=== PATIENT | female | born 1945 | race Caucasian/White ===

== ENCOUNTER 2019-08-14 13:58 | Emergency (ER) | payer MEDICARE, BC, SELFPAY ==
[2019-08-14 14:05] VITALS: BP 120/71; PULSE 76; RESP 18; TEMP 36.6; O2SAT 95; BMI 25.4
== END 2019-08-14 16:33 | disposition left against medical advice (07) ==
LOC: ER 15:04
PROVIDERS: Emergency Provider Nurse Practitioner Family; PCP Family Medicine
DX: Z53.21 Procedure and treatment not carried out due to patient leaving prior to being seen by health care provider (principal)
CPT/HCPCS: 99281

== ENCOUNTER 2019-08-20 08:41 | Outpatient (CLI) | payer MEDICARE, BC, SELFPAY ==
--- NOTE | 2019-08-20 08:45 | CT_ITS ---
WS: [id number] CT THORACIC SPINE HISTORY: Thoracic pain, soft tissue mass. 3 palpable nodules upper mid back. TECHNIQUE: Contiguous 2.5 mm axial images are reviewed to thoracic spine. Images are reformatted in s agittal and coronal planes. All CT scans at [facility] use at least one of these dose opt imization techniques: automated exposure control; mA and/or kV adjustment per patient size (includes targeted exams where dose is matched to clinical indication); or iterative reconstruction. DLP: 1071.08 mGycm COMPARISON: 03/08/2018 Prior T11 compression fracture with stabilization hardware above and below the fracture. The entire l umbar vertebral hardware has not been included on this thoracic spine CT evaluation. Vertical rods an d pedicle screws at T9, T10, T12 and L1. No significant lucency around the hardware to suggest loosen ing. No hardware fracture. Severe degenerative disc space narrowing at T10-11 with stable healed T11 compression deformity. Laminectomy defect with bilateral at the T11 level. Severe RIGHT and moderate foraminal stenosis at T10-11. Similar to the prior evaluation from 03/08/2018. There is mild osteophyt e encroachment into the subarticular recesses and foramen. Markers are placed over the upper back in the area of the palpable nodules. There are no soft tissue masses identified on this limited evaluation of the thoracic spine. Paravertebral soft tissues and th e adjacent lungs are normal. Atherosclerosis of the thoracic aorta. Small hiatal hernia. Mild bilateral foraminal stenosis beginning at the T2-3 level through T9-10. CT/CT thoracic spin wo con* [id number] IMPRESSION: 1. No soft tissue masses along the upper paraspinal thoracic region. 2. Stable visualized fusion hardware in the thoracolumbar spine. 3. Healed T11 compression fracture with severe RIGHT and moderate LEFT foramin al stenosis at T10-11. 4. No progression of degenerative changes.
== END 2019-08-20 08:42 | disposition home or self-care (01) ==
LOC: RADWPI 08:45
PROVIDERS: Family Provider Family Medicine; PCP Family Medicine; Visit Provider Licensed Practical Nurse
DX: M54.6 Pain in thoracic spine (principal); M79.89 Other specified soft tissue disorders; M48.54XA Collapsed vertebra, not elsewhere classified, thoracic region, initial encounter for fracture; M48.04 Spinal stenosis, thoracic region
CPT/HCPCS: 72128

== ENCOUNTER 2019-09-18 10:57 | Outpatient (CLI) | payer MEDICARE, BC, SELFPAY ==
--- NOTE | 2019-09-18 11:07 | MR_ITS ---
WS: [id number] INDICATION: Proptosis trauma TECHNIQUE: MRI of the orbits and face without gadolinium enhancement. Sagittal T1, coronal T2, axial FLAIR, axial gradient, axial diffusion, coronal T2 and axial T1 thin imaging with attention to the or bits FINDINGS: No evidence of restricted diffusion to suggest acute ischemia. Ventricular system and basal cisterns are patent. Moderate small vessel changes. Moderate parenchymal volume loss. 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 Normal vascular flow voids at the skull base. No extra-axial fluid co llections. Paranasal sinuses and mastoid air cells are well aerated. Benign partially empty sella. Mild symmetr ic atrophy involving the temporal lobes and hippocampal formations. Normal optic chiasm and pituitary infundibulum. Optic nerves are normal in appearance. No evidence of optic nerve edema. Normal visual ized rectus muscles. Normal intraconal fat. Globes are normal in appearance. MR/[place] [id number] IMPRESSION: 1. Orbits are normal in appearance. No optic nerve edema. Normal rectus muscle s. 2. No evidence of intraorbital hematoma. Normal intraconal fat. 3. Mild small vessel changes with moderate parenchymal volume loss. 4. Mild symmetric atrophy involving the temporal lobes and hippocampal formati ons. 5. Normal optic chiasm.
[2019-09-18 12:00] LABS: Blood Urea Nitrogen 13 mg/dL (8-23)
== END 2019-09-18 10:58 | disposition home or self-care (01) ==
LOC: RADWPI 11:02
PROVIDERS: Family Provider Family Medicine; PCP Family Medicine; Visit Provider Ophthalmology
DX: H05.242 Constant exophthalmos, left eye (principal); G31.89 Other specified degenerative diseases of nervous system
CPT/HCPCS: 70336; 82565; 84520; A9579

== ENCOUNTER 2019-10-18 08:05 | Outpatient (CLI) | payer MEDICARE, BC, SELFPAY ==
--- NOTE | 2019-10-18 08:11 | MR_ITS ---
WS: [id number] MRI THORACIC SPINE WITH CONTRAST TECHNIQUE: Sagittal T1, T2 and STIR imaging. Axial T2 imaging. Post gadolinium imaging was obtained. CLINICAL INFORMATION: thoracic pain COMPARISON: CT 08/20/2019 and 03/08/2018. FINDINGS: Susceptibility artifact from hardware limits examination. Mild thoracic curve. Mild thoracic kyphosis. Postoperative changes prior pedicle screw fixation with posterior fixation rods. Fusion extends from T9 through S1. Chronic compression of the T11 vertebral body with anterior wedging is unchanged. Compression superior endplate. Loss of approximately 50% zee tebral body height. Interbody fusion at this level. Thoracic hardware appears stable. Partially visualized anterior fusion C6-7. No high-grade central ca nal stenosis. Cord signal appears normal where visualized. No abnormal gadolinium enhancement. No new compression fractures. No significant disc extrusions or protrusions. Mild bony foraminal narrowing T4-5, T7-T8, T8-9, and T12-L1. Normal visualized thoracic aorta. MR/MR thoracic spine wo/w [id number] IMPRESSION: 1. Limited examination due to extensive susceptibility artifact from hardware. 2. Prior postoperative changes pedicle screw fixation with interconnecting houston s T9-S1. 3. Stable appearing chronic compression at T11. No new compression fractures. 4. No high-grade central canal stenosis. Cord signal appears normal. 5. Partially visualized postoperative changes in the cervical spine at C6-7.
== END 2019-10-18 08:06 | disposition home or self-care (01) ==
LOC: RADWPI 08:09
PROVIDERS: Family Provider Family Medicine; PCP Family Medicine; Visit Provider Specialist
DX: S22.080A Wedge compression fracture of T11-T12 vertebra, initial encounter for closed fracture (principal); X58.XXXA Exposure to other specified factors, initial encounter
CPT/HCPCS: 72157; A9579

== ENCOUNTER 2019-11-04 11:56 | Outpatient (CLI) | payer MEDICARE, BC, SELFPAY ==
[2019-10-31 10:50] VITALS: BMI 24.6
[2019-11-04 12:29] VITALS: BP 155/66; PULSE 66; RESP 18; TEMP 37; O2SAT 95
--- NOTE | 2019-11-04 13:00 | US_ITS ---
WS: [id number] ULTRASOUND GUIDED BIOPSY SOFT TISSUE MASS OVER THE POSTERIOR MID THORACIC SPINE. HISTORY: soft tissue mass Procedure, risks, and complications are explained to the patient. Consent was obtained. Skin is clean sed with ChloraPrep and anesthetized with 1% buffered lidocaine. Soft tissue mass over the posterior thoracic spine is readily visible. This is at the superior most a spect of the patient's orthopedic hardware. Increased soft tissue mass surrounds the superior LEFT ve rtical houston. Upon ultrasound evaluation there is increased soft tissue surrounding the houston. Very littl e fluid. Small dermatome is made in the skin. Attempted aspiration with a 20-gauge spinal needle. Very little aspirate was obtained. This is predominantly a solid mass. 20-gauge core biopsies are performed with a Temno needle. 4-5 cores are obtained and placed in saline as requested by the pathology department. No complications are encountered. Sterile dressing was placed over the dermatome. US/ biopsy [id number] IMPRESSION: 1. Uncomplicated fine-needle aspiration and core biopsies are performed of the soft tissue palpable mass surrounds the distal vertical thoracic houston. 2. Specimen placed in saline as requested.
[2019-11-04 13:41] VITALS: BP 131/69; PULSE 58; RESP 18
== END 2019-11-04 11:57 | disposition home or self-care (01) ==
LOC: GILAB 12:00
PROVIDERS: PCP Family Medicine; Visit Provider Specialist
DX: M79.89 Other specified soft tissue disorders (principal)
CPT/HCPCS: 10005; 20206; 76942; 88112; 88173; 88305; 88309

== ENCOUNTER → 2019-12-05 10:21 | Outpatient (BNVA) | payer MEDICARE, BC, SELFPAY | PROVIDERS: PCP Family Medicine; Visit Provider Internal Medicine | DX: Z11.59 Encounter for screening for other viral diseases (principal) | CPT/HCPCS: 87635 ==

== ENCOUNTER 2020-01-07 14:48 | Outpatient (CLI) | payer MEDICARE, BC, SELFPAY ==
--- NOTE | 2020-01-07 14:55 | MM_ITS ---
WS: [id number] BILATERAL DIGITAL SCREENING MAMMOGRAPHY WITH CAD CLINICAL INFORMATION: SCREENING HISTORY: Screening mammogram. No current complaints. COMPARISON: January 01, 2019 TECHNIQUE: Bilateral CC and MLO views. FINDINGS: The breasts are composed of heterogeneous fibroglandular density tissue, which can limit the detectio n of small underlying mass lesions. No suspicious mass, asymmetry, calcifications, or architectural d istortion. No evidence of malignancy. Vascular calcification. Punctate and lucent centered calcificat ions. MM/[place] [id number] IMPRESSION: BI-RADS: 2-Benign FOLLOW UP: 1 Year Follow-up Recommend return to annual screening mammography.
== END 2020-01-07 14:49 | disposition home or self-care (01) ==
PROVIDERS: PCP Family Medicine; Visit Provider Family Medicine
DX: Z12.31 Encounter for screening mammogram for malignant neoplasm of breast (principal)
CPT/HCPCS: 77067

== ENCOUNTER 2020-04-06 13:52 | Outpatient (RCR) | payer MEDICARE, BC, SELFPAY | END 2020-05-03 23:59 | disposition home or self-care (01) | LOC: SPT 13:52 | PROVIDERS: PCP Family Medicine; Referring Provider Neurological Surgery; Visit Provider Neurological Surgery | DX: M54.9 Dorsalgia, unspecified (principal) | CPT/HCPCS: 97110; 97161 ==

== ENCOUNTER 2020-05-04 06:00 | Outpatient (RCR) | payer MEDICARE, BC, SELFPAY | END 2020-05-31 23:59 | disposition home or self-care (01) | LOC: SPT 06:00 | PROVIDERS: PCP Family Medicine; Referring Provider Neurological Surgery; Visit Provider Neurological Surgery | DX: M54.9 Dorsalgia, unspecified (principal) | CPT/HCPCS: 97110 ==

== ENCOUNTER 2020-06-01 06:00 | Outpatient (RCR) | payer MEDICARE, BC, SELFPAY | END 2020-07-01 23:59 | disposition home or self-care (01) | LOC: SPT 06:00 | PROVIDERS: PCP Family Medicine; Referring Provider Neurological Surgery; Visit Provider Neurological Surgery | DX: M54.9 Dorsalgia, unspecified (principal) | CPT/HCPCS: 97110; 97530 ==

== ENCOUNTER 2020-07-02 06:00 | Outpatient (RCR) | payer MEDICARE, BC, SELFPAY | END 2020-07-31 23:59 | disposition home or self-care (01) | LOC: SPT 06:00 | PROVIDERS: PCP Family Medicine; Referring Provider Neurological Surgery; Visit Provider Neurological Surgery | DX: M54.9 Dorsalgia, unspecified (principal) | CPT/HCPCS: 97110 ==

== ENCOUNTER 2020-08-05 13:00 | Outpatient (CLI) | payer MEDICARE, BC, SELFPAY ==
--- NOTE | 2020-08-05 13:06 | XR_ITS ---
WS: [id number] THORACIC SPINE TECHNIQUE: AP and lateral views are performed. HISTORY: DORSALGIA, PAIN IN THORACIC SPINE COMPARISON: 01/30/2018 Moderate increase in the thoracic kyphosis. Posterior alignment is normal. Disc space narrowing and d esiccation throughout the thoracic spine. Chronic T11 compression fracture. Fracture approximately 50 % without retropulsion. No additional fractures. Mild atherosclerosis aorta. XR/XR thoracic spine 2V [id number] IMPRESSION: 1. Stable chronic T11 compression fracture 50%. 2. Moderate increase in thoracic kyphosis.
--- NOTE | 2020-08-05 13:06 | XR_ITS ---
WS: [id number] LUMBAR SPINE: 3 VIEWS TECHNIQUE: AP, lateral and L5-S1 spot. HISTORY: BACK PAIN DORSALGIA, PAIN IN THORACIC SPINE COMPARISON: 11/16/2016 There is extensive fusion hardware in the lumbar spine extending from L1 through S1. There is a gap i n the fusion hardware between L4 and L5 which are probably separate fusion grafts. These are unchange d over multiple prior studies. No lucency surrounding the pedicle screws. Severe osteopenia. Extensive bone grafting is fused from L1 to L5. SI joints are symmetric bilaterally. No soft tissue abnormalities. XR/XR lumbar spine 2-3V* [id number] IMPRESSION: 1. Posterior lumbar fusion from L1 to S1 appears unchanged over multiple prior studies. 2. Extensive bilateral bone grafting throughout the lumbar spine.
== END 2020-08-05 13:01 | disposition home or self-care (01) ==
PROVIDERS: PCP Family Medicine; Visit Provider Neurological Surgery
DX: M54.5 Low back pain (principal); M54.6 Pain in thoracic spine; S22.080A Wedge compression fracture of T11-T12 vertebra, initial encounter for closed fracture; M40.204 Unspecified kyphosis, thoracic region; M43.27 Fusion of spine, lumbosacral region
CPT/HCPCS: 72070; 72100

== ENCOUNTER 2020-10-16 12:18 | Outpatient (CLI) | payer MEDICARE, BC, SELFPAY ==
--- NOTE | 2020-10-16 12:21 | US_ITS ---
WS: [id number] RENAL ULTRASOUND HISTORY: ABNORMAL FINDINGS ON CT SCAN COMPARISON: 03/28/2018 TECHNIQUE: 2-D and color Doppler imaging of the kidney submitted. Right kidney: 9.9 cm x 2.9 cm x 3.4 cm. Normal size kidney. No hydronephrosis. Cortical cyst in the superior pole maximum diameter of 9 mm. T here is an additional cortical cyst in the inferior pole with a maximum diameter of 9 mm. Left kidney: 9.1 cm x 3.2 cm x 4.3 cm. Normal size kidney. Cortical cyst inferior pole with a maximum diameter of 1.2 cm. Aorta: Normal. Urinary Bladder: Normal distention. US/US renal BI* [id number] IMPRESSION: 1. No renal obstruction or solid mass. 2. Bilateral cortical cysts.
== END 2020-10-16 12:19 | disposition home or self-care (01) ==
PROVIDERS: PCP Family Medicine; Visit Provider Family Medicine
DX: R93.429 Abnormal radiologic findings on diagnostic imaging of unspecified kidney (principal); N28.1 Cyst of kidney, acquired
CPT/HCPCS: 76770

== ENCOUNTER 2020-11-26 20:15 | Emergency (ER) | payer MEDICARE, BC, SELFPAY ==
--- NOTE | 2020-11-26 20:20 | XRR_ITS ---
PROCEDURE INFORMATION: Exam: XR Chest Exam date and time: 11/26/2020 8:20 PM Age: 75 years old Clinical indication: Fever and other: Weakness; Patient HX: Weakness, diarrhea, fever x3days TECHNIQUE: Imaging protocol: XR of the chest. Views: 1 view. COMPARISON: CR Chest 1 [place] [id number] 07/27/2017 11:24 AM FINDINGS: Lungs: Hyperinflated lungs. No consolidation. Pleural spaces: Unremarkable. No pleural effusion. No pneumothorax. Heart/Mediastinum: Unremarkable. No cardiomegaly. Bones/joints: Sequela of ACDF in the lower cervical spine as well as partially visualized posterior spinal fusion device in the lumbar spine. XR/XR chest 1V portable [id number] IMPRESSION: No consolidation.
--- NOTE | 2020-11-26 20:20 | ECG_ITS ---
[facility] Test Date: 2020-11-26 Pat Name: Michelle Bradford Department: Room: Gender: Female [employer] Lead: : 1945 Requested By: David Ramirez Order Number: [id number] Emely MD: Archana Fernández M.D. Measurements Intervals [place] Rate: 82 P: 47 WY: 162 QRS: -7 QRSD: 101 T: 17 QT: 393 QTc: 461 Interpretive Statements SINUS RHYTHM PROBABLE INFERIOR MYOCARDIAL INFARCTION , PROBABLY OLD [35 ms Q WAVE IN II/aVF] Compared to ECG 07/27/2017 11:40:25 No significant changes Electronically Signed On 11-27-2020 13:05:40 CDT by Archana Fernández M.D. [id number]
[2020-11-26 20:25] VITALS: BP 135/68; PULSE 89; RESP 16; TEMP 37.8; O2SAT 92; BMI 22.6
--- NOTE | 2020-11-26 20:55 | W.ED.WEAKNES ---
HPI - Weakness General: Chief complaint: Weakness Stated complaint: GENERALIZED WEAKNESS Time Seen by Provider: 11/26/20 20:17 Source: patient and EMS Mode of arrival: EMS Limitations: no limitations History of Present Illness: HPI Narrative: 75-year-old female who states that over the last 4 days she been having slight cough congestion body aches fever and weakness. States she had a fever up to 101. She denies any sick contacts. She had her meningitis vaccine. She denies any worsening improving factors. Per EMS her pulse ox was in the upper 80s on room air. She does have a history of COPD. Associated symptoms: Reports fever(s); Denies chest pain, chills, dysuria, easy bruising, headache(s), nausea or vomiting Review of Systems Const: Reports: fever(s) and body aches; Denies: chills or change in appetite Eyes: Denies: blurry vision or eye discomfort ENMT: Denies: throat pain or dental pain Card: Denies: chest pain Resp: Reports: non-productive cough; Denies: dyspnea GI: Denies: abdominal pain, nausea, vomiting or diarrhea : Denies: dysuria Musc: Denies: neck pain or back pain Skin/Breast: Denies: rash Neuro: Denies: headache(s) Psych: Denies: depression Caleb/Lymph: Denies: easy bruising All/Imm: Denies: urticaria PFSH ED PFSH: Medical History (Updated 11/26/20 @ 23:19 by David Ramirez MD) Lumbar post-laminectomy syndrome Soft tissue mass Thoracic postlaminectomy syndrome Surgical History History of cholecystectomy History of hysterectomy History of lumbar surgery (~2010) Dr. Kauffman L1-L5 laminectomy/fusion/fixation History of lumbar surgery (~2012) Dr. Kauffman L1-L5 laminectomy/fusion/fiaxation; exploration History of thoracic surgery (~04/2016) Dr. Kauffman T9-S1 fusion fixation History of thoracic surgery (~02/2017) Dr. Kauffman T10-T11 fixation/fusion. HX T11 fracture. 04/06/17 Dr Kauffman removal of posterior 5.5 mm diameter titanium houston. Exploration of rostal end of fusion adjacent to houston and screw;staph infection Status post cervical spinal fusion (~2007) Dr Leblanc C6-C7 ACDFF Family History Father Stroke Mother Cancer Family history of thyroid problem Sister Cancer Brother Diabetes Social History Smoking and tobacco status: former smoker (patient is in the process of quitting she states that she quit about 07/02/2020) Alcohol intake: never Household members: none Marital status: / Current occupational status: retired History of recent travel: No Physical Exam Const: COMMON NORMALS: no acute distress, patient oriented x3 and healthy appearing HENMT: COMMON NORMALS: normocephalic and atraumatic HEAD & SCALP: normocephalic and atraumatic Eye: COMMON NORMALS: Equal, round and reactive pupils present and EOMs intact bilaterally PUPIL: Yes Equal, round and reactive pupils present Neck/C-Spine: COMMON NORMALS: full ROM and supple Chest: COMMONS NORMALS: normal inspection of the chest and normal palpation of entire chest wall Resp: COMMON NORMALS: normal respiratory effort, No retractions, No use of accessory muscles and clear to auscultation bilaterally AUSCULTATION: clear to auscultation bilaterally Cardio: COMMON NORMALS: regular rate, regular rhythm and No murmurs present (Cardio) RATE: regular rate RHYTHM: regular rhythm GI: COMMON NORMALS: Normal to inspection, nondistended, normoactive bowel sounds present, Soft to palpation, non-tender and no masses PALPATION: Yes Soft to palpation Extremity: COMMON NORMALS: normal to inspection and full ROM Neuro: COMMON NORMALS: patient oriented x3, moves all extremities and no focal motor deficits Psych: COMMON NORMALS: mental status grossly normal, Normal thought process present and cooperative THOUGHT PROCESS: Normal thought process present Skin: COMMON NORMALS: no rashes or lesions noted and no wounds GENERAL SKIN EXAM: no rashes or lesions noted Course Vital Signs: Vital signs: Vital Signs Temperature 98.4 F 11/26/20 23:13 Pulse Rate 80 11/26/20 23:13 Respiratory Rate 16 11/26/20 23:13 Blood Pressure 130/71 11/26/20 23:13 Pulse Oximetry 95 11/26/20 23:13 MDM - Weakness MDM Narrative: Medical decision making narrative: 75-year-old female who presented here with fever along with generalized weakness. She is found to have urinary tract infection. CT here showed no signs of pneumonia or pulmonary embolism. Did offer patient admission she states she felt much improved would like to go home. Will place on Keflex she is to follow-up with PCP and return if worsening. She understands and agrees to plan. Lab Data: Labs: Lab Results 11/26/20 11/26/20 11/26/20 Range/Units 20:55 20:55 20:55 WBC 11.6 H (4.0-10.0) 10^3/ uL RBC 4.11 (4.1-5.3) 10^6/u L Hgb 11.3 L (11.5-15.3) g/dL Hct 36.5 L (37.0-47.0) % MCV 88.8 (81-99) fl MCH 27.5 L (28.0-34.0) pg MCHC 31.0 (30.0-36.0) g/dL RDW 16.1 H (12.1-15.1) % Plt Count 153 (130-400) 10^3/c mm MPV 10.8 H (7.4-10.4) fL Neut % (Auto) 89.5 % Lymph % (Auto) 5.6 % Ballard % (Auto) 3.7 % Eos % (Auto) 0.3 % Baso % (Auto) 0.4 % Neut # (Auto) 10.36 H (1.8-7.7) 10^3/u L Lymph # (Auto) 0.7 L (0.8-4.8) 10^3/u L Ballard # (Auto) 0.4 (0.2-0.9) 10^3/u L Eos # (Auto) 0.0 (0.0-0.8) 10^3/u L Baso # (Auto) 0.1 (0.0-0.1) 10^3/u L Nucleated RBC % (a uto) 0 % Nucleated RBCs # 0.0 /100WBC D-Dimer (0-0.59) ug/mIFE U Sodium 134 L (136-145) mmol/L Potassium 4.2 (3.5-5.1) mmol/L Chloride 99 (98-107) mmol/L Carbon Dioxide 23 (22-29) mmol/L Anion Gap 16.2 (5-19) BUN 31 H (8-23) mg/dL Creatinine 1.5 H (0.5-0.9) mg/dL GFR Calculation Not Reportable Glucose 136 H (65-115) mg/dL Calculated Osmolal ity 287 (285-295) mOsm/k g Lactic Acid 1.8 (0.5-2.2) mmol/L Calcium 9.2 (8.5-10.5) mg/dL Total Bilirubin 0.6 (0.15-1.2) mg/dL AST 23 (0-32) U/L ALT 16 (0-33) U/L Alkaline Phosphata se 85 (35-105) IU/L C-Reactive Protein 143.9 H (0.0-4.9) mg/L NT-Pro-B Natriuret Pep 652 H (0-125) pg/mL Total Protein 7.4 (6.6-8.7) g/dL Albumin 3.5 (3.5-5.2) g/dL Globulin 3.9 (1.3-4.6) g/dL Urine Color (Yellow) Urine Appearance (CLEAR) Urine pH (5-7) Ur Specific Gravit y (1.005-1.030) Urine Protein (Negative) Urine Glucose (UA) (Normal) Urine Ketones (Negative) Urine Blood (Negative) Urine Nitrate (Negative) Urine Bilirubin (Negative) Urine Urobilinogen (Negative) mg/dL Ur Leukocyte Charissa ase (Negative) Urine RBC (0-2) /hpf Urine WBC (0-5) /hpf Ur Squamous Epith Cells (0-5) /hpf Ur Transition Epit h Cell /hpf Amorphous Sediment Urine Bacteria (NONE) /hpf 11/26/20 11/26/20 Range/Units 20:55 21:40 WBC (4.0-10.0) 10^3/ uL RBC (4.1-5.3) 10^6/u L Hgb (11.5-15.3) g/dL Hct (37.0-47.0) % MCV (81-99) fl MCH (28.0-34.0) pg MCHC (30.0-36.0) g/dL RDW (12.1-15.1) % Plt Count (130-400) 10^3/c mm MPV (7.4-10.4) fL Neut % (Auto) % Lymph % (Auto) % Ballard % (Auto) % Eos % (Auto) % Baso % (Auto) % Neut # (Auto) (1.8-7.7) 10^3/u L Lymph # (Auto) (0.8-4.8) 10^3/u L Ballard # (Auto) (0.2-0.9) 10^3/u L Eos # (Auto) (0.0-0.8) 10^3/u L Baso # (Auto) (0.0-0.1) 10^3/u L Nucleated RBC % (a uto) % Nucleated RBCs # /100WBC D-Dimer 4.36 H (0-0.59) ug/mIFE U Sodium (136-145) mmol/L Potassium (3.5-5.1) mmol/L Chloride (98-107) mmol/L Carbon Dioxide (22-29) mmol/L Anion Gap (5-19) BUN (8-23) mg/dL Creatinine (0.5-0.9) mg/dL GFR Calculation Glucose (65-115) mg/dL Calculated Osmolal ity (285-295) mOsm/k g Lactic Acid (0.5-2.2) mmol/L Calcium (8.5-10.5) mg/dL Total Bilirubin (0.15-1.2) mg/dL AST (0-32) U/L ALT (0-33) U/L Alkaline Phosphata se (35-105) IU/L C-Reactive Protein (0.0-4.9) mg/L NT-Pro-B Natriuret Pep (0-125) pg/mL Total Protein (6.6-8.7) g/dL Albumin (3.5-5.2) g/dL Globulin (1.3-4.6) g/dL Urine Color Yellow (Yellow) Urine Appearance Hazy A (CLEAR) Urine pH 5 (5-7) Ur Specific Gravit y 1.005 (1.005-1.030) Urine Protein 2+ H (Negative) Urine Glucose (UA) Norm (Normal) Urine Ketones Negative (Negative) Urine Blood 3+ H (Negative) Urine Nitrate Positive H (Negative) Urine Bilirubin Neg (Negative) Urine Urobilinogen Norm (Negative) mg/dL Ur Leukocyte Charissa ase 2+ H (Negative) Urine RBC 0-4 H (0-2) /hpf Urine WBC 15-25 H (0-5) /hpf Ur Squamous Epith Cells 0-4 H (0-5) /hpf Ur Transition Epit h Cell 0-4 /hpf Amorphous Sediment Not Reportable Urine Bacteria 2+ H (NONE) /hpf Imaging Data^: CXR: Attestation: I personally reviewed and interpreted this imaging study as follows: Radiologist's impression: Reason: fever Impression: No consolidation. Dictated By: Angus Bernard DO Signed By: Angus Bernard DO Signed Date/Time: 11/26/202055 DD/ [address] [address] XRay Report Signed Patient: Michelle Bradfrod Unit #: [id number] : 1945 Age/Sex: 75 / F ADM Date: 11/26/20 Loc: ER Room/Bed: Attending Dr: Ordering Provider/Ordering MD: David Ramirez MD Date of Service: 11/26/20 Procedure(s): XR chest 1V portable [id number] Accession Number(s): [id number] Report Number: [id number] PROCEDURE INFORMATION: Exam: XR Chest Exam date and time: 11/26/2020 8:20 PM Age: 75 years old Clinical indication: Fever and other: Weakness; Patient HX: Weakness, diarrhea, fever x3days TECHNIQUE: Imaging protocol: XR of the chest. Views: 1 view. COMPARISON: CR Chest 1 [place] [id number] 07/27/2017 11:24 AM FINDINGS: Lungs: Hyperinflated lungs. No consolidation. Pleural spaces: Unremarkable. No pleural effusion. No pneumothorax. Heart/Mediastinum: Unremarkable. No cardiomegaly. Bones/joints: Sequela of ACDF in the lower cervical spine as well as partially visualized posterior spinal fusion device in the lumbar spine. XR/XR chest 1V portable [id number] IMPRESSION: No consolidation. CT Chest: Attestation: I personally reviewed and interpreted this imaging study as follows: Radiologist's impression: for pulmonary embolism. Radiation Dose CTDIVOL = (mGy): DLP = 547.35 (mGy-cm) Dictated By: Jose Yun Signed By: Jose Yun Signed Date/Time: 11/26/202314 DD/ [address] [address] [address] Scan Report Signed Patient: Michelle Bradford Unit #: [id number] : 1945 Age/Sex: 75 / F ADM Date: 11/26/20 Loc: ER Room/Bed: Attending Dr: Ordering Provider/Ordering MD: David Ramirez MD Date of Service: 11/26/20 Procedure(s): CT angio chest PE protcl [id number] Accession Number(s): [id number] Report Number: [id number] PROCEDURE INFORMATION: Exam: CTA Chest With Contrast Exam date and time: 11/26/2020 9:59 PM Age: 75 years old Clinical indication: Shortness of breath; Prior surgery; Surgery type: Lower back; Additional info: SOB TECHNIQUE: Imaging protocol: Computed tomographic angiography of the chest with contrast. 3D rendering (Not supervised by radiologist): MIP and/or 3D reconstructed images were created by the technologist. Radiation optimization: All CT scans at this facility use at least one of these dose optimization techniques: automated exposure control; mA and/or kV adjustment per patient size (includes targeted exams where dose is matched to clinical indication); or iterative reconstruction. Contrast material: VISI 320; Contrast volume: 55 ml; Contrast route: INTRAVENOUS (IV); COMPARISON: CTA Chest-Pulmonary Emb [id number] 07/27/2017 1:15 PM RADIATION DOSE METRICS: Total DLP (mGy-cm): 547.35 FINDINGS: Pulmonary arteries: Normal. No pulmonary emboli. Aorta: Scattered atherosclerosis of the thoracic aorta. Negative for aneurysm. No dissection. Lungs: Unremarkable. No consolidation. No masses. Pleural spaces: Unremarkable. No pneumothorax. No pleural effusion. Heart: Unremarkable. No cardiomegaly. No pericardial effusion. Lymph nodes: Unremarkable. No enlarged lymph nodes. Gallbladder and bile ducts: Cholecystectomy. Bones/joints: Thoracic spinal alignment is unremarkable. No acute fractures. There is a previous compression fracture at T11. Removal of surgical hardware from the posterior lower thoracic spine noted. Soft tissues: Unremarkable. CT/CT angio chest PE protcl [id number] IMPRESSION: Negative for pulmonary embolism. Radiation Dose CTDIVOL = (mGy): DLP = 547.35 (mGy-cm) EKG Data^: EKG 1: Attestation: I personally reviewed and interpreted this EKG as follows: EKG interpretation date: 11/26/20 EKG interpretation time: 22:51 Interpretation: nsr hr [address] or t wave abnormalities qrs 101 qtc 432 Discharge Plan Discharge Patient Disposition: Home Clinical Impression: Acute cystitis Qualifiers: Hematuria presence: without hematuria Qualified Code(s): N30.00 - Acute cystitis without hematuria Condition: Stable Prescriptions: New cephalexin 500 mg capsule 500 mg PO TID 7 Days Qty: 21 RF: 0 No Action diclofenac sodium 1 % kit 2 gm TOPICAL QID PRN (Reason: Itching) RF: 0 hydrocodone-acetaminophen 10-325 mg tablet 1 tab PO Q6H PRN (Reason: Pain) RF: 0 albuterol sulfate 90 mcg/actuation HFA aerosol inhaler 2 puff INHALATION 6XD PRN (Reason: Shortness Of Breath Or Wheezing) RF: 0 alprazolam 0.5 mg tablet 0.5 mg PO QID PRN (Reason: Anxiety) RF: 0 amlodipine 5 mg tablet 5 mg PO DAILY RF: 0 aspirin [Adult Low Dose Aspirin] 81 mg tablet,delayed release (DR/EC) 81 mg PO DAILY RF: 0 atorvastatin 40 mg tablet 40 mg PO DAILY RF: 0 calcitriol 0.25 mcg capsule 0.25 mcg PO DAILY RF: 0 citalopram 20 mg tablet 20 mg PO DAILY RF: 0 doxycycline hyclate 100 mg tablet 100 mg PO DAILY RF: 0 pantoprazole [Protonix] 40 mg tablet,delayed release (DR/EC) 40 mg PO DAILY RF: 0 cyanocobalamin (vitamin B-12) 1,000 mcg Tablet 1,000 mcg PO DAILY PRN (Reason: Fatigue) RF: 0 Discharge Orders: Discharge ED (Routine); Ordered 11/26/20 Ordered By: David Ramirez Referrals: Elysia Sousa MD [Primary Care Provider] - 1-3 days Discharge Diet: Advance as tolerated Discharge Activity: Resume usual activity Patient Instructions: Urinary Tract Infection in Women (ED) Coding Level of Care Code ED Supervisor Paint Department for Chg Fwd Exam Comprehensive
[2020-11-26 21:11] LABS: Basophils # 0.1 10^3/uL (0.0-0.1); Basophils % 0.4 %; Eosinophils % 0.3 %; Hematocrit 36.5 % (37.0-47.0); Hemoglobin 11.3 g/dL (11.5-15.3); Lymphocytes # 0.7 10^3/uL (0.8-4.8); Lymphocytes % 5.6 %; Mean Corpuscular Hemoglobin 27.5 pg (28.0-34.0); Mean Corpuscular Volume 88.8 fl (81-99); Mean Platelet Volume 10.8 fL (7.4-10.4); Monocytes # 0.4 10^3/uL (0.2-0.9); Monocytes % 3.7 %; Neutrophils # 10.36 10^3/uL (1.8-7.7); Neutrophils % 89.5 %; Nucleated Red Blood Cells % 0 %; Platelet Count 153 10^3/cmm (130-400); Red Blood Count 4.11 10^6/uL (4.1-5.3); Red Cell Distribution Width 16.1 % (12.1-15.1); White Blood Count 11.6 10^3/uL (4.0-10.0)
[2020-11-26] MEDS: dexamethasone 10 mg/mL INJ IVP (21:11)
[2020-11-26] MEDS: acetaminophen 325 mg Tablet 650 MG PO (21:11)
[2020-11-26] MEDS: sodium chloride 0.9% 1,000 ML 999 ML IV (21:12)
[2020-11-26 21:38] LABS: Lactic Sepsis W/Reflex 1.8 mmol/L (0.5-2.2)
[2020-11-26 21:48] LABS: Alanine Aminotransferase 16 U/L (0-33); Albumin Level 3.5 g/dL (3.5-5.2); Alkaline Phosphatase 85 IU/L (35-105); Anion Gap 16.2 (5-19); Aspartate Amino Transferase 23 U/L (0-32); Blood Urea Nitrogen 31 mg/dL (8-23); C Reactive Protein 143.9 mg/L (0.0-4.9); Calcium 9.2 mg/dL (8.5-10.5); Carbon Dioxide 23 mmol/L (22-29); Chloride 99 mmol/L (98-107); Globulin 3.9 g/dL (1.3-4.6); Glucose 136 mg/dL (65-115); NT Pro B Type Natriuretic Pept 652 pg/mL (0-125); Osmolality Calculated 287 mOsm/kg (285-295); Potassium 4.2 mmol/L (3.5-5.1); Sodium 134 mmol/L (136-145); Total Bilirubin 0.6 mg/dL (0.15-1.2); Total Protein 7.4 g/dL (6.6-8.7)
[2020-11-26 21:53] VITALS: PULSE 115; RESP 19; O2SAT 90
[2020-11-26] MEDS: albuterol 8 gm MDI 2 PUFF INHALATION (21:53)
[2020-11-26 21:56] LABS: D Dimer 4.36 ug/mIFEU (0-0.59)
--- NOTE | 2020-11-26 21:59 | CTR_ITS ---
PROCEDURE INFORMATION: Exam: CTA Chest With Contrast Exam date and time: 11/26/2020 9:59 PM Age: 75 years old Clinical indication: Shortness of breath; Prior surgery; Surgery type: Lower back; Additional info: SOB TECHNIQUE: Imaging protocol: Computed tomographic angiography of the chest with contrast. 3D rendering (Not supervised by radiologist): MIP and/or 3D reconstructed images were created by the technologist. Radiation optimization: All CT scans at this facility use at least one of these dose optimization techniques: automated exposure control; mA and/or kV adjustment per patient size (includes targeted exams where dose is matched to clinical indication); or iterative reconstruction. Contrast material: VISI 320; Contrast volume: 55 ml; Contrast route: INTRAVENOUS (IV); COMPARISON: CTA Chest-Pulmonary Emb [id number] 07/27/2017 1:15 PM RADIATION DOSE METRICS: Total DLP (mGy-cm): 547.35 FINDINGS: Pulmonary arteries: Normal. No pulmonary emboli. Aorta: Scattered atherosclerosis of the thoracic aorta. Negative for aneurysm. No dissection. Lungs: Unremarkable. No consolidation. No masses. Pleural spaces: Unremarkable. No pneumothorax. No pleural effusion. Heart: Unremarkable. No cardiomegaly. No pericardial effusion. Lymph nodes: Unremarkable. No enlarged lymph nodes. Gallbladder and bile ducts: Cholecystectomy. Bones/joints: Thoracic spinal alignment is unremarkable. No acute fractures. There is a previous compression fracture at T11. Removal of surgical hardware from the posterior lower thoracic spine noted. Soft tissues: Unremarkable. CT/CT angio chest PE protcl [id number] IMPRESSION: Negative for pulmonary embolism. Radiation Dose CTDIVOL = (mGy): DLP = 547.35 (mGy-cm)
[2020-11-26 22:00] VITALS: O2SAT 88; O2SAT 89; O2SAT 94
[2020-11-26 22:16] LABS: Glucose Urine UA Norm (Normal); Specific Gravity, Urine 1.005 (1.005-1.030); Urine Appearance Hazy (CLEAR); Urine Color Yellow (Yellow); pH Urine 5 (5-7)
[2020-11-26 22:17] LABS: Add Urine Microscopic? YES; Bilirubin Urine Neg (Negative); Blood Urine 3+ (Negative); Ketones Urine Negative (Negative); Leukocyte Esterase Urine 2+ (Negative); Nitrate Urine Positive (Negative); Protein Urine 2+ (Negative); Urobilinogen Urine Norm (Negative)
[2020-11-26 22:18] LABS: Add Urine Culture? Yes; Bacteria Urine 2+ /hpf; RBC Urine 0-4 /hpf (0-2); Squamous Epithelial Cell Urine 0-4 /hpf (0-5); Transitional Epi Cells Urine 0-4 /hpf; WBC Urine 15-25 /hpf (0-5)
[2020-11-26] MEDS: iodixanol 320 mg/mL 100mL Btl IV (22:27)
[2020-11-26 23:13] VITALS: BP 130/71; PULSE 80; RESP 16; TEMP 36.9; O2SAT 95
[2020-11-27 01:10] VITALS: BP 132/84; PULSE 81; RESP 16; O2SAT 91
[2020-11-27 14:56] LABS: Coronavirus Test Green County Not Detected
--- NOTE | 2020-11-27 17:59 | PC.NURSE ---
notified pt of negative covid results
== END 2020-11-27 01:12 | disposition home or self-care (01) ==
PROVIDERS: Emergency Provider Emergency Medicine; PCP Family Medicine
DX: N30.00 Acute cystitis without hematuria (principal); J44.9 Chronic obstructive pulmonary disease, unspecified; Z87.891 Personal history of nicotine dependence
CPT/HCPCS: 71045; 71275; 80053; 81001; 83605; 83880; 85025; 85378; 86140; 87040; 87077; 87086; 87186; 87205; 87635; 93005; 94640; 96361; 96374; 99284; J1100; J3535; J7030; Q9967

== ENCOUNTER 2021-01-08 14:34 | Outpatient (CLI) | payer MEDICARE, BC, SELFPAY ==
--- NOTE | 2021-01-08 14:38 | MM_ITS ---
WS: [id number] BILATERAL DIGITAL SCREENING MAMMOGRAPHY WITH CAD CLINICAL INFORMATION: SCREENING HISTORY: Screening mammogram. No current complaints. COMPARISON: January 07, 2020 TECHNIQUE: Bilateral CC and MLO views. FINDINGS: The breasts are composed of heterogeneous fibroglandular density tissue, which can limit the detectio n of small underlying mass lesions. Vascular calcifications. Benign punctate calcifications are stabl e. A few secretory calcifications. No suspicious mass, asymmetry, calcifications, or architectural di stortion. No evidence of malignancy. MM/[place] [id number] IMPRESSION: BI-RADS: 2-Benign FOLLOW UP: 1 Year Follow-up Recommend return to annual screening mammography.
== END 2021-01-08 14:35 | disposition home or self-care (01) ==
LOC: RADSHAW 14:37
PROVIDERS: PCP Family Medicine; Visit Provider Family Medicine
DX: Z12.31 Encounter for screening mammogram for malignant neoplasm of breast (principal)
CPT/HCPCS: 77067

== ENCOUNTER 2021-02-10 09:06 | Outpatient (CLI) | payer MEDICARE, BC, SELFPAY | END 2021-02-10 09:07 | disposition home or self-care (01) | PROVIDERS: PCP Family Medicine; Visit Provider Nurse Practitioner | DX: Z13.89 Encounter for screening for other disorder (principal); F17.210 Nicotine dependence, cigarettes, uncomplicated | CPT/HCPCS: 80323 ==

== ENCOUNTER 2021-03-27 22:38 | Emergency (ER) | payer MEDICARE, BC, SELFPAY ==
[2021-03-27 22:48] VITALS: BP 99/65; PULSE 78; RESP 16; TEMP 36.7; O2SAT 93
--- NOTE | 2021-03-27 22:57 | W.ED.FALL ---
Documented by User: OMAR Espino 03/28/21 01:31 HPI - Fall General: Chief Complaint: Fall Stated Complaint: fell 2days ago, back surgery 03/10 Time Seen by Provider: 03/27/21 22:56 History of Present Illness: HPI Narrative: 76-year-old female comes in today with complaints of posterior left back pain. Patient states that 2 days ago she had fallen backwards and landed on her back. Since then she has had increasing pain to the back and was concerned about her rods that she had placed in her back about 3 to 4 weeks ago. Patient had taken a hydrocodone and oxycodone at 8:00 this evening for her pain with minimal relief. Patient has scheduled oxycodone and was then prescribed some hydrocodone for breakthrough pain. Patient is alert and oriented. Patient denies any head pain or injury. Review of Systems General: Reports: 10 or more systems reviewed and unremarkable except in HPI and below Musc: Reports: other (Left posterior rib pain) [facility] ED PFSH: Medical History (Updated 03/28/21 @ 01:27 by OMAR Espino) Lumbar post-laminectomy syndrome Soft tissue mass Thoracic postlaminectomy syndrome Surgical History (Updated 01/27/21 @ 14:18 by Pratik Arroyo LPN) History of cholecystectomy History of hysterectomy History of lumbar surgery (~2010) Dr. Kauffman L1-L5 laminectomy/fusion/fixation History of lumbar surgery (~2012) Dr. Kauffman L1-L5 laminectomy/fusion/fiaxation; exploration History of thoracic surgery (~04/2016) Dr. Kauffman T9-S1 fusion fixation History of thoracic surgery (~02/2017) Dr. Kauffman T10-T11 fixation/fusion. HX T11 fracture. 04/06/17 Dr Kauffman removal of posterior 5.5 mm diameter titanium [place]. Exploration of rostal end of fusion adjacent to [place] and screw;staph infection Status post cervical spinal fusion (~2007) Dr Leblanc C6-C7 ACDFF Family History Father Stroke Mother Cancer Family history of thyroid problem Sister Cancer Brother Diabetes Social History Alcohol intake: never Household members: none Marital status: / Current occupational status: retired History of recent travel: No Physical Exam Const: COMMON NORMALS: no acute distress and patient oriented x3 GENERAL APPEARANCE: cooperative HENMT: COMMON NORMALS: normocephalic and Normal external nose present HEAD & SCALP: normal to inspection and normocephalic NOSE: Normal external nose present Eye: GENERAL EYE: appearance normal, both eyes and all related structures Neck/C-Spine: COMMON NORMALS: full ROM Chest: COMMONS NORMALS: normal inspection of the chest Resp: COMMON NORMALS: normal respiratory effort and clear to auscultation bilaterally EFFORT & INSPECTION: Yes able to speak in complete sentences AUSCULTATION: clear to auscultation bilaterally Cardio: COMMON NORMALS: regular rate and regular rhythm RATE: regular rate RHYTHM: regular rhythm GI: COMMON NORMALS: non-tender Back/Pelvis: OTHER: Healing surgical wound extending along the thoracic and lumbar spine. Patient has tenderness to the left scapular region on palpation. Extremity: COMMON NORMALS: normal to inspection Neuro: COMMON NORMALS: patient oriented x3 and moves all extremities Psych: COMMON NORMALS: mental status grossly normal and cooperative Skin: COMMON NORMALS: no rashes or lesions noted GENERAL SKIN EXAM: no rashes or lesions noted Course Vital Signs: Vital signs: Vital Signs Temperature 98.1 F 03/27/21 22:48 Pulse Rate 77 03/28/21 00:39 Respiratory Rate 17 03/28/21 00:39 Blood Pressure 128/69 03/28/21 00:39 Pulse Oximetry 91 03/28/21 00:39 MDM - Fall MDM Narrative: Medical decision making narrative: Patient presents tonight with complaints of left posterior back pain. Patient is tender to palpation. Patient reports fall from 2 days ago with worsening discomfort over the last 2 to 3 days to the point that she was unable to tolerate it tonight. On exam patient had tenderness in the left posterior rib/thoracic area. No deformity was noted. Evaluation of the incision line for the surgery presents well intact without any signs of significant redness or induration. Vital signs were normal without any fever. Lungs were decreased in the bases. Differential diagnosis includes rib fracture, contusion, pneumothorax. Chest x-ray and rib films indicated no fractures or acute abnormality. X-rays of the thoracic and lumbar spine indicated intact hardware. Reviewed exam with patient and family with recommendations for treatment and follow-up will return to the ER for worsening symptoms. Patient was given 1 mg of hydromorphone with good results for pain control. Lab Data: Labs: Lab Results 03/28/21 03/28/21 03/28/21 00:20 00:20 00:57 WBC 7.3 10^3/uL 10^3/ uL (4.0-10.0) RBC 3.75 10^6/uL L 10 ^6/uL (4.1-5.3) Hgb 10.9 g/dL L g/dL (11.5-15.3) Hct 35.0 % L % (37.0-47.0) MCV 93.3 fl fl (81-99) MCH 29.1 pg pg (28.0-34.0) MCHC 31.1 g/dL g/dL (30.0-36.0) RDW 16.0 % H % (12.1-15.1) Plt Count 187 10^3/cmm 10^3 /cmm (130-400) MPV 10.9 fL H fL (7.4-10.4) Neut % (Auto) 53.1 % % Lymph % (Auto) 31.6 % % Foard % (Auto) 6.9 % % Eos % (Auto) 6.9 % % Baso % (Auto) 0.8 % % Neut # (Auto) 3.87 10^3/uL 10^3 /uL (1.8-7.7) Lymph # (Auto) 2.3 10^3/uL 10^3/ uL (0.8-4.8) Foard # (Auto) 0.5 10^3/uL 10^3/ uL (0.2-0.9) Eos # (Auto) 0.5 10^3/uL 10^3/ uL (0.0-0.8) Baso # (Auto) 0.1 10^3/uL 10^3/ uL (0.0-0.1) Nucleated RBC % (a uto) 0 % % Nucleated RBCs # 0.0 /100WBC /100W BC Sodium 141 mmol/L mmol/L (136-145) Potassium 4.2 mmol/L mmol/L (3.5-5.1) Chloride 105 mmol/L mmol/L (98-107) Carbon Dioxide 24 mmol/L mmol/L (22-29) Anion Gap 16.2 (5-19) BUN 18 mg/dL mg/dL (8-23) Creatinine 1.0 mg/dL H mg/dL (0.5-0.9) GFR Calculation Not Reportable Glucose 100 mg/dL mg/dL (65-115) Calculated Osmolal ity 294 mOsm/kg mOsm/ kg (285-295) Lactic Acid 1.1 mmol/L mmol/L (0.5-2.2) Calcium 9.0 mg/dL mg/dL (8.5-10.5) Total Bilirubin 0.3 mg/dL mg/dL (0.15-1.2) AST 35 U/L H U/L (0-32) ALT 27 U/L U/L (0-33) Alkaline Phosphata se 97 IU/L IU/L (35-105) Total Protein 6.7 g/dL g/dL (6.6-8.7) Albumin 2.9 g/dL L g/dL (3.5-5.2) Globulin 3.8 g/dL g/dL (1.3-4.6) Discharge Plan Discharge Patient Disposition: Home Clinical Impression: Thoracic back pain Qualifiers: Chronicity: acute Back pain laterality: left Qualified Code(s): M54.6 - Pain in thoracic spine Condition: Stable Prescriptions: No Action teriparatide [Forteo] 20 mcg/dose (620mcg/2.48mL) pen injector 20 mcg SUBCUT DAILY RF: 0 diclofenac sodium 1 % kit 2 gm TOPICAL QID PRN (Reason: Itching) RF: 0 hydrocodone-acetaminophen 10-325 mg tablet 1 tab PO Q6H PRN (Reason: Pain) RF: 0 albuterol sulfate 90 mcg/actuation HFA aerosol inhaler 2 puff INHALATION 6XD PRN (Reason: Shortness Of Breath Or Wheezing) RF: 0 alprazolam 0.5 mg tablet 0.5 mg PO QID PRN (Reason: Anxiety) RF: 0 amlodipine 5 mg tablet 5 mg PO DAILY RF: 0 aspirin [Adult Low Dose Aspirin] 81 mg tablet,delayed release (DR/EC) 81 mg PO DAILY RF: 0 atorvastatin 40 mg tablet 40 mg PO DAILY RF: 0 calcitriol 0.25 mcg capsule 0.25 mcg PO DAILY RF: 0 citalopram 20 mg tablet 20 mg PO DAILY RF: 0 doxycycline hyclate 100 mg tablet 100 mg PO DAILY RF: 0 pantoprazole [Protonix] 40 mg tablet,delayed release (DR/EC) 40 mg PO DAILY RF: 0 cyanocobalamin (vitamin B-12) 1,000 mcg Tablet 1,000 mcg PO DAILY PRN (Reason: Fatigue) RF: 0 Discharge Orders: Discharge ED (Routine); Ordered 03/28/21 Ordered By: Julian Feliciano Referrals: Elysia Sousa MD [Primary Care Provider] - Discharge Diet: Usual diet Discharge Activity: Increase activity as tolerated Patient Instructions: Opioid Safety Activity Restrictions/Additional Instructions: Continue with routine care. Follow-up with primary care for further instruction or surgeon. Return to the ER for worsening symptoms or new concerns. Coding Level of Care Code ED Epoxy Coatings Installer for Chg Fwd Exam Comprehensive Documented by User: Eric Slaughter DO 03/28/21 03:17 HPI - Fall General: Chief Complaint: Fall Stated Complaint: fell 2days ago, back surgery 03/10 Time Seen by Provider: 03/27/21 22:56 PFS ED PFSH: Medical History (Updated 03/28/21 @ 01:27 by OMAR Espino) Lumbar post-laminectomy syndrome Soft tissue mass Thoracic postlaminectomy syndrome Surgical History (Updated 01/27/21 @ 14:18 by Pratik Arroyo LPN) History of cholecystectomy History of hysterectomy History of lumbar surgery (~2010) Dr. Kauffman L1-L5 laminectomy/fusion/fixation History of lumbar surgery (~2012) Dr. Kauffman L1-L5 laminectomy/fusion/fiaxation; exploration History of thoracic surgery (~04/2016) Dr. Kauffman T9-S1 fusion fixation History of thoracic surgery (~02/2017) Dr. Kauffman T10-T11 fixation/fusion. HX T11 fracture. 04/06/17 Dr Kauffman removal of posterior 5.5 mm diameter titanium [place]. Exploration of rostal end of fusion adjacent to [place] and screw;staph infection Status post cervical spinal fusion (~2007) Dr Leblanc C6-C7 ACDFF Family History Father Stroke Mother Cancer Family history of thyroid problem Sister Cancer Brother Diabetes Social History Alcohol intake: never Household members: none Marital status: / Current occupational status: retired History of recent travel: No Course Vital Signs: Vital signs: Vital Signs Temperature 98.1 F 03/27/21 22:48 Pulse Rate 77 03/28/21 00:39 Respiratory Rate 17 03/28/21 00:39 Blood Pressure 128/69 03/28/21 00:39 Pulse Oximetry 91 03/28/21 00:39 MDM - Fall MDM Narrative: Medical decision making narrative: This patient was originally seen by OMAR Robb. I agree with his history, evaluation, and treatment. Lab Data: Labs: Lab Results 03/28/21 03/28/21 03/28/21 00:20 00:20 00:57 WBC 7.3 10^3/uL 10^3/ uL (4.0-10.0) RBC 3.75 10^6/uL L 10 ^6/uL (4.1-5.3) Hgb 10.9 g/dL L g/dL (11.5-15.3) Hct 35.0 % L % (37.0-47.0) MCV 93.3 fl fl (81-99) MCH 29.1 pg pg (28.0-34.0) MCHC 31.1 g/dL g/dL (30.0-36.0) RDW 16.0 % H % (12.1-15.1) Plt Count 187 10^3/cmm 10^3 /cmm (130-400) MPV 10.9 fL H fL (7.4-10.4) Neut % (Auto) 53.1 % % Lymph % (Auto) 31.6 % % Foard % (Auto) 6.9 % % Eos % (Auto) 6.9 % % Baso % (Auto) 0.8 % % Neut # (Auto) 3.87 10^3/uL 10^3 /uL (1.8-7.7) Lymph # (Auto) 2.3 10^3/uL 10^3/ uL (0.8-4.8) Foard # (Auto) 0.5 10^3/uL 10^3/ uL (0.2-0.9) Eos # (Auto) 0.5 10^3/uL 10^3/ uL (0.0-0.8) Baso # (Auto) 0.1 10^3/uL 10^3/ uL (0.0-0.1) Nucleated RBC % (a uto) 0 % % Nucleated RBCs # 0.0 /100WBC /100W BC Sodium 141 mmol/L mmol/L (136-145) Potassium 4.2 mmol/L mmol/L (3.5-5.1) Chloride 105 mmol/L mmol/L (98-107) Carbon Dioxide 24 mmol/L mmol/L (22-29) Anion Gap 16.2 (5-19) BUN 18 mg/dL mg/dL (8-23) Creatinine 1.0 mg/dL H mg/dL (0.5-0.9) GFR Calculation Not Reportable Glucose 100 mg/dL mg/dL (65-115) Calculated Osmolal ity 294 mOsm/kg mOsm/ kg (285-295) Lactic Acid 1.1 mmol/L mmol/L (0.5-2.2) Calcium 9.0 mg/dL mg/dL (8.5-10.5) Total Bilirubin 0.3 mg/dL mg/dL (0.15-1.2) AST 35 U/L H U/L (0-32) ALT 27 U/L U/L (0-33) Alkaline Phosphata se 97 IU/L IU/L (35-105) Total Protein 6.7 g/dL g/dL (6.6-8.7) Albumin 2.9 g/dL L g/dL (3.5-5.2) Globulin 3.8 g/dL g/dL (1.3-4.6) Discharge Plan Discharge Patient Disposition: Home Clinical Impression: Thoracic back pain Qualifiers: Chronicity: acute Back pain laterality: left Qualified Code(s): M54.6 - Pain in thoracic spine Condition: Stable Prescriptions: No Action teriparatide [Forteo] 20 mcg/dose (620mcg/2.48mL) pen injector 20 mcg SUBCUT DAILY RF: 0 diclofenac sodium 1 % kit 2 gm TOPICAL QID PRN (Reason: Itching) RF: 0 hydrocodone-acetaminophen 10-325 mg tablet 1 tab PO Q6H PRN (Reason: Pain) RF: 0 albuterol sulfate 90 mcg/actuation HFA aerosol inhaler 2 puff INHALATION 6XD PRN (Reason: Shortness Of Breath Or Wheezing) RF: 0 alprazolam 0.5 mg tablet 0.5 mg PO QID PRN (Reason: Anxiety) RF: 0 amlodipine 5 mg tablet 5 mg PO DAILY RF: 0 aspirin [Adult Low Dose Aspirin] 81 mg tablet,delayed release (DR/EC) 81 mg PO DAILY RF: 0 atorvastatin 40 mg tablet 40 mg PO DAILY RF: 0 calcitriol 0.25 mcg capsule 0.25 mcg PO DAILY RF: 0 citalopram 20 mg tablet 20 mg PO DAILY RF: 0 doxycycline hyclate 100 mg tablet 100 mg PO DAILY RF: 0 pantoprazole [Protonix] 40 mg tablet,delayed release (DR/EC) 40 mg PO DAILY RF: 0 cyanocobalamin (vitamin B-12) 1,000 mcg Tablet 1,000 mcg PO DAILY PRN (Reason: Fatigue) RF: 0 Discharge Orders: Discharge ED (Routine); Ordered 03/28/21 Ordered By: Julian Feliciano Referrals: Elysia Sousa MD [Primary Care Provider] - Discharge Diet: Usual diet Discharge Activity: Increase activity as tolerated Patient Instructions: Opioid Safety Activity Restrictions/Additional Instructions: Continue with routine care. Follow-up with primary care for further instruction or surgeon. Return to the ER for worsening symptoms or new concerns. Coding Level of Care Code ED Epoxy Coatings Installer for Trangg Fwd Exam Comprehensive
--- NOTE | 2021-03-27 23:05 | XRR_ITS ---
PROCEDURE INFORMATION: Exam: XR Lumbosacral Spine Exam date and time: 03/27/2021 11:05 PM Age: 76 years old Clinical indication: Injury or trauma; Fall; Blunt trauma (contusions or hematomas); Prior surgery; Surgery date: <1 month; Surgery type: Back TECHNIQUE: Imaging protocol: XR of the lumbosacral spine. Views: 2 or 3 views. COMPARISON: CT abdomen pelvis con [id number] 03/11/2017 4:54 PM FINDINGS: Bones/joints: Pedicle screws and posterior rods extend from the lower thoracic spine through the sacroiliac joints bilaterally. Soft tissues: Unremarkable. XR/XR lumbar spine 2-3V* [id number] IMPRESSION: There are no acute osseous findings.
--- NOTE | 2021-03-27 23:05 | XRR_ITS ---
PROCEDURE INFORMATION: Exam: XR Thoracic Spine Exam date and time: 03/27/2021 11:05 PM Age: 76 years old Clinical indication: Injury or trauma; Fall; Blunt trauma (contusions or hematomas); Injury details: Left chest pain; Prior surgery; Surgery date: <1 month; Surgery type: Back TECHNIQUE: Imaging protocol: XR of the thoracic spine. Views: 3 views. COMPARISON: CR XR chest 1V portable [id number] 11/26/2020 8:32 PM FINDINGS: Bones/joints: Pedicle screws and posterior rods now extend through the mid lower thoracic spine T4 caudally. Soft tissues: Unremarkable. XR/XR thoracic spine 3V* [id number] IMPRESSION: There are no acute osseous findings.
--- NOTE | 2021-03-27 23:05 | XRR_ITS ---
PROCEDURE INFORMATION: Exam: XR Left Ribs with PA Chest Exam date and time: 03/27/2021 11:05 PM Age: 76 years old Clinical indication: Injury or trauma; Fall; Rib area, left side; Blunt trauma; Painful respiration; Prior surgery; Surgery date: <1 month; Surgery type: Back TECHNIQUE: Imaging protocol: XR Left ribs with PA chest. Views: 3 views COMPARISON: CR XR chest 1V portable [id number] 11/26/2020 8:32 PM FINDINGS: Lungs: Unremarkable. No consolidation. Pleural spaces: Unremarkable. No pleural effusion. No pneumothorax. Heart/Mediastinum: Unremarkable. No cardiomegaly. Bones/joints: Unremarkable. XR/XR ribs LT mn 3V w CXR1V [id number] IMPRESSION: No acute osseous findings.
[2021-03-27 23:51] VITALS: BP 126/82; PULSE 75; RESP 16; O2SAT 90
[2021-03-28 00:35] VITALS: RESP 17
[2021-03-28] MEDS: HYDROmorphone 1 mg/mL INJ 1 mL IM (00:35)
[2021-03-28 00:39] VITALS: BP 128/69; PULSE 77; RESP 17; O2SAT 91
[2021-03-28 01:31] LABS: Basophils # 0.1 10^3/uL (0.0-0.1); Basophils % 0.8 %; Eosinophils # 0.5 10^3/uL (0.0-0.8); Eosinophils % 6.9 %; Hemoglobin 10.9 g/dL (11.5-15.3); Lymphocytes # 2.3 10^3/uL (0.8-4.8); Lymphocytes % 31.6 %; Mean Corpuscular HGB Conc 31.1 g/dL (30.0-36.0); Mean Corpuscular Hemoglobin 29.1 pg (28.0-34.0); Mean Corpuscular Volume 93.3 fl (81-99); Mean Platelet Volume 10.9 fL (7.4-10.4); Monocytes # 0.5 10^3/uL (0.2-0.9); Monocytes % 6.9 %; Neutrophils # 3.87 10^3/uL (1.8-7.7); Neutrophils % 53.1 %; Nucleated Red Blood Cells % 0 %; Platelet Count 187 10^3/cmm (130-400); Red Blood Count 3.75 10^6/uL (4.1-5.3); White Blood Count 7.3 10^3/uL (4.0-10.0)
[2021-03-28 01:37] LABS: Alanine Aminotransferase 27 U/L (0-33); Albumin Level 2.9 g/dL (3.5-5.2); Alkaline Phosphatase 97 IU/L (35-105); Anion Gap 16.2 (5-19); Aspartate Amino Transferase 35 U/L (0-32); Blood Urea Nitrogen 18 mg/dL (8-23); Carbon Dioxide 24 mmol/L (22-29); Chloride 105 mmol/L (98-107); Globulin 3.8 g/dL (1.3-4.6); Glucose 100 mg/dL (65-115); Osmolality Calculated 294 mOsm/kg (285-295); Potassium 4.2 mmol/L (3.5-5.1); Sodium 141 mmol/L (136-145); Total Bilirubin 0.3 mg/dL (0.15-1.2); Total Protein 6.7 g/dL (6.6-8.7)
[2021-03-28 01:38] LABS: Lactic Sepsis W/Reflex 1.1 mmol/L (0.5-2.2)
[2021-03-28 02:09] LABS: Slide Review Slide Review Perform
== END 2021-03-28 01:59 | disposition home or self-care (01) ==
PROVIDERS: Emergency Provider Nurse Practitioner Family; PCP Family Medicine
DX: M54.6 Pain in thoracic spine (principal); Z79.82 Long term (current) use of aspirin
CPT/HCPCS: 36415; 71101; 72072; 72100; 80053; 83605; 85025; 87040; 96372; 99284; J1170

== ENCOUNTER → 2021-05-03 10:07 | Outpatient (BNVA) | payer MEDICARE, BC, SELFPAY | PROVIDERS: PCP Family Medicine; Referring Provider Neurological Surgery; Visit Provider Anesthesiology Pain Medicine | DX: M70.61 Trochanteric bursitis, right hip (principal); M54.6 Pain in thoracic spine; M96.1 Postlaminectomy syndrome, not elsewhere classified; Z98.890 Other specified postprocedural states; Y93.9 Activity, unspecified; Z87.891 Personal history of nicotine dependence | CPT/HCPCS: 20610; 99204 ==

== ENCOUNTER → 2021-05-17 12:39 | Outpatient (BNVA) | payer MEDICARE, BC, SELFPAY | PROVIDERS: PCP Family Medicine; Visit Provider Anesthesiology Pain Medicine | DX: M70.61 Trochanteric bursitis, right hip (principal); M79.601 Pain in right arm; M54.50 Low back pain, unspecified; M54.6 Pain in thoracic spine; M96.1 Postlaminectomy syndrome, not elsewhere classified; Y93.9 Activity, unspecified; Z98.890 Other specified postprocedural states; Z79.891 Long term (current) use of opiate analgesic; Z87.891 Personal history of nicotine dependence | CPT/HCPCS: 99214; J1030; J3490 ==

== ENCOUNTER 2021-05-18 | Outpatient (CLI) | payer MEDICARE, BC, SELFPAY | END 2021-05-18 00:01 | disposition home or self-care (01) | LOC: SPT 11-01 10:52 | PROVIDERS: PCP Family Medicine; Referring Provider Neurological Surgery; Visit Provider Neurological Surgery | DX: Z46.89 Encounter for fitting and adjustment of other specified devices (principal); Z98.1 Arthrodesis status | CPT/HCPCS: L0174 ==

== ENCOUNTER 2021-05-18 10:21 | Outpatient (CLI) | payer MEDICARE, BC, SELFPAY ==
--- NOTE | 2021-05-18 10:15 | XRR_ITS ---
PROCEDURE INFORMATION: Exam: XR Bilateral Hips Exam date and time: 05/18/2021 10:15 AM Age: 76 years old Clinical indication: Condition or disease; Patient HX: Pain management x 2 wks. RT hip pain that radiates down RT leg. Bilateral primary osteoarthritis of hip; Additional info: M16.0 - bilateral primary osteoarthritis of hip TECHNIQUE: Imaging protocol: XR bilateral hips. Views: 2 views of hips with pelvis when performed. COMPARISON: CT abdomen pelvis wo con [id number] 03/11/2017 4:54 PM FINDINGS: Bones/joints: Metallic orthopedic hardware extending to the bilateral iliac bones. No acute fracture. Bilateral hips do not show acute bone abnormality. Soft tissues: Nonspecific soft tissue density near the proximal shaft of the left femur measuring 26 mm x 15 mm. XR/XR hip BI 3-4V wo/w pel [id number] IMPRESSION: 1. No acute bone abnormality bilateral hips 2. Post surgical hardware in the iliac bones 3. Soft tissue density near the proximal the left femur.
== END 2021-05-18 10:22 | disposition home or self-care (01) ==
PROVIDERS: PCP Family Medicine; Visit Provider Anesthesiology Pain Medicine
DX: M16.0 Bilateral primary osteoarthritis of hip (principal)
CPT/HCPCS: 73522

== ENCOUNTER → 2021-05-25 14:18 | Outpatient (BNVA) | payer MEDICARE, BC, SELFPAY | PROVIDERS: PCP Family Medicine; Visit Provider Anesthesiology Pain Medicine | DX: M54.16 Radiculopathy, lumbar region (principal); Z79.891 Long term (current) use of opiate analgesic; Z87.891 Personal history of nicotine dependence | CPT/HCPCS: 64483; 64484 ==

== ENCOUNTER → 2021-06-03 14:29 | Outpatient (BNVA) | payer MEDICARE, BC, SELFPAY | PROVIDERS: PCP Family Medicine; Visit Provider Anesthesiology Pain Medicine | DX: M51.17 Intervertebral disc disorders with radiculopathy, lumbosacral region (principal); M70.61 Trochanteric bursitis, right hip; M96.1 Postlaminectomy syndrome, not elsewhere classified; M79.604 Pain in right leg; M79.605 Pain in left leg; Y93.9 Activity, unspecified; Z98.890 Other specified postprocedural states; Z79.891 Long term (current) use of opiate analgesic; Z87.891 Personal history of nicotine dependence | CPT/HCPCS: 99214 ==

== ENCOUNTER 2021-07-23 13:54 | Outpatient (CLI) | payer MEDICARE, BC, SELFPAY ==
[2021-07-23 14:29] LABS: Basophils % 0.3 %; Hematocrit 36.2 % (37.0-47.0); Hemoglobin 11.4 g/dL (11.5-15.3); Lymphocytes # 1.1 10^3/uL (0.8-4.8); Mean Corpuscular HGB Conc 31.5 g/dL (30.0-36.0); Mean Corpuscular Hemoglobin 28.6 pg (28.0-34.0); Mean Corpuscular Volume 90.7 fl (81-99); Mean Platelet Volume 9.8 fL (7.4-10.4); Monocytes # 0.1 10^3/uL (0.2-0.9); Monocytes % 1.3 %; Neutrophils # 4.84 10^3/uL (1.8-7.7); Neutrophils % 80.2 %; Nucleated Red Blood Cells % 0 %; Platelet Count 301 10^3/cmm (130-400); Red Blood Count 3.99 10^6/uL (4.1-5.3); Red Cell Distribution Width 15.6 % (12.1-15.1)
[2021-07-23 15:00] LABS: Alanine Aminotransferase 12 U/L (0-33); Albumin Level 3.9 g/dL (3.5-5.2); Alkaline Phosphatase 96 IU/L (35-105); Anion Gap 18.2 (5-19); Aspartate Amino Transferase 18 U/L (0-32); Blood Urea Nitrogen 27 mg/dL (8-23); Carbon Dioxide 22 mmol/L (22-29); Chloride 100 mmol/L (98-107); Chol HDL Ratio 2.52 mg/dL (0.0-4.40); Cholesterol 121 mg/dL (0-200); Globulin 4.5 g/dL (1.3-4.6); Glucose 139 mg/dL (65-115); HDL Cholesterol 48 mg/dL (60-100); LDL Cholesterol Calculated 60 mg/dL (50-129); Osmolality Calculated 289 mOsm/kg (285-295); Potassium 4.2 mmol/L (3.5-5.1); Sodium 136 mmol/L (136-145); Thyroid Stimulating Hormone 0.44 uIU/mL (0.27-4.20); Total Bilirubin 0.4 mg/dL (0.15-1.2); Total Protein 8.4 g/dL (6.6-8.7); Triglycerides 65 mg/dL (0-150); VLDL Cholestrol Calculation 13 mg/dL (0-30)
== END 2021-07-23 13:55 | disposition home or self-care (01) ==
LOC: LAB 13:58
PROVIDERS: PCP Family Medicine; Visit Provider Family Medicine
DX: M06.9 Rheumatoid arthritis, unspecified (principal); N18.30 Chronic kidney disease, stage 3 unspecified; I10 Essential (primary) hypertension
CPT/HCPCS: 80053; 80061; 84443; 85025

== ENCOUNTER → 2021-10-18 15:11 | Outpatient (BNVA) | payer MEDICARE, BC, SELFPAY | PROVIDERS: PCP Family Medicine; Visit Provider Podiatrist Foot & Ankle Surgery | DX: Q82.8 Other specified congenital malformations of skin (principal); M79.671 Pain in right foot; M21.621 Bunionette of right foot; M21.622 Bunionette of left foot; M79.672 Pain in left foot | CPT/HCPCS: 17110 ==

== ENCOUNTER 2021-10-19 13:57 | Outpatient (RCR) | payer MEDICARE, BC, SELFPAY | END 2021-10-31 23:59 | disposition home or self-care (01) | LOC: SPT 13:57 | PROVIDERS: PCP Family Medicine; Referring Provider Nurse Practitioner; Visit Provider Nurse Practitioner | DX: M54.9 Dorsalgia, unspecified (principal) | CPT/HCPCS: 97113; 97162 ==

== ENCOUNTER → 2021-11-16 15:29 | Outpatient (BNVA) | payer MEDICARE, BC, SELFPAY | PROVIDERS: PCP Family Medicine; Visit Provider Podiatrist Foot & Ankle Surgery | DX: L84 Corns and callosities (principal); M21.621 Bunionette of right foot; M21.622 Bunionette of left foot; Q82.8 Other specified congenital malformations of skin; M79.672 Pain in left foot | CPT/HCPCS: 17110 ==

== ENCOUNTER → 2021-12-01 09:20 | Outpatient (BNVA) | payer MEDICARE, BC, SELFPAY | PROVIDERS: PCP Family Medicine; Visit Provider Internal Medicine Rheumatology | DX: M05.79 Rheumatoid arthritis with rheumatoid factor of multiple sites without organ or systems involvement (principal); Z79.899 Other long term (current) drug therapy; Z11.59 Encounter for screening for other viral diseases; Z98.890 Other specified postprocedural states; M81.0 Age-related osteoporosis without current pathological fracture; Z71.85 Encounter for immunization safety counseling; Z11.1 Encounter for screening for respiratory tuberculosis; N18.9 Chronic kidney disease, unspecified | CPT/HCPCS: 36415; 71046; 73130; 73630; 80076; 82306; 82565; 85025; 85651; 86140; 86480; 86704; 86803; 87340; 99214 ==

== ENCOUNTER 2021-12-09 15:06 | Outpatient (CLI) | payer MEDICARE, BC, SELFPAY ==
--- NOTE | 2021-12-09 15:14 | XR_ITS ---
WS: [id number] Scoliosis survey AP and lateral views of the thoracic and lumbar spines, 12/09/2021 Clinical Data: S/P SPINAL SURGERY Comparison: Thoracic spine and lumbar spine, 03/27/2021. Findings: There is an extensive posterior fusion from T3 to S1. There are oblique screws fusing the SI joints. There is a bony fusion of the L1-L5 vertebra. Multilevel laminectomies of the lumbar spine are seen. There are artificial disks from L2-L3 through L5-S1. There is an anterior cervical disc fusion. The b ilateral pedicle screws and connecting rods are intact. There is no significant scoliosis of the thor acic spine. There is an 11 degree dextroscoliosis of the lumbar spine measured from the superior aspe ct of L1 to the superior aspect of L5. XR/XR scoliosis survey 4-5V [id number] Impression: 1. Stable posterior fusion from T3 through L1. 2. Dextroscoliosis of lumbar spine from L1 to L5 of 11 degrees.
== END 2021-12-09 15:07 | disposition home or self-care (01) ==
LOC: RAD 15:08
PROVIDERS: PCP Family Medicine; Visit Provider Neurological Surgery
DX: Z98.890 Other specified postprocedural states (principal); M41.86 Other forms of scoliosis, lumbar region
CPT/HCPCS: 72083

== ENCOUNTER 2021-12-30 14:19 | Outpatient (CLI) | payer MEDICARE, BC, SELFPAY ==
[2021-12-30 14:57] LABS: Basophils # 0.1 10^3/uL (0.0-0.1); Basophils % 0.9 %; Eosinophils # 0.3 10^3/uL (0.0-0.8); Eosinophils % 5.6 %; Hematocrit 34.8 % (37.0-47.0); Hemoglobin 10.9 g/dL (11.5-15.3); Lymphocytes # 2.4 10^3/uL (0.8-4.8); Lymphocytes % 41.4 %; Mean Corpuscular HGB Conc 31.3 g/dL (30.0-36.0); Mean Corpuscular Hemoglobin 29.9 pg (28.0-34.0); Mean Corpuscular Volume 95.6 fl (81-99); Mean Platelet Volume 10.2 fL (7.4-10.4); Monocytes # 0.4 10^3/uL (0.2-0.9); Monocytes % 6.8 %; Neutrophils # 2.61 10^3/uL (1.8-7.7); Neutrophils % 45.3 %; Nucleated Red Blood Cells % 0 %; Platelet Count 255 10^3/cmm (130-400); Red Blood Count 3.64 10^6/uL (4.1-5.3); Red Cell Distribution Width 13.9 % (12.1-15.1); White Blood Count 5.8 10^3/uL (4.0-10.0)
[2021-12-30 15:20] LABS: Alanine Aminotransferase 11 U/L (0-33); Albumin Level 3.6 g/dL (3.5-5.2); Alkaline Phosphatase 128 U/L (35-105); C Reactive Protein 3.9 mg/L (0.0-4.9); Globulin 4.3 g/dL (1.3-4.6); Total Bilirubin 0.4 mg/dL (0.15-1.2); Total Protein 7.9 g/dL (6.6-8.7)
[2021-12-30 15:21] LABS: Aspartate Amino Transferase 20 U/L (0-32)
[2021-12-30 15:40] LABS: Slide Review Slide Review Perform
== END 2021-12-30 14:20 | disposition home or self-care (01) ==
PROVIDERS: PCP Family Medicine; Visit Provider Internal Medicine Rheumatology
DX: M06.9 Rheumatoid arthritis, unspecified (principal); Z79.899 Other long term (current) drug therapy
CPT/HCPCS: 36415; 80076; 82565; 85025; 86140

== ENCOUNTER 2022-01-24 15:12 | Outpatient (CLI) | payer MEDICARE, BC, SELFPAY ==
--- NOTE | 2022-01-24 15:25 | MM_ITS ---
WS: [id number] VIEWS: MLO and CC views both breasts. 3D digital tomosynthesis is also included in this exam. Comparison made with prior exam of 12/15/2015, 12/27/2016, 12/29/2017, 01/01/2019, 01/07/2020, 01/08/2021. Findings: There was no sign of mass, architectural distortion or suspicious calcification in either breast. He terogeneously dense MM/[place] [id number] Impression: BI-RADS: 2-Benign FOLLOW-UP: 1 Year Follow-up This mammogram was also analyzed by the Computer Aided Detection System R2 Imag e Quill Skinner.
== END 2022-01-24 15:13 | disposition home or self-care (01) ==
LOC: RAD 15:13
PROVIDERS: PCP Family Medicine; Visit Provider Family Medicine
DX: Z12.31 Encounter for screening mammogram for malignant neoplasm of breast (principal)
CPT/HCPCS: 77063; 77067

== ENCOUNTER 2022-02-03 16:25 | Outpatient (CLI) | payer MEDICARE, BC, SELFPAY ==
[2022-02-03 17:22] LABS: Basophils # 0.1 10^3/uL (0.0-0.1); Basophils % 1.2 %; Eosinophils # 0.4 10^3/uL (0.0-0.8); Eosinophils % 7.4 %; Hematocrit 33.2 % (37.0-47.0); Hemoglobin 10.3 g/dL (11.5-15.3); Lymphocytes # 2.7 10^3/uL (0.8-4.8); Lymphocytes % 45.7 %; Mean Corpuscular Hemoglobin 29.6 pg (28.0-34.0); Mean Corpuscular Volume 95.4 fl (81-99); Monocytes # 0.5 10^3/uL (0.2-0.9); Monocytes % 7.6 %; Neutrophils # 2.23 10^3/uL (1.8-7.7); Neutrophils % 37.8 %; Nucleated Red Blood Cells % 0 %; Platelet Count 279 10^3/cmm (130-400); Red Blood Count 3.48 10^6/uL (4.1-5.3); Red Cell Distribution Width 14.2 % (12.1-15.1); White Blood Count 5.9 10^3/uL (4.0-10.0)
[2022-02-03 18:24] LABS: Alanine Aminotransferase 8 U/L (0-33); Albumin Level 3.7 g/dL (3.5-5.2); Alkaline Phosphatase 110 U/L (35-105); Aspartate Amino Transferase 16 U/L (0-32); C Reactive Protein 4.7 mg/L (0.0-4.9); Total Bilirubin 0.3 mg/dL (0.15-1.2); Total Protein 7.7 g/dL (6.6-8.7)
== END 2022-02-03 16:26 | disposition home or self-care (01) ==
PROVIDERS: PCP Family Medicine; Visit Provider Internal Medicine Rheumatology
DX: M05.79 Rheumatoid arthritis with rheumatoid factor of multiple sites without organ or systems involvement (principal); Z79.899 Other long term (current) drug therapy; M19.90 Unspecified osteoarthritis, unspecified site
CPT/HCPCS: 80076; 82565; 85025; 86140

== ENCOUNTER → 2022-02-08 15:14 | Outpatient (BNVA) | payer MEDICARE, BC, SELFPAY | PROVIDERS: PCP Family Medicine; Visit Provider Podiatrist Foot & Ankle Surgery | DX: L84 Corns and callosities (principal); M21.621 Bunionette of right foot; M21.622 Bunionette of left foot; Q82.8 Other specified congenital malformations of skin | CPT/HCPCS: 17110 ==

== ENCOUNTER → 2022-03-21 11:31 | Outpatient (BNVA) | payer MEDICARE, BC, SELFPAY | PROVIDERS: PCP Family Medicine; Visit Provider Podiatrist Foot & Ankle Surgery | DX: L84 Corns and callosities (principal); M21.621 Bunionette of right foot; M21.622 Bunionette of left foot; Q82.8 Other specified congenital malformations of skin; M20.12 Hallux valgus (acquired), left foot | CPT/HCPCS: 17110 ==

== ENCOUNTER → 2022-04-26 14:55 | Outpatient (BNVA) | payer MEDICARE, SELFPAY | PROVIDERS: PCP Family Medicine; Visit Provider Podiatrist Foot & Ankle Surgery | DX: Q82.8 Other specified congenital malformations of skin (principal); L84 Corns and callosities; M21.621 Bunionette of right foot; M21.622 Bunionette of left foot; M20.12 Hallux valgus (acquired), left foot | CPT/HCPCS: 17110 ==

== ENCOUNTER → 2022-04-28 09:45 | Outpatient (BNVA) | payer MEDICARE, SELFPAY | PROVIDERS: PCP Family Medicine; Visit Provider Family Medicine Adult Medicine | DX: R05.9 Cough, unspecified (principal); R91.8 Other nonspecific abnormal finding of lung field | CPT/HCPCS: 71046 ==

== ENCOUNTER 2022-05-17 10:51 | Inpatient (IN) | payer MEDICARE, SELFPAY ==
[2022-05-17] VITALS (23 sets, daily range): BP systolic 98–124; BP diastolic 58–90; PULSE 73–92; RESP 15–27; TEMP 36.6–36.9; O2SAT 9–97; BMI 21.9; BMI 22.0
--- NOTE | 2022-05-17 11:13 | XRR_ITS ---
PROCEDURE INFORMATION: Exam: XR Chest Exam date and time: 05/17/2022 12:03 PM Age: 77 years old Clinical indication: Condition or disease; Lung condition and disease; Pneumonia; Dyspnea; Additional info: Dyspnea/recent pneumonia TECHNIQUE: Imaging protocol: Radiologic exam of the chest. Views: 1 view. COMPARISON: CR XR chest 2V* [id number] 04/28/2022 9:59 AM FINDINGS: Lungs: Unremarkable. No consolidation. Low lung volumes seen Pleural spaces: Unremarkable. No pleural effusion. No pneumothorax. Heart/Mediastinum: Unremarkable. No cardiomegaly. Bones/joints: Extensive orthopedic hardware is seen in the dorsal spine and cervical spine. The hardware does not show deformity displacement or fracture. Comparison to prior examination no interval changes are seen. XR/XR chest 1V portable [id number] IMPRESSION: 1. No acute findings. 2. Extensive orthopedic hardware in the cervical and thoracic spine
--- NOTE | 2022-05-17 11:18 | ED_ITS ---
HPI - SOB/Dyspnea General: Chief Complaint: Shortness of Breath/Dyspnea Stated Complaint: Sent from , Low O2 Time Seen by Provider: 05/17/22 11:02 Source: patient and family Mode of arrival: ambulatory Limitations: no limitations History of Present Illness: HPI Narrative: See nursing assessment. Patient states she was diagnosed with pneumonia 2 weeks ago. She is taking Zithromax presently from a [facility] starting last week. She states she has 2 days left of the medication. She was sent to the ER due to oxygen saturations in the upper 80s. She was started on Zofran yesterday after patient started having nausea vomiting diarrhea yesterday. According to the daughter, patient has had large amount of diarrhea in the last 24 hours. Patient is occasionally incontinent of diarrhea. Diarrhea is yellow in color. No fever. Patient denies any previous lung or heart problems. She denies diabetes. Associated symptoms: Reports abdominal pain (Mild generalized), nausea and vomiting; Deny chest pain, fever(s) or palpitations Review of Systems Const: Denies: fever(s) or chills Eyes: Denies: change in vision ENMT: Denies: throat pain Card: Denies: chest pain or palpitations Resp: Reports: dyspnea and productive cough; Denies: wheezing GI: Reports: abdominal pain (Mild generalized), nausea, vomiting and diarrhea; Denies: hematemesis, constipation or hematochezia : Denies: flank pain Musc: Denies: neck pain or back pain Skin/Breast: Denies: rash or pruritus Neuro: Denies: headache(s) or numbness in extremities Psych: Denies: anxiety Caleb/Lymph: Denies: enlarged lymph nodes PFSH ED PFSH: Medical History Anxiety and depression Community acquired pneumonia COPD (chronic obstructive pulmonary disease) with acute bronchitis COPD (chronic obstructive pulmonary disease) with chronic bronchitis Fibromyalgia GERD (gastroesophageal reflux disease) High risk medication use Hyperlipidemia Immunization counseling Lumbar post-laminectomy syndrome Osteoarthritis Osteoporosis Rheumatoid arthritis Seropositive rheumatoid arthritis of multiple sites Soft tissue mass Thoracic postlaminectomy syndrome Weight loss, non-intentional Surgical History H/O foot surgery bilaterally History of appendectomy History of cholecystectomy History of colon surgery 14 inches removed History of hysterectomy History of lumbar surgery (~2010) Dr. Kauffman L1-L5 laminectomy/fusion/fixation History of lumbar surgery (~2012) Dr. Kauffman L1-L5 laminectomy/fusion/fiaxation; exploration History of thoracic surgery (~04/2016) Dr. Kauffman T9-S1 fusion fixation History of thoracic surgery (~02/2017) Dr. Kauffman T10-T11 fixation/fusion. HX T11 fracture. 04/06/17 Dr Kauffman removal of posterior 5.5 mm diameter titanium [place]. Exploration of rostal end of fusion adjacent to [place] and screw;staph infection Status post cervical spinal fusion (~2007) Dr Leblanc C6-C7 ACDFF Family History Father Stroke Mother Cancer Family history of thyroid problem Sister Cancer Brother Diabetes Social History Smoking and tobacco status: never smoked Alcohol intake: never Household members: none Marital status: / Current occupational status: retired History of recent travel: No Physical Exam Const: COMMON NORMALS: no acute distress, patient oriented x3, no limitations and well nourished GENERAL APPEARANCE: cooperative HENMT: COMMON NORMALS: normocephalic and atraumatic HEAD & SCALP: normocephalic and atraumatic FACE & SINUS: normal facial exam Eye: COMMON NORMALS: EOMs intact bilaterally Neck/C-Spine: COMMON NORMALS: full ROM, no lymphadenopathy, supple and no meningeal signs GENERAL: Yes normal visual inspection Lymph: LYMPHATIC: no lymphadenopathy noted Chest: COMMONS NORMALS: normal inspection of the chest and normal palpation of entire chest wall CHEST: No Ecchymosis present and No rash Resp: COMMON NORMALS: normal respiratory effort and No retractions EFFORT & INSPECTION: No respiratory distress OTHER: Mild rhonchi bilaterally. No tachypnea. Oxygen saturation 86 to 89% on room air. Cardio: COMMON NORMALS: regular rate, regular rhythm and Peripheral pulses 2+ throughout JUGULAR VENOUS DISTENTION: no JVD RATE: regular rate RHYTHM: regular rhythm PERIPHERAL PULSES: Peripheral pulses 2+ throughout GI: COMMON NORMALS: Normal to inspection, nondistended, normoactive bowel sounds present OTHER: Mild generalized abdominal pain. No splenomegaly. No guarding or rebound. Normoactive bowel sounds throughout : COMMON NORMALS: Yes no CVA tenderness BLADDER/KIDNEY EXAM: Yes no CVA tenderness Back/Pelvis: COMMON NORMALS: no CVA tenderness Extremity: COMMON NORMALS: normal to inspection, full ROM and capillary refill normal Neuro: COMMON NORMALS: patient oriented x3, CN's II-XII intact bilaterally, no focal motor deficits and no sensory deficits noted MENINGEAL SIGNS: Yes no meningeal signs Psych: COMMON NORMALS: mental status grossly normal and Normal thought process present THOUGHT PROCESS: Normal thought process present Skin: COMMON NORMALS: no rashes or lesions noted and no wounds GENERAL SKIN EXAM: no rashes or lesions noted Course Vital Signs: Vital signs: Vital Signs Temperature 98.5 F 05/17/22 10:58 Pulse Rate 85 05/17/22 16:30 Respiratory Rate 18 05/17/22 16:30 Blood Pressure 124/66 05/17/22 16:30 Pulse Oximetry 91 05/17/22 16:30 Oxygen Delivery Me thod 05/17/22 15:44 Oxygen Flow Rate 2 05/17/22 15:44 MDM - SOB/Dyspnea Medical Decision Making Possible pneumonia. Patient possibly has C. difficile from antibiotic use. Patient with pulmonary embolus to right lower lobe moderate severity. No saddle embolus per radiologist. Will discuss with hospitalist concerning heparin use. 1655: Discussed with hospitalist Dr. Vela. Will admit as inpatient to cardiac stepdown unit. She asked that patient be started on cardiac based heparin protocol instead of weight-based protocol. C. difficile toxin assay is still pending. Lab Data Hemoccult of stool in the lab was positive for blood. 05/17/22 11:53 05/17/22 11:53 Labs/Radiology: Radiology Impressions Chest X-Ray 05/17/22 11:13 IMPRESSION: 1. No acute findings. 2. Extensive orthopedic hardware in the cervical and thoracic spine Chest CTA 05/17/22 13:56 IMPRESSION: 1. Positive diagnosis for pulmonary embolism right medial lower lobe pulmonary artery 2. Extensive orthopedic hardware is seen in the dorsal spine. 3. Negative for right heart strain. 4. Negative for aortic aneurysm or dissection ADDENDUM: 05/17/22 1546 Findings were discussed with Hi Mccullough at 05/17/2022 3:44 PM LIGHT RAIL SIGNAL TECHNICIAN. Laboratory Results WBC 6.1 10^3/uL (4.0-10.0) 05/17/22 11:53 RBC 3.87 10^6/uL (4.1-5.3) L 05/17/22 11:53 Hgb 11.5 g/dL (11.5-15.3) 05/17/22 11:53 Hct 36.9 % (37.0-47.0) L 05/17/22 11:53 MCV 95.3 fl (81-99) 05/17/22 11:53 MCH 29.7 pg (28.0-34.0) 05/17/22 11:53 MCHC 31.2 g/dL (30.0-36.0) 05/17/22 11:53 RDW 14.7 % (12.1-15.1) 05/17/22 11:53 Plt Count 247 10^3/cmm (130-400) 05/17/22 11:53 MPV 9.8 fL (7.4-10.4) 05/17/22 11:53 Neut % (Auto) 80.5 % 05/17/22 11:53 Lymph % (Auto) 12.8 % 05/17/22 11:53 [place] % (Auto) 5.2 % 05/17/22 11:53 Eos % (Auto) 0.3 % 05/17/22 11:53 Baso % (Auto) 0.5 % 05/17/22 11:53 Neut # (Auto) 4.91 10^3/uL (1.8-7.7) 05/17/22 11:53 Lymph # (Auto) 0.8 10^3/uL (0.8-4.8) 05/17/22 11:53 [place] # (Auto) 0.3 10^3/uL (0.2-0.9) 05/17/22 11:53 Eos # (Auto) 0.0 10^3/uL (0.0-0.8) 05/17/22 11:53 Baso # (Auto) 0.0 10^3/uL (0.0-0.1) 05/17/22 11:53 Nucleated RBC % (auto) 0 % 05/17/22 11:53 Nucleated RBCs # 0.0 /100WBC 05/17/22 11:53 D-Dimer 3.87 ug/mIFEU (0-0.59) H 05/17/22 11:53 Sodium 136 mmol/L (136-145) 05/17/22 11:53 Potassium 3.5 mmol/L (3.5-5.1) 05/17/22 11:53 Chloride 103 mmol/L (98-107) 05/17/22 11:53 Carbon Dioxide 16 mmol/L (22-29) L 05/17/22 11:53 Anion Gap 20.5 (5-19) H 05/17/22 11:53 BUN 30 mg/dL (8-23) H 05/17/22 11:53 Creatinine 1.1 mg/dL (0.5-0.9) H 05/17/22 11:53 GFR Calculation Not Reportable 05/17/22 11:53 Glucose 93 mg/dL (65-115) 05/17/22 11:53 Calculated Osmolality 288 mOsm/kg (285-295) 05/17/22 11:53 Lactic Acid 0.5 mmol/L (0.5-2.2) 05/17/22 11:53 Calcium 8.9 mg/dL (8.5-10.5) 05/17/22 11:53 Total Bilirubin 0.4 mg/dL (0.15-1.2) 05/17/22 11:53 AST 29 U/L (0-32) 05/17/22 11:53 ALT 15 U/L (0-33) 05/17/22 11:53 Alkaline Phosphatase 87 U/L (35-105) 05/17/22 11:53 Troponin T Gen 5 ng/L 12 ng/L (0-10) H 05/17/22 13:40 NT-Pro-B Natriuret Pep 744 pg/mL (0-450) H 05/17/22 11:53 Total Protein 6.8 g/dL (6.6-8.7) 05/17/22 11:53 Albumin 3.3 g/dL (3.5-5.2) L 05/17/22 11:53 Globulin 3.5 g/dL (1.3-4.6) 05/17/22 11:53 Influenza Type A Ag negative (Negative) 05/17/22 11:40 Influenza Type B Ag negative (Negative) 05/17/22 11:40 SARS-CoV-2 Ag (Rapid) negative (Negative) 05/17/22 11:40 Imaging Data CTA Chest: Radiologist's impression: ADDENDUM CT/CT angio chest PE protcl [id number] Findings were discussed with Hi Mccullough at 05/17/2022 3:44 PM LIGHT RAIL SIGNAL TECHNICIAN.? ? Addendum Dictated By: ?Spencer Vasquez Addendum Signed By: ?Spencer Vasquez Signed Date/Time: 05/17/22 1546 Addendum Cosigned By: ? PROCEDURE INFORMATION: Exam: CTA Chest With Contrast Exam date and time: 05/17/2022 2:48 PM Age: 77 years old Clinical indication: Cough and shortness of breath; Prior surgery; Additional info: Shortness of breath; Hypoxia; Ddimer 3.8, R/O pe TECHNIQUE: Imaging protocol: Computed tomographic angiography of the chest with contrast. 3D rendering (Not supervised by radiologist): MIP and/or 3D reconstructed images were created by the technologist. Radiation optimization: All CT scans at this facility use at least one of these dose optimization techniques: automated exposure control; mA and/or kV adjustment per patient size (includes targeted exams where dose is matched to clinical indication); or iterative reconstruction. Contrast material: OMNI 350; Contrast volume: 100 ml; Contrast route: INTRAVENOUS (IV);? Other protocol: This patient has received 0 known CTs and 0 known cardiac nuclear medicine studies in the 12 months prior to the current study. COMPARISON: CT angio chest PE protcl [id number] 11/26/2020 10:16 PM RADIATION DOSE METRICS: Total DLP (mGy-cm): 185.22 FINDINGS: Pulmonary arteries:? There is extensive pulmonary artery filling defects present involving the posteromedial aspect of the right lower lobe pulmonary artery.? These findings correspond to a positive diagnosis of pulmonary embolism.? The remainder of the pulmonary arterial system is negative for additional findings. Aorta: Unremarkable. No aortic aneurysm. No aortic dissection. Lungs: Unremarkable. No consolidation. No masses. Pleural spaces: Unremarkable. No pneumothorax. No pleural effusion. Heart:? Negative for right heart strain.? A. No cardiomegaly. No pericardial effusion. Lymph nodes: Unremarkable. No enlarged lymph nodes. Bones/joints:? There is extensive orthopedic hardware in the dorsal spine.? There is extensive metallic artifact present in the spine decreasing the sensitivity of this portion of the examination. ? Soft tissues: Unremarkable. CT/CT angio chest PE protcl [id number] IMPRESSION: 1.? Positive diagnosis for pulmonary embolism right medial lower lobe pulmonary artery 2. Extensive orthopedic hardware is seen in the dorsal spine. 3. Negative for right heart strain. 4. Negative for aortic aneurysm or dissection ? Dictated By: Spencer Vasquez Signed By: Spencer Vasquez Signed Date/Time: 05/17/22 1539 CXR: My impression: Nothing acute. no infiltrates effusions or pneumothorax Radiologist's impression: PROCEDURE INFORMATION: Exam: XR Chest Exam date and time: 05/17/2022 12:03 PM Age: 77 years old Clinical indication: Condition or disease; Lung condition and disease; Pneumonia; Dyspnea; Additional info: Dyspnea/recent pneumonia TECHNIQUE: Imaging protocol: Radiologic exam of the chest. Views: 1 view. COMPARISON: CR XR chest 2V* [id number] 04/28/2022 9:59 AM FINDINGS: Lungs: Unremarkable. No consolidation. Low lung volumes seen Pleural spaces: Unremarkable. No pleural effusion. No pneumothorax. Heart/Mediastinum: Unremarkable. No cardiomegaly. Bones/joints: Extensive orthopedic hardware is seen in the dorsal spine and cervical spine. The hardware does not show deformity displacement or fracture. Comparison to prior examination no interval changes are seen. XR/XR chest 1V portable [id number] IMPRESSION: 1. No acute findings. 2. Extensive orthopedic hardware in the cervical and thoracic spine ? Dictated By: Spencer Vasquez Signed By: Spencer Vasquez Signed Date/Time: 05/17/22 1235 EKG Data EKG 1: I personally reviewed and interpreted this EKG as follows: EKG Interpretation Date: 05/17/22 EKG interpretation time: 11:24 Interpretation: Impression normal sinus rhythm heart rate 81. Mild left axis. Normal [place] interval, normal QT interval, normal P waves, normal T waves. Normal QRS. Normal ST segment. Normal EKG. Discharge Plan Discharge Patient Disposition: Admitted As Inpatient Clinical Impression: Mild shortness of breath, Nausea vomiting and diarrhea Pulmonary embolism Qualifiers: Pulmonary embolism type: single subsegmental (without acute cor pulmonale) Qualified Code(s): I26.93 - Single subsegmental pulmonary embolism without acute cor pulmonale Condition: Stable Coding Level of Care Code ED Drying Machine Receiver for Caitlyn Duckworth
--- NOTE | 2022-05-17 11:22 | ECG_ITS ---
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 Measurements Intervals [place] Rate: 81 P: 66 UT: 154 QRS: -37 QRSD: 91 T: 66 QT: 375 QTc: 436 Interpretive Statements SINUS RHYTHM LEFT AXIS DEVIATION [QRS AXIS < -30] Compared to ECG 11/26/2020 22:51:21 Left-axis deviation now present Myocardial infarct finding no longer present Electronically Signed On 05-17-2022 11:42:33 [employer]STER [employer]CH[employer] by Ethan Mcdonnell M.D. [email or web address]
[2022-05-17] MEDS: sodium chloride 0.9% 500 ML IV (11:35)
[2022-05-17] MEDS: ondansetron 2 mg/ML SDV 2 mL 4 MG IVP (11:36)
[2022-05-17 12:02] LABS: Influenza A by IFA negative (Negative); Influenza B by IFA negative (Negative)
[2022-05-17 12:03] LABS: SARS Covid-2 Antigen negative (Negative)
[2022-05-17 12:15] LABS: Basophils % 0.5 %; Eosinophils % 0.3 %; Hematocrit 36.9 % (37.0-47.0); Hemoglobin 11.5 g/dL (11.5-15.3); Lymphocytes # 0.8 10^3/uL (0.8-4.8); Lymphocytes % 12.8 %; Mean Corpuscular HGB Conc 31.2 g/dL (30.0-36.0); Mean Corpuscular Hemoglobin 29.7 pg (28.0-34.0); Mean Corpuscular Volume 95.3 fl (81-99); Mean Platelet Volume 9.8 fL (7.4-10.4); Monocytes # 0.3 10^3/uL (0.2-0.9); Monocytes % 5.2 %; Neutrophils # 4.91 10^3/uL (1.8-7.7); Neutrophils % 80.5 %; Nucleated Red Blood Cells % 0 %; Platelet Count 247 10^3/cmm (130-400); Red Blood Count 3.87 10^6/uL (4.1-5.3); Red Cell Distribution Width 14.7 % (12.1-15.1); White Blood Count 6.1 10^3/uL (4.0-10.0)
[2022-05-17 12:36] LABS: Lactic Sepsis W/Reflex 0.5 mmol/L (0.5-2.2)
[2022-05-17 12:40] LABS: Troponin T (5th) Once 12 ng/L (0-10)
[2022-05-17 12:47] LABS: Alanine Aminotransferase 15 U/L (0-33); Albumin Level 3.3 g/dL (3.5-5.2); Alkaline Phosphatase 87 U/L (35-105); Anion Gap 20.5 (5-19); Aspartate Amino Transferase 29 U/L (0-32); Blood Urea Nitrogen 30 mg/dL (8-23); Calcium 8.9 mg/dL (8.5-10.5); Carbon Dioxide 16 mmol/L (22-29); Chloride 103 mmol/L (98-107); Globulin 3.5 g/dL (1.3-4.6); Glucose 93 mg/dL (65-115); NT Pro B Type Natriuretic Pept 744 pg/mL (0-450); Osmolality Calculated 288 mOsm/kg (285-295); Potassium 3.5 mmol/L (3.5-5.1); Sodium 136 mmol/L (136-145); Total Bilirubin 0.4 mg/dL (0.15-1.2); Total Protein 6.8 g/dL (6.6-8.7)
[2022-05-17 13:33] LABS: D Dimer 3.87 ug/mIFEU (0-0.59)
--- NOTE | 2022-05-17 13:56 | CTR_ITS ---
PROCEDURE INFORMATION: Exam: CTA Chest With Contrast Exam date and time: 05/17/2022 2:48 PM Age: 77 years old Clinical indication: Cough and shortness of breath; Prior surgery; Additional info: Shortness of breath; Hypoxia; Ddimer 3.8, R/O pe TECHNIQUE: Imaging protocol: Computed tomographic angiography of the chest with contrast. 3D rendering (Not supervised by radiologist): MIP and/or 3D reconstructed images were created by the technologist. Radiation optimization: All CT scans at this facility use at least one of these dose optimization techniques: automated exposure control; mA and/or kV adjustment per patient size (includes targeted exams where dose is matched to clinical indication); or iterative reconstruction. Contrast material: OMNI 350; Contrast volume: 100 ml; Contrast route: INTRAVENOUS (IV); Other protocol: This patient has received 0 known CTs and 0 known cardiac nuclear medicine studies in the 12 months prior to the current study. COMPARISON: CT angio chest PE protcl [id number] 11/26/2020 10:16 PM RADIATION DOSE METRICS: Total DLP (mGy-cm): 185.22 FINDINGS: Pulmonary arteries: There is extensive pulmonary artery filling defects present involving the posteromedial aspect of the right lower lobe pulmonary artery. These findings correspond to a positive diagnosis of pulmonary embolism. The remainder of the pulmonary arterial system is negative for additional findings. Aorta: Unremarkable. No aortic aneurysm. No aortic dissection. Lungs: Unremarkable. No consolidation. No masses. Pleural spaces: Unremarkable. No pneumothorax. No pleural effusion. Heart: Negative for right heart strain. A. No cardiomegaly. No pericardial effusion. Lymph nodes: Unremarkable. No enlarged lymph nodes. Bones/joints: There is extensive orthopedic hardware in the dorsal spine. There is extensive metallic artifact present in the spine decreasing the sensitivity of this portion of the examination. Soft tissues: Unremarkable. CT/CT angio chest PE protcl [id number] IMPRESSION: 1. Positive diagnosis for pulmonary embolism right medial lower lobe pulmonary artery 2. Extensive orthopedic hardware is seen in the dorsal spine. 3. Negative for right heart strain. 4. Negative for aortic aneurysm or dissection
[2022-05-17 14:09] LABS: Troponin T (5th) Once 12 ng/L (0-10)
--- NOTE | 2022-05-17 17:33 | PC.NURSE ---
REPORT CALLED TO KELVIN, FLOOR NURSE. FLOOR RN STATED SHE WOULD CLARIFY HEPARIN DRIP AND ORDERS WITH ADMITTING PHYSICIAN.
[2022-05-17] MEDS: heparin drip 25,000 UNIT/500 ML PREMIX 16 UNIT IV (18:17)
[2022-05-17] MEDS: heparin 5,000 unit/mL INJ 1 mL 2800 UNIT IVP (18:18)
--- NOTE | 2022-05-17 18:31 | P.HP_ITS ---
Providers/Chief Complaint Admitting Physician: Yeimy Vela MD Primary Care Provider: Elysia Sousa MD Chief Complaint: Sent from UC, Low O2 History of Present Illness Michelle Bradford is a 77 year old female with past medical history of hypertension, depression, back pain, COPD secondary to previous spinal surgeries including C1- C2 stabilization, status post hemicolectomy secondary to ongoing colitis which did not respond to antibiotics and steroids in 2016 presenting to the hospital today for complaint of watery diarrhea that has been going on since the last day. Patient is going to the bathroom every 15 minutes and is incontinent of stool at this point. She is also been having vomiting and dry heaving including nausea. 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 She says she was recently treated for pneumonia by her outpatient doctor and given an antibiotic for 10 days including Z-Lasha for 5 days. She says she has 2 tablets left. The diarrhea suddenly started yesterday morning. Since it has worsened she has presented to the hospital. She denies any abdominal pain or cramping at this time. The diarrhea is completely watery to yellowish in color. Denies any mucus in it. Denies blood in stool. Denies blood in vomitus. Denies chest pain, shortness of breath or any other complaints at this time. Says the cough is better and respiratory olson she has no symptoms at this time. Denies a fever at home. Patient denies recent travel, prolonged sedentary lifestyle. There is no apparent provoking factor for PE today. Denies a family history of it and denies a past medical history of it as well. She has had 4 COVID vaccines including the latest one biValent vaccine. She has never been diagnosed with COVID before. Denies being a smoker. Chart review shows that in 2016 patient was admitted and closely monitored and treated for colitis which was suspected to be ischemic in origin. She was discharged on antibiotics and steroids and reported that it made no difference. She will unable to see a GI specialist and her appointment was quite later and she does not want to wait longer and was in severe pain and having up to 20 episodes of hemorrhagic diarrhea daily. She was admitted for hemicolectomy due to ongoing colitis which did not respond to antibiotics and steroids. Patient states that since her surgery she has been fine and never had diarrhea after that. ED course: On arrival blood pressure 124 over 60s, respirate 18, pulse 85, temperature 98.5. In the ER possible pneumonia was suspected and diarrhea possibly due to C. difficile from antibiotic use. CTA chest was done which showed pulmonary embolism to right lower lobe moderate severity. No saddle embolus per radiologist. FOBT was checked which was positive. Lactoferrin was also positive. Hemoglobin 11.1. Heparin drip was started in the ER. Medications/Allergies Home Medications Medication Instructions Recorded Confirmed Last Taken Type albuterol sulfate 90 mcg/actuation 2 puff inhalation 6XD PRN 08/09/19 05/17/22 2 Days Ago History aerosol inhaler Shortness Of Breath Or Wheezing ~11/02/19 alprazolam 0.5 mg tablet 0.5 mg PO QID PRN Anxiety 08/09/19 05/17/22 1 Day Ago History ~11/03/19 amlodipine 5 mg tablet 5 mg PO DAILY 08/09/19 05/17/22 11/04/19 08:10 History aspirin 81 mg tablet,delayed 81 mg PO DAILY 08/09/19 05/17/22 1 Week Ago History release (Adult Low Dose Aspirin) ~10/28/19 atorvastatin 40 mg tablet 40 mg PO DAILY 08/09/19 05/17/22 1 Day Ago History ~11/03/19 calcitriol 0.25 mcg capsule 0.25 mcg PO DAILY 08/09/19 05/17/22 1 Day Ago History ~11/03/19 citalopram 20 mg tablet 20 mg PO DAILY 08/09/19 05/17/22 1 Day Ago History ~11/03/19 diclofenac sodium 1 % gel topical 2 gm topical QID PRN Itching 08/09/19 05/17/22 1 Day Ago History kit ~11/03/19 hydrocodone 10 mg-acetaminophen 1 tab PO Q6H PRN Pain 08/09/19 05/17/22 11/04/19 08:10 History 325 mg tablet pantoprazole 40 mg tablet,delayed 40 mg PO DAILY 08/09/19 05/17/22 1 Day Ago History release (Protonix) ~11/03/19 cyanocobalamin (vitamin B-12) 1,000 mcg PO DAILY PRN Fatigue 10/31/19 05/17/22 Unknown History 1,000 mcg tablet methocarbamol 500 mg tablet 500 mg PO QID 05/03/21 05/17/22 Unknown History gabapentin 300 mg capsule 300 mg PO TID pain #90 caps 05/17/21 05/17/22 Unknown Rx docusate sodium 100 mg capsule 100 mg PO DAILY 12/01/21 05/17/22 Unknown History (Colace) prednisone 10 mg tablet See Rx Instructions PO .COMPLEX 12/01/21 05/17/22 Unknown Rx PRN joint pain #60 tabs chlorphen 2 mg-PE 5 mg-DM 10 1 ea PO Q4-5H PRN cough/drainage 04/28/22 05/17/22 Unknown Rx mg-acetaminophn 325mg(nt)-guaifen #20 ea tablets hydrochlorothiazide 12.5 mg tablet 12.5 mg PO DAILY 05/17/22 05/17/22 Unknown History Allergies Allergy/AdvReac Type Severity Reaction Status Date / Time infliximab [From Remicade] Allergy Unknown Verified 05/17/22 11:52 meropenem Allergy ALGY-Hives Verified 05/17/22 11:52 nafcillin Allergy ALGY-Hives Verified 05/17/22 11:52 PFSH Acute PFSH: Medical History (Updated 05/17/22 @ 19:26 by Yeimy Vela MD) Anxiety and depression Community acquired pneumonia COPD (chronic obstructive pulmonary disease) with acute bronchitis COPD (chronic obstructive pulmonary disease) with chronic bronchitis Fibromyalgia GERD (gastroesophageal reflux disease) High risk medication use Hyperlipidemia Immunization counseling Lumbar post-laminectomy syndrome Osteoarthritis Osteoporosis Rheumatoid arthritis Seropositive rheumatoid arthritis of multiple sites Soft tissue mass Thoracic postlaminectomy syndrome Weight loss, non-intentional Surgical History H/O foot surgery bilaterally History of appendectomy History of cholecystectomy History of colon surgery 14 inches removed History of hysterectomy History of lumbar surgery (~2010) Dr. Kauffman L1-L5 laminectomy/fusion/fixation History of lumbar surgery (~2012) Dr. Kauffman L1-L5 laminectomy/fusion/fiaxation; exploration History of thoracic surgery (~04/2016) Dr. Kauffman T9-S1 fusion fixation History of thoracic surgery (~02/2017) Dr. Kauffman T10-T11 fixation/fusion. HX T11 fracture. 04/06/17 Dr Kauffman removal of posterior 5.5 mm diameter titanium [place]. Exploration of rostal end of fusion adjacent to [place] and screw;staph infection Status post cervical spinal fusion (~2007) Dr Leblanc C6-C7 ACDFF Family History Father Stroke Mother Cancer Family history of thyroid problem Sister Cancer Brother Diabetes Social History Smoking and tobacco status: never smoked Alcohol intake: never Household members: none Marital status: / Current occupational status: retired History of recent travel: No Vitals/I&O/Wt Last Vital Signs Temp 98.5 F 05/17/22 10:58 Pulse 87 05/17/22 17:30 Resp 15 05/17/22 17:30 BP 124/66 05/17/22 18:00 Pulse Ox 90 05/17/22 17:30 O2 Del Method 05/17/22 15:44 O2 Flow Rate 2 05/17/22 15:44 05/17/22 05/17/22 05/17/22 06:59 14:59 22:59 Intake Total 500 / 500 Balance 500 / 500 Weight last 48 hrs Weight 56.245 kg Physical Exam Narrative: General: Alert oriented x3, patient seen laying in bed appearing comfortable at this time. Awake alert. Family present at bedside. Denies any abdominal pain at this time. HEENT: Normocephalic, atraumatic, EOMI, breathing comfortably on room air. No acute distress. Cardio: Regular rate rhythm, normal S1-S2, Respiratory: Good bilateral air entry, no wheezes no rhonchi appreciated GI: Abdomen soft, slightly hyperactive bowel sounds, no guarding no rigidity, no signs of acute abdomen. Behavior: Appropriate and cooperative Extremities: No bilateral lower extremity edema noted. Data 05/17/22 11:53 05/17/22 11:53 Micro: Microbiology 05/17/22 12:44 Stool Lactoferrin - Final Stool Occult Blood (FIT) - Final 05/17/22 11:57 Blood Culture - Preliminary Blood SPECIMEN COLLECTED 05/17/22 11:53 Blood Culture - Preliminary Blood SPECIMEN COLLECTED A&P Assessment and plan (1) Nausea vomiting and diarrhea: (2) Pulmonary embolism: Qualifiers: Pulmonary embolism type: single subsegmental (without acute cor pul monale) Qualified Code(s): I26.93 - Single subsegmental pulmonary embolism without acute cor pulmonale (3) COPD (chronic obstructive pulmonary disease) with chronic bronchitis: (4) Hypertension: (5) Occult blood in stools: (6) GERD (gastroesophageal reflux disease): (7) Anxiety and depression: Plan #Diarrhea with stool incontinence #History of left hemicolectomy secondary to ongoing colitis which does not respond to antibiotics and steroids in 2016 #Recent antibiotic use #Acute pulmonary embolism right lower lobe, no right heart strain noted on CT #Positive FOBT #Hypertension #Depression #Chronic back pain #History of 4 back surgeries ? Check stool culture, stool for C. difficile ? Check CT abdomen pelvis without contrast ? Hemoglobin is 11. Continue to monitor every 8 hours. Continue heparin drip at this time. ? Check lactoferrin ? Hold off on any antibiotics at this time. ? Hold off on Imodium at this time until C. difficile rule out. ? Possible differentials include small intestinal bacterial overgrowth, short bowel syndrome, C. difficile colitis including but not limited to inflammatory diarrea? ? Check stool for ova parasite ? Check lactic acid ? Check echo ? Hold aspirin for now. Continue atorvastatin, continue citalopram ? Continue gabapentin ? DuoNeb every 4 hours as needed ? Protonix 40 IV twice daily -We will consider general surgery consult after CT abdomen -May consider IV steroids after C. difficile and CT abdomen results are reviewed Full code DVT prophylaxis: On heparin drip at this time Attestations Medical Necessity Statement*: Will cross greater than 2 midnight stay for management of diarrhea and acute pulmonary embolism. Diagnoses Nausea vomiting and diarrhea R11.2; R19.7 Pulmonary embolism I26.93 Pulmonary embolism type: single subsegmental (without acute cor pulmonale) COPD (chronic obstructive pulmonary disease) with chronic bronchitis J44.9 Hypertension I10 Occult blood in stools R19.5 GERD (gastroesophageal reflux disease) K21.9 Anxiety and depression F41.9; F32.A
--- NOTE | 2022-05-17 19:23 | USCV_ITS ---
Michelle Bradford Age: 77 Gender: F : 1945 Exam Date: 05/17/2022 19:48 Ordering Phys: Yeimy Vela MD Technologist: CHRISTY Exam Location: [facility] [place] Indication: Pulmonary embolus while recovering from pneumonia. No history of cardiac intervention per patient. BP: 110 / 70 HR: 70 Rhythm: Sinus Technical Quality: Adequate MEASUREMENTS (Male / Female) Normal Values 2D ECHO LV Diastolic Diameter PLAX 2.2 cm 4.2 - 5.9 / 3.9 - 5.3 cm LV Systolic Diameter PLAX 1.5 cm IVS Diastolic Thickness 1.9 cm 0.6 - 1.0 / 0.6 - 0.9 cm IVS Systolic Thickness 2.2 cm LVPW Diastolic Thickness 1.2 cm 0.6 - 1.0 / 0.6 - 0.9 cm LVPW Systolic Thickness 1.6 cm LVOT Diameter 1.8 cm LV Ejection Fraction 2D Teich 59.5 % LV Ejection Fraction MOD 2C 62.9 % LV Ejection Fraction 2C AL 65.4 % LA Diameter 2.0 cm LA Width 2.7 cm LA Height 4.7 cm RA Width 2.8 cm RA Height 3.8 cm Aorta at Sinotubular Diameter 2.8 cm IVC Diameter 0.9 cm M-MODE Aortic Annulus Diameter 3.2 cm LA Ao Ratio MM 0.7 MV E Point Septal Separation 0.1 cm DOPPLER AV Peak Velocity 111.0 cm/s LVOT Peak Velocity 125.0 cm/s AV Area Cont Eq vti 2.4 cm squared AV Area Cont Eq pk 2.9 cm squared MV Area PHT 1.9 cm squared Mitral E to A Ratio 0.5 MV E' Velocity 63.0 cm/s TR Peak Velocity 201.0 cm/s TR Peak Gradient 16.2 mmHg TV Peak E Velocity 34.0 cm/s Right Atrial Pressure 5.0 mmHg Pulmonary Artery Systolic Pressu 21.2 mmHg PV Peak Velocity 114.0 cm/s RV Acceleration Time 0.1 s RV Ejection Time 0.4 s RV AcT/ET 0.3 FINDINGS Left Ventricle Normal left ventricular size, systolic function and moderately increased wall thickness, with no regional wall motion abnormalities. Left ventricular ejection fraction is estimated at 70 %. Moderate concentric left ventricular hypertrophy. Grade I diastolic dysfunction (abnormal relaxation filling pattern), normal to mildly elevated filling pressures. Right Ventricle Normal right ventricular size and systolic function. Right ventricular systolic pressure 21.2 mmHg. Right Atrium Normal right atrial size. Left Atrium Normal left atrial size. Mitral Valve Structurally normal mitral valve. No mitral valve stenosis. No significant mitral valve regurgitation. Aortic Valve Mildly thickened trileaflet aortic valve. No aortic valve stenosis. No aortic valve regurgitation. Tricuspid Valve Structurally normal tricuspid valve. No tricuspid valve stenosis. Trace tricuspid valve regurgitation. Pulmonic Valve Pulmonic valve not well visualized. Pericardium No pericardial effusion. Aorta Normal size aortic root and proximal ascending aorta. IVC Normal IVC dimension with >50% respiratory change of the inferior vena cava. CONCLUSIONS 1. Normal left ventricular size, systolic function and moderately increased wall thickness, with no regional wall motion abnormalities. Left ventricular ejection fraction is estimated at 70 %. Moderate concentric left ventricular hypertrophy. Grade I diastolic dysfunction (abnormal relaxation filling pattern), normal to mildly elevated filling pressures. 2. Normal right ventricular size and systolic function. 3. No prior similar studies to compare. Vernell Chan MD (Electronically Signed) Final Date: 17 May 2022 22:55 S
[2022-05-17 20:00] LABS: Basophils % 0.8 %; Eosinophils # 0.1 10^3/uL (0.0-0.8); Hematocrit 36.3 % (37.0-47.0); Hemoglobin 11.1 g/dL (11.5-15.3); Lymphocytes # 1.1 10^3/uL (0.8-4.8); Lymphocytes % 20.8 %; Mean Corpuscular HGB Conc 30.6 g/dL (30.0-36.0); Mean Corpuscular Hemoglobin 29.3 pg (28.0-34.0); Mean Corpuscular Volume 95.8 fl (81-99); Mean Platelet Volume 10.1 fL (7.4-10.4); Monocytes # 0.4 10^3/uL (0.2-0.9); Monocytes % 8.3 %; Neutrophils # 3.56 10^3/uL (1.8-7.7); Neutrophils % 68.7 %; Nucleated Red Blood Cells % 0 %; Platelet Count 229 10^3/cmm (130-400); Red Blood Count 3.79 10^6/uL (4.1-5.3); Red Cell Distribution Width 14.6 % (12.1-15.1); White Blood Count 5.2 10^3/uL (4.0-10.0)
[2022-05-17] MEDS: pantoprazole 40 mg SDV IVP (20:39)
[2022-05-17] MEDS: sodium chloride 0.9% 1,000 ML 75 ML IV (20:40)
[2022-05-17] MEDS: gabapentin 300 mg Capsule PO (20:47)
[2022-05-18] VITALS (14 sets, daily range): BP systolic 113–133; BP diastolic 62–73; PULSE 72–86; RESP 15–24; TEMP 36.6–37; O2SAT 90–95
[2022-05-18 01:40] LABS: Basophils # 0.1 10^3/uL (0.0-0.1); Basophils % 1.1 %; Eosinophils # 0.1 10^3/uL (0.0-0.8); Eosinophils % 1.1 %; Hematocrit 34.1 % (37.0-47.0); Hemoglobin 10.3 g/dL (11.5-15.3); Lymphocytes # 1.2 10^3/uL (0.8-4.8); Lymphocytes % 27.5 %; Mean Corpuscular HGB Conc 30.2 g/dL (30.0-36.0); Mean Corpuscular Hemoglobin 29.2 pg (28.0-34.0); Mean Corpuscular Volume 96.6 fl (81-99); Mean Platelet Volume 10.3 fL (7.4-10.4); Monocytes # 0.4 10^3/uL (0.2-0.9); Neutrophils # 2.64 10^3/uL (1.8-7.7); Neutrophils % 60.1 %; Nucleated Red Blood Cells % 0 %; Platelet Count 219 10^3/cmm (130-400); Red Blood Count 3.53 10^6/uL (4.1-5.3); Red Cell Distribution Width 14.7 % (12.1-15.1); White Blood Count 4.4 10^3/uL (4.0-10.0)
[2022-05-18] MEDS: ipratropium-albuterol 3 mL Neb INHALATION ×4 (01:45→21:43)
[2022-05-18 01:59] LABS: Alanine Aminotransferase 15 U/L (0-33); Albumin Level 2.6 g/dL (3.5-5.2); Alkaline Phosphatase 79 U/L (35-105); Anion Gap 18.5 (5-19); Aspartate Amino Transferase 30 U/L (0-32); Blood Urea Nitrogen 26 mg/dL (8-23); Calcium 8.7 mg/dL (8.5-10.5); Carbon Dioxide 15 mmol/L (22-29); Chloride 107 mmol/L (98-107); Globulin 3.4 g/dL (1.3-4.6); Glucose 65 mg/dL (65-115); Magnesium 1.7 mg/dL (1.7-2.3); Osmolality Calculated 287 mOsm/kg (285-295); Potassium 3.5 mmol/L (3.5-5.1); Sodium 137 mmol/L (136-145); Total Bilirubin 0.3 mg/dL (0.15-1.2)
[2022-05-18] MEDS: sodium chloride 0.9% 1,000 ML 75 ML IV (05:11)
[2022-05-18] MEDS: pantoprazole 40 mg SDV IVP (05:11)
[2022-05-18 08:14] LABS: Partial Thromboplastin Time 74.5 SECONDS (23.9-36.7)
--- NOTE | 2022-05-18 08:45 | PC.CHAP ---
Pastoral Care Encounter/Spiritual Assessment Type of Contact [] Declined vocational evaluator visit [] Patient/Family/Request visit [] Outpatient visit [] Follow-up visit [] Physician referral [] Code/Alert [x] Routine visit [] Staff referral [] Actively dying [] Patient sleeping [] Family support [] [] Out of room [] Palliative care [] [] Receiving care in room [] Pre-surgical visit [] Trauma [] Long length of stay [] ICU visit [] Other: Relational/Emotional Strength [x] Patient feels connected with others/family/visitors/staff [] Distress [] Loneliness/isolation [] Abandonment Spirituality of Patient [x] Person of Miranda [] Attends Yazidism of their Miranda [x] Believes in Prayer [] Reads Bible or Sabianism materials [] There are Spiritual issues to be addressed Element Winding Machine Tender Interventions [x] Prayer [x] Active listening [x] Non-anxious presence [x] Spiritual/emotional support [] Crisis/trauma care [] Spiritual counseling [] Bereavement support [] Provided bereavement packet [] Provided Bible/devotional materials [] Provided toy/stuffed animal, coloring book to patient or family member [] Provided Communion [] Anointing/Coleman [] Salvation [x] Completed spiritual assessment [] Other: Impact on Illness or Injury [] Angry [] Fearful [] Anxious [] Often cries [] Exhaustion [] Unable to work [] Unable to attend sikhism [] Unable to walk/stand [] Unable to read [] Unable to drive [] Unable to eat/drink [] Unable to sleep [] Unable to be with family [] Patient intubated [] Other: Summary 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 Has had several weeks of health issues and has resulted in her being in the hospital. Underwent tests yesterday and is waiting for results today. Time spent with patient 10m
[2022-05-18] MEDS: gabapentin 300 mg Capsule PO ×3 (09:08→20:07)
[2022-05-18] MEDS: atorvastatin 40 mg Tablet PO (09:08)
[2022-05-18] MEDS: citalopram 20 mg Tablet PO (09:08)
[2022-05-18] MEDS: hydroCHLOROthiazide 25 mg Tablet 12.5 MG PO (09:08)
[2022-05-18] MEDS: aspirin 81 mg EC Tablet PO (09:09)
[2022-05-18] MEDS: calcitriol 0.25 mcg Capsule PO (09:09)
[2022-05-18] MEDS: pantoprazole DR 40 mg Tablet PO ×2 (09:09→17:21)
[2022-05-18 10:14] LABS: Basophils # 0.1 10^3/uL (0.0-0.1); Basophils % 1.2 %; Eosinophils # 0.1 10^3/uL (0.0-0.8); Eosinophils % 1.7 %; Hematocrit 34.8 % (37.0-47.0); Hemoglobin 10.8 g/dL (11.5-15.3); Lymphocytes % 23.7 %; Mean Corpuscular Hemoglobin 29.7 pg (28.0-34.0); Mean Corpuscular Volume 95.6 fl (81-99); Mean Platelet Volume 9.9 fL (7.4-10.4); Monocytes # 0.5 10^3/uL (0.2-0.9); Neutrophils # 2.58 10^3/uL (1.8-7.7); Neutrophils % 61.9 %; Nucleated Red Blood Cells % 0 %; Platelet Count 206 10^3/cmm (130-400); Red Blood Count 3.64 10^6/uL (4.1-5.3); Red Cell Distribution Width 14.6 % (12.1-15.1); White Blood Count 4.2 10^3/uL (4.0-10.0)
--- NOTE | 2022-05-18 14:13 | P.PN_ITS ---
Subjective Subjective: seen this am patient refused to have CT done last night as she said she was resting at the time had 2 BM overnight BM have slowed down today she revealed she takes daily stool softeners and may have accidentally taken double dose? Vitals/I&O/Wt Last Vital Signs Temp 98.6 F 05/18/22 12:00 Pulse 80 05/18/22 13:34 Resp 18 05/18/22 13:27 BP 131/68 05/18/22 12:00 Pulse Ox 93 05/18/22 13:27 O2 Del Method 05/18/22 13:27 O2 Flow Rate 2.5 05/18/22 01:46 05/17/22 05/18/22 05/18/22 22:59 06:59 14:59 Intake Total 620 / 620 882.75 / 1502.75 480 / 480 Balance 620 / 620 882.75 / 1502.75 480 / 480 Weight last 48 hrs Weight 56.501 kg Weight 56.245 kg Physical Exam Narrative: General: Alert oriented x3, patient seen laying in bed appearing comfortable at this time. Awake alert. HEENT: Normocephalic, atraumatic, EOMI, breathing comfortably on room air. No acute distress. Cardio: Regular rate rhythm, normal S1-S2, Respiratory: Good bilateral air entry, no wheezes no rhonchi appreciated GI: Abdomen soft, normoactive Bowel sounds, no guarding no rigidity, no signs of acute abdomen. Behavior: Appropriate and cooperative Extremities: No bilateral lower extremity edema noted. Data 05/18/22 10:07 05/18/22 00:59 Micro: Microbiology 05/18/22 07:20 Enteric Pathogens (PCR) - Final Stool Routine Collection Parasite Antigen Panel - Final 05/17/22 12:44 Stool Lactoferrin - Final Stool Enteric Pathogens (PCR) - Final C.difficile Toxin B Gene (PCR) - Final Occult Blood (FIT) - Final 05/17/22 11:57 Blood Culture - Preliminary Blood NEGATIVE TO DATE 05/17/22 11:53 Blood Culture - Preliminary Blood NEGATIVE TO DATE A&P Assessment and plan (1) Nausea vomiting and diarrhea: (2) Pulmonary embolism: Qualifiers: Pulmonary embolism type: single subsegmental (without acute cor pulmonale) Qualified Code(s): I26.93 - Single subsegmental pulmonary embolism without acute cor pulmonale (3) COPD (chronic obstructive pulmonary disease) with chronic bronchitis: (4) Hypertension: (5) Occult blood in stools: (6) GERD (gastroesophageal reflux disease): (7) Anxiety and depression: Plan #Diarrhea with stool incontinence #History of left hemicolectomy secondary to ongoing colitis which does not respond to antibiotics and steroids in 2016 #Recent antibiotic use #Acute pulmonary embolism right lower lobe, no right heart strain noted on CT #Positive FOBT #Hypertension #Depression #Chronic back pain #History of 4 back surgeries ? stool culture , ova parasite screen are all negative, stool for C. difficile is also negative ? CT abdomen pelvis without contrast did not show acute pathology or inflammation. ? Hemoglobin is 11. Continue to monitor every 8 hours. Continue heparin drip at this time. ? Lactoferrin elevated ? Hold off on any antibiotics at this time. ? Hold off on Imodium at this time - Hold stool softeners ? Lactic acid negative ? Echo complete. LVEF 70%. Grade 1 diastolic dysfunction ? Hold aspirin for now. Continue atorvastatin, continue citalopram ? Continue gabapentin ? DuoNeb every 4 hours as needed ? Protonix 40 IV twice daily - Mild diffuse constipation - Discussed possibility of EGD colonoscopy with the patient. She says she is not very interested at this time - Continue on protonix 40 BID - FOBT was positive in ER - CT abd does show very minimal right basilar endobronchial pneumonia. Most likely residual finding from recent illness. She has completed antibitoics already - Will recheck BMP and ph today. HCO3 15 probably due to recent diarrhea. - If hemoglobin remains stable, will plan to dc on eliquis in AM with close follow up with Dr. Holder (her doctor) and PCP. - I would recommend she also follow with a slurry plant operator. Full code DVT prophylaxis: On heparin drip at this time Attestations Medical Necessity Statement*: Possible dc in AM. She is getting better Other Coding Information Focused coding review requested Diagnoses Nausea vomiting and diarrhea R11.2; R19.7 Pulmonary embolism I26.93 Pulmonary embolism type: single subsegmental (without acute cor pulmonale) COPD (chronic obstructive pulmonary disease) with chronic bronchitis J44.9 Hypertension I10 Occult blood in stools R19.5 GERD (gastroesophageal reflux disease) K21.9 Anxiety and depression F41.9; F32.A
[2022-05-18 15:34] LABS: ABG PCO2 21.9 mmHg (35-45); ABG PH Result 7.47 (7.35-7.45); Arterial Blood Gas Hematocrit 32.7 % (37-47); Blood Gas Allen Test Pos; Blood Gas Sample Site Radial, right; Blood Gas Sample Type Arterial; Carboxyhemoglobin 0.3 %THgb (0.4-20.1); HCO3 ABG 16.1 mmol/L (22-26); HGB O2 Sat 97.4 % (95-100); Ionized Calcium Level - ABG 1.2 mmol/L (1.1-1.4); Methemoglobin 1.1 % (0.4-1.5); Oxygen Device ROOM AIR; Oxygen Saturation ABG 98.8; Potassium Level - ABG 3.1 mmol/L (3.5-5.0); Total Hemoglobin 10.7 g/dL (12-16)
[2022-05-18 16:20] LABS: Anion Gap 19.3 (5-19); Blood Urea Nitrogen 18 mg/dL (8-23); Calcium 8.4 mg/dL (8.5-10.5); Carbon Dioxide 14 mmol/L (22-29); Chloride 107 mmol/L (98-107); Glucose 82 mg/dL (65-115); Osmolality Calculated 285 mOsm/kg (285-295); Potassium 3.3 mmol/L (3.5-5.1); Sodium 137 mmol/L (136-145)
[2022-05-18] MEDS: sodium bicarbonate 8.4% 1 mEq/mL 50mL Syr 25 MEQ IVP (17:20)
[2022-05-18] MEDS: folic acid 1 mg Tablet PO (17:21)
[2022-05-18] MEDS: potassium chloride ER 20 mEq Tablet 40 MEQ PO (17:21)
[2022-05-18] MEDS: sodium chloride 0.9% 1,000 ML 100 ML IV (18:29)
--- NOTE | 2022-05-18 19:09 | CT_ITS ---
WS: [id number] CT ABDOMEN AND PELVIS NONCONTRAST HISTORY: diarrhea TECHNIQUE: Imaging performed through the abdomen and pelvis. Coronal and sagittal reformats are submi tted. All CT scans at [facility] use at least one of these dose optimization techniques: auto mated exposure control; mA and/or kV adjustment per patient size (includes targeted exams where dose is matched to clinical indication); or iterative reconstruction. DLP: 369.32 mGy.cm COMPARISON: 03/11/2017 Lower thorax: Very minimal tree-in-bud airspace disease at the RIGHT lung base. Lung bases are hyperi nflated. Visualized heart is normal. Liver: Normal size liver. No mass or bile duct dilatation. Gallbladder: Prior cholecystectomy. Pancreas: Atrophied pancreas. No adjacent inflammation. Spleen: Normal. Adrenal glands: Normal. No mass. Right kidney: Partially obscured kidney by spine hardware artifact. Increased density in the renal pe lvis is related to contrast excretion from a prior CT angiogram. Small exophytic cyst from the mid ki dney. Left kidney: Normal size kidney. Exophytic cortical cyst mid kidney measures 12 mm. High density cont rast in the proximal LEFT ureter. Aorta: Moderate to severe atherosclerosis abdominal aorta. No aneurysm. Atherosclerosis continues int o the common iliac arteries. No free fluid, intraperitoneal air or significant lymphadenopathy. GI tract: Nondistended stomach. There is mild wall thickening of the stomach which may be due to unde rdistention. No small bowel obstruction. Moderate diffuse fecal retention and constipation. No obstru ctive pattern. No significant diverticular disease identified. The appendix is not identified. Abdominal wall: Negative. No hernia. Pelvis: Urinary bladder is filled with high density contrast from recent IV contrast injection. No free fluid or adenopathy. Osseous structures: Extensive posterior lumbar fusion hardware. Hardware extends into the thoracic and pelvis. Extensive laminectomy defects in the lumbar region. Th ere is lucency around the hardware, in particular the sacral screws. CT/CT abdomen pelvis wo con [id number] IMPRESSION: 1. No acute abdominal or pelvic abnormalities are identified on this unenhance d exam. 2. Mild diffuse constipation. No wall thickening or ascites. 3. Prior cholecystectomy. 4. Very minimal RIGHT basilar endobronchial pneumonia.
--- NOTE | 2022-05-18 19:44 | PC.NURSE ---
Patient requesting something for sleep. Spoke with Dr Jarrell and received telphone order for Restoril 15mg PO PRN at bedtime.
--- NOTE | 2022-05-18 19:49 | PC.NURSE ---
ptt and other labs not drawn as ordered this afternoon..due to pt is very difficult stick..stuck 5 times by lab and nursing staff..and refused further venapuncture.dr crews is aware
[2022-05-18 19:56] LABS: Basophils # 0.1 10^3/uL (0.0-0.1); Basophils % 1.5 %; Eosinophils # 0.1 10^3/uL (0.0-0.8); Eosinophils % 3.2 %; Hematocrit 34.5 % (37.0-47.0); Hemoglobin 10.2 g/dL (11.5-15.3); Lymphocytes # 1.3 10^3/uL (0.8-4.8); Lymphocytes % 30.4 %; Mean Corpuscular HGB Conc 29.6 g/dL (30.0-36.0); Mean Corpuscular Hemoglobin 29.2 pg (28.0-34.0); Mean Corpuscular Volume 98.9 fl (81-99); Mean Platelet Volume 9.9 fL (7.4-10.4); Monocytes # 0.5 10^3/uL (0.2-0.9); Monocytes % 11.7 %; Neutrophils # 2.17 10^3/uL (1.8-7.7); Neutrophils % 52.7 %; Nucleated Red Blood Cells % 0 %; Platelet Count 206 10^3/cmm (130-400); Red Blood Count 3.49 10^6/uL (4.1-5.3); Red Cell Distribution Width 14.7 % (12.1-15.1); White Blood Count 4.1 10^3/uL (4.0-10.0)
[2022-05-18] MEDS: temazepam 15 mg Capsule PO (20:07)
[2022-05-18] MEDS: heparin drip 25,000 UNIT/500 ML PREMIX 15 UNIT IV (20:13)
[2022-05-18 20:17] LABS: Blood Urea Nitrogen 17 mg/dL (8-23)
[2022-05-18 20:40] LABS: Partial Thromboplastin Time 67.7 SECONDS (23.9-36.7)
[2022-05-18 20:54] LABS: Calcium 8.5 mg/dL (8.5-10.5); Carbon Dioxide 14 mmol/L (22-29); Chloride 108 mmol/L (98-107); Glucose 92 mg/dL (65-115); Osmolality Calculated 285 mOsm/kg (285-295); Sodium 137 mmol/L (136-145)
[2022-05-18 20:55] LABS: Anion Gap 18.5 (5-19); Potassium 3.5 mmol/L (3.5-5.1)
[2022-05-18 21:11] LABS: Ketone (Acetest) Serum Negative (Negative)
[2022-05-18 21:42] LABS: Lactate (Lactic Acid level) 0.9 mmol/L (0.5-2.2)
[2022-05-19] VITALS (59 sets, daily range): BP systolic 123–146; BP diastolic 64–80; PULSE 66–84; RESP 15–24; TEMP 36.6–37.3; O2SAT 88–98
[2022-05-19 03:34] LABS: Basophils % 0.8 %; Eosinophils # 0.2 10^3/uL (0.0-0.8); Eosinophils % 4.7 %; Hematocrit 30.7 % (37.0-47.0); Hemoglobin 9.4 g/dL (11.5-15.3); Lymphocytes # 1.4 10^3/uL (0.8-4.8); Lymphocytes % 39.3 %; Mean Corpuscular HGB Conc 30.6 g/dL (30.0-36.0); Mean Corpuscular Hemoglobin 29.4 pg (28.0-34.0); Mean Corpuscular Volume 95.9 fl (81-99); Mean Platelet Volume 9.9 fL (7.4-10.4); Monocytes # 0.5 10^3/uL (0.2-0.9); Monocytes % 13.5 %; Neutrophils % 41.2 %; Nucleated Red Blood Cells % 0 %; Platelet Count 191 10^3/cmm (130-400); Red Cell Distribution Width 14.8 % (12.1-15.1); White Blood Count 3.6 10^3/uL (4.0-10.0)
[2022-05-19] MEDS: sodium chloride 0.9% 1,000 ML 100 ML IV (03:36)
[2022-05-19 03:39] LABS: Partial Thromboplastin Time 50.6 SECONDS (23.9-36.7)
[2022-05-19 03:56] LABS: Anion Gap 12.7 (5-19); Blood Urea Nitrogen 14 mg/dL (8-23); Calcium 8.5 mg/dL (8.5-10.5); Carbon Dioxide 21 mmol/L (22-29); Chloride 113 mmol/L (98-107); Glucose 90 mg/dL (65-115); Osmolality Calculated 296 mOsm/kg (285-295); Potassium 3.7 mmol/L (3.5-5.1); Sodium 143 mmol/L (136-145)
[2022-05-19] MEDS: heparin 5,000 unit/mL INJ 1 mL IV ×2 (03:56→18:15)
[2022-05-19] MEDS: heparin drip 25,000 UNIT/500 ML PREMIX 16 UNIT IV (03:56)
[2022-05-19] MEDS: HYDROcodone-acetaminophen 10-325 mg Tablet 1 TAB PO ×3 (06:28→20:17)
[2022-05-19] MEDS: folic acid 1 mg Tablet PO (08:15)
[2022-05-19] MEDS: gabapentin 300 mg Capsule PO ×3 (08:16→20:17)
[2022-05-19] MEDS: atorvastatin 40 mg Tablet PO (08:16)
[2022-05-19] MEDS: hydroCHLOROthiazide 25 mg Tablet 12.5 MG PO (08:17)
[2022-05-19] MEDS: pantoprazole DR 40 mg Tablet PO ×2 (08:17→17:18)
[2022-05-19] MEDS: citalopram 20 mg Tablet PO (08:17)
[2022-05-19] MEDS: calcitriol 0.25 mcg Capsule PO (08:17)
[2022-05-19] MEDS: aspirin 81 mg EC Tablet PO (08:17)
--- NOTE | 2022-05-19 08:24 | USCV_ITS ---
LobitoSindy duggana Age: 77 Gender: F : 1945 Exam Date: 05/19/2022 08:42 Ordering Phys: Yeimy Vela MD Technologist: Exam Location: [facility] [place], [place]_ Indication: pulminary embo HISTORY: Pulmonary embolism. PROCEDURES: Venous duplex imaging was performed in bilateral lower extremities. The venous duplex Doppler examination of both lower extremities was performed in the standard fashion. The following venous structures were evaluated: common femoral vein, profunda vein, proximal portion of the greater saphenous vein, superficial femoral vein, and the popliteal vein. FINDINGS: Normal 2-D Doppler and augmentation and compressibility throughout the lower extremity venous structures. Additional imaging through the proximal calf veins also reveals no thrombus. Limited evaluation of the greater saphenous vein is patent with no thrombus. CONCLUSIONS No DVT bilateral lower extremities. Dr. Aiyana Rivera DO (Electronically Signed) Final Date: 19 May 2022 09:28 S
--- NOTE | 2022-05-19 08:36 | P.CONIM_ITS ---
Providers/Reason For Consult Consulting Physician/Specialty*: Dr. Alfonso Durbin, DO/General surgery Reason for Consult*: Fecal occult blood positive Attending Physician: Yeimy Vela MD Primary Care Provider: Elysia Sousa MD History of Present Illness History of Present Illness Michelle Bradford is a 77 year old female who presented to the ER with nausea or vomiting and watery diarrhea. She has a history of hemicolectomy. In the ER she was found to have a pulmonary embolism and is now on a heparin drip. She denies any abdominal pain. She is found to have fecal occult blood positivity. Hospitalist consulted me for possible endoscopy. Her hemoglobin was 11.1 on admission and is 9.3 now. This seems to be her typical range from previous hemoglobins. Review of Systems General: Reports: 10 or more systems reviewed and unremarkable except in HPI and below Medications/Allergies Home Medications Medication Instructions Recorded Confirmed Last Taken Type albuterol sulfate 90 mcg/actuation 2 puff inhalation 6XD PRN 08/09/19 05/17/22 2 Days Ago History aerosol inhaler Shortness Of Breath Or Wheezing ~11/02/19 alprazolam 0.5 mg tablet 0.5 mg PO QID PRN Anxiety 08/09/19 05/17/22 1 Day Ago History ~11/03/19 amlodipine 5 mg tablet 5 mg PO DAILY 08/09/19 05/17/22 11/04/19 08:10 History aspirin 81 mg tablet,delayed 81 mg PO DAILY 08/09/19 05/17/22 1 Week Ago History release (Adult Low Dose Aspirin) ~10/28/19 atorvastatin 40 mg tablet 40 mg PO DAILY 08/09/19 05/17/22 1 Day Ago History ~11/03/19 calcitriol 0.25 mcg capsule 0.25 mcg PO DAILY 08/09/19 05/17/22 1 Day Ago History ~11/03/19 citalopram 20 mg tablet 20 mg PO DAILY 08/09/19 05/17/22 1 Day Ago History ~11/03/19 diclofenac sodium 1 % gel topical 2 gm topical QID PRN Itching 08/09/19 05/17/22 1 Day Ago History kit ~11/03/19 hydrocodone 10 mg-acetaminophen 1 tab PO Q6H PRN Pain 08/09/19 05/17/22 11/04/19 08:10 History 325 mg tablet pantoprazole 40 mg tablet,delayed 40 mg PO DAILY 08/09/19 05/17/22 1 Day Ago History release (Protonix) ~11/03/19 cyanocobalamin (vitamin B-12) 1,000 mcg PO DAILY PRN Fatigue 10/31/19 05/17/22 Unknown History 1,000 mcg tablet methocarbamol 500 mg tablet 500 mg PO QID 05/03/21 05/17/22 Unknown History gabapentin 300 mg capsule 300 mg PO TID pain #90 caps 05/17/21 05/17/22 Unknown Rx docusate sodium 100 mg capsule 100 mg PO DAILY 12/01/21 05/17/22 Unknown History (Colace) prednisone 10 mg tablet See Rx Instructions PO .COMPLEX 12/01/21 05/17/22 Unknown Rx PRN joint pain #60 tabs chlorphen 2 mg-PE 5 mg-DM 10 1 ea PO Q4-5H PRN cough/drainage 04/28/22 05/17/22 Unknown Rx mg-acetaminophn 325mg(nt)-guaifen #20 ea tablets hydrochlorothiazide 12.5 mg tablet 12.5 mg PO DAILY 05/17/22 05/17/22 Unknown History Allergies Allergy/AdvReac Type Severity Reaction Status Date / Time infliximab [From Remicade] Allergy Unknown Verified 05/17/22 11:52 meropenem Allergy ALGY-Hives Verified 05/17/22 11:52 nafcillin Allergy ALGY-Hives Verified 05/17/22 11:52 Current Medications Generic Name Dose Route Start Last Admin Trade Name Jerrellq PRN Reason Stop Dose Admin Hydrocodone Bitart/Acetaminophen 1 tab 05/17/22 18:27 05/20/22 03:18 Hydrocodone-Acetaminophen 10-325 Mg Tablet PO 1 tab Q6H PRN Administration Pain Albuterol/Ipratropium 3 ml 05/17/22 20:00 05/20/22 01:11 Ipratropium-Albuterol 3 Ml Neb INHALATION Not Given Q6H.RESP JAYDEN Aspirin 81 mg 05/18/22 09:00 05/19/22 08:17 Aspirin 81 Mg Ec Tablet PO 81 mg DAILY JAYDEN Administration Atorvastatin Calcium 40 mg 05/18/22 09:00 05/19/22 08:16 Atorvastatin 40 Mg Tablet PO 40 mg DAILY JAYDEN Administration Calcitriol 0.25 mcg 05/18/22 09:00 05/19/22 08:17 Calcitriol 0.25 Mcg Capsule PO 0.25 mcg DAILY JAYDEN Administration Citalopram Hydrobromide 20 mg 05/18/22 09:00 05/19/22 08:17 Citalopram 20 Mg Tablet PO 20 mg DAILY JAYDEN Administration Folic Acid 1 mg 05/18/22 16:40 05/19/22 08:15 Folic Acid 1 Mg Tablet PO 1 mg DAILY JAYDEN Administration Gabapentin 300 mg 05/17/22 21:00 05/19/22 20:17 Gabapentin 300 Mg Capsule PO 300 mg TID JAYDEN Administration Heparin Sodium (Porcine) 0 unit 05/19/22 03:49 05/19/22 18:15 Heparin 5,000 Unit/Ml Inj 1 Ml IV 2,200 unit PRN PRN Administration Heparin weight-base protocol Protocol Hydrochlorothiazide 12.5 mg 05/18/22 09:00 05/19/22 08:17 Hydrochlorothiazide 25 Mg Tablet PO 12.5 mg DAILY JAYDEN Administration Heparin Sodium/Sodium Chloride 25,000 unit in 500 mls @ 0 mls/hr 05/19/22 04:00 05/19/22 03:56 Heparin Drip IV 14.16 unit/kg/hr .Q0M JAYDEN 16 mls/hr Administration Protocol Per Protocol Morphine Sulfate 2 mg 05/20/22 00:16 05/20/22 00:29 Morphine 4 Mg/Ml Sdv 1 Ml IVP 2 mg ONCE PRN Administration severe pain Pantoprazole Sodium 40 mg 05/18/22 18:00 05/19/22 17:[address] 40 Mg Tablet PO 40 mg BID JAYDEN Administration Temazepam 15 mg 05/18/22 19:44 05/19/22 20:17 Temazepam 15 Mg Capsule PO 15 mg BEDTIME PRN Administration INSOMNIA Thiamine HCl 100 mg 05/18/22 16:40 05/19/22 08:18 Thiamine 100 Mg/Ml Sdv IVP 100 mg DAILY JAYDEN Administration PFSH Acute PFSH: Medical History Anxiety and depression Community acquired pneumonia COPD (chronic obstructive pulmonary disease) with acute bronchitis COPD (chronic obstructive pulmonary disease) with chronic bronchitis Fibromyalgia GERD (gastroesophageal reflux disease) High risk medication use Hyperlipidemia Immunization counseling Lumbar post-laminectomy syndrome Osteoarthritis Osteoporosis Rheumatoid arthritis Seropositive rheumatoid arthritis of multiple sites Soft tissue mass Thoracic postlaminectomy syndrome Weight loss, non-intentional Surgical History H/O foot surgery bilaterally History of appendectomy History of cholecystectomy History of colon surgery 14 inches removed History of hysterectomy History of lumbar surgery (~2010) Dr. Kauffman L1-L5 laminectomy/fusion/fixation History of lumbar surgery (~2012) Dr. Kauffman L1-L5 laminectomy/fusion/fiaxation; exploration History of thoracic surgery (~04/2016) Dr. Kauffman T9-S1 fusion fixation History of thoracic surgery (~02/2017) Dr. Kauffman T10-T11 fixation/fusion. HX T11 fracture. 04/06/17 Dr Kauffman removal of posterior 5.5 mm diameter titanium [place]. Exploration of rostal end of fusion adjacent to [place] and screw;staph infection Status post cervical spinal fusion (~2007) Dr Leblanc C6-C7 ACDFF Family History Father Stroke Mother Cancer Family history of thyroid problem Sister Cancer Brother Diabetes Social History Smoking and tobacco status: never smoked Alcohol intake: never Household members: none Marital status: / Current occupational status: retired History of recent travel: No Vitals/I&O/Wt Last Vital Signs Temp 98.6 F 05/20/22 00:00 Pulse 66 05/20/22 05:04 Resp 18 05/20/22 00:29 BP 116/71 05/20/22 00:00 Pulse Ox 93 05/20/22 00:00 O2 Del Method 05/19/22 20:22 O2 Flow Rate 1 05/19/22 20:22 05/19/22 05/19/22 05/20/22 14:59 22:59 06:59 Intake Total 600 / 600 1280 / 1880 120 / 2000 Balance 600 / 600 1280 / 1880 120 / 2000 Weight last 48 hrs Weight 129 lb Physical Exam Narrative: General : Patient is well developed , no acute distress, oriented x3 Head : Normal cephalic, a-traumatic. Ears : Pinnae and external canal are normal. Hearing is normal. Eyes : PERRLA, Sclera and injection are normal. No conjunctival discharge. Nose : Mucous membranes are without erythema. Throat : buccal mucosa is normal, gums are without significant recession or hypertrophy. Lungs : Equal chest rise bilaterally, no use of accessory muscles, trachea is midline. Cor : Rate and rhythm are normal. Abdomen : Soft, ND, NT, no g/r/m Extremities : No edema, no cyanosis or clubbing, dorsalis pedis pulses are present bilaterally, non-tender to palpation of calves. Upper extremities are normal bilaterally. Back : non-tender to palpation, no CVA tenderness. Neuro : CN II - XII intact, Upper and lower extremities have equal and full strength Data 05/19/22 09:37 05/19/22 03:22 A&P Assessment and plan (1) Occult blood in stools: (2) Nausea vomiting and diarrhea: (3) Pulmonary embolism: Qualifiers: Pulmonary embolism type: single subsegmental (without acute cor pulmonale) Qualified Code(s): I26.93 - Single subsegmental pulmonary embolism without acute cor pulmonale (4) Anemia: Plan I suspect her drop from 11.1-9.3 is likely delusional, as this is her typical range. I am unable to perform colonoscopy due to her requiring anticoagulation, but I will move forward with EGD The risks and benefits of the procedure, including bleeding, infection, intestinal perforation requiring surgery, missed lesion were explained to the patient. The patient is understanding of the risks and wishes to proceed. Coding Level of Care Code Acute Code for [facility] Fwd Diagnoses Occult blood in stools R19.5 Nausea vomiting and diarrhea R11.2; R19.7 Pulmonary embolism I26.93 Pulmonary embolism type: single subsegmental (without acute cor pulmonale) Anemia D64.9
[2022-05-19] MEDS: ipratropium-albuterol 3 mL Neb INHALATION ×3 (08:50→20:18)
[2022-05-19] MEDS: potassium chloride ER 20 mEq Tablet 40 MEQ PO (09:07)
[2022-05-19 09:50] LABS: Basophils # 0.1 10^3/uL (0.0-0.1); Basophils % 1.3 %; Eosinophils # 0.2 10^3/uL (0.0-0.8); Eosinophils % 4.5 %; Hematocrit 30.8 % (37.0-47.0); Hemoglobin 9.3 g/dL (11.5-15.3); Lymphocytes # 1.5 10^3/uL (0.8-4.8); Lymphocytes % 37.9 %; Mean Corpuscular HGB Conc 30.2 g/dL (30.0-36.0); Mean Corpuscular Hemoglobin 28.8 pg (28.0-34.0); Mean Corpuscular Volume 95.4 fl (81-99); Mean Platelet Volume 9.9 fL (7.4-10.4); Monocytes # 0.5 10^3/uL (0.2-0.9); Monocytes % 12.6 %; Neutrophils # 1.72 10^3/uL (1.8-7.7); Neutrophils % 43.4 %; Nucleated Red Blood Cells % 0 %; Platelet Count 196 10^3/cmm (130-400); Red Blood Count 3.23 10^6/uL (4.1-5.3); Red Cell Distribution Width 14.7 % (12.1-15.1)
[2022-05-19 10:08] LABS: Partial Thromboplastin Time 80.2 SECONDS (23.9-36.7)
--- NOTE | 2022-05-19 11:22 | PM.PN ---
Subjective Subjective: Seen this morning. No acute events overnight. Patient is having loose stool but only had 1 overnight. PTT in range. She still on the heparin drip. Hemoglobin dropped to 9.3.. We will continue on heparin drip for now. Patient is asking when to transition to Eliquis. Talk with her primary care doctor over the phone. Patient's FOBT was positive. She will be seen by Dr. Durbin today. Tentative plan for EGD tomorrow morning. We will not do colonoscopy since patient is on heparin and cannot be off of it for more than 9 hours. Her PCP agreed to follow her CBC as an outpatient to ensure her hemoglobin stays stable on the Eliquis. We will be most likely sending her home after EGD tomorrow. Labs are reviewed. Acidosis has corrected. She says she feels better. Still on 2 L nasal cannula. Vitals/I&O/Wt Last Vital Signs Temp 98.3 F 05/19/22 03:09 Pulse 79 05/19/22 08:00 Resp 24 H 05/19/22 08:00 BP 123/72 05/19/22 08:00 Pulse Ox 96 05/19/22 08:00 O2 Del Method 05/19/22 08:00 O2 Flow Rate 2 05/19/22 08:00 05/18/22 05/19/22 05/19/22 22:59 06:59 14:59 Intake Total 1632.75 / 2112.75 1145.917 / 3258.667 360 / 360 Balance 1632.75 / 2112.75 1145.917 / 3258.667 360 / 360 Weight last 48 hrs Weight 56.501 kg Physical Exam Narrative: General: Alert oriented x3, patient seen laying in bed appearing comfortable at this time HEENT: Normocephalic, atraumatic, EOMI, breathing comfortably on room air. No acute distress. Cardio: Regular rate rhythm, normal S1-S2, Respiratory: Good bilateral air entry, no wheezes no rhonchi appreciated GI: Abdomen soft, normoactive Bowel sounds, no guarding no rigidity, no signs of acute abdomen. Behavior: Appropriate and cooperative Extremities: No bilateral lower extremity edema noted. Data 05/19/22 09:37 05/19/22 03:22 Micro: Microbiology 05/18/22 07:20 Enteric Pathogens (PCR) - Final Stool Routine Collection Parasite Antigen Panel - Final 05/17/22 12:44 Stool Lactoferrin - Final Stool Enteric Pathogens (PCR) - Final C.difficile Toxin B Gene (PCR) - Final Occult Blood (FIT) - Final 05/17/22 11:57 Blood Culture - Preliminary Blood NEGATIVE TO DATE 05/17/22 11:53 Blood Culture - Preliminary Blood NEGATIVE TO DATE A&P Assessment and plan (1) Nausea vomiting and diarrhea: (2) Pulmonary embolism: Qualifiers: Pulmonary embolism type: single subsegmental (without acute cor pulmonale) Qualified Code(s): I26.93 - Single subsegmental pulmonary embolism without acute cor pulmonale (3) COPD (chronic obstructive pulmonary disease) with chronic bronchitis: (4) Hypertension: (5) Occult blood in stools: (6) GERD (gastroesophageal reflux disease): (7) Anxiety and depression: Plan #Diarrhea with stool incontinence?improved #History of left hemicolectomy secondary to ongoing colitis which does not respond to antibiotics and steroids in 2016 #Recent antibiotic use #Acute pulmonary embolism right lower lobe, no right heart strain noted on CT #Positive FOBT #Hypertension #Depression #Chronic back pain #History of 4 back surgeries ? stool culture , ova parasite screen are all negative, stool for C. difficile is also negative ? CT abdomen pelvis without contrast did not show acute pathology or inflammation. ? Hemoglobin is 9.3 today. We will check q12h of hours. Continue heparin drip at this time. ? Lactoferrin elevated ? Hold off on any antibiotics at this time. ? Hold off on Imodium at this time ? Lactic acid negative ? Echo complete. LVEF 70%. Grade 1 diastolic dysfunction ? Hold aspirin for now. Continue atorvastatin, continue citalopram ? Continue gabapentin ? DuoNeb every 4 hours as needed ? Protonix 40 IV twice daily - Mild diffuse constipation -Plan for EGD in a.m. She will be seen by Dr. Durbin today. - Continue on protonix 40 BID - FOBT was positive in ER - CT abd does show very minimal right basilar endobronchial pneumonia. Most likely residual finding from recent illness. She has completed antibitoics already -Labs have corrected. Acidosis is better. - I would recommend she also follow with a case finishing machine adjuster. -Talked with PCP. She will monitor CBC an outpatient. I will not load her with 10 twice daily of Eliquis as she has been on heparin. Due to her anemia I will place her on Eliquis 5 twice daily at discharge. She will need close monitoring of her hemoglobin. I will stop the aspirin for now. Discussed all of the above with her PCP who agreed with the plan. -Plan for EGD in a.m. and then discharged home with Eliquis 5 twice daily to follow-up with PCP as an outpatient. -I will place her on docusate and senna due to diffuse constipation seen. Full code DVT prophylaxis: On heparin drip at this time -N.p.o. at midnight. Attestations Medical Necessity Statement*: EGD in a.m. Most likely discharge tomorrow after that. Diagnoses Nausea vomiting and diarrhea R11.2; R19.7 Pulmonary embolism I26.93 Pulmonary embolism type: single subsegmental (without acute cor pulmonale) COPD (chronic obstructive pulmonary disease) with chronic bronchitis J44.9 Hypertension I10 Occult blood in stools R19.5 GERD (gastroesophageal reflux disease) K21.9 Anxiety and depression F41.9; F32.A Time Spent (min) 35
[2022-05-19 17:36] LABS: Partial Thromboplastin Time 43.2 SECONDS (23.9-36.7)
[2022-05-19] MEDS: temazepam 15 mg Capsule PO (20:17)
[2022-05-19 23:52] LABS: Basophils % 0.9 %; Eosinophils # 0.2 10^3/uL (0.0-0.8); Eosinophils % 5.2 %; Hematocrit 33.5 % (37.0-47.0); Hemoglobin 9.8 g/dL (11.5-15.3); Lymphocytes # 1.9 10^3/uL (0.8-4.8); Lymphocytes % 41.1 %; Mean Corpuscular HGB Conc 29.3 g/dL (30.0-36.0); Mean Corpuscular Hemoglobin 28.4 pg (28.0-34.0); Mean Corpuscular Volume 97.1 fl (81-99); Monocytes # 0.6 10^3/uL (0.2-0.9); Monocytes % 12.4 %; Neutrophils # 1.84 10^3/uL (1.8-7.7); Nucleated Red Blood Cells % 0 %; Platelet Count 195 10^3/cmm (130-400); Red Blood Count 3.45 10^6/uL (4.1-5.3); Red Cell Distribution Width 14.7 % (12.1-15.1); White Blood Count 4.6 10^3/uL (4.0-10.0)
[2022-05-20] VITALS (10 sets, daily range): BP systolic 116–163; BP diastolic 71–100; PULSE 65–78; RESP 16–21; TEMP 36.1–37; O2SAT 90–96
--- NOTE | 2022-05-20 00:15 | PC.NURSE ---
Patient has received Restoril and hydrocodone 10/325 around 2029 this evening. Patient is still c/o pain 10/10 to left hip and is unable to sleep. Informed Dr Jarrell and received telephone order for Morphine 2mg IVP x1 dose.
[2022-05-20] MEDS: morphine 4 mg/mL SDV 1 mL 2 MG IVP (00:29)
--- NOTE | 2022-05-20 02:17 | PC.NURSE ---
Received report from lab regarding PTT of 59.3 at this time for midnight labs. Patient is therapeutic at this time. No changes made to drip administration..
[2022-05-20 02:28] LABS: Partial Thromboplastin Time 59.3 SECONDS (23.9-36.7)
[2022-05-20] MEDS: HYDROcodone-acetaminophen 10-325 mg Tablet 1 TAB PO ×2 (03:18→09:05)
[2022-05-20 08:51] LABS: Partial Thromboplastin Time 61.4 SECONDS (23.9-36.7)
--- NOTE | 2022-05-20 09:10 | XR_ITS ---
WS: [id number] Portable AP upright chest, 05/20/2022 Clinical Data: pulmonary embolism Comparison: Portable chest, 05/17/2022 Findings: No nodules, masses or effusions are seen. The heart is normal. The pulmonary vascularity is not increased. No pneumonia or pneumothorax is seen. The aortic arch shows mild calcification. The d iaphragms are flattened. There is an anterior cervical disc fusion. There is an extensive posterior t horacolumbar fusion with bilateral pedicle screws and connecting rods from T3 to the lumbar level. Mo nitor leads are on the chest wall. XR/XR chest 1V portable [id number] Impression: Atherosclerosis and hyperinflation.
[2022-05-20] MEDS: heparin drip 25,000 UNIT/500 ML PREMIX 17 UNIT IV (10:30)
--- NOTE | 2022-05-20 10:39 | P.ANESASSM_ITS ---
Pre-Anesthetic Assessment Height/Weight: Height 1.6 m Weight 58.513 kg Temp Pulse Resp BP Pulse Ox O2 Del Method O2 Flow Rate 98.0 F 71 17 128/77 90 1 05/20/22 10:25 05/20/22 10:25 05/20/22 10:25 05/20/22 10:25 05/20/22 10:25 05/20/22 10:05/20/22 08:00 Operation Date: 05/20/22 11:30 Proposed Procedures p EGD(Not Applicable) - Alfonso Durbin DO Familial anesthetic complications: None Was Beta Manjula taken within 24 hours: N/A Was Clonidine taken within 24 hours: N/A Last Intake: 22:30 Social No alcohol and No tobacco (Quit smoking 6 weeks ago, smoked .25 ppd off and on for 50 years) Exam alert, oriented x 3 and regular rate & rhythm Expiratory crackles Airway Submandibular: within normal limits Cervical ROM: within normal limits Mallampati: Class II Comments: Comments: No teeth History/ROS No significant history except as noted and No significant complaints Pulmonary Chronic Obstructive Pulmonary Disease PE present on heparin drip CV/HEM Anemia, Coronary Artery Disease and Deep Vein Thrombosis (PE) CONCLUSIONS ?1. Normal left ventricular size, systolic function and ?moderately increased wall thickness, with no regional wall ?motion abnormalities. Left ventricular ejection fraction is ?estimated at 70 %. Moderate concentric left ventricular ?hypertrophy. Grade I diastolic dysfunction (abnormal relaxation ?filling pattern), normal to mildly elevated filling pressures. ?2. Normal right ventricular size and systolic function. ?3. No prior similar studies to compare. ?Vernell Chan MD ?(Electronically Signed) ?Final Date:? ? ? 17 May 2022 None reported Hepatic None reported GI Gastroesophageal Reflux Disease (None this AM) Metabolic Hyperlipidemia [facility] [place] Lower Back Pain, Osteoarthritis/DJD, Rheumatoid Arthritis and Scoliosis Back surgery 1 year ago Neuropsych Anxiety, Deficit (Right sided weakness), Depression and Neuropathy Anesthetic Plan ASA status: 4 Anesthesia: Anesthesia Evaluation, General and MAC Risk of > 500 ml blood loss (7ml/kg in children): No Medications/Allergies Home Medications Medication Instructions Recorded Confirmed Last Taken Type albuterol sulfate 90 mcg/actuation 2 puff inhalation 6XD PRN 08/09/19 05/17/22 2 Days Ago History aerosol inhaler Shortness Of Breath Or Wheezing ~11/02/19 alprazolam 0.5 mg tablet 0.5 mg PO QID PRN Anxiety 08/09/19 05/17/22 1 Day Ago History ~11/03/19 amlodipine 5 mg tablet 5 mg PO DAILY 08/09/19 05/17/22 11/04/19 08:10 History aspirin 81 mg tablet,delayed 81 mg PO DAILY 08/09/19 05/17/22 1 Week Ago History release (Adult Low Dose Aspirin) ~10/28/19 atorvastatin 40 mg tablet 40 mg PO DAILY 08/09/19 05/17/22 1 Day Ago History ~11/03/19 calcitriol 0.25 mcg capsule 0.25 mcg PO DAILY 08/09/19 05/17/22 1 Day Ago History ~11/03/19 citalopram 20 mg tablet 20 mg PO DAILY 08/09/19 05/17/22 1 Day Ago History ~11/03/19 diclofenac sodium 1 % gel topical 2 gm topical QID PRN Itching 08/09/19 05/17/22 1 Day Ago History kit ~11/03/19 hydrocodone 10 mg-acetaminophen 1 tab PO Q6H PRN Pain 08/09/19 05/17/22 11/04/19 08:10 History 325 mg tablet pantoprazole 40 mg tablet,delayed 40 mg PO DAILY 08/09/19 05/17/22 1 Day Ago History release (Protonix) ~11/03/19 cyanocobalamin (vitamin B-12) 1,000 mcg PO DAILY PRN Fatigue 10/31/19 05/17/22 Unknown History 1,000 mcg tablet methocarbamol 500 mg tablet 500 mg PO QID 05/03/21 05/17/22 Unknown History gabapentin 300 mg capsule 300 mg PO TID pain #90 caps 05/17/21 05/17/22 Unknown Rx docusate sodium 100 mg capsule 100 mg PO DAILY 12/01/21 05/17/22 Unknown History (Colace) prednisone 10 mg tablet See Rx Instructions PO .COMPLEX 12/01/21 05/17/22 Unknown Rx PRN joint pain #60 tabs chlorphen 2 mg-PE 5 mg-DM 10 1 ea PO Q4-5H PRN cough/drainage 04/28/22 05/17/22 Unknown Rx mg-acetaminophn 325mg(nt)-guaifen #20 ea tablets hydrochlorothiazide 12.5 mg tablet 12.5 mg PO DAILY 05/17/22 05/17/22 Unknown History Allergies Allergy/AdvReac Type Severity Reaction Status Date / Time infliximab [From Remicade] Allergy Unknown Verified 05/17/22 11:52 meropenem Allergy ALGY-Hives Verified 05/17/22 11:52 nafcillin Allergy ALGY-Hives Verified 05/17/22 11:52 Current Medications Generic Name Dose Route Start Last Admin Trade Name Freq PRN Reason Stop Dose Admin Hydrocodone Bitart/Acetaminophen 1 tab 05/17/22 18:27 05/20/22 09:05 Hydrocodone-Acetaminophen 10-325 Mg Tablet PO 1 tab Q6H PRN Administration Pain Albuterol/Ipratropium 3 ml 05/17/22 20:00 05/20/22 08:41 Ipratropium-Albuterol 3 Ml Neb INHALATION Not Given Q6H.RESP JAYDEN Aspirin 81 mg 05/18/22 09:00 05/19/22 08:17 Aspirin 81 Mg Ec Tablet PO 81 mg DAILY JAYDEN Administration Atorvastatin Calcium 40 mg 05/18/22 09:00 05/19/22 08:16 Atorvastatin 40 Mg Tablet PO 40 mg DAILY JAYDEN Administration Calcitriol 0.25 mcg 05/18/22 09:00 05/19/22 08:17 Calcitriol 0.25 Mcg Capsule PO 0.25 mcg DAILY JAYDEN Administration Citalopram Hydrobromide 20 mg 05/18/22 09:00 05/19/22 08:17 Citalopram 20 Mg Tablet PO 20 mg DAILY JAYDEN Administration Folic Acid 1 mg 05/18/22 16:40 05/19/22 08:15 Folic Acid 1 Mg Tablet PO 1 mg DAILY JAYDEN Administration Gabapentin 300 mg 05/17/22 21:00 05/19/22 20:17 Gabapentin 300 Mg Capsule PO 300 mg TID JAYDEN Administration Heparin Sodium (Porcine) 0 unit 05/19/22 03:49 05/19/22 18:15 Heparin 5,000 Unit/Ml Inj 1 Ml IV 2,200 unit PRN PRN Administration Heparin weight-base protocol Protocol Hydrochlorothiazide 12.5 mg 05/18/22 09:00 05/19/22 08:17 Hydrochlorothiazide 25 Mg Tablet PO 12.5 mg DAILY JAYDEN Administration Heparin Sodium/Sodium Chloride 25,000 unit in 500 mls @ 0 mls/hr 05/19/22 04:00 05/19/22 03:56 Heparin Drip IV 14.16 unit/kg/hr .Q0M JAYDEN 16 mls/hr Administration Protocol Per Protocol Morphine Sulfate 2 mg 05/20/22 00:16 05/20/22 00:29 Morphine 4 Mg/Ml Sdv 1 Ml IVP 2 mg ONCE PRN Administration severe pain Pantoprazole Sodium 40 mg 05/18/22 18:00 05/19/22 17:[address] 40 Mg Tablet PO 40 mg BID JAYDEN Administration Temazepam 15 mg 05/18/22 19:44 05/19/22 20:17 Temazepam 15 Mg Capsule PO 15 mg BEDTIME PRN Administration INSOMNIA Thiamine HCl 100 mg 05/18/22 16:40 05/20/22 09:08 Thiamine 100 Mg/Ml Sdv IVP 100 mg DAILY JAYDEN Administration PFSH Anesthesia Medical History Anxiety and depression Community acquired pneumonia COPD (chronic obstructive pulmonary disease) with acute bronchitis COPD (chronic obstructive pulmonary disease) with chronic bronchitis Fibromyalgia GERD (gastroesophageal reflux disease) High risk medication use Hyperlipidemia Immunization counseling Lumbar post-laminectomy syndrome Osteoarthritis Osteoporosis Rheumatoid arthritis Seropositive rheumatoid arthritis of multiple sites Soft tissue mass Thoracic postlaminectomy syndrome Weight loss, non-intentional Surgical History H/O foot surgery bilaterally History of appendectomy History of cholecystectomy History of colon surgery 14 inches removed History of hysterectomy History of lumbar surgery (~2010) Dr. Kauffman L1-L5 laminectomy/fusion/fixation History of lumbar surgery (~2012) Dr. Kauffman L1-L5 laminectomy/fusion/fiaxation; exploration History of thoracic surgery (~04/2016) Dr. Kauffman T9-S1 fusion fixation History of thoracic surgery (~02/2017) Dr. Kauffman T10-T11 fixation/fusion. HX T11 fracture. 04/06/17 Dr Kauffman removal of posterior 5.5 mm diameter titanium [place]. Expl oration of rostal end of fusion adjacent to [place] and screw;staph infection Status post cervical spinal fusion (~2007) Dr Leblanc C6-C7 ACDFF Family History Father Stroke Mother Cancer Family history of thyroid problem Sister Cancer Brother Diabetes Social History Smoking and tobacco status: never smoked Alcohol intake: never Household members: none Marital status: / Current occupational status: retired History of recent travel: No Data Anesthesia 05/19/22 09:37 05/19/22 03:22 Short CBC 05/18/22 05/18/22 05/19/22 Range/Units 19:45 23:46 03:22 WBC 4.1 4.6 3.6 L (4.0-10.0) 10^3/uL Hgb 10.2 L 9.8 L 9.4 L (11.5-15.3) g/dL Hct 34.5 L 33.5 L 30.7 L (37.0-47.0) % MCV 98.9 97.1 95.9 (81-99) fl Plt Count 206 195 191 (130-400) 10^3/cmm Neut % (Auto) 52.7 40.0 41.2 % Neut # (Auto) 2.17 1.84 1.50 L (1.8-7.7) 10^3/uL 05/19/22 Range/Units 09:37 WBC 4.0 (4.0-10.0) 10^3/uL Hgb 9.3 L (11.5-15.3) g/dL Hct 30.8 L (37.0-47.0) % MCV 95.4 (81-99) fl Plt Count 196 (130-400) 10^3/cmm Neut % (Auto) 43.4 % Neut # (Auto) 1.72 L (1.8-7.7) 10^3/uL BMP 05/18/22 05/18/22 05/19/22 15:50 19:45 03:22 Sodium 137 137 143 Potassium 3.3 L 3.5 3.7 Chloride 107 108 H 113 H Carbon Dioxide 14 L 14 L 21 L BUN 18 17 14 Creatinine 1.0 H 1.0 H 0.9 Glucose 82 92 90 Calcium 8.4 L 8.5 8.5 Coags 05/18/22 05/18/22 05/19/22 19:45 23:46 00:01 APTT 67.7 H Cancelled 59.3 H 05/19/22 05/19/22 05/19/22 03:22 09:37 17:17 APTT 50.6 H 80.2 H D 43.2 H 05/20/22 08:25 APTT 61.4 H ABG 05/18/22 15:21 Specimen Type Arterial Sample Site Radial, right ABG pH 7.47 H ABG pCO2 21.9 L ABG pO2 141.0 H ABG HCO3 16.1 L ABG O2 Saturation 98.8 ABG Base Excess -6.0 L O2 Delivery Device Room air Cardiac Studies: Echocardiogram 05/17/22
[2022-05-20] MEDS: sodium chloride 0.9% 1,000 ML 30 ML IV (10:43)
--- NOTE | 2022-05-20 11:57 | W.PM.OPSUD ---
Surgery/Procedure H&P Update DATE OF PROCEDURE: May 20, 2022 DATE H&P PERFORMED: 05/19/22 H&P UPDATE INFORMATION: I have reviewed H&P completed within last 30 days, I have examined patient prior to procedure and No changes to prior documentation PLANNED PROCEDURE: Operation Date: 05/20/22 11:30 Proposed Procedures p EGD(Not Applicable) - Alfonso Durbin DO
--- NOTE | 2022-05-20 13:32 | ANE.PACU2 ---
Inpatient post-anesthesia follow up: Airway intact: Yes Vital signs: Temperature 97 F Pulse Rate 75 Respiratory Rate 18 Blood Pressure 155/82 Pulse Oximetry 96 Oxygen Delivery Me thod Nasal Cannula Oxygen Flow Rate 2 Fraction of Inspir ed Oxygen Hydration adequate: Yes Nausea and vomiting: No Pain level: 2 Mental status: Baseline
--- NOTE | 2022-05-20 13:53 | PC.NURSE ---
late entry 05/20/22 @1300: pt back from GI lab. Alert and oriented. Able to ambulate to bathroom. Voices no c/o pain or discomfort. VSS. Will cont to monitor.
--- NOTE | 2022-05-20 13:56 | PM.DCS ---
Discharge Providers Date of Admission: 05/17/22 17:03 Date of Discharge: May 20, 2022 Attending Provider at Admission: Yeimy Vela MD Attending Provider at Discharge: Yeimy Vela MD Primary Care Provider: Elysia Sousa MD Diagnoses at Discharge Discharge Diagnosis (1) Occult blood in stools: Status: Acute (2) Nausea vomiting and diarrhea: Status: Resolved (3) Pulmonary embolism: Status: Acute Qualifiers: Pulmonary embolism type: single subsegmental (without acute cor pulmonale) Qualified Code(s): I26.93 - Single subsegmental pulmonary embolism without acute cor pulmonale (4) Anemia: Status: Acute Reason for Visit Reason for Visit: Sent from , Low O2 Brief History: Michelle Bradford is a 77 year old female with past medical history of hypertension, depression, back pain, COPD secondary to previous spinal surgeries including C1-C2 stabilization, status post hemicolectomy secondary to ongoing colitis which did not respond to antibiotics and steroids in 2016 presenting to the hospital today for complaint of watery diarrhea that has been going on since the last day.? Patient is going to the bathroom every 15 minutes and is incontinent of stool at this point.? She is also been having vomiting and dry heaving including nausea.? 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 She says she was recently treated for pneumonia by her outpatient doctor and given an antibiotic for 10 days including Z-Lasha for 5 days.? She says she has 2 tablets left.? The diarrhea suddenly started yesterday morning.? Since it has worsened she has presented to the hospital.? She denies any abdominal pain or cramping at this time.? The diarrhea is completely watery to yellowish in color.? Denies any mucus in it.? Denies blood in stool.? Denies blood in vomitus.? Denies chest pain, shortness of breath or any other complaints at this time.? Says the cough is better and respiratory olson she has no symptoms at this time.? Denies a fever at home.? Patient denies recent travel, prolonged sedentary lifestyle.? There is no apparent provoking factor for PE today.? Denies a family history of it and denies a past medical history of it as well.? She has had 4 COVID vaccines including the latest one biValent vaccine.? She has never been diagnosed with COVID before.? Denies being a smoker. Chart review shows that in 2016 patient was admitted and closely monitored and treated for colitis which was suspected to be ischemic in origin.? She was discharged on antibiotics and steroids and reported that it made no difference.? She will unable to see a GI specialist and her appointment was quite later and she does not want to wait longer and was in severe pain and having up to 20 episodes of hemorrhagic diarrhea daily.? She was admitted for hemicolectomy due to ongoing colitis which did not respond to antibiotics and steroids.? Patient states that since her surgery she has been fine and never had diarrhea after that. ED course: On arrival blood pressure 124 over 60s, respirate 18, pulse 85, temperature 98.5.? In the ER possible pneumonia was suspected and diarrhea possibly due to C. difficile from antibiotic use.? CTA chest was done which showed pulmonary embolism to right lower lobe moderate severity.? No saddle embolus per radiologist.? FOBT was checked which was positive.? Lactoferrin was also positive.? Hemoglobin 11.1.? Heparin drip was started in the ER. Hospital Course Hospital Course Patient was admitted for diarrhea which resolved on its own without any kind of therapy. Imodium was not given during hospital stay. C. difficile was negative. Stool culture ova parasite screen were all negative. It may have been that she took extra stool softener at home but unsure. For acute pulmonary embolism right lower lobe she was placed on heparin drip. Hemoglobin was monitored. It did tend to drop and FOBT was positive therefore general surgery was consulted for possible EGD and colonoscopy. Colonoscopy was deferred since patient was on heparin drip but EGD was performed. 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 Patient was recommended to have an H. pylori stool antigen test. Biopsy was not obtained due to patient being on a heparin drip. She was recommended to be on Protonix 40 twice daily for at least 30 days and there after Protonix 40 daily. Patient was placed on Eliquis 5 mg twice a day at discharge and was not loaded for 7 days with 10 twice daily due to anemia. I discussed her case with her primary care doctor who agreed to follow-up with CBC as an outpatient and to monitor Eliquis response. Patient will be discharged home in stable condition at this point. She will follow-up with her primary care doctor as an outpatient. Physical Exam Narrative: General: Alert oriented x3, patient seen laying in bed appearing comfortable at this time HEENT: Normocephalic, atraumatic, EOMI, breathing comfortably on room air. No acute distress. Cardio: Regular rate rhythm, normal S1-S2, Respiratory: Good bilateral air entry, no wheezes no rhonchi appreciated GI: Abdomen soft, normoactive Bowel sounds, no guarding no rigidity, no signs of acute abdomen. Behavior: Appropriate and cooperative Extremities: No bilateral lower extremity edema noted. Discharge Data Studies Completed and Pending Completed Studies During Hospitalization Category Date Time Status CT abdomen pelvis wo con [id number] Stat Cat Scan 05/18/22 19:[address] angio chest PE protcl [id number] Urgent Cat Scan 05/17/22 13:56 Completed XR chest 1V portable [id number] Routine Exams 05/20/22 09:10 Completed XR chest 1V portable [id number] Urgent Exams 05/17/22 11:13 Completed CV. echo complete* [id number] Routine Ultrasound 05/17/22 19:23 Completed US venous duplex lower extremity bilat [CV venous Ultrasound 05/19/22 08:24 [place] [id number]] Urgent Pending at discharge Category Date Time Status Blood Culture Stat Lab 05/17/22 11:57 Results Helicobacter Pylori AG Stool Routine Lab 05/20/22 13:49 Uncollected PTT [Partial Thromboplastin Time] Timed Lab 05/20/22 15:00 Ordered Radiology Impressions Chest CTA 05/17/22 13:56 IMPRESSION: 1. Positive diagnosis for pulmonary embolism right medial lower lobe pulmonary artery 2. Extensive orthopedic hardware is seen in the dorsal spine. 3. Negative for right heart strain. 4. Negative for aortic aneurysm or dissection ADDENDUM: 05/17/22 [id number] Findings were discussed with Hi Mccullough at 05/17/2022 3:44 PM [employer]. Abdomen/Pelvis CT 05/18/22 19:09 IMPRESSION: 1. No acute abdominal or pelvic abnormalities are identified on this unenhanced exam. 2. Mild diffuse constipation. No wall thickening or ascites. 3. Prior cholecystectomy. 4. Very minimal RIGHT basilar endobronchial pneumonia. Chest X-Ray 05/20/22 09:10 Impression: Atherosclerosis and hyperinflation. Laboratory Results WBC 4.0 10^3/uL (4.0-10.0) 05/19/22 09:37 RBC 3.23 10^6/uL (4.1-5.3) L 05/19/22 09:37 Hgb 9.3 g/dL (11.5-15.3) L 05/19/22 09:37 Hct 30.8 % (37.0-47.0) L 05/19/22 09:37 MCV 95.4 fl (81-99) 05/19/22 09:37 MCH 28.8 pg (28.0-34.0) 05/19/22 09:37 MCHC 30.2 g/dL (30.0-36.0) 05/19/22 09:37 RDW 14.7 % (12.1-15.1) 05/19/22 09:37 Plt Count 196 10^3/cmm (130-400) 05/19/22 09:37 MPV 9.9 fL (7.4-10.4) 05/19/22 09:37 Neut % (Auto) 43.4 % 05/19/22 09:37 Lymph % (Auto) 37.9 % 05/19/22 09:37 [place] % (Auto) 12.6 % 05/19/22 09:37 Eos % (Auto) 4.5 % 05/19/22 09:37 Baso % (Auto) 1.3 % 05/19/22 09:37 Neut # (Auto) 1.72 10^3/uL (1.8-7.7) L 05/19/22 09:37 Lymph # (Auto) 1.5 10^3/uL (0.8-4.8) 05/19/22 09:37 [place] # (Auto) 0.5 10^3/uL (0.2-0.9) 05/19/22 09:37 Eos # (Auto) 0.2 10^3/uL (0.0-0.8) 05/19/22 09:37 Baso # (Auto) 0.1 10^3/uL (0.0-0.1) 05/19/22 09:37 Nucleated RBC % (auto) 0 % 05/19/22 09:37 Nucleated RBCs # 0.0 /100WBC 05/19/22 09:37 APTT 61.4 SECONDS (23.9-36.7) H 05/20/22 08:25 D-Dimer 3.87 ug/mIFEU (0-0.59) H 05/17/22 11:53 Specimen Type Arterial 05/18/22 15: Sample Site Radial, right 05/18/22 15:21 ABG pH 7.47 (7.35-7.45) H 05/18/22 15:21 ABG pCO2 21.9 mmHg (35-45) L 05/18/22 15: ABG pO2 141.0 mmHg (80.0-100.0) H 05/18/22 15:21 ABG HCO3 16.1 mmol/L (22-26) L 05/18/22 15: ABG O2 Saturation 98.8 05/18/22 15: ABG Base Excess -6.0 mmol/L (-2.0-2.0) L 05/18/22 15:21 Kota Test Pos 05/18/22 15:21 A-a O2 Gradient Not Reportable 05/18/22 15: Hematocrit 32.7 % (37-47) L 05/18/22 15:21 Hgb O2 Saturation 97.4 % (95-100) 05/18/22 15:21 Carboxyhemoglobin 0.3 %THgb (0.4-20.1) L 05/18/22 15:21 Methemoglobin 1.1 % (0.4-1.5) 05/18/22 15:21 Total Hemoglobin 10.7 g/dL (12-16) L 05/18/22 15:21 Sodium 138.0 mmol/L (131-143) 05/18/22 15:21 Potassium 3.1 mmol/L (3.5-5.0) L 05/18/22 15:21 Glucose 91.0 mg/dL (70-115) 05/18/22 15:21 Ionized Calcium 1.2 mmol/L (1.1-1.4) 05/18/22 15:21 O2 Delivery Device Room air 05/18/22 15:21 Hair Clipper Power ID [id number] 05/18/22 15:21 Sodium 143 mmol/L (136-145) 05/19/22 03:22 Potassium 3.7 mmol/L (3.5-5.1) 05/19/22 03:22 Chloride 113 mmol/L (98-107) H 05/19/22 03:22 Carbon Dioxide 21 mmol/L (22-29) L 05/19/22 03:22 Anion Gap 12.7 (5-19) 05/19/22 03:22 BUN 14 mg/dL (8-23) 05/19/22 03:22 Creatinine 0.9 mg/dL (0.5-0.9) 05/19/22 03:22 GFR Calculation Not Reportable 05/19/22 03:22 Glucose 90 mg/dL (65-115) 05/19/22 03:22 Calculated Osmolality 296 mOsm/kg (285-295) H 05/19/22 03:22 Lactic Acid 0.5 mmol/L (0.5-2.2) 05/17/22 11:53 Lactate 0.9 mmol/L (0.5-2.2) 05/18/22 21:11 Calcium 8.5 mg/dL (8.5-10.5) 05/19/22 03:22 Magnesium 1.7 mg/dL (1.7-2.3) 05/18/22 00:59 Total Bilirubin 0.3 mg/dL (0.15-1.2) 05/18/22 00:59 AST 30 U/L (0-32) 05/18/22 00:59 ALT 15 U/L (0-33) 05/18/22 00:59 Alkaline Phosphatase 79 U/L (35-105) 05/18/22 00:59 Troponin T Gen 5 ng/L 12 ng/L (0-10) H 05/17/22 13:40 NT-Pro-B Natriuret Pep 744 pg/mL (0-450) H 05/17/22 11:53 Total Protein 6.0 g/dL (6.6-8.7) L 05/18/22 00:59 Albumin 2.6 g/dL (3.5-5.2) L 05/18/22 00:59 Globulin 3.4 g/dL (1.3-4.6) 05/18/22 00:59 Procalcitonin 0.20 ng/mL (0-0.5) 05/17/22 13:40 TSH 0.30 uIU/mL (0.27-4.20) 05/17/22 13:40 Serum Ketones Negative (Negative) 05/18/22 11:53 Influenza Type A Ag negative (Negative) 05/17/22 11:40 Influenza Type B Ag negative (Negative) 05/17/22 11:40 SARS-CoV-2 Ag (Rapid) negative (Negative) 05/17/22 11:40 Vitals Last Vital Signs Temp 97 F L 05/20/22 12:16 Pulse 75 05/20/22 12:28 Resp 18 05/20/22 12:28 BP 155/82 05/20/22 12:28 Pulse Ox 96 05/20/22 12:28 O2 Del Method 05/20/22 12:28 O2 Flow Rate 2 05/20/22 12:28 Discharge Plan Discharge Patient Disposition: Home Condition: Stable Prescriptions: New Eliquis 5 mg tablet 5 mg PO BID 30 Days Qty: 60 0RF Protonix 40 mg tablet,delayed release (DR/EC) 40 mg PO BID 30 Days Qty: 60 0RF Continued methocarbamol 500 mg tablet 500 mg PO QID diclofenac sodium 1 % kit 2 gm TOPICAL QID PRN (Reason: Itching) hydrocodone-acetaminophen 10-325 mg tablet 1 tab PO Q6H PRN (Reason: Pain) albuterol sulfate 90 mcg/actuation HFA aerosol inhaler 2 puff INHALATION 6XD PRN (Reason: Shortness Of Breath Or Wheezing) alprazolam 0.5 mg tablet 0.5 mg PO QID PRN (Reason: Anxiety) amlodipine 5 mg tablet 5 mg PO DAILY atorvastatin 40 mg tablet 40 mg PO DAILY calcitriol 0.25 mcg capsule 0.25 mcg PO DAILY citalopram 20 mg tablet 20 mg PO DAILY pantoprazole [Protonix] 40 mg tablet,delayed release (DR/EC) 40 mg PO DAILY gabapentin 300 mg capsule 300 mg PO TID Qty: 90 0RF docusate sodium [Colace] 100 mg capsule 100 mg PO DAILY kmj-YS-RV-acetaminophen-guaifn 8-9-14-325-200 mg (day/night) tablets, sequential 1 ea PO Q4-5H PRN (Reason: cough/drainage) Qty: 20 0RF cyanocobalamin (vitamin B-12) 1,000 mcg Tablet 1,000 mcg PO DAILY PRN (Reason: Fatigue) hydrochlorothiazide 12.5 mg tablet 12.5 mg PO DAILY Held aspirin [Adult Low Dose Aspirin] 81 mg tablet,delayed release (DR/EC) 81 mg PO DAILY Hold Instructions: see pcp Discontinued prednisone 10 mg tablet See Rx Instructions PO .COMPLEX PRN (Reason: joint pain) Qty: 60 1RF Rx Instructions: take 1 or 2 tab daily for 3-7 days prn joint pain flare PO PRN; Discharge Orders: Discharge Order (Routine); Ordered 05/20/22 Ordered By: Yeimy Vela Other Ambulatory Orders: Complete Blood Count w/Auto (Routine) Timeframe: 1 Week Location: Determined by Patient Ordered By: Yeimy Vela Complete Blood Count w/Auto (Routine) Timeframe: 3 Days Location: Determined by Patient Ordered By: Yeimy Vela Referrals: Elysia Sousa MD [Primary Care Provider] - 05/26/22 10:15 am ([facility] has scheduled you an appointment with Dr. Elysia Sousa on 05/26/2022 10:15. If you have any questions, please call [phone].) Alfredo Holder MD [Physician] - 1 week (Call Monday for a follow up appointment to be seen in a week. [phone]) Fito Conti MD [Staff Physician] - 2 weeks (call Monday for a follow up appointment. Need to be seen in two weeks. [phone]) Discharge Activity: Resume usual activity and Oxygen as instructed Patient Instructions: COPD, Pantoprazole (By mouth) (Protonix), Apixaban (By mouth) (Eliquis), Pulmonary Embolism (DC), Gastritis (DC), GERD (Gastroesophageal Reflux Disease) (DC), Anemia (DC), GI Discharge Instructions, Opioid Safety Activity Restrictions/Additional Instructions: Please follow up with your PCP and have labs repeated to monitor hemoglobin. If you develop blood in stool, urine, cough or any other symptoms please return to ER immediately. Watch for weakness as well You are going to be a on a blood thinner for your pulmonary embolism. Please follow up with doctors as directed. I have updated your primary care doctor with details of your case. Discharge Attestations Time Spent in Discharge Care*: greater than 30 min Quality Metrics Clinical Quality Measures [ No reported AMI, CVA or VTE this stay] Coding Level of Care Code Acute Code for Chg Fwd Diagnoses Occult blood in stools R19.5 Nausea vomiting and diarrhea R11.2; R19.7 Pulmonary embolism I26.93 Pulmonary embolism type: single subsegmental (without acute cor pulmonale) Anemia D64.9
[2022-05-20] MEDS: gabapentin 300 mg Capsule PO (13:58)
[2022-05-20] MEDS: atorvastatin 40 mg Tablet PO (13:58)
[2022-05-20] MEDS: folic acid 1 mg Tablet PO (13:58)
[2022-05-20] MEDS: calcitriol 0.25 mcg Capsule PO (13:58)
[2022-05-20] MEDS: hydroCHLOROthiazide 25 mg Tablet 12.5 MG PO (13:58)
[2022-05-20] MEDS: aspirin 81 mg EC Tablet PO (13:59)
[2022-05-20] MEDS: citalopram 20 mg Tablet PO (13:59)
[2022-05-20] MEDS: pantoprazole DR 40 mg Tablet PO (13:59)
--- NOTE | 2022-05-20 16:22 | PC.NURSE ---
Discharged home with belongings. IVs removed, cathlons intact. Voiced understanding of discharge instructions.
== END 2022-05-20 16:22 | disposition home or self-care (01) | DRG 391 ==
LOC: ER 17:02 → CSU 18:01
PROVIDERS: Surgery; Admitting Provider Internal Medicine; Emergency Provider Family Medicine; PCP Family Medicine; Visit Provider Internal Medicine
PROC: 0DJ08ZZ Inspection of Upper Intestinal Tract, Via Natural or Artificial Opening Endoscopic (ICD-10-PCS; CPT 43235; principal; 2022-05-20 11:30)
DX: K29.70 Gastritis, unspecified, without bleeding (principal); I26.99 Other pulmonary embolism without acute cor pulmonale; E87.20 Acidosis, unspecified; I10 Essential (primary) hypertension; F41.8 Other specified anxiety disorders; Z90.49 Acquired absence of other specified parts of digestive tract; J42 Unspecified chronic bronchitis; Z98.1 Arthrodesis status; Z87.01 Personal history of pneumonia (recurrent); R19.5 Other fecal abnormalities; D64.9 Anemia, unspecified; Z79.891 Long term (current) use of opiate analgesic; Z79.51 Long term (current) use of inhaled steroids; M79.7 Fibromyalgia; K21.9 Gastro-esophageal reflux disease without esophagitis; E78.5 Hyperlipidemia, unspecified; G89.29 Other chronic pain; M05.9 Rheumatoid arthritis with rheumatoid factor, unspecified; M81.0 Age-related osteoporosis without current pathological fracture
CPT/HCPCS: 36415; 36600; 43235; 71045; 71275; 74176; 80048; 80051; 80053; 82009; 82274; 82330; 82805; 83605; 83630; 83735; 83880; 84145; 84443; 84484; 85025; 85378; 85730; 87040; 87426; 87493; 87506; 87804; 93005; 93306; 93970; 94640; 94664; 94760; 96365; 96375; 96376; 97165; 99285; C9113; J1644; J2270; J2405; J2704; J3411; J7030; J7040

== ENCOUNTER → 2022-06-14 13:36 | Outpatient (BNVA) | payer MEDICARE, SELFPAY | PROVIDERS: PCP Family Medicine; Visit Provider Podiatrist Foot & Ankle Surgery | DX: Q82.8 Other specified congenital malformations of skin (principal); M21.621 Bunionette of right foot; M21.622 Bunionette of left foot; M20.12 Hallux valgus (acquired), left foot | CPT/HCPCS: 17110 ==

== ENCOUNTER 2022-06-20 11:56 | Inpatient (IN) | payer MEDICARE, SELFPAY ==
[2022-06-20] VITALS (13 sets, daily range): BP systolic 118–147; BP diastolic 69–99; PULSE 74–86; RESP 14–20; TEMP 36.7–36.8; O2SAT 88–98; BMI 22.4
--- NOTE | 2022-06-20 12:33 | ED_ITS ---
HPI - SOB/Dyspnea General: Chief Complaint: Shortness of Breath/Dyspnea Stated Complaint: weakness, sob, bloodclot in lung 2xweeks ago Time Seen by Provider: 06/20/22 12:33 History of Present Illness: HPI Narrative: Ms Bradford is a 77-year-old lady with complex recent past medical history including pulmonary embolism and pneumonia approximately 3 weeks ago presenting to the emergency department for shortness of breath and generalized malaise with fatigue. She notes improvement and then worsening again for the past week. She has been more short of breath and cough which is mildly rattling productive. She denies associated fevers. She additionally has decreased energy and feels drained of energy quickly after any activity. Intensity is moderate to severe. Course has worsened. No other specific changes in health, exacerbating, or alleviating factors identified. Patient has no baseline oxygen requirement though currently is requiring 1 L by nasal cannula. Does report a remote history of smoking but no diagnosed history of lung disease prior to pneumonia/PE. Onset (ago): day(s) Context: recent illness Timing: progressively worsening Severity: moderate Exacerbating factors: exertion Relieving factors: nothing Known history of: other Associated symptoms: Reports cough and other Review of Systems General: Reports: 10 or more systems reviewed and unremarkable except in HPI and below PFSH ED PFSH: Medical History Anxiety and depression Community acquired pneumonia COPD (chronic obstructive pulmonary disease) with acute bronchitis COPD (chronic obstructive pulmonary disease) with chronic bronchitis Fibromyalgia GERD (gastroesophageal reflux disease) High risk medication use Hyperlipidemia Immunization counseling Lumbar post-laminectomy syndrome Osteoarthritis Osteoporosis Rheumatoid arthritis Seropositive rheumatoid arthritis of multiple sites Soft tissue mass Thoracic postlaminectomy syndrome Weight loss, non-intentional Surgical History H/O foot surgery bilaterally History of appendectomy History of cholecystectomy History of colon surgery 14 inches removed History of hysterectomy History of lumbar surgery (~2010) Dr. Kauffman L1-L5 laminectomy/fusion/fixation History of lumbar surgery (~2012) Dr. Kauffman L1-L5 laminectomy/fusion/fiaxation; exploration History of thoracic surgery (~04/2016) Dr. Kauffman T9-S1 fusion fixation History of thoracic surgery (~02/2017) Dr. Kauffman T10-T11 fixation/fusion. HX T11 fracture. 04/06/17 Dr Kauffman removal of posterior 5.5 mm diameter titanium [place]. Exploration of rostal end of fusion adjacent to [place] and screw;staph infection Status post cervical spinal fusion (~2007) Dr Leblanc C6-C7 ACDFF Family History Father Stroke Mother Cancer Family history of thyroid problem Sister Cancer Brother Diabetes Social History Smoking and tobacco status: never smoked Alcohol intake: never Household members: none Marital status: / Current occupational status: retired Physical Exam Const: COMMON NORMALS: alert GENERAL APPEARANCE: cooperative and well developed HENMT: COMMON NORMALS: normocephalic and atraumatic HEAD & SCALP: normoce phalic and atraumatic Eye: COMMON NORMALS: conjunctivae normal CONJUNCTIVA: Yes conjunctivae normal SCLERA: sclerae normal Neck/C-Spine: COMMON NORMALS: supple GENERAL: Yes trachea midline Resp: COMMON NORMALS: clear to auscultation bilaterally EFFORT & INSPECTION: Yes able to speak in complete sentences AUSCULTATION: clear to auscultation bilaterally Cardio: COMMON NORMALS: regular rate and regular rhythm RATE: regular rate RHYTHM: regular rhythm GI: COMMON NORMALS: Soft to palpation PALPATION: Yes Soft to palpation and No Tenderness to palpation present (GI) Extremity: GENERAL: Yes normal exam except as noted and No edema Neuro: COMMON NORMALS: moves all extremities SENSORIUM/ORIENTATION: Yes alert and No Orientation impaired Psych: COMMON NORMALS: mental status grossly normal and Normal thought process present THOUGHT PROCESS: Normal thought process present Course Vital Signs: Vital signs: Vital Signs Temperature 98.1 F 06/23/22 08:11 Pulse Rate 83 06/23/22 08:22 Respiratory Rate 16 06/23/22 08:22 Blood Pressure 155/84 06/23/22 08:11 Pulse Oximetry 92 06/23/22 09:34 Oxygen Delivery Me thod 06/23/22 08:22 Oxygen Flow Rate 2 06/23/22 08:22 MDM - SOB/Dyspnea Medical Decision Making 77-year-old lady with complex recent history including pneumonia and pulmonary e mbolism presented to the emergency room for generalized illness with shortness of breath. Exam as above. Patient is requiring supplemental oxygen. She is nontoxic. EKG demonstrates sinus rhythm with borderline left axis deviation, normal intervals, nonspecific ST segment abnormalities present. No STEMI. Labs notable for no leukocytosis, macrocytic anemia present. Metabolic panel with mildly elevated creatinine. Initial troponin is elevated with negative range 2-hour delta. No UTI. Negative viral panel. Chest x-ray with no lobar consolidation or pneumothorax. Recent history and persistent/worsening symptoms CTA is warranted. CTA negative for PE, she has emphysema with likely bronchitis. During ED course patient treated with RT treatments, steroids, analgesia, antibiotic for bronchitis/COPD exacerbation. Given new oxygen requirement patient requires inpatient management. The results of ED evaluation were discussed with the patient including plan for admission due to requirement for level of care not available if discharged to prevent significant worsening/deterioration. Patient agreeable with plan. Discussed with hospitalist service who was agreeable to admit patient. Medical Records I reviewed the patient's medical records. Lab Data I reviewed the patient's lab results. 06/22/22 04:55 06/22/22 09:09 Labs/Radiology: Radiology Impressions Chest CTA 06/20/22 13:01 IMPRESSION: 1. Negative for pulmonary embolism. 2. Centrilobular emphysema. 3. Mild bronchial wall thickening with endobronchial secretions; cannot exclude bronchitis. COMMENTS: In the absence of a history or active diagnosis of lung cancer, it is recommended that this patient with emphysema be evaluated for enrollment in a low dose CT lung cancer screening program. Chest X-Ray 06/22/22 15:00 IMPRESSION: No acute pulmonary change Chest/Abdomen/Pelvis CT 06/22/22 15:00 IMPRESSION: 1. Aorta appears normal in caliber and intact 2. Cardiomegaly. 3. Coronary artery atherosclerotic calcifications. 4. Emphysematous changes. 5. Right lower lobe atelectasis. 6. Surgical hardware in the cervical and thoracic spine. 7. Scattered prominent subcentimeter short axis mediastinal lymph nodes, nonspecific. 8. Biapical pleuroparenchymal fibrosis with some calcification. IMPRESSION: 1. Negative for acute inflammatory process in the abdomen or pelvis. 2. Cholecystectomy. 3. Bilateral renal cysts, negative for follow up. 4. Surgical hardware in the lumbar spine. 5. Bilateral sacroiliac joint surgical hardware. COMMENTS: Consistent with the [employer]'s Incidental Findings Committee white paper (J Am Tim Radiol 2018): Any incidental renal lesion less than 1 cm or classified as too small to characterize, or any incidental cystic renal lesion characterized as simple-appearing, is likely benign. No follow-up imaging is recommended for these lesions per consensus recommendations based on imaging criteria. Head CT 06/22/22 15:24 IMPRESSION: Stable chronic findings with no evidence of acute intracranial hemorrhage, mass or acute infarction. Laboratory Results WBC 4.1 10^3/uL (4.0-10.0) 06/20/22 14:15 RBC 2.94 10^6/uL (4.1-5.3) L 06/20/22 14:15 Hgb 8.4 g/dL (11.5-15.3) L 06/20/22 14:15 Hct 29.9 % (37.0-47.0) L 06/20/22 14:15 MCV 101.7 fl (81-99) H 06/20/22 14:15 MCH 28.6 pg (28.0-34.0) 06/20/22 14:15 MCHC 28.1 g/dL (30.0-36.0) L 06/20/22 14:15 RDW 16.0 % (12.1-15.1) H 06/20/22 14:15 Plt Count 351 10^3/cmm (130-400) 06/20/22 14:15 MPV 9.8 fL (7.4-10.4) 06/20/22 14:15 Neut % (Auto) 53.9 % 06/20/22 14:15 Lymph % (Auto) 34.2 % 06/20/22 14:15 [place] % (Auto) 8.1 % 06/20/22 14:15 Eos % (Auto) 2.4 % 06/20/22 14:15 Baso % (Auto) 1.2 % 06/20/22 14:15 Neut # (Auto) 2.20 10^3/uL (1.8-7.7) 06/20/22 14:15 Lymph # (Auto) 1.4 10^3/uL (0.8-4.8) 06/20/22 14:15 [place] # (Auto) 0.3 10^3/uL (0.2-0.9) 06/20/22 14:15 Eos # (Auto) 0.1 10^3/uL (0.0-0.8) 06/20/22 14:15 Baso # (Auto) 0.1 10^3/uL (0.0-0.1) 06/20/22 14:15 Nucleated RBC % (auto) 0 % 06/20/22 14:15 Nucleated RBCs # 0.0 /100WBC 06/20/22 14:15 Sodium 139 mmol/L (136-145) 06/20/22 14:15 Potassium 4.9 mmol/L (3.5-5.1) 06/20/22 14:15 Chloride 102 mmol/L (98-107) 06/20/22 14:15 Carbon Dioxide 26 mmol/L (22-29) 06/20/22 14:15 Anion Gap 15.9 (5-19) 06/20/22 14:15 BUN 16 mg/dL (8-23) 06/20/22 14:15 Creatinine 1.1 mg/dL (0.5-0.9) H 06/20/22 14:15 GFR Calculation Not Reportable 06/20/22 14:15 Glucose 88 mg/dL (65-115) 06/20/22 14:15 Calculated Osmolality 289 mOsm/kg (285-295) 06/20/22 14:15 Lactic Acid 1.0 mmol/L (0.5-2.2) 06/20/22 14:15 Calcium 9.2 mg/dL (8.5-10.5) 06/20/22 14:15 Total Bilirubin 0.3 mg/dL (0.15-1.2) 06/20/22 14:15 AST 20 U/L (0-32) 06/20/22 14:15 ALT 9 U/L (0-33) 06/20/22 14:15 Alkaline Phosphatase 88 U/L (35-105) 06/20/22 14:15 Troponin T Baseline 101 ng/L (0-10) H* 06/20/22 14:15 Troponin T 120 Minute 87.82 ng/L (0-10) H 06/20/22 16:25 Delta Troponin T -13.18 ABS# (0-10) L 06/20/22 16:25 Troponin T Hi Sens 6Hr 65.72 ng/L (0-10) H 06/20/22 20:10 Troponin T Hi Sens 6Hr Delta -35.28 ng/L (0-12) L 06/20/22 20:10 C-Reactive Protein 30.6 mg/L (0.0-4.9) H 06/20/22 14:15 NT-Pro-B Natriuret Pep 595 pg/mL (0-450) H 06/20/22 19:10 Total Protein 7.8 g/dL (6.6-8.7) 06/20/22 14:15 Albumin 3.4 g/dL (3.5-5.2) L 06/20/22 14:15 Globulin 4.4 g/dL (1.3-4.6) 06/20/22 14:15 Procalcitonin 0.06 ng/mL (0-0.5) 06/20/22 14:15 Urine Color Straw (Yellow) 06/20/22 13:31 Urine Appearance Clear (CLEAR) 06/20/22 13:31 Urine pH 7 (5-7) 06/20/22 13:31 Ur Specific [place] 1.000 (1.005-1.030) L 06/20/22 13:31 Urine Protein Neg (Negative) 06/20/22 13:31 Urine Glucose (UA) Norm (Normal) 06/20/22 13:31 Urine Ketones Negative (Negative) 06/20/22 13:31 Urine Blood Neg (Negative) 06/20/22 13:31 Urine Nitrate Negative (Negative) 06/20/22 13:31 Urine Bilirubin Neg (Negative) 06/20/22 13:31 Urine Urobilinogen Norm mg/dL (Negative) 06/20/22 13:31 Ur Leukocyte Esterase Negative (Negative) 06/20/22 13:31 Nasal Influ A H1 2009 PCR Not detected (NOT DETECT) 06/20/22 13:35 Adenovirus (PCR) Not detected (NOT DETECT) 06/20/22 13:35 C. pneumoniae DNA (PCR) Not detected (NOT DETECT) 06/20/22 13:35 Coronavirus 229E (PCR) Not detected (NOT DETECT) 06/20/22 13:35 Human Metapneumovir PCR Not detected (NOT DETECT) 06/20/22 13:35 Influenza A (H1) PCR Not detected (NOT DETECT) 06/20/22 13:35 Influenza A (H3) PCR Not detected (NOT DETECT) 06/20/22 13:35 Influenza Type A (PCR) Not detected (NOT DETECT) 06/20/22 13:35 Influenza Type B (PCR) Not detected (NOT DETECT) 06/20/22 13:35 M. pneumoniae (PCR) Not detected (NOT DETECT) 06/20/22 13:35 Parainfluenza 1 (PCR) Not detected (NOT DETECT) 06/20/22 13:35 Parainfluenza 2 (PCR) Not detected (NOT DETECT) 06/20/22 13:35 Parainfluenza 3 (PCR) Not detected (NOT DETECT) 06/20/22 13:35 Parainfluenza 4 (PCR) Not detected (NOT DETECT) 06/20/22 13:35 RSV Type A (PCR) Not detected (NOT DETECT) 06/20/22 13:35 RSV Type B (PCR) Not detected (NOT DETECT) 06/20/22 13:35 Entero/Rhino (PCR) Not detected (NOT DETECT) 06/20/22 13:35 SARS-CoV-2 (PCR) Not detected (NOT DETECT) 06/20/22 13:35 Discharge Plan Discharge Patient Disposition: Placed in Observation Admit Provider: Panfilo Clemons Clinical Impression: Acute exacerbation of chronic obstructive airways disease, Anemia, Bronchitis, Hypoxia Discharge Diet: As Directed Discharge Activity: Resume usual activity Coding Level of Care Code ED Certified Ophthalmic Technologist for Caitlyn Duckworth
--- NOTE | 2022-06-20 12:39 | XR_ITS ---
WS: [id number] Portable AP upright chest, 06/20/2022 Clinical Data: sob, cough Comparison: Portable chest, 05/20/2022 Findings: No nodules, masses or effusions are seen. The heart is normal. The pulmonary vascularity is not increased. No pneumonia or pneumothorax is seen. The aortic arch shows tortuosity and minimal ca lcification. The diaphragms are flattened. There is an anterior cervical disc fusion. There is a thor acolumbar posterior fusion standing from T4 to the lumbar level. There are upper abdominal surgical c lips. There are monitor leads on the chest wall.. XR/XR chest 1V portable [id number] Impression: Atherosclerosis and hyperinflation.
--- NOTE | 2022-06-20 12:58 | ECG_ITS ---
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 Measurements Intervals [place] Rate: 76 P: 54 TN: 164 QRS: -26 QRSD: 76 T: 39 QT: 379 QTc: 426 Interpretive Statements SINUS RHYTHM BORDERLINE LEFT AXIS DEVIATION [QRS AXIS < -20] Compared to ECG 05/17/2022 11:22:16 No significant changes Electronically Signed On 06-20-2022 15:58:05 CDT by Ethan Mcdonnell M.D. [id number]
--- NOTE | 2022-06-20 13:01 | CTR_ITS ---
PROCEDURE INFORMATION: Exam: CTA Chest With Contrast Exam date and time: 06/20/2022 3:43 PM Age: 77 years old Clinical indication: Cough and shortness of breath; Additional info: HX pe, SOB, cough, new oxygen req TECHNIQUE: Imaging protocol: Computed tomographic angiography of the chest with contrast. 3D rendering (Not supervised by radiologist): MIP and/or 3D reconstructed images were created by the technologist. Radiation optimization: All CT scans at this facility use at least one of these dose optimization techniques: automated exposure control; mA and/or kV adjustment per patient size (includes targeted exams where dose is matched to clinical indication); or iterative reconstruction. Contrast material: OMNI 350; Contrast volume: 100 ml; Contrast route: INTRAVENOUS (IV); REPORTING DATA: Count of CT and Cardiac NM exams in prior 12 months: This patient has received 2 known CTs and 0 known cardiac nuclear medicine studies in the 12 months prior to the current study. COMPARISON: CT angio chest PE protcl [id number] 05/17/2022 2:48 PM RADIATION DOSE METRICS: Total DLP (mGy-cm): 213.31 FINDINGS: Pulmonary arteries: Normal. No pulmonary emboli. Aorta: Unremarkable. No aortic aneurysm. No aortic dissection. Lungs: Centrilobular emphysema. Bronchial wall thickening. Scattered small endobronchial secretions. Negative for bronchiectasis. Negative for acute pulmonary consolidation. Pleural spaces: Unremarkable. No pneumothorax. No pleural effusion. Heart: Unremarkable. No cardiomegaly. No pericardial effusion. Lymph nodes: Unremarkable. No enlarged lymph nodes. Gallbladder and bile ducts: Cholecystectomy. Bones/joints: Lower cervical spine ACDF. Extensive multilevel thoracolumbar spine posterior fusion without complication. Pre-existing wedge shaped compression deformities in the thoracic spine unchanged from the comparison. Upper thoracic spine kyphosis and anterolisthesis centered at T3-T4 unchanged. Soft tissues: Unremarkable. CT/CT angio chest PE protcl [id number] IMPRESSION: 1. Negative for pulmonary embolism. 2. Centrilobular emphysema. 3. Mild bronchial wall thickening with endobronchial secretions; cannot exclude bronchitis. COMMENTS: In the absence of a history or active diagnosis of lung cancer, it is recommended that this patient with emphysema be evaluated for enrollment in a low dose CT lung cancer screening program.
[2022-06-20 13:47] LABS: Add Urine Microscopic? NO; Charge for UA Resulting for Rev
[2022-06-20 14:22] LABS: Bilirubin Urine Neg (Negative); Blood Urine Neg (Negative); Glucose Urine UA Norm (Normal); Ketones Urine Negative (Negative); Leukocyte Esterase Urine Negative (Negative); Nitrate Urine Negative (Negative); Protein Urine Neg (Negative); Urine Appearance Clear (CLEAR); Urine Color Straw (Yellow); Urobilinogen Urine Norm (Negative); pH Urine 7 (5-7)
[2022-06-20 14:37] LABS: Basophils # 0.1 10^3/uL (0.0-0.1); Basophils % 1.2 %; Eosinophils # 0.1 10^3/uL (0.0-0.8); Eosinophils % 2.4 %; Hematocrit 29.9 % (37.0-47.0); Hemoglobin 8.4 g/dL (11.5-15.3); Lymphocytes # 1.4 10^3/uL (0.8-4.8); Lymphocytes % 34.2 %; Mean Corpuscular HGB Conc 28.1 g/dL (30.0-36.0); Mean Corpuscular Hemoglobin 28.6 pg (28.0-34.0); Mean Corpuscular Volume 101.7 fl (81-99); Mean Platelet Volume 9.8 fL (7.4-10.4); Monocytes # 0.3 10^3/uL (0.2-0.9); Monocytes % 8.1 %; Neutrophils % 53.9 %; Nucleated Red Blood Cells % 0 %; Platelet Count 351 10^3/cmm (130-400); Red Blood Count 2.94 10^6/uL (4.1-5.3); White Blood Count 4.1 10^3/uL (4.0-10.0)
--- NOTE | 2022-06-20 14:40 | ECG_ITS ---
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 Measurements Intervals [place] Rate: 77 P: 60 FL: 155 QRS: -38 QRSD: 82 T: 46 QT: 390 QTc: 443 Interpretive Statements SINUS RHYTHM LEFT AXIS DEVIATION [QRS AXIS < -30] Compared to ECG 06/20/2022 12:58:21 No significant changes Electronically Signed On 06-20-2022 16:02:28 CDT by Ethan Mcdonnell M.D. [id number]
[2022-06-20] MEDS: ipratropium-albuterol 3 mL Neb INHALATION (15:12)
[2022-06-20 15:13] LABS: NT Pro B Type Natriuretic Pept 695 pg/mL (0-450); Procalcitonin 0.06 ng/mL (0-0.5); Troponin(5th) Baseline 101 ng/L (0-10)
[2022-06-20 15:24] LABS: Alanine Aminotransferase 9 U/L (0-33); Albumin Level 3.4 g/dL (3.5-5.2); Alkaline Phosphatase 88 U/L (35-105); Blood Urea Nitrogen 16 mg/dL (8-23); C Reactive Protein 30.6 mg/L (0.0-4.9); Calcium 9.2 mg/dL (8.5-10.5); Carbon Dioxide 26 mmol/L (22-29); Chloride 102 mmol/L (98-107); Globulin 4.4 g/dL (1.3-4.6); Glucose 88 mg/dL (65-115); Osmolality Calculated 289 mOsm/kg (285-295); Sodium 139 mmol/L (136-145); Total Bilirubin 0.3 mg/dL (0.15-1.2); Total Protein 7.8 g/dL (6.6-8.7)
[2022-06-20 15:26] LABS: Anion Gap 15.9 (5-19); Aspartate Amino Transferase 20 U/L (0-32); Potassium 4.9 mmol/L (3.5-5.1)
[2022-06-20] MEDS: iohexol 350 mg/mL 500 mL Btl (per mL) IV (15:48)
[2022-06-20 16:57] LABS: Troponin 5 2HR 87.82 ng/L (0-10)
[2022-06-20 17:04] LABS: Adenovirus Not Detected (NOT DETECT); Chlamydia Pneumoniae Not Detected (NOT DETECT); Coronavirus 229E,HKU1,NL63,OC4 Not Detected (NOT DETECT); Human Metapneumovirus Not Detected (NOT DETECT); Human Rhinovirus/Enterovirus Not Detected (NOT DETECT); Influenza A Not Detected (NOT DETECT); Influenza A H1 Not Detected (NOT DETECT); Influenza A H1-2009 Not Detected (NOT DETECT); Influenza A H3 Not Detected (NOT DETECT); Influenza B Not Detected (NOT DETECT); Mycoplasma Pneumoniae Not Detected (NOT DETECT); Parainfluenza Virus Type 1 Not Detected (NOT DETECT); Parainfluenza Virus Type 2 Not Detected (NOT DETECT); Parainfluenza Virus Type 3 Not Detected (NOT DETECT); Parainfluenza Virus Type 4 Not Detected (NOT DETECT); Respiratory Syncytial Virus A Not Detected (NOT DETECT); Respiratory Syncytial Virus B Not Detected (NOT DETECT); SARS-COV-2 Not Detected (NOT DETECT)
[2022-06-20] MEDS: doxycycline 100 MG in sodium chloride 0.9% (plus) 100 ML IV (17:25)
--- NOTE | 2022-06-20 17:39 | USCV_ITS ---
LobitoMichelle duggan Age: 77 Gender: F : 1945 Exam Date: 06/20/2022 21:50 Ordering Phys: Aixa Smalls MD Technologist: CHRISTY [place] [facility] [place]: chest pain, NSTEMI, recent pneumonia, recent pulmonary emboli, malaise, fatigue. BP: 0 / 69 HR: 81 Rhythm: Sinus Technical Quality: Adequate MEASUREMENTS (Male / Female) Normal Values 2D ECHO LV Diastolic Diameter PLAX 3.3 cm 4.2 - 5.9 / 3.9 - 5.3 cm LV Systolic Diameter PLAX 1.9 cm IVS Diastolic Thickness 1.3 cm 0.6 - 1.0 / 0.6 - 0.9 cm IVS Systolic Thickness 2.0 cm LVPW Diastolic Thickness 1.2 cm 0.6 - 1.0 / 0.6 - 0.9 cm LVPW Systolic Thickness 1.4 cm LVOT Diameter 1.7 cm LV Ejection Fraction 2D Teich 73.4 % LV Ejection Fraction MOD 2C 69.5 % LV Ejection Fraction 2C AL 71.5 % LA Diameter 2.9 cm LA Width 2.4 cm LA Height 4.1 cm RA Width 2.7 cm RA Height 4.4 cm Aorta at Sinotubular Diameter 3.1 cm IVC Diameter 1.2 cm M-MODE Aortic Annulus Diameter 3.3 cm LA Ao Ratio MM 0.9 MV E Point Septal Separation 0.3 cm DOPPLER AV Peak Velocity 168.0 cm/s LVOT Peak Velocity 160.0 cm/s AV Area Cont Eq vti 2.0 cm squared AV Area Cont Eq pk 2.1 cm squared MV Area PHT 2.0 cm squared Mitral E to A Ratio 0.6 MV E' Velocity 43.5 cm/s Mitral E to MV E' Ratio 9.7 Mitral E to LV E' Lateral Ratio 9.7 Mitral E to LV E' Septal Ratio 9.7 TR Peak Velocity 233.0 cm/s TR Peak Gradient 21.7 mmHg TV Peak E Velocity 43.0 cm/s Right Atrial Pressure 5.0 mmHg Pulmonary Artery Systolic Pressu 26.7 mmHg PV Peak Velocity 100.0 cm/s RV Acceleration Time 0.1 s RV Ejection Time 0.3 s RV AcT/ET 0.5 FINDINGS Left Ventricle Normal left ventricular size and systolic function, EF 72 %. Mild left ventricular hypertrophy. No regional wall motion abnormalities. Grade I/IV diastolic dysfunction (abnormal relaxation filling pattern), normal to mildly elevated filling pressures. Right Ventricle The right ventricle is normal in size and function. Right Atrium The right atrium is normal in size. Left Atrium The left atrium is normal in size. Mitral Valve Trace mitral valve regurgitation. Aortic Valve No gross abnormalities noted Tricuspid Valve Trace tricuspid valve regurgitation. Pulmonic Valve Pulmonic valve not well visualized. Pericardium Normal pericardium without effusion. Aorta Normal aortic annulus size. IVC Normal inferior vena cava. CONCLUSIONS Normal left ventricular size and systolic function, EF 72 %. Mild left ventricular hypertrophy. No regional wall motion abnormalities. Grade I/IV diastolic dysfunction (abnormal relaxation filling pattern), normal to mildly elevated filling pressures. Trace mitral valve regurgitation. Trace tricuspid valve regurgitation. Normal chamber sizes. No intracardiac masses. There is no pericardial effusion. Compared to the study from 05/17/2022, there may not be a significant change Dr Archana Fernández MD FACC (Electronically Signed) Final Date: 21 June 2022 14:00 S
[2022-06-20] MEDS: morphine 4 mg/mL SDV 1 mL IVP ×2 (17:40→20:18)
--- NOTE | 2022-06-20 17:44 | P.HP_ITS ---
Providers/Chief Complaint Admitting Physician: Aixa Smalls md Primary Care Provider: Elysia Sousa MD Chief Complaint: weakness, sob, bloodclot in lung 2xweeks ago History of Present Illness Michelle Bradford is a 77 year old female with past medical history of hypertension, depression, back pain, 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? Patient has a recent history of pulmonary embolism diagnosed in May 2022 for which she is currently on anticoagulation with Eliquis. Patient presented to the hospital TODAY WITH with chief complaints of shortness of breath.? She had a new oxygen requirement of 2 L/min while typically she is on room air.describes vague chets discomfort. CTA PE is negative for PE or consolidation Review of Systems 2 General: Reports: 10 or more systems reviewed and unremarkable except in HPI and below Const: Denies: fever(s), chills or body aches Eyes: Denies: change in vision, blurry vision or photophobia ENMT: Reports: hoarseness; Denies: throat pain, enlarged tonsils, odynophagia or nasal congestion Card: Denies: chest pain, palpitations, irregular heart rhythm, edema, swelling of feet/ankles, lightheadedness, pre-syncope, dyspnea on exertion or orthopnea Resp: Denies: dyspnea, productive cough, non-productive cough, wheezing, stridor, pain on inspiration, change in phlegm color, hemoptysis or chest congestion GI: Denies: abdominal pain, nausea, vomiting, hematemesis, coffee ground emesis, dysphagia, heartburn, diarrhea, constipation, GI cramping, change in stool character, hematochezia or melena : Denies: flank pain, difficulty voiding, dysuria, urinary frequency, urinary urgency, urinary hesitancy or hematuria Musc: Denies: neck pain, back pain, extremity pain, joint swelling, joint warmth or deformity Neuro: Denies: headache(s), numbness in extremities, weakness in extremities, sensory changes, difficulty walking, frequent falls, dizziness, vertigo, behavioral changes, Slurred speech present or seizure-like activity Psych: Denies: anxiety, depression, suicidal ideation or homicidal ideation Endo: Denies: polyuria, polydipsia, tired all the time, cold intolerance or hot flashes Caleb/Lymph: Denies: easy bruising or easy bleeding Medications/Allergies Home Medications Medication Instructions Recorded Confirmed Last Taken Type albuterol sulfate 90 mcg/actuation 2 puff inhalation 6XD PRN 08/09/19 06/20/22 2 Days Ago History aerosol inhaler Shortness Of Breath Or Wheezing ~11/02/19 alprazolam 0.5 mg tablet 0.5 mg PO QID PRN Anxiety 08/09/19 06/20/22 1 Day Ago History ~11/03/19 amlodipine 5 mg tablet 5 mg PO DAILY 08/09/19 06/20/22 06/19/22 History aspirin 81 mg tablet,delayed 81 mg PO DAILY 08/09/19 06/20/22 06/19/22 History release (Adult Low Dose Aspirin) atorvastatin 40 mg tablet 40 mg PO DAILY 08/09/19 06/20/22 06/19/22 History citalopram 20 mg tablet 20 mg PO DAILY 08/09/19 06/20/22 06/19/22 History diclofenac sodium 1 % gel topical 2 gm topical QID PRN Itching 08/09/19 06/20/22 1 Day Ago History kit ~11/03/19 hydrocodone 10 mg-acetaminophen 1 tab PO Q6H PRN Pain 08/09/19 06/20/22 11/04/19 08:10 History 325 mg tablet pantoprazole 40 mg tablet,delayed 40 mg PO BID 08/09/19 06/20/22 06/19/22 History release (Protonix) cyanocobalamin (vitamin B-12) 1,000 mcg PO DAILY PRN Fatigue 10/31/19 06/20/22 Unknown History 1,000 mcg tablet methocarbamol 500 mg tablet 500 mg PO QID 05/03/21 06/20/22 06/19/22 History docusate sodium 100 mg capsule 100 mg PO DAILY 12/01/21 06/20/22 06/19/22 History (Colace) hydrochlorothiazide 12.5 mg tablet 12.5 mg PO DAILY 05/17/22 06/20/22 06/19/22 History cholecalciferol (vitamin D3) 50 50 mcg PO DAILY 06/20/22 06/20/22 06/20/22 History mcg (2,000 unit) capsule (Vitamin D3) gabapentin 300 mg capsule 300 mg PO BID pain 06/20/22 06/20/22 06/19/22 History tizanidine 4 mg tablet 4 mg PO DAILY PRN Muscle Pain 06/20/22 06/20/22 Unknown History enoxaparin 60 mg/0.6 mL 60 mg (0.6 mL) SUBCUT Q12H 1 month 06/23/22 Unknown Rx subcutaneous syringe (Lovenox) #36 mL Allergies Allergy/AdvReac Type Severity Reaction Status Date / Time infliximab [From Remicade] Allergy Unknown Verified 06/16/22 07:59 meropenem Allergy ALGY-Hives Verified 06/16/22 07:59 nafcillin Allergy ALGY-Hives Verified 06/16/22 07:59 PFSH Acute PFSH: Medical History Anxiety and depression Community acquired pneumonia COPD (chronic obstructive pulmonary disease) with acute bronchitis COPD (chronic obstructive pulmonary disease) with chronic bronchitis Fibromyalgia GERD (gastroesophageal reflux disease) High risk medication use Hyperlipidemia Immunization counseling Lumbar post-laminectomy syndrome Osteoarthritis Osteoporosis Rheumatoid arthritis Seropositive rheumatoid arthritis of multiple sites Soft tissue mass Thoracic postlaminectomy syndrome Weight loss, non-intentional Surgical History H/O foot surgery bilaterally History of appendectomy History of cholecystectomy History of colon surgery 14 inches removed History of hysterectomy History of lumbar surgery (~2010) Dr. Kauffman L1-L5 laminectomy/fusion/fixation History of lumbar surgery (~2012) Dr. Kauffman L1-L5 laminectomy/fusion/fiaxation; exploration History of thoracic surgery (~04/2016) Dr. Kauffman T9-S1 fusion fixation History of thoracic surgery (~02/2017) Dr. Kauffman T10-T11 fixation/fusion. HX T11 fracture. 04/06/17 Dr Kauffman removal of posterior 5.5 mm diameter titanium [place]. Exploration of rostal end of fusion adjacent to [place] and screw;staph infection Status post cervical spinal fusion (~2007) Dr Leblanc C6-C7 ACDFF Family History Father Stroke Mother Cancer Family history of thyroid problem Sister Cancer Brother Diabetes Social History Smoking and tobacco status: never smoked Alcohol intake: never Household members: none Marital status: / Current occupational status: retired Vitals/I&O/Wt Last Vital Signs Temp 98.2 F 06/20/22 12:25 Pulse 77 06/20/22 17:08 Resp 17 06/20/22 17:40 BP 131/69 06/20/22 17:08 Pulse Ox 93 06/20/22 17:08 O2 Del Method 06/20/22 17:08 O2 Flow Rate 2 06/20/22 17:08 Weight last 48 hrs Weight 57.606 kg Physical Exam Narrative: General: No acute distress, AO x3 HEENT: PERRLA, pupils bilaterally equal and reactive, pallors not present Chest: Normal vesicular breath sounds, no added sounds, equal good air entry bilaterally CVS: S1-S2 regular, no murmurs, no tachycardia, no gallops, no rubs Abdomen: Soft, nontender, no organomegaly, bowel sounds present Neuro: No focal deficits, no facial deformity, AO x3, power 5/5 in all limbs Data 06/20/22 14:15 06/20/22 14:15 Micro: Microbiology 06/20/22 14:15 Blood Culture - Preliminary Blood SPECIMEN COLLECTED 06/20/22 14:15 Blood Culture - Preliminary Blood SPECIMEN COLLECTED Other data: Chest CTA? 06/20/22 13:01 IMPRESSION: 1. ? Negative for pulmonary embolism. 2. ? Centrilobular emphysema. 3. ? Mild bronchial wall thickening with endobronchial secretions; cannot exclude bronchitis. ? COMMENTS: In the absence of a history or active diagnosis of lung cancer, it is recommended that this patient with emphysema be evaluated for enrollment in a low dose CT lung cancer screening program. A&P Assessment and plan (1) Acute exacerbation of chronic obstructive airways disease: Patient presenting today with shortness of breath after having had a recent PE 1 month ago. Currently CTA does not show any pulmonary embolism. Negative for consolidation. Patient is afebrile. No leukocytosis. Suspect that her findings are related to a COPD exacerbation, mild wheezing on exam bilaterally. Scheduled nebulization with DuoNeb and budesonide. Methylprednisone 40 mg IV every 12 hours. She has received a dose of doxycycline in the emergency room, low suspicion for infectious etiology given no consolidation on CT. Discontinue antibiotics for now. (2) NSTEMI (non-ST elevated myocardial infarction): EKG without acute ST-T wave changes, however noted to have a left axis deviation . Baseline troponin at 101. Would trend at 2 and 6 hours. Depending on trend will likely need further ischemic work-up. She has never previously had a stress test. Possible that angina may be contributing to her current symptoms. Check echocardiogram Plan Anemia: Chronic, trend hemoglobin, transfusion threshold of 7 Attestations Medical Necessity Statement*: Anticipate less than 2 midnight stay at this current point. Coding Level of Care Code Acute Code for Chg Fwd Moderate MDM includes number and complexity of problems actively addressed during encounter, amount and/or complexity of data reviewed/ordered and described risk of complication, morbidity or mortality of management as documented Diagnoses Acute exacerbation of chronic obstructive airways disease J44.1 NSTEMI (non-ST elevated myocardial infarction) I21.4
--- NOTE | 2022-06-20 18:40 | ECG_ITS ---
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 Measurements Intervals [place] Rate: 74 P: 66 GA: 164 QRS: -43 QRSD: 82 T: 56 QT: 391 QTc: 435 Interpretive Statements SINUS RHYTHM LEFT AXIS DEVIATION [QRS AXIS < -30] Compared to ECG 06/20/2022 14:54:26 No significant changes Electronically Signed On 06-21-2022 23:13:47 CDT by Archana Fernández M.D. [id number]
[2022-06-20 19:48] LABS: NT Pro B Type Natriuretic Pept 595 pg/mL (0-450)
[2022-06-20] MEDS: enoxaparin 60 mg/0.6 mL Syringe SUBCUT (20:25)
[2022-06-20 21:13] LABS: Troponin 5 6HR 65.72 ng/L (0-10)
[2022-06-20] MEDS: HYDROcodone-acetaminophen 10-325 mg Tablet 1 TAB PO (22:41)
[2022-06-21] VITALS (13 sets, daily range): BP systolic 116–150; BP diastolic 60–77; PULSE 77–99; RESP 15–19; TEMP 36.7–36.9; O2SAT 2–96
[2022-06-21] MEDS: ipratropium-albuterol 3 mL Neb INHALATION ×2 (02:49→08:43)
[2022-06-21 06:29] LABS: Basophils % 0.6 %; Hematocrit 25.4 % (37.0-47.0); Hemoglobin 7.4 g/dL (11.5-15.3); Lymphocytes # 0.5 10^3/uL (0.8-4.8); Lymphocytes % 30.4 %; Mean Corpuscular HGB Conc 29.1 g/dL (30.0-36.0); Mean Corpuscular Hemoglobin 28.9 pg (28.0-34.0); Mean Corpuscular Volume 99.2 fl (81-99); Mean Platelet Volume 9.4 fL (7.4-10.4); Monocytes % 1.8 %; Neutrophils # 1.14 10^3/uL (1.8-7.7); Neutrophils % 66.6 %; Nucleated Red Blood Cells % 0 %; Platelet Count 325 10^3/cmm (130-400); Red Blood Count 2.56 10^6/uL (4.1-5.3); Red Cell Distribution Width 15.9 % (12.1-15.1); White Blood Count 1.7 10^3/uL (4.0-10.0)
[2022-06-21 07:05] LABS: Alanine Aminotransferase 7 U/L (0-33); Albumin Level 2.8 g/dL (3.5-5.2); Alkaline Phosphatase 64 U/L (35-105); Anion Gap 14.5 (5-19); Aspartate Amino Transferase 13 U/L (0-32); Blood Urea Nitrogen 18 mg/dL (8-23); Calcium 9.2 mg/dL (8.5-10.5); Carbon Dioxide 23 mmol/L (22-29); Chloride 106 mmol/L (98-107); Glucose 133 mg/dL (65-115); Magnesium 1.9 mg/dL (1.7-2.3); Osmolality Calculated 292 mOsm/kg (285-295); Potassium 4.5 mmol/L (3.5-5.1); Sodium 139 mmol/L (136-145); Total Bilirubin 0.2 mg/dL (0.15-1.2); Total Protein 6.8 g/dL (6.6-8.7)
[2022-06-21] MEDS: docusate sodium 100 mg Capsule PO (08:36)
[2022-06-21] MEDS: atorvastatin 40 mg Tablet PO (08:36)
[2022-06-21] MEDS: pantoprazole DR 40 mg Tablet PO ×2 (08:36→17:12)
[2022-06-21] MEDS: budesonide 0.5 mg/2 mL Neb INHALATION (08:43)
--- NOTE | 2022-06-21 09:59 | PC.CHAP ---
Pastoral Care Encounter/Spiritual Assessment Type of Contact [] Declined drill press operator helper visit [] Patient/Family/Request visit [] Outpatient visit [] Follow-up visit [] Physician referral [] Code/Alert [x] Routine visit [] Staff referral [] Actively dying [] Patient sleeping [] Family support [] [] Out of room [] Palliative care [] [] Receiving care in room [] Pre-surgical visit [] Trauma [] Long length of stay [] ICU visit [] Other: Relational/Emotional Strength [] Patient feels connected with others/family/visitors/staff [] Distress [] Loneliness/isolation [] Abandonment Spirituality of Patient [x] Person of Miranda [] Attends Rastafari of their Miranda [x] Believes in Prayer [] Reads Bible or Christianity materials [] There are Spiritual issues to be addressed Pool Hand Interventions [x] Prayer [] Active listening [] Non-anxious presence [] Spiritual/emotional support [] Crisis/trauma care [] Spiritual counseling [] Bereavement support [] Provided bereavement packet [x] Provided Bible/devotional materials [] Provided toy/stuffed animal, coloring book to patient or family member [] Provided Communion [] Anointing/[place] [] Salvation [x] Completed spiritual assessment [] Other: Impact on Illness or Injury [] Angry [] Fearful [] Anxious [] Often cries [] Exhaustion [] Unable to work [] Unable to attend rastafarian [] Unable to walk/stand [] Unable to read [] Unable to drive [] Unable to eat/drink [] Unable to sleep [] Unable to be with family [] Patient intubated [] Other: Summary Time spent with patient 5 min
[2022-06-21] MEDS: aspirin 81 mg EC Tablet PO (10:02)
[2022-06-21] MEDS: HYDROcodone-acetaminophen 10-325 mg Tablet 1 TAB PO ×2 (10:02→17:16)
--- NOTE | 2022-06-21 17:36 | PM.PN ---
Subjective Subjective: Patient's hemoglobin today has dropped to 7.4. In addition she has developed a white blood cell count down to 1.7. Discontinued anticoagulation with these results. FOBT has been ordered for her. Serial troponins trended down from 10 1-65, with a negative delta of 35. Patient states that her breathing is better today. Denies any recent chest pain or palpitations. Medications: Reviewed: Yes Vitals/I&O/Wt Last Vital Signs Temp 98.1 F 06/21/22 11:48 Pulse 97 06/21/22 16:00 Resp 18 06/21/22 16:00 BP 142/60 06/21/22 16:00 Pulse Ox 94 06/21/22 16:00 O2 Del Method 06/21/22 11:48 O2 Flow Rate 2 06/21/22 11:48 06/21/22 06/21/22 06/21/22 06:59 14:59 22:59 Intake Total 250 / 250 Output Total 200 / 200 Balance -200 / -100 250 / 250 Weight last 48 hrs Weight 57.606 kg Physical Exam Narrative: General: No acute distress, AO x3 HEENT: PERRLA, pupils bilaterally equal and reactive, pallors not present Chest: Normal vesicular breath sounds, no added sounds, equal good air entry bilaterally CVS: S1-S2 regular, no murmurs, no tachycardia, no gallops, no rubs Abdomen: Soft, nontender, no organomegaly, bowel sounds present Neuro: No focal deficits, no facial deformity, AO x3, power 5/5 in all limbs Data 06/21/22 06:15 06/21/22 06:15 Micro: Microbiology 06/20/22 14:15 Blood Culture - Preliminary Blood NEGATIVE TO DATE 06/20/22 14:15 Blood Culture - Preliminary Blood NEGATIVE TO DATE A&P Assessment and plan (1) NSTEMI (non-ST elevated myocardial infarction): (2) Acute exacerbation of chronic obstructive airways disease: (3) Anemia: (4) Pulmonary embolism: Qualifiers: Pulmonary embolism type: single subsegmental (without acute cor pulmonale) Qualified Code(s): I26.93 - Single subsegmental pulmonary embolism without acute cor pulmonale Plan 77-year-old lady with a recent history of pulmonary embolism presenting to the hospital with acute dyspnea and a new oxygen requirement of 2 L/min. She reports a past medical history of COPD but does not recall having had a PFT. Significant lab abnormalities include elevated troponin with a baseline of 101 raising concern initially for an NSTEMI. No acute ST-T wave changes on EKG the left axis deviation is noted. Troponins have trended down with a negative delta of 35 on serial check. Echocardiogram has been ordered and remains pending to assess for any interval development of regional wall motion abnormalities which would point towards a recent cardiac event such as an acute [place]. Patient does not recall having had any history of CAD and has not had any ischemic work-up. She was started on ACS protocol yesterday with initiation of Lovenox, and aspirin. Lovenox has now been discontinued due to her drop in her hemoglobin and concern for potential GI bleeding. She did have an EGD a month ago which had shown evidence of some gastritis. We will await fecal occult blood testing. If negative will resume her anticoagulation. We will also go ahead and obtain ischemic work-up given her symptoms of dyspnea, starting with a cardiac stress test. If abnormal may need further cardiology evaluation. CTA was performed yesterday due to concern of new hypoxia, which showed resolution of PE for which patient was on treatment with Eliquis. For now we are holding anticoagulation as noted above. Recheck her H&H this evening and then again with morning labs. Hemoglobin had dropped today to 7.4. Transfusion threshold of 7. Patient has recently followed up as outpatient with oncology for evaluation of her longstanding anemia which is currently acutely worsened. Alternate possibility of her worsening hypoxia includes a COPD exacerbation for which patient is currently on IV steroids and scheduled nebulization with DuoNeb and budesonide. May benefit from PFT as outpatient Attestations Medical Necessity Statement*: Stress test in am, closely monitor Hb prior to resuming A/c Coding Level of Care Code Acute Code for [facility] Fwd Diagnoses NSTEMI (non-ST elevated myocardial infarction) I21.4 Acute exacerbation of chronic obstructive airways disease J44.1 Anemia D64.9 Pulmonary embolism I26.93 Pulmonary embolism type: single subsegmental (without acute cor pulmonale)
--- NOTE | 2022-06-21 17:44 | ECG_ITS ---
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 Interpretive Statements LEXISCAN: Procedure: At the baseline, the blood pressure was 113/70 mmHg with a heart rate of 83 bpm. The electrocardiogram showed normal sinus rhythm, normal axis with normal ST and T's. The Lexiscan was infused over a period of 20 seconds. A total of 0.4 mg of Lexiscan was infused. The stress phase was continued for a total of 5 minutes. Heart rate was at the end of stress phase was 105 bpm and a blood pressure of 148/65mmHg. The EKG at the peak infusion revealed normal sinus rhythm with no significant ST-T wave changes. Sestamibi was injected 20 seconds after the Lexiscan infusion. Blood pressure at the end of recovery phase was 139/82 mmHg with a heart rate of 96 bpm. Conclusion: 1. Normal EKG response to Lexiscan infusion 2. No Lexiscan induced chest pain or cardiac arrhythmia. 3. Normal blood pressure and heart rate response. 4. Sestamibi/sestamibi perfusion scan pending; see separate report. Electronically Signed On 07-07-2022 12:02:31 CDT by Ethan Mcdonnell M.D. [id number]
[2022-06-21 18:51] LABS: Hematocrit 25.8 % (37.0-47.0); Hemoglobin 7.6 g/dL (11.5-15.3)
--- NOTE | 2022-06-21 21:37 | PC.NURSE ---
Bedside report taken from ELLA Orr. Documentation of shift handoff not completed by dayshift.
[2022-06-22] VITALS (8 sets, daily range): BP systolic 136–166; BP diastolic 64–86; PULSE 80–96; RESP 14–18; TEMP 36.4–36.6; O2SAT 94–98
[2022-06-22] MEDS: HYDROcodone-acetaminophen 10-325 mg Tablet 1 TAB PO (04:58)
[2022-06-22 05:20] LABS: Basophils % 0.4 %; Hematocrit 27.6 % (37.0-47.0); Hemoglobin 7.8 g/dL (11.5-15.3); Lymphocytes # 1.6 10^3/uL (0.8-4.8); Lymphocytes % 28.6 %; Mean Corpuscular HGB Conc 28.3 g/dL (30.0-36.0); Mean Corpuscular Hemoglobin 28.7 pg (28.0-34.0); Mean Corpuscular Volume 101.5 fl (81-99); Mean Platelet Volume 9.8 fL (7.4-10.4); Monocytes # 0.4 10^3/uL (0.2-0.9); Monocytes % 6.8 %; Neutrophils # 3.49 10^3/uL (1.8-7.7); Nucleated Red Blood Cells % 0 %; Platelet Count 273 10^3/cmm (130-400); Red Blood Count 2.72 10^6/uL (4.1-5.3); White Blood Count 5.5 10^3/uL (4.0-10.0)
--- NOTE | 2022-06-22 07:19 | PC.NURSE ---
received pt from nuclear medicine. saw the order was for an exercise mibi. called dr to confirm. verbal order to change to lexiscan.
[2022-06-22] MEDS: regadenoson 0.4 Mg/5 ml Syringe IVP (07:32)
--- NOTE | 2022-06-22 08:00 | NMCV_ITS ---
NM irvin perf SPECT r/s* [id number] Michelle Bradford Age: 77 Gender: F : 1945 Exam Date: 06/22/2022 06:32 Ordering Phys: Aixa Smalls MD Technologist: JAVIER Pascual Exam Location: [facility] Indications: CHEST PAIN STRESS TEST Please see separate stress test report in [facility] for full findings IMAGE PROTOCOL Rest/Stress 1 Lexiscan Day Radiopharmaceutical Dose (mCi) Administration Site Administered by Rest: Tc-99m 10.7 IV JAVIER Cherry Sestamibi Stress:Tc-99m 32.2 IV JAVIER Cherry Sestamibi Rest: 22-Jun-2022 60 Discovery 630 Stress: 22-Jun-2022 30 Discovery 630 0.4mg Lexiscan. Supine position only as patient was unable to lay prone. SPECT RESULTS Technical Quality: Excellent Raw Data Analysis: Normal Image Corrections: No attenuation or motion correction applied Summed Stress Score: 0 Summed Rest Score: 0 Summed Difference Score: 0 PERFUSION FINDINGS SPECT images demonstrate homogeneous tracer distribution throughout the myocardium. FUNCTIONAL RESULTS (calculated via Gated SPECT) Stress Image LV EF (%): 83 Stress EDV (mL):53 TID: 0.96 Stress ESV (mL):9 FUNCTIONAL FINDINGS: There is normal left ventricular systolic function. IMPRESSIONS 1. Normal myocardial perfusion imaging with no evidence of ischemia 2. LV systolic function is normal Ethan Mcdonnell MD (Electronically Signed) Final Date: 22 June 2022 12:46 S
[2022-06-22] MEDS: atorvastatin 40 mg Tablet PO (08:26)
[2022-06-22] MEDS: docusate sodium 100 mg Capsule PO (08:26)
[2022-06-22] MEDS: pantoprazole DR 40 mg Tablet PO ×2 (08:26→18:03)
[2022-06-22] MEDS: aspirin 81 mg EC Tablet PO (08:26)
[2022-06-22] MEDS: acetaminophen 325 mg Tablet 650 MG PO (09:08)
[2022-06-22 09:54] LABS: Alanine Aminotransferase 8 U/L (0-33); Albumin Level 3.3 g/dL (3.5-5.2); Alkaline Phosphatase 76 U/L (35-105); Aspartate Amino Transferase 19 U/L (0-32); Blood Urea Nitrogen 20 mg/dL (8-23); Calcium 9.4 mg/dL (8.5-10.5); Carbon Dioxide 24 mmol/L (22-29); Chloride 106 mmol/L (98-107); Globulin 4.1 g/dL (1.3-4.6); Glucose 99 mg/dL (65-115); Osmolality Calculated 297 mOsm/kg (285-295); Sodium 142 mmol/L (136-145); Total Bilirubin 0.3 mg/dL (0.15-1.2); Total Protein 7.4 g/dL (6.6-8.7)
[2022-06-22] MEDS: ipratropium-albuterol 3 mL Neb INHALATION (13:37)
--- NOTE | 2022-06-22 14:59 | ECG_ITS ---
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 Measurements Intervals [place] Rate: 91 P: 74 WV: 150 QRS: -6 QRSD: 77 T: 48 QT: 357 QTc: 440 Interpretive Statements SINUS RHYTHM POSSIBLE LEFT ATRIAL ENLARGEMENT [-0.1mV P-WAVE IN V1/V2] LOW QRS VOLTAGE IN EXTREMITY LEADS [QRS DEFLECTION < 0.5 mV IN LIMB LEADS] Compared to ECG 06/20/2022 18:42:54 Low QRS voltage now present Left-axis deviation no longer present Electronically Signed On 06-22-2022 16:31:29 CDT by Ethan Mcdonnell M.D. [id number]
--- NOTE | 2022-06-22 15:00 | XR_ITS ---
WS: [id number] EXAMINATION: XR chest 1V portable [id number] REASON FOR EXAM: chest pain COMPARISON: 06/20/2022 ORDER DATE: 06/22/2022 3:40 PM TECHNIQUE: A single, portable frontal chest x-ray was obtained. X-RAY FINDINGS: The lungs are clear of infiltrate with hyperinflation. Pleural spaces are clear. No pleural effusions or pneumothorax. Cardiomediastinal silhouette is normal. No evidence for pulmonary edema. Soft tissue and osseous structures are unremarkable. Spinal instrumentation for scoliosis postsurgical cervical fusion change noted XR/XR chest 1V portable [id number] IMPRESSION: No acute pulmonary change
--- NOTE | 2022-06-22 15:00 | CTR_ITS ---
PROCEDURE INFORMATION: Exam: CT Chest Without Contrast; Diagnostic Exam date and time: 06/22/2022 3:54 PM Age: 77 years old Clinical indication: Abdominal pain; Other: Back; Prior surgery; Surgery type: T and L spine; Additional info: Evalaute for dissection, abdominal pain, nausea, constipation, evaluate for cholelithiasis, ileus, obstruction TECHNIQUE: Imaging protocol: Diagnostic computed tomography of the chest without contrast. Radiation optimization: All CT scans at this facility use at least one of these dose optimization techniques: automated exposure control; mA and/or kV adjustment per patient size (includes targeted exams where dose is matched to clinical indication); or iterative reconstruction. REPORTING DATA: Count of CT and Cardiac NM exams in prior 12 months: This patient has received 5 known CTs and 0 known cardiac nuclear medicine studies in the 12 months prior to the current study. COMPARISON: CT angio chest PE protcl [id number] 06/20/2022 3:43 PM RADIATION DOSE METRICS: Total DLP (mGy-cm): 452.96 FINDINGS: Lungs: Emphysematous changes. Right lower lobe atelectasis. Pleural spaces: Biapical pleuroparenchymal fibrosis with some calcification. Heart: Cardiomegaly. Coronary arteries: Coronary artery atherosclerotic calcifications. Lymph nodes: Scattered prominent subcentimeter short axis mediastinal lymph nodes, nonspecific. Vasculature: Unremarkable. No aortic aneurysm. Bones/joints: Surgical hardware in the cervical and thoracic spine. Soft tissues: Unremarkable. COMMENTS: In the absence of a history or active diagnosis of lung cancer, it is recommended that this patient with emphysema be evaluated for enrollment in a low dose CT lung cancer screening program. PROCEDURE INFORMATION: Exam: CT Abdomen And Pelvis Without Contrast Exam date and time: 06/22/2022 3:54 PM Age: 77 years old Clinical indication: Abdominal pain; Other: Back; Prior surgery; Surgery type: T and L spine; Additional info: Evalaute for dissection, abdominal pain, nausea, constipation, evaluate for cholelithiasis, ileus, obstruction TECHNIQUE: Imaging protocol: Computed tomography of the abdomen and pelvis without contrast. Radiation optimization: All CT scans at this facility use at least one of these dose optimization techniques: automated exposure control; mA and/or kV adjustment per patient size (includes targeted exams where dose is matched to clinical indication); or iterative reconstruction. REPORTING DATA: Count of CT and Cardiac NM exams in prior 12 months: This patient has received 5 known CTs and 0 known cardiac nuclear medicine studies in the 12 months prior to the current study. COMPARISON: CT abdomen pelvis wo con [id number] 05/18/2022 7:58 AM RADIATION DOSE METRICS: Total DLP (mGy-cm): 452.96 FINDINGS: Liver: Normal. No mass. Gallbladder and bile ducts: Cholecystectomy. Pancreas: Normal. No ductal dilation. Spleen: Normal. No splenomegaly. Adrenal glands: Normal. No mass. Kidneys and ureters: Bilateral renal cysts, negative for follow up. Stomach and bowel: Unremarkable. No obstruction. No mucosal thickening. Appendix: No evidence of appendicitis. Intraperitoneal space: Unremarkable. No free air. No significant fluid collection. Vasculature: Unremarkable. No abdominal aortic aneurysm. Lymph nodes: Unremarkable. No enlarged lymph nodes. Urinary bladder: Unremarkable as visualized. Reproductive: Unremarkable as visualized. Bones/joints: Surgical hardware in the lumbar spine. Bilateral sacroiliac joint surgical hardware. Soft tissues: Unremarkable. CT/[place] [id number] IMPRESSION: 1. Aorta appears normal in caliber and intact 2. Cardiomegaly. 3. Coronary artery atherosclerotic calcifications. 4. Emphysematous changes. 5. Right lower lobe atelectasis. 6. Surgical hardware in the cervical and thoracic spine. 7. Scattered prominent subcentimeter short axis mediastinal lymph nodes, nonspecific. 8. Biapical pleuroparenchymal fibrosis with some calcification. IMPRESSION: 1. Negative for acute inflammatory process in the abdomen or pelvis. 2. Cholecystectomy. 3. Bilateral renal cysts, negative for follow up. 4. Surgical hardware in the lumbar spine. 5. Bilateral sacroiliac joint surgical hardware. COMMENTS: Consistent with the [employer]'s Incidental Findings Committee white paper (J Am Tim Radiol 2018): Any incidental renal lesion less than 1 cm or classified as too small to characterize, or any incidental cystic renal lesion characterized as simple-appearing, is likely benign. No follow-up imaging is recommended for these lesions per consensus recommendations based on imaging criteria.
--- NOTE | 2022-06-22 15:03 | P.PN_ITS ---
Subjective Subjective: Patient completed a stress test this morning which returned without any signs of reversible ischemia. This evening patient does not feel well. She is very restless, intermittently confused. She is correctly able to tell me her name and date of , however is extremely restless, trying to get out of bed. Earlier she was unable to tell the RN as to where she was. This is a clear change from yesterday when patient was alert awake and oriented x3. She tells me that she is overall feeling uncomfortable in her abdomen and chest though unable to specify if this is pain nausea or any other specific sensation. She points to her belly in the epigastric region and her chest saying that she just does not feel right. She is also slightly diaphoretic. She is fidgety compared to yesterday. Review of medications shows she has not recently received any Xanax or opiates. Given her change in condition I have ordered CT of the chest abdomen and pelvis to assess for any interval change in repeating her troponin series and EKG series now. Medications: Reviewed: Yes Vitals/I&O/Wt Last Vital Signs Temp 97.6 F 06/22/22 11:39 Pulse 93 06/22/22 13:37 Resp 18 06/22/22 13:37 BP 146/86 06/22/22 11:39 Pulse Ox 95 06/22/22 13:37 O2 Del Method 06/22/22 13:37 O2 Flow Rate 2 06/22/22 13:37 06/22/22 06/22/22 06/22/22 06:59 14:59 22:59 Intake Total 240 / 490 240 / 240 Balance 240 / -310 240 / 240 Physical Exam Narrative: General: Extremely restless, fidgeting in bed, attempting to get out while still conversing, this is a clear change compared to yesterday AO x2 HEENT: PERRLA, pupils bilaterally equal and reactive, pallors not present Chest: Normal vesicular breath sounds, no added sounds, equal good air entry bilaterally CVS: S1-S2 regular, audible diastolic murmur Abdomen: Soft, nontender, no organomegaly, bowel sounds present Neuro: No focal deficits, no facial deformity, AO x3, power 5/5 in all limbs Data 06/22/22 04:55 06/22/22 09:09 Other Labs: Outcome Referrals [address] [place] [address] Nuclear Medicine Report Signed Patient: Michelle Bradford Unit #: [id number] : 1945 Age/Sex: 77 / F ADM Date: 06/20/22 Loc: [facility] Room/Bed: 260-[address]: Aixa Smalls MD Ordering Provider/Ordering MD: Aixa Smalls? Date of Service: 06/22/22 Procedure(s): NM irvin perf SPECT r/s* [id number] Accession Number(s): [id number] Report Number: [id number] ?NM irvin perf SPECT r/s* [id number] ?Michelle Bradford ?Age:? ? 77 ? ? Gender: ? ? F ?:? ? 1945 ?Exam Date: ? ? 06/22/2022 06:32 ?Ordering Phys: ? ? Aixa Smalls? ?Technologist:? ? ? Melinda Noguera, ? CLINICAL LAB TECHNOLOGIST ?Exam Location:? ? ? [facility] ?MRN:? ? [id number] ?Account Number: ? ? ? [id number] ?Indications:? ? ? CHEST PAIN ?STRESS TEST ?[facility] ?IMAGE PROTOCOL? ? ? Rest/Stress 1? Lexiscan ? Day ? Radiopharmaceutical ? Dose (mCi) ? Administration Site ? ? ? Administere d by ?Rest:? Tc-99m? 10.7 ? IV? JAVIER Cherry ? Sestamibi ?Stress:Tc-99m? 32.2 ? IV? JAVIER Cherry ? Sestamibi ?Rest:? ? 22-Jun-2022 ? 60 ? Discovery 630 ?Stress: ? ? 22-Jun-2022? 30 ? Discovery 630 ?0.4mg Lexiscan. Supine position only as patient was unable to lay prone. ?SPECT RESULTS ?Technical Quality: ? ? ? Excellent ?Raw Data Analysis:? ? ? Normal ?Image Corrections:? ? ? No attenuation or motion correction applied ?Summed Stress Score:? 0 ?Summed Rest Score: ? ? ? 0 ?Summed Difference Score: ? 0 ?PERFUSION FINDINGS ?SPECT images demonstrate homogeneous tracer distribution throughout the ?myocardium.? ?FUNCTIONAL RESULTS ? ? (calculated via Gated SPECT) ? Stress Image LV EF (%):? ? 83 ? Stress EDV (mL):53 ? TID:? 0.96 ? Stress ESV (mL):9 ?FUNCTIONAL FINDINGS: ?There is normal left ventricular systolic function. ?IMPRESSIONS ?1. Normal myocardial perfusion imaging with no evidence of ischemia ?2. LV systolic function is normal Micro: Microbiology 06/20/22 14:15 Blood Culture - Preliminary Blood NEGATIVE TO DATE 06/20/22 14:15 Blood Culture - Preliminary Blood NEGATIVE TO DATE A&P Assessment and plan (1) NSTEMI (non-ST elevated myocardial infarction): (2) Acute exacerbation of chronic obstructive airways disease: (3) Anemia: (4) Pulmonary embolism: Qualifiers: Pulmonary embolism type: single subsegmental (without acute cor pulmonale) Qualified Code(s): I26.93 - Single subsegmental pulmonary embolism without acute cor pulmonale Plan 77-year-old lady with a recent history of pulmonary embolism presenting to the hospital with acute dyspnea and a new oxygen requirement of 2 L/min. She reports a past medical history of COPD but does not recall having had a PFT. Significant lab abnormalities include elevated troponin with a baseline of 101 raising concern initially for an NSTEMI. No acute ST-T wave changes on EKG the left axis deviation is noted. Troponins have trended down with a negative delta of 35 on serial check. CTA of the chest negative for PE on admission Echocardiogram Normal left ventricular size and systolic function, EF 72 %. ?Mild left ventricular hypertrophy. No regional wall motion ?abnormalities. Grade I/IV diastolic dysfunction. Trace mitral valve regurgitation. Trace tricuspid valve regurgitation. Ischemic work-up was pursued due to concern for angina , she underwent stress test which was completed this morning and shows no signs of reversible ischemia. Patient was initially planned to be discharged after abnormal stress test was obtained, however she has had a change in her clinical condition today. Patient is extremely restless, fidgety, slightly diaphoretic while laying in bed. She is confused, attempting to get out of bed and midsentence. There is no known history of dementia. She complains of epigastric and chest discomfort though unable to describe the sensation to me exactly. Stat twelve-lead EKG does not show any new ST-T wave changes. She tells me her name and date of , however earlier was unable to state where she is. This is a new change in mentation compared to yesterday. I will go ahead and obtain CT head, CT of the abdomen and pelvis and repeat her troponin series given her acute change in condition. If CT head is normal, her confusion may be contributed by lack of sleep overnight versus holding her home medications including gabapentin, meth ocarbamol and citalopram. We will go ahead and resume her home medications. Vital signs are currently stable. Saturating 92% on 2 L/min supplemental O2, blood pressure 140/90, heart rate 82/min, afebrile Attestations Medical Necessity Statement*: Change in mentation today, complains of epigastric and abdominal discomfort, very restless, will pursue further testing Coding Level of Care Code Acute Code for [facility] Diagnoses NSTEMI (non-ST elevated myocardial infarction) I21.4 Acute exacerbation of chronic obstructive airways disease J44.1 Anemia D64.9 Pulmonary embolism I26.93 Pulmonary embolism type: single subsegmental (without acute cor pulmonale)
[2022-06-22 15:14] LABS: Glucose Point of Care 160 mg/dL (70-110)
--- NOTE | 2022-06-22 15:24 | CTR_ITS ---
PROCEDURE INFORMATION: Exam: CT Head Without Contrast Exam date and time: 06/22/2022 3:50 PM Age: 77 years old Clinical indication: Altered mental status/memory loss; Additional info: Confusion TECHNIQUE: Imaging protocol: Computed tomography of the head without contrast. Radiation optimization: All CT scans at this facility use at least one of these dose optimization techniques: automated exposure control; mA and/or kV adjustment per patient size (includes targeted exams where dose is matched to clinical indication); or iterative reconstruction. REPORTING DATA: Count of CT and Cardiac NM exams in prior 12 months: This patient has received 4 known CTs and 0 known cardiac nuclear medicine studies in the 12 months prior to the current study. COMPARISON: CT head wo con* [id number] 07/24/2016 12:12 PM RADIATION DOSE METRICS: Total DLP (mGy-cm): 958.48 FINDINGS: Brain: No acute intracranial hemorrhage. No edema. No mass effect. There are stable hypodense areas in the bilateral periventricular white matter suggestive of chronic small vessel ischemic changes. 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 Cerebral ventricles: No hydrocephalus. The ventricles and sulci are prominent in size in keeping with brain atrophy. Paranasal sinuses: Visualized sinuses are unremarkable. No fluid levels. Mastoid air cells: No mastoid effusion. Bones/joints: No acute fracture. No suspicious lytic or sclerotic bone lesions. Soft tissues: Unremarkable. CT/CT head wo con* [id number] IMPRESSION: Stable chronic findings with no evidence of acute intracranial hemorrhage, mass or acute infarction.
--- NOTE | 2022-06-22 17:35 | ECG_ITS ---
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 Measurements Intervals [place] Rate: 87 P: 70 MO: 152 QRS: -16 QRSD: 77 T: 51 QT: 367 QTc: 444 Interpretive Statements SINUS RHYTHM LOW QRS VOLTAGE IN EXTREMITY LEADS [QRS DEFLECTION < 0.5 mV IN LIMB LEADS] Compared to ECG 06/22/2022 15:08:05 No significant changes Electronically Signed On 06-23-2022 7:43:11 CDT by Ethan Mcdonnell M.D. [id number]
--- NOTE | 2022-06-22 17:59 | PC.NURSE ---
Pt has refused her blood being drawn by multiple [employer] b[employer] architect. Dr. Smalls notified. Per lab they will attempt again shortly.
[2022-06-22] MEDS: lidocaine 2% viscous 15 ML, aluminum-mag hydrox-simethicon 30 ML, sucralfate oral liq 1 GM PO (18:01)
[2022-06-22] MEDS: methocarbamol 500 mg Tablet PO ×2 (18:03→20:14)
[2022-06-22] MEDS: gabapentin 300 mg Capsule PO (18:03)
[2022-06-22] MEDS: ALPRAZolam 0.5 mg Tablet PO ×2 (18:10→18:11)
[2022-06-22 19:53] LABS: Troponin(5th) Baseline 18 ng/L (0-10)
[2022-06-22 21:12] LABS: ABG PCO2 36.2 mmHg (35-45); ABG PH Result 7.46 (7.35-7.45); Alveolar-Arterial Oxygen Gradi 1.8 mmHg (5-10); Arterial Blood Gas Hematocrit 22.5 % (37-47); Base Excess ABG 2.1 mmol/L (-2.0-2.0); Blood Gas Allen Test Pos; Blood Gas Sample Site Radial, right; Blood Gas Sample Type Arterial; Carboxyhemoglobin 0.9 %THgb (0.4-20.1); HGB O2 Sat 94.7 % (95-100); Ionized Calcium Level - ABG 1.3 mmol/L (1.1-1.4); Methemoglobin 1.6 % (0.4-1.5); Oxygen Saturation ABG 97.2; PO2 ABG 89.4 mmHg (80.0-100.0); Total Hemoglobin 7.3 g/dL (12-16)
[2022-06-22 21:47] LABS: Troponin 5 2HR 22.21 ng/L (0-10)
[2022-06-22 21:48] LABS: Troponin 5 2HR Delta 4.21 ABS# (0-10)
--- NOTE | 2022-06-22 21:51 | ECG_ITS ---
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 Measurements Intervals [place] Rate: 83 P: 67 NM: 162 QRS: 28 QRSD: 82 T: 63 QT: 367 QTc: 433 Interpretive Statements SINUS RHYTHM Compared to ECG 06/22/2022 17:35:14 No significant changes Electronically Signed On 06-23-2022 7:42:45 CDT by Ethan Mcdonnell M.D. [id number]
[2022-06-23] VITALS (7 sets, daily range): BP systolic 147–160; BP diastolic 78–87; PULSE 77–86; RESP 15–16; TEMP 36.4–36.7; O2SAT 92–98
[2022-06-23 01:43] LABS: Troponin 5 6HR 21.11 ng/L (0-10); Troponin 5 6HR Delta 3.11 ng/L (0-12)
[2022-06-23] MEDS: citalopram 20 mg Tablet PO (07:51)
[2022-06-23] MEDS: pantoprazole DR 40 mg Tablet PO (07:52)
[2022-06-23] MEDS: aspirin 81 mg EC Tablet PO (07:52)
[2022-06-23] MEDS: gabapentin 300 mg Capsule PO (07:52)
[2022-06-23] MEDS: docusate sodium 100 mg Capsule PO (07:52)
[2022-06-23] MEDS: atorvastatin 40 mg Tablet PO (07:52)
[2022-06-23] MEDS: methocarbamol 500 mg Tablet PO (07:58)
[2022-06-23] MEDS: budesonide 0.5 mg/2 mL Neb INHALATION (08:22)
[2022-06-23] MEDS: ipratropium-albuterol 3 mL Neb INHALATION (08:22)
[2022-06-23 08:28] LABS: Oxygen Device nc
--- NOTE | 2022-06-23 10:35 | PM.DCS ---
Discharge Providers Date of Admission: 06/20/22 20:24 Date of Discharge: June 23, 2022 Attending Provider at Admission: Panfilo Clemons Attending Provider at Discharge: Aixa Smalls MD Primary Care Provider: Elysia Sousa MD Diagnoses at Discharge Discharge Diagnosis (1) NSTEMI (non-ST elevated myocardial infarction): Details from hospital stay: Concern on admission, ruled out at discharge Status: Acute (2) Acute exacerbation of chronic obstructive airways disease: Status: Acute (3) Anemia: Status: Acute (4) Pulmonary embolism: Status: Acute Qualifiers: Pulmonary embolism type: single subsegmental (without acute cor pulmonale) Qualified Code(s): I26.93 - Single subsegmental pulmonary embolism without acute cor pulmonale Reason for Visit Reason for Visit: weakness, sob, bloodclot in lung 2xweeks ago Hospital Course Hospital Course 77 year old female with past medical history of hypertension, depression, back pain, 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 Patient has a recent history of pulmonary embolism diagnosed in May 2022 for which she is currently on anticoagulation with Eliquis. Patient presented to the hospital on June 20 with chief complaints of shortness of breath. She had a new oxygen requirement of 2 L/min while typically she is on room air. She was admitted to the hospital in view of COPD exacerbation and also for cardiac evaluation. She was noted to have a left axis deviation on her EKGs, and also had elevated troponins of 101 initially upon admission, trending down serially at 0216 hrs. CTA of the chest on admission was negative for PE. Did not know any gross pneumonia. Due to concern for angina contributing to her dyspnea, she underwent further ischemic work-up by undergoing a stress test on June 22, 2022. This returned without any signs of reversible ischemia. Echocardiogram showed an EF of 70% without regional wall motion abnormalities. Grade 1 diastolic dysfunction was noted. Patient received treatment with scheduled nebulization, supplemental oxygen, IV steroids. Her hospital course was also notable for transient neutropenia with WBC count down at 1.7. Hemoglobin also slowly drifted down to 7.6 from being 10.8 on May 18, 2022. An FOBT on her previous admission was positive. She had recently had an upper GI endoscopy which had shown some signs of erosive gastritis but no active bleeding. A colonoscopy was unable to be completed on this last admission as patient was on anticoagulation. On discharge today she is recommended to complete a colonoscopy evaluation as outpatient to rule out lower GI slow bleeding given hemoglobin has been slowly dropping over the course of the past month. Anticoagulation was discussed with her outpatient desizing pad operator. Currently her anemia is not significant to be requiring frequent transfusions therefore recommended to continue anticoagulation for treatment of her PE that she just had last month. However overall it will be safer to switch Eliquis to Lovenox due to a shorter half-life should major bleeding event occur. Recommended follow-up with outpatient hematology in 2 weeks. Referral also provided for surgery to complete colonoscopy as outpatient. Other significant event during hospital admission was on June 22, 2022 when patient was transiently confused. She was extremely restless, mildly diaphoretic, did not know her whereabouts and complained of epigastric and chest discomfort which she was unable to describe in words. 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 She has no known history of dementia. CT of her head, CT of the abdomen and pelvis returned normal. Repeat troponin series had shown continued downtrend on her troponins. Stress test had just been completed that morning and was normal. Suspect that her transient confusion may have been related to high-dose steroids which she received for her COPD exacerbation. Steroids have since been discontinued. Also possible that the confusion may have been related to lack of sleep over the past 2 nights and possibly also holding her SSRIs. Her medications were resumed per home dosing, steroids were discontinued and mentation on the morning of discharge is back to normal. She is alert awake and oriented, eager to go home. Home O2 evaluation was completed prior to discharge, she did not ave supplemental 02 needs. Physical Exam Narrative: General: No acute distress, AO x3 HEENT: PERRLA, pupils bilaterally equal and reactive, pallors not present Chest: Normal vesicular breath sounds, no added sounds, equal good air entry bilaterally CVS: S1-S2 regular, no murmurs, no tachycardia, no gallops, no rubs Abdomen: Soft, nontender, no organomegaly, bowel sounds present Neuro: No focal deficits, no facial deformity, AO x3, power 5/5 in all limbs Discharge Data Studies Completed and Pending Completed Studies During Hospitalization Category [place] [id number] Routine Cat Scan 06/22/22 15:[address] head wo con* [id number] Stat Cat Scan 06/22/22 15:24 Completed CTA chest [CT angio chest PE protcl [id number]] Stat Cat Scan 06/20/22 13:01 Completed CXRP [XR chest 1V portable [id number]] Stat Exams 06/22/22 15:00 Completed Cardiac Stress Test MIBI [Sestamibi Stress Test Request Exams 06/21/22 17:44 Draft ] Routine XR chest 1V portable [id number] Stat Exams 06/20/22 12:39 Completed NM irvin perf SPECT r/s* [id number] Routine Nuc Med 06/22/22 08:00 Completed CV. echo complete* [id number] Routine Ultrasound 06/20/22 17:39 Completed Pending at discharge Category Date Time Status Cardiac Stress Test MIBI [Sestamibi Stress Test Request Exams 06/21/22 17:44 Ordered ] Routine Blood Culture Stat Lab 06/20/22 14:15 Results Fecal Occult Blood [Immunochemical Fecal OCB] Stat Lab 06/21/22 09:13 Uncollected Urine Culture Routine Lab 06/23/22 08:46 Received Radiology Impressions Chest CTA 06/20/22 13:01 IMPRESSION: 1. Negative for pulmonary embolism. 2. Centrilobular emphysema. 3. Mild bronchial wall thickening with endobronchial secretions; cannot exclude bronchitis. COMMENTS: In the absence of a history or active diagnosis of lung cancer, it is recommended that this patient with emphysema be evaluated for enrollment in a low dose CT lung cancer screening program. Chest X-Ray 06/22/22 15:00 IMPRESSION: No acute pulmonary change Chest/Abdomen/Pelvis CT 06/22/22 15:00 IMPRESSION: 1. Aorta appears normal in caliber and intact 2. Cardiomegaly. 3. Coronary artery atherosclerotic calcifications. 4. Emphysematous changes. 5. Right lower lobe atelectasis. 6. Surgical hardware in the cervical and thoracic spine. 7. Scattered prominent subcentimeter short axis mediastinal lymph nodes, nonspecific. 8. Biapical pleuroparenchymal fibrosis with some calcification. IMPRESSION: 1. Negative for acute inflammatory process in the abdomen or pelvis. 2. Cholecystectomy. 3. Bilateral renal cysts, negative for follow up. 4. Surgical hardware in the lumbar spine. 5. Bilateral sacroiliac joint surgical hardware. COMMENTS: Consistent with the [employer]'s Incidental Findings Committee white paper (J Am Tim Radiol 2018): Any incidental renal lesion less than 1 cm or classified as too small to characterize, or any incidental cystic renal lesion characterized as simple-appearing, is likely benign. No follow-up imaging is recommended for these lesions per consensus recommendations based on imaging criteria. Head CT 06/22/22 15:24 IMPRESSION: Stable chronic findings with no evidence of acute intracranial hemorrhage, mass or acute infarction. Laboratory Results WBC 5.5 10^3/uL (4.0-10.0) 06/22/22 04:55 RBC 2.72 10^6/uL (4.1-5.3) L 06/22/22 04:55 Hgb 7.8 g/dL (11.5-15.3) L 06/22/22 04:55 Hct 27.6 % (37.0-47.0) L 06/22/22 04:55 MCV 101.5 fl (81-99) H 06/22/22 04:55 MCH 28.7 pg (28.0-34.0) 06/22/22 04:55 MCHC 28.3 g/dL (30.0-36.0) L 06/22/22 04:55 RDW 16.0 % (12.1-15.1) H 06/22/22 04:55 Plt Count 273 10^3/cmm (130-400) 06/22/22 04:55 MPV 9.8 fL (7.4-10.4) 06/22/22 04:55 Neut % (Auto) 64.0 % 06/22/22 04:55 Lymph % (Auto) 28.6 % 06/22/22 04:55 [place] % (Auto) 6.8 % 06/22/22 04:55 Eos % (Auto) 0.0 % 06/22/22 04:55 Baso % (Auto) 0.4 % 06/22/22 04:55 Neut # (Auto) 3.49 10^3/uL (1.8-7.7) 06/22/22 04:55 Lymph # (Auto) 1.6 10^3/uL (0.8-4.8) 06/22/22 04:55 [place] # (Auto) 0.4 10^3/uL (0.2-0.9) 06/22/22 04:55 Eos # (Auto) 0.0 10^3/uL (0.0-0.8) 06/22/22 04:55 Baso # (Auto) 0.0 10^3/uL (0.0-0.1) 06/22/22 04:55 Nucleated RBC % (auto) 0 % 06/22/22 04:55 Nucleated RBCs # 0.0 /100WBC 06/22/22 04:55 Specimen Type Arterial 06/22/22 21:00 Sample Site Radial, right 06/22/22 21:00 ABG pH 7.46 (7.35-7.45) H 06/22/22 21:00 ABG pCO2 36.2 mmHg (35-45) 06/22/22 21:00 ABG pO2 89.4 mmHg (80.0-100.0) 06/22/22 21:00 ABG HCO3 26.0 mmol/L (22-26) 06/22/22 21:00 ABG O2 Saturation 97.2 06/22/22 21:00 ABG Base Excess 2.1 mmol/L (-2.0-2.0) H 06/22/22 21:00 Kota Test Pos 06/22/22 21:00 A-a O2 Gradient 1.8 mmHg (5-10) L 06/22/22 21:00 Hematocrit 22.5 % (37-47) L 06/22/22 21:00 Hgb O2 Saturation 94.7 % (95-100) L 06/22/22 21:00 Carboxyhemoglobin 0.9 %THgb (0.4-20.1) 06/22/22 21:00 Methemoglobin 1.6 % (0.4-1.5) H 06/22/22 21:00 Total Hemoglobin 7.3 g/dL (12-16) L 06/22/22 21:00 Sodium 143.0 mmol/L (131-143) 06/22/22 21:00 Potassium 4.0 mmol/L (3.5-5.0) 06/22/22 21:00 Glucose 102.0 mg/dL (70-115) 06/22/22 21:00 Ionized Calcium 1.3 mmol/L (1.1-1.4) 06/22/22 21:00 O2 Delivery Device nc 06/22/22 21:00 O2 Liters/Min 2.0 % 06/22/22 21:00 Director International ID Shanna 06/22/22 21:00 Sodium 142 mmol/L (136-145) 06/22/22 09:09 Potassium 4.0 mmol/L (3.5-5.1) 06/22/22 09:09 Chloride 106 mmol/L (98-107) 06/22/22 09:09 Carbon Dioxide 24 mmol/L (22-29) 06/22/22 09:09 Anion Gap 16.0 (5-19) 06/22/22 09:09 BUN 20 mg/dL (8-23) 06/22/22 09:09 Creatinine 1.0 mg/dL (0.5-0.9) H 06/22/22 09:09 GFR Calculation Not Reportable 06/22/22 09:09 Glucose 99 mg/dL (65-115) 06/22/22 09:09 POC Glucose 160 mg/dL (70-110) H 06/22/22 15:10 Calculated Osmolality 297 mOsm/kg (285-295) H 06/22/22 09:09 Lactic Acid 1.0 mmol/L (0.5-2.2) 06/20/22 14:15 Calcium 9.4 mg/dL (8.5-10.5) 06/22/22 09:09 Magnesium 1.9 mg/dL (1.7-2.3) 06/21/22 06:15 Total Bilirubin 0.3 mg/dL (0.15-1.2) 06/22/22 09:09 AST 19 U/L (0-32) 06/22/22 09:09 ALT 8 U/L (0-33) 06/22/22 09:09 Alkaline Phosphatase 76 U/L (35-105) 06/22/22 09:09 Troponin T Baseline 18 ng/L (0-10) H 06/22/22 19:20 Troponin T 120 Minute 22.21 ng/L (0-10) H 06/22/22 21:00 Delta Troponin T 4.21 ABS# (0-10) 06/22/22 21:00 Troponin T Hi Sens 6Hr 21.11 ng/L (0-10) H 06/23/22 01:03 Troponin T Hi Sens 6Hr Delta 3.11 ng/L (0-12) 06/23/22 01:03 C-Reactive Protein 30.6 mg/L (0.0-4.9) H 06/20/22 14:15 NT-Pro-B Natriuret Pep 595 pg/mL (0-450) H 06/20/22 19:10 Total Protein 7.4 g/dL (6.6-8.7) 06/22/22 09:09 Albumin 3.3 g/dL (3.5-5.2) L 06/22/22 09:09 Globulin 4.1 g/dL (1.3-4.6) 06/22/22 09:09 Procalcitonin 0.06 ng/mL (0-0.5) 06/20/22 14:15 Urine Color Straw (Yellow) 06/20/22 13:31 Urine Appearance Clear (CLEAR) 06/20/22 13:31 Urine pH 7 (5-7) 06/20/22 13:31 Ur Specific [place] 1.000 (1.005-1.030) L 06/20/22 13:31 Urine Protein Neg (Negative) 06/20/22 13:31 Urine Glucose (UA) Norm (Normal) 06/20/22 13:31 Urine Ketones Negative (Negative) 06/20/22 13:31 Urine Blood Neg (Negative) 06/20/22 13:31 Urine Nitrate Negative (Negative) 06/20/22 13:31 Urine Bilirubin Neg (Negative) 06/20/22 13:31 Urine Urobilinogen Norm mg/dL (Negative) 06/20/22 13:31 Ur Leukocyte Esterase Negative (Negative) 06/20/22 13:31 Nasal Influ A H1 2009 PCR Not detected (NOT DETECT) 06/20/22 13:35 Adenovirus (PCR) Not detected (NOT DETECT) 06/20/22 13:35 C. pneumoniae DNA (PCR) Not detected (NOT DETECT) 06/20/22 13:35 Coronavirus 229E (PCR) Not detected (NOT DETECT) 06/20/22 13:35 Human Metapneumovir PCR Not detected (NOT DETECT) 06/20/22 13:35 Influenza A (H1) PCR Not detected (NOT DETECT) 06/20/22 13:35 Influenza A (H3) PCR Not detected (NOT DETECT) 06/20/22 13:35 Influenza Type A (PCR) Not detected (NOT DETECT) 06/20/22 13:35 Influenza Type B (PCR) Not detected (NOT DETECT) 06/20/22 13:35 M. pneumoniae (PCR) Not detected (NOT DETECT) 06/20/22 13:35 Parainfluenza 1 (PCR) Not detected (NOT DETECT) 06/20/22 13:35 Parainfluenza 2 (PCR) Not detected (NOT DETECT) 06/20/22 13:35 Parainfluenza 3 (PCR) Not detected (NOT DETECT) 06/20/22 13:35 Parainfluenza 4 (PCR) Not detected (NOT DETECT) 06/20/22 13:35 RSV Type A (PCR) Not detected (NOT DETECT) 06/20/22 13:35 RSV Type B (PCR) Not detected (NOT DETECT) 06/20/22 13:35 Entero/Rhino (PCR) Not detected (NOT DETECT) 06/20/22 13:35 SARS-CoV-2 (PCR) Not detected (NOT DETECT) 06/20/22 13:35 Vitals Last Vital Signs Temp 98.1 F 06/23/22 08:11 Pulse 83 06/23/22 08:22 Resp 16 06/23/22 08:22 BP 155/84 06/23/22 08:11 Pulse Ox 92 06/23/22 09:34 O2 Del Method 06/23/22 08:22 O2 Flow Rate 2 06/23/22 08:22 Discharge Plan Discharge Patient Disposition: Home Condition: Stable Prescriptions: New enoxaparin [Lovenox] 60 mg/0.6 mL syringe 60 mg SUBCUT Q12H 30 Days Qty: 36 1RF Continued methocarbamol 500 mg tablet 500 mg PO QID diclofenac sodium 1 % kit 2 gm TOPICAL QID PRN (Reason: Itching) hydrocodone-acetaminophen 10-325 mg tablet 1 tab PO Q6H PRN (Reason: Pain) albuterol sulfate 90 mcg/actuation HFA aerosol inhaler 2 puff INHALATION 6XD PRN (Reason: Shortness Of Breath Or Wheezing) alprazolam 0.5 mg tablet 0.5 mg PO QID PRN (Reason: Anxiety) amlodipine 5 mg tablet 5 mg PO DAILY aspirin [Adult Low Dose Aspirin] 81 mg tablet,delayed release (DR/EC) 81 mg PO DAILY Hold Instructions: see pcp atorvastatin 40 mg tablet 40 mg PO DAILY citalopram 20 mg tablet 20 mg PO DAILY pantoprazole [Protonix] 40 mg tablet,delayed release (DR/EC) 40 mg PO BID docusate sodium [Colace] 100 mg capsule 100 mg PO DAILY cyanocobalamin (vitamin B-12) 1,000 mcg Tablet 1,000 mcg PO DAILY PRN (Reason: Fatigue) tizanidine 4 mg Tablet 4 mg PO DAILY PRN (Reason: Muscle Pain) Vitamin D3 50 mcg (2,000 unit) Capsule 50 mcg PO DAILY gabapentin 300 mg capsule 300 mg PO BID hydrochlorothiazide 12.5 mg tablet 12.5 mg PO DAILY Discontinued Eliquis 5 mg Tablet 5 mg PO BID Discharge Orders: Discharge Order (Routine); Ordered 06/23/22 Ordered By: Aixa Smalls Referrals: Alfonso Durbin DO [Physician] - (screening colonoscopy) Elysia Sousa MD [Primary Care Provider] - 2 weeks Fito Conti MD [Staff Physician] - 2 weeks Discharge Diet: As Directed Discharge Activity: Resume usual activity Patient Instructions: Opioid Safety Plan of Treatment: Your blood thinner medication has been changed from Eliquis to Lovenox. Please stop taking Eliquis and switch instead to injections. Return to emergency room in case of any dark black bowel movements, blood in stools Discharge Attestations Time Spent in Discharge Care*: greater than 30 min Quality Metrics Clinical Quality Measures [ No reported AMI, CVA or VTE this stay] Coding Level of Care Code Acute Code for [facility] Diagnoses NSTEMI (non-ST elevated myocardial infarction) I21.4 Acute exacerbation of chronic obstructive airways disease J44.1 Anemia D64.9 Pulmonary embolism I26.93 Pulmonary embolism type: single subsegmental (without acute cor pulmonale)
== END 2022-06-23 12:05 | disposition home or self-care (01) | DRG 192 ==
LOC: ER 19:53 → MEDSURG 22:10
PROVIDERS: Admitting Provider Internal Medicine; Emergency Provider Emergency Medicine; PCP Family Medicine; Visit Provider Student in an Organized Health Care Education/Training Program
DX: J44.1 Chronic obstructive pulmonary disease with (acute) exacerbation (principal); D64.9 Anemia, unspecified; Z86.711 Personal history of pulmonary embolism; I10 Essential (primary) hypertension; F32.A Depression, unspecified; M54.9 Dorsalgia, unspecified; D70.9 Neutropenia, unspecified; K29.70 Gastritis, unspecified, without bleeding; Z79.51 Long term (current) use of inhaled steroids; Z79.82 Long term (current) use of aspirin; F41.8 Other specified anxiety disorders; Z87.01 Personal history of pneumonia (recurrent); M79.7 Fibromyalgia; K21.9 Gastro-esophageal reflux disease without esophagitis; E78.5 Hyperlipidemia, unspecified; M81.0 Age-related osteoporosis without current pathological fracture; R45.1 Restlessness and agitation; T38.0X5A Adverse effect of glucocorticoids and synthetic analogues, initial encounter; R77.8 Other specified abnormalities of plasma proteins; M05.9 Rheumatoid arthritis with rheumatoid factor, unspecified
CPT/HCPCS: 36415; 36416; 36600; 70450; 71045; 71250; 71275; 74176; 78452; 80051; 80053; 81003; 82330; 82805; 82962; 83605; 83735; 83880; 84145; 84484; 85014; 85018; 85025; 86140; 87040; 87086; 87486; 87581; 87633; 93005; 93017; 93306; 94640; 94760; 96372; 96374; A9500; J1650; J2270; J2785; J2920; J2930; J3490; J7626; Q9967

== ENCOUNTER 2022-07-01 09:00 | Oncology outpatient (recurring) (ONCR) | payer MEDICARE, SELFPAY ==
[2022-06-14 17:14] LABS: Basophils % 0.7 %; Eosinophils # 0.1 10^3/uL (0.0-0.8); Eosinophils % 1.5 %; Hematocrit 27.3 % (37.0-47.0); Lymphocytes # 1.5 10^3/uL (0.8-4.8); Lymphocytes % 25.5 %; Mean Corpuscular HGB Conc 29.3 g/dL (30.0-36.0); Mean Corpuscular Hemoglobin 29.4 pg (28.0-34.0); Mean Corpuscular Volume 100.4 fl (81-99); Mean Platelet Volume 9.4 fL (7.4-10.4); Monocytes # 0.3 10^3/uL (0.2-0.9); Monocytes % 5.3 %; Neutrophils # 3.91 10^3/uL (1.8-7.7); Neutrophils % 66.5 %; Nucleated Red Blood Cells % 0 %; Platelet Count 334 10^3/cmm (130-400); Red Blood Count 2.72 10^6/uL (4.1-5.3); Red Cell Distribution Width 16.4 % (12.1-15.1); White Blood Count 5.9 10^3/uL (4.0-10.0)
[2022-06-16 09:54] LABS: Ferritin 89 ng/mL (15-150); Iron 38 ug/dL (37-145); Percent Saturation 12.8 % (20-50); Total Iron Binding Capacity 296 mcg/dl; Unsaturated Iron Binding 258 ug/dL (112-347)
[2022-06-16 10:36] LABS: Vitamin B12 > 2000 pg/mL (232-1245)
[2022-07-01 09:50] LABS: Ferritin 45 ng/mL (15-150); Iron 27 ug/dL (37-145); Percent Saturation 9.1 % (20-50); Total Iron Binding Capacity 294 mcg/dl; Unsaturated Iron Binding 267 ug/dL (112-347)
[2022-07-01 09:54] LABS: Basophils # 0.1 10^3/uL (0.0-0.1); Eosinophils # 0.2 10^3/uL (0.0-0.8); Hematocrit 29.2 % (37.0-47.0); Hemoglobin 8.4 g/dL (11.5-15.3); Lymphocytes # 1.8 10^3/uL (0.8-4.8); Mean Corpuscular HGB Conc 28.8 g/dL (30.0-36.0); Mean Corpuscular Volume 100.7 fl (81-99); Mean Platelet Volume 9.7 fL (7.4-10.4); Monocytes # 0.3 10^3/uL (0.2-0.9); Monocytes % 4.7 %; Neutrophils # 3.65 10^3/uL (1.8-7.7); Neutrophils % 61.1 %; Nucleated Red Blood Cells % 0 %; Platelet Count 309 10^3/cmm (130-400); Red Cell Distribution Width 15.6 % (12.1-15.1); Slide Review Slide Review Perform
[2022-07-01 10:04] LABS: Vitamin B12 1029 pg/mL (232-1245)
[2022-07-01 10:08] LABS: Reticulocyte % 1.7 % (0.5-2.0)
== END 2022-07-01 23:59 | disposition home or self-care (01) ==
PROVIDERS: PCP Family Medicine; Visit Provider Internal Medicine Hematology & Oncology
DX: D50.9 Iron deficiency anemia, unspecified (principal); Z86.711 Personal history of pulmonary embolism; Z79.01 Long term (current) use of anticoagulants; K29.60 Other gastritis without bleeding; Z79.899 Other long term (current) drug therapy
CPT/HCPCS: 36415; 82607; 82728; 83540; 83550; 85025; 85045; 99204; 99214

== ENCOUNTER 2022-07-18 09:05 | Outpatient (CLI) | payer MEDICARE, SELFPAY ==
[2022-07-18 10:44] LABS: Ferritin 132 ng/mL (15-150); Iron 35 ug/dL (37-145); Percent Saturation 13.5 % (20-50); Total Iron Binding Capacity 258 mcg/dl; Unsaturated Iron Binding 223 ug/dL (112-347)
== END 2022-07-18 09:06 | disposition home or self-care (01) ==
LOC: LAB 09:08
PROVIDERS: PCP Family Medicine; Visit Provider Internal Medicine Hematology & Oncology
DX: D64.9 Anemia, unspecified (principal); M25.559 Pain in unspecified hip
CPT/HCPCS: 36415; 82728; 83540; 83550

== ENCOUNTER → 2022-07-21 12:20 | Outpatient (BNVA) | payer MEDICARE, SELFPAY | PROVIDERS: PCP Family Medicine; Visit Provider Nurse Practitioner Family | DX: D50.9 Iron deficiency anemia, unspecified (principal) | CPT/HCPCS: 99213 ==

== ENCOUNTER 2022-07-29 10:00 | Oncology outpatient (recurring) (ONCR) | payer MEDICARE, SELFPAY ==
[2022-07-15 10:53] LABS: Basophils # 0.1 10^3/uL (0.0-0.1); Basophils % 0.7 %; Eosinophils # 0.2 10^3/uL (0.0-0.8); Hematocrit 30.6 % (37.0-47.0); Lymphocytes # 1.5 10^3/uL (0.8-4.8); Lymphocytes % 19.6 %; Mean Corpuscular HGB Conc 29.4 g/dL (30.0-36.0); Mean Corpuscular Hemoglobin 29.8 pg (28.0-34.0); Mean Corpuscular Volume 101.3 fl (81-99); Mean Platelet Volume 9.8 fL (7.4-10.4); Monocytes # 0.5 10^3/uL (0.2-0.9); Monocytes % 6.2 %; Neutrophils # 5.41 10^3/uL (1.8-7.7); Neutrophils % 71.1 %; Nucleated Red Blood Cells % 0 %; Platelet Count 304 10^3/cmm (130-400); Red Blood Count 3.02 10^6/uL (4.1-5.3); White Blood Count 7.6 10^3/uL (4.0-10.0)
[2022-07-22 10:15] VITALS: BP 98/58; PULSE 88; RESP 16; TEMP 35.9; O2SAT 94
[2022-07-22] MEDS: sodium chloride 0.9% 250 ML 75 ML IV (10:40)
[2022-07-22 10:41] VITALS: BP 98/63; PULSE 82; RESP 18; TEMP 36.2; O2SAT 94
[2022-07-22] MEDS: iron sucrose 200 MG in sodium chloride 0.9% (100 ml) 100 ML 220 MG IV (10:45)
[2022-07-25 10:51] VITALS: PULSE 80; RESP 16; TEMP 36.7; O2SAT 96
[2022-07-25] MEDS: sodium chloride 0.9% 250 ML 75 ML IV ×2 (10:57→11:02)
[2022-07-25] MEDS: iron sucrose 200 MG in sodium chloride 0.9% (100 ml) 100 ML 220 MG IV (10:59)
[2022-07-25 12:05] VITALS: BP 127/71; PULSE 60; RESP 16; TEMP 36.4; O2SAT 96
[2022-07-27 10:00] VITALS: BP 114/60; PULSE 101; RESP 18; TEMP 37.1; O2SAT 97
[2022-07-27] MEDS: sodium chloride 0.9% 250 ML 75 ML IV (10:41)
[2022-07-27] MEDS: iron sucrose 200 MG in sodium chloride 0.9% (100 ml) 100 ML 220 MG IV (11:07)
[2022-07-27 12:00] VITALS: BP 90/56; PULSE 88; RESP 18; TEMP 37.3; O2SAT 95
[2022-07-29 09:45] VITALS: BP 111/66; PULSE 82; RESP 18; TEMP 36.7; O2SAT 92
[2022-07-29] MEDS: iron sucrose 200 MG in sodium chloride 0.9% (100 ml) 100 ML 220 MG IV (10:17)
[2022-07-29 11:00] VITALS: BP 104/68; PULSE 78; RESP 18; TEMP 36.2; O2SAT 90
== END 2022-07-31 23:59 | disposition home or self-care (01) ==
PROVIDERS: PCP Family Medicine; Visit Provider Internal Medicine Hematology & Oncology
DX: D50.9 Iron deficiency anemia, unspecified (principal); Z79.899 Other long term (current) drug therapy
CPT/HCPCS: 36415; 85025; 96365; 99214; J1756; J7050

== ENCOUNTER 2022-08-08 14:10 | Outpatient (CLI) | payer MEDICARE, SELFPAY ==
--- NOTE | 2022-08-08 14:24 | XRR_ITS ---
PROCEDURE INFORMATION: Exam: XR Left Hip Exam date and time: 08/08/2022 3:47 PM Age: 77 years old Clinical indication: Pain and injury or trauma; Fall; Blunt trauma (contusions or hematomas); Hip and pelvic region; Hip pain and pelvic pain; Left hip; Injury date: 08/07/22; Prior surgery; Surgery date: 6+ months; Surgery type: Lumbar; Additional info: Pain in left hip/fall @ home, to include the pelvis TECHNIQUE: Imaging protocol: Radiologic exam of the left hip. Views: 2 or 3 views hip with pelvis when performed. COMPARISON: [place] [id number] 06/22/2022 3:54 PM FINDINGS: Bones/joints: Lumbar spine surgical hardware in place. Soft tissues: Stable 2cm soft tissue calcification over the left proximal lateral femoral diaphysis. XR/XR hip LT 2-3V wo/w pel* [id number] IMPRESSION: 1. Stable 2cm soft tissue calcification over the left proximal lateral femoral diaphysis. 2. Lumbar spine surgical hardware in place.
== END 2022-08-08 14:11 | disposition home or self-care (01) ==
PROVIDERS: PCP Family Medicine; Visit Provider Family Medicine
DX: M25.562 Pain in left knee (principal); Z91.81 History of falling; M05.79 Rheumatoid arthritis with rheumatoid factor of multiple sites without organ or systems involvement; Z98.890 Other specified postprocedural states; M81.0 Age-related osteoporosis without current pathological fracture; Z79.899 Other long term (current) drug therapy; Z71.85 Encounter for immunization safety counseling
CPT/HCPCS: 73502; 99214

== ENCOUNTER 2022-08-15 13:47 | Emergency (ER) | payer MEDICARE, SELFPAY ==
[2022-08-15] VITALS (7 sets, daily range): BP systolic 101–132; BP diastolic 62–98; PULSE 78–88; RESP 16; TEMP 36.6; O2SAT 87–96; BMI 21.4
--- NOTE | 2022-08-15 14:02 | XRR_ITS ---
PROCEDURE INFORMATION: Exam: XR Chest Exam date and time: 08/15/2022 3:10 PM Age: 77 years old Clinical indication: Shortness of breath; Prior surgery; Surgery date: 6+ months; Surgery type: Spine; Additional info: SOB TECHNIQUE: Imaging protocol: Radiologic exam of the chest. Views: 1 view. COMPARISON: [place] [id number] 06/22/2022 3:54 PM FINDINGS: Lungs: Unremarkable. No consolidation. Pleural spaces: Unremarkable. No pleural effusion. No pneumothorax. Heart/Mediastinum: Unremarkable. No cardiomegaly. Bones/joints: ACDF hardware noted in the cervical spine as well as thoracolumbar spinal fusion hardware. Visualized osseous structures are intact. XR/XR chest 1V portable [id number] IMPRESSION: No acute findings.
--- NOTE | 2022-08-15 14:02 | ECG_ITS ---
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 Measurements Intervals [place] Rate: 79 P: 147 WV: 159 QRS: 7 QRSD: 75 T: 64 QT: 388 QTc: 445 Interpretive Statements ECTOPIC ATRIAL RHYTHM LEFT ATRIAL ENLARGEMENT [-0.15mV P-WAVE IN V1/V2] Compared to ECG 06/22/2022 21:51:55 Ectopic atrial rhythm now present Atrial abnormality now present Sinus rhythm no longer present Electronically Signed On 08-16-2022 0:13:02 CDT by Archana Fernández M.D. [id number]
[2022-08-15 14:48] LABS: Eosinophils # 0.2 10^3/uL (0.0-0.8); Hematocrit 37.9 % (37.0-47.0); Hemoglobin 10.9 g/dL (11.5-15.3); Lymphocytes # 1.3 10^3/uL (0.8-4.8); Lymphocytes % 33.2 %; Mean Corpuscular HGB Conc 28.8 g/dL (30.0-36.0); Mean Corpuscular Hemoglobin 29.3 pg (28.0-34.0); Mean Corpuscular Volume 101.9 fl (81-99); Mean Platelet Volume 9.7 fL (7.4-10.4); Monocytes # 0.3 10^3/uL (0.2-0.9); Monocytes % 6.5 %; Neutrophils # 2.21 10^3/uL (1.8-7.7); Neutrophils % 55.1 %; Nucleated Red Blood Cells % 0 %; Platelet Count 281 10^3/cmm (130-400); Red Blood Count 3.72 10^6/uL (4.1-5.3); Red Cell Distribution Width 17.4 % (12.1-15.1)
[2022-08-15 14:59] LABS: Add Urine Microscopic? YES; Bilirubin Urine Neg (Negative); Blood Urine Neg (Negative); Glucose Urine UA Norm (Normal); Ketones Urine Negative (Negative); Leukocyte Esterase Urine Trace (Negative); Nitrate Urine Negative (Negative); Protein Urine Neg (Negative); Specific Gravity, Urine 1.005 (1.005-1.030); Urine Appearance Clear (CLEAR); Urine Color Yellow (Yellow); Urobilinogen Urine Norm (Negative); pH Urine 7 (5-7)
[2022-08-15 15:00] LABS: Add Urine Culture? No; Bacteria Urine TRACE /hpf; WBC Urine 0-4 /hpf (0-5)
[2022-08-15 15:26] LABS: Alanine Aminotransferase 11 U/L (0-33); Albumin Level 3.6 g/dL (3.5-5.2); Alkaline Phosphatase 84 U/L (35-105); Anion Gap 17.4 (5-19); Aspartate Amino Transferase 19 U/L (0-32); Blood Urea Nitrogen 23 mg/dL (8-23); Calcium 9.6 mg/dL (8.5-10.5); Carbon Dioxide 23 mmol/L (22-29); Chloride 101 mmol/L (98-107); Globulin 4.2 g/dL (1.3-4.6); Glucose 97 mg/dL (65-115); NT Pro B Type Natriuretic Pept 241 pg/mL (0-450); Osmolality Calculated 288 mOsm/kg (285-295); Potassium 4.4 mmol/L (3.5-5.1); Sodium 137 mmol/L (136-145); Total Bilirubin 0.2 mg/dL (0.15-1.2); Total Protein 7.8 g/dL (6.6-8.7)
[2022-08-15 15:29] LABS: Creatinine Clr Calc Pharmacy 40.3421
--- NOTE | 2022-08-15 20:06 | ED_ITS ---
HPI - General Adult General: Chief complaint: General Medical Stated complaint: SOB, weakness Time Seen by Provider: 08/15/22 19:51 History of Present Illness: Presents to the ER with complaints of weakness, fatigue no energy. This been going on for several weeks. Patient does have a spot on her right buttock that is a wound that is nonhealing getting worse.. She is seeing Dr. Sousa who prescribed her new prior seen and Medihoney that she has been using on a daily basis but is still increasing in size. Patient does admit to her heart fluttering last night. MD complaint: Weakness fatigue wound on right buttock Onset (ago): week(s) (3 to 4 weeks ago.) Location: buttocks (Wound on right buttock) Severity: mild Relieving factors: none Associated symptoms: Reports dyspnea and palpitations; Deny chest pain, headache(s), nausea or vomiting Review of Systems General: Reports: 10 or more systems reviewed and unremarkable except in HPI and below Const: Denies: fever(s) or chills Eyes: Denies: change in vision or photophobia ENMT: Denies: throat pain or odynophagia Card: Reports: palpitations; Denies: chest pain Resp: Reports: dyspnea GI: Denies: abdominal pain, nausea or vomiting : Denies: flank pain or dysuria Musc: Denies: neck pain or back pain Skin/Breast: Reports: other (Wound to right buttock) Neuro: Denies: headache(s), numbness in extremities or weakness in extremities Psych: Denies: anxiety or depression Endo: Reports: tired all the time; Denies: polyuria or polydipsia PFS ED PFSH: Medical History Anxiety and depression Community acquired pneumonia COPD (chronic obstructive pulmonary disease) with acute bronchitis COPD (chronic obstructive pulmonary disease) with chronic bronchitis Fibromyalgia GERD (gastroesophageal reflux disease) High risk medication use Hyperlipidemia Immunization counseling Lumbar post-laminectomy syndrome Osteoarthritis Osteoporosis Rheumatoid arthritis Seropositive rheumatoid arthritis of multiple sites Soft tissue mass Thoracic postlaminectomy syndrome Weight loss, non-intentional Surgical History H/O foot surgery bilaterally History of appendectomy History of cholecystectomy History of colon surgery 14 inches removed History of hysterectomy History of lumbar surgery (~2010) Dr. Kauffman L1-L5 laminectomy/fusion/fixation History of lumbar surgery (~2012) Dr. Kauffman L1-L5 laminectomy/fusion/fiaxation; exploration History of thoracic surgery (~04/2016) Dr. Kauffman T9-S1 fusion fixation History of thoracic surgery (~02/2017) Dr. Kauffman T10-T11 fixation/fusion. HX T11 fracture. 04/06/17 Dr Kauffman removal of posterior 5.5 mm diameter titanium [place]. Exploration of rostal end of fusion adjacent to [place] and screw;staph infection Status post cervical spinal fusion (~2007) Dr Leblanc C6-C7 ACDFF Family History Father Stroke Mother Cancer Family history of thyroid problem Sister Cancer Brother Diabetes Social History Smoking and tobacco status: never smoked Alcohol intake: never Substance/Drug Use: never Household members: none Marital status: / Current occupational status: retired Physical Exam Const: COMMON NORMALS: no acute distress, average body habitus, patient oriented x3, no limitations, healthy appearing, alert and well nourished HENMT: COMMON NORMALS: normocephalic, atraumatic, hearing grossly normal bilaterally, external ears normal, Normal external nose present and moist oral mucous membranes HEAD & SCALP: normocephalic and atraumatic NOSE: Normal external nose present EXTERNAL EAR: Yes external ears normal Eye: COMMON NORMALS: Equal, round and reactive pupils present, EOMs intact bilaterally, conjunctivae normal and no scleral icterus CONJUNCTIVA: Yes conjunctivae normal PUPIL: Yes Equal, round and reactive pupils present Neck/C-Spine: COMMON NORMALS: full ROM, no lymphadenopathy, supple, no meningeal signs, no JVD and Thyroid normal THYROID: Thyroid normal Lymph: LYMPHATIC: no lymphadenopathy noted Chest: COMMONS NORMALS: normal inspection of the chest and normal palpation of entire chest wall Resp: COMMON NORMALS: normal respiratory effort, No retractions, No use of accessory muscles and clear to auscultation bilaterally AUSCULTATION: clear to auscultation bilaterally Cardio: COMMON NORMALS: no JVD, regular rate, regular rhythm, S1 normal heart sound present and S2 normal heart sound present RATE: regular rate RHYTHM: regular rhythm HEART SOUNDS: S1 normal heart sound present and S2 normal heart sound present GI: COMMON NORMALS: Normal to inspection, nondistended, normoactive bowel sounds present, Soft to palpation, non-tender and No hepatosplenomegaly present PALPATION: Yes Soft to palpation and Yes No hepatosplenomegaly present : COMMON NORMALS: Yes no CVA tenderness BLADDER/KIDNEY EXAM: Yes no CVA tenderness Back/Pelvis: COMMON NORMALS: no CVA tenderness Neuro: COMMON NORMALS: patient oriented x3 SENSORIUM/ORIENTATION: Yes alert MENINGEAL SIGNS: Yes no meningeal signs Skin: NARRATIVE SKIN EXAM: . Nonhealing wound on right buttock, black eschar EXTR type scab, minimal erythema, no streaking, mild pain with palpation over the wound. Course Vital Signs: Vital signs: Vital Signs Temperature 97.8 F 08/15/22 13:59 Pulse Rate 88 08/15/22 15:08 Blood Pressure 132/98 08/15/22 20:00 Pulse Oximetry 91 08/15/22 20:00 Oxygen Delivery Me thod Room Air 08/15/22 15:08 [facility] - General Adult Medical Decision Making Presents to the ER complaining of feeling very weak and no energy and fatigue. Patient also has a nonhealing right buttock wound. Lab work was obtained which was essentially benign. Dr. Smalls was consulted. Patient has been using Medihoney and we prior seen on her right buttock wound. Patient has not officially seen wound care. It is felt patient is stable to be discharged to wound care. Patient be discharged home with consult to case management has been started for wound clinic referral. Differential Diagnosis Weakness, fatigue, anemia, shortness of breath, wound on right buttock Medical Records I reviewed the patient's medical records. Lab Data I reviewed the patient's lab results. 08/15/22 14:38 08/15/22 14:38 Radiology Impressions Chest X-Ray 08/15/22 14:02 IMPRESSION: No acute findings. Laboratory Results WBC 4.0 10^3/uL (4.0-10.0) 08/15/22 14:38 RBC 3.72 10^6/uL (4.1-5.3) L 08/15/22 14:38 Hgb 10.9 g/dL (11.5-15.3) L 08/15/22 14:38 Hct 37.9 % (37.0-47.0) 08/15/22 14:38 MCV 101.9 fl (81-99) H 08/15/22 14:38 MCH 29.3 pg (28.0-34.0) 08/15/22 14:38 MCHC 28.8 g/dL (30.0-36.0) L 08/15/22 14:38 RDW 17.4 % (12.1-15.1) H 08/15/22 14:38 Plt Count 281 10^3/cmm (130-400) 08/15/22 14:38 MPV 9.7 fL (7.4-10.4) 08/15/22 14:38 Neut % (Auto) 55.1 % 08/15/22 14:38 Lymph % (Auto) 33.2 % 08/15/22 14:38 Price % (Auto) 6.5 % 08/15/22 14:38 Eos % (Auto) 4.0 % 08/15/22 14:38 Baso % (Auto) 1.0 % 08/15/22 14:38 Neut # (Auto) 2.21 10^3/uL (1.8-7.7) 08/15/22 14:38 Lymph # (Auto) 1.3 10^3/uL (0.8-4.8) 08/15/22 14:38 Price # (Auto) 0.3 10^3/uL (0.2-0.9) 08/15/22 14:38 Eos # (Auto) 0.2 10^3/uL (0.0-0.8) 08/15/22 14:38 Baso # (Auto) 0.0 10^3/uL (0.0-0.1) 08/15/22 14:38 Nucleated RBC % (auto) 0 % 08/15/22 14:38 Nucleated RBCs # 0.0 /100WBC 08/15/22 14:38 Sodium 137 mmol/L (136-145) 08/15/22 14:38 Potassium 4.4 mmol/L (3.5-5.1) 08/15/22 14:38 Chloride 101 mmol/L (98-107) 08/15/22 14:38 Carbon Dioxide 23 mmol/L (22-29) 08/15/22 14:38 Anion Gap 17.4 (5-19) 08/15/22 14:38 BUN 23 mg/dL (8-23) 08/15/22 14:38 Creatinine 1.0 mg/dL (0.5-0.9) H 08/15/22 14:38 GFR Calculation Not Reportable 08/15/22 14:38 Glucose 97 mg/dL (65-115) 08/15/22 14:38 Calculated Osmolality 288 mOsm/kg (285-295) 08/15/22 14:38 Calcium 9.6 mg/dL (8.5-10.5) 08/15/22 14:38 Magnesium 2.0 mg/dL (1.7-2.3) 08/15/22 14:38 Total Bilirubin 0.2 mg/dL (0.15-1.2) 08/15/22 14:38 AST 19 U/L (0-32) 08/15/22 14:38 ALT 11 U/L (0-33) 08/15/22 14:38 Alkaline Phosphatase 84 U/L (35-105) 08/15/22 14:38 NT-Pro-B Natriuret Pep 241 pg/mL (0-450) 08/15/22 14:38 Total Protein 7.8 g/dL (6.6-8.7) 08/15/22 14:38 Albumin 3.6 g/dL (3.5-5.2) 08/15/22 14:38 Globulin 4.2 g/dL (1.3-4.6) 08/15/22 14:38 Urine Color Yellow (Yellow) 08/15/22 14:15 Urine Appearance Clear (CLEAR) 08/15/22 14:15 Urine pH 7 (5-7) 08/15/22 14:15 Ur Specific [place] 1.005 (1.005-1.030) 08/15/22 14:15 Urine Protein Neg (Negative) 08/15/22 14:15 Urine Glucose (UA) Norm (Normal) 08/15/22 14:15 Urine Ketones Negative (Negative) 08/15/22 14:15 Urine Blood Neg (Negative) 08/15/22 14:15 Urine Nitrate Negative (Negative) 08/15/22 14:15 Urine Bilirubin Neg (Negative) 08/15/22 14:15 Urine Urobilinogen Norm mg/dL (Negative) 08/15/22 14:15 Ur Leukocyte Esterase Trace (Negative) H 08/15/22 14:15 Urine RBC None /hpf (0-2) 08/15/22 14:15 Urine WBC 0-4 /hpf (0-5) H 08/15/22 14:15 Ur Squamous Epith Cells 5-10 /hpf (0-5) H 08/15/22 14:15 Amorphous Sediment Not Reportable 08/15/22 14:15 Urine Bacteria Trace /hpf (NONE) 08/15/22 14:15 EKG Data EKG 1: I personally reviewed and interpreted this EKG as follows: EKG interpretation date: 08/15/22 EKG interpretation time: 14:06 Prior EKG tracings: not available for review Interpretation: EKG showed ectopic atrial rhythm with left atrial large meant, rate of 79, CA and of 159, QRS of 75 QTc of 445, Computer generated interpretation: Chest X-Ray 08/15/22 14:02 IMPRESSION: No acute findings. Discharge Plan Discharge Patient Disposition: Home Clinical Impression: Wound of right buttock, Weakness, Fatigue Condition: Stable Prescriptions: No Action methocarbamol 500 mg tablet 500 mg PO QID diclofenac sodium 1 % kit 2 gm TOPICAL QID PRN (Reason: Itching) hydrocodone-acetaminophen 10-325 mg tablet 1 tab PO Q6H PRN (Reason: Pain) albuterol sulfate 90 mcg/actuation HFA aerosol inhaler 2 puff INHALATION 6XD PRN (Reason: Shortness Of Breath Or Wheezing) alprazolam 0.5 mg tablet 0.5 mg PO QID PRN (Reason: Anxiety) amlodipine 5 mg tablet 5 mg PO DAILY aspirin [Adult Low Dose Aspirin] 81 mg tablet,delayed release (DR/EC) 81 mg PO DAILY Hold Instructions: see pcp atorvastatin 40 mg tablet 40 mg PO DAILY citalopram 20 mg tablet 20 mg PO DAILY pantoprazole [Protonix] 40 mg tablet,delayed release (DR/EC) 40 mg PO BID docusate sodium [Colace] 100 mg capsule 100 mg PO DAILY Mucinex 1,200 mg tablet extended release 12hr 1,200 mg PO BID Qty: 30 0RF Rx Instructions: Take with full 8oz glass of water azithromycin 250 mg tablet See Rx Instructions PO .COMPLEX Qty: 6 0RF Rx Instructions: For 250 mg dose pack: take 500 mg today (day 1), then 250 mg for 4 days (days 2-5) PO methylprednisolone [Medrol (Lasha)] 4 mg tablets,dose pack See Rx Instructions PO PER PKG DIR Qty: 21 0RF Rx Instructions: PO PER PKG DIR leflunomide 20 mg tablet 20 mg PO DAILY Qty: 30 3RF prednisone 10 mg tablet See Rx Instructions PO .COMPLEX PRN (Reason: joint pain) Qty: 30 1RF Rx Instructions: take 2 tab daily for up to 7 days prn joint pain flare PO PRN; cyanocobalamin (vitamin B-12) 1,000 mcg Tablet 1,000 mcg PO DAILY PRN (Reason: Fatigue) tizanidine 4 mg Tablet 4 mg PO DAILY PRN (Reason: Muscle Pain) Vitamin D3 50 mcg (2,000 unit) Capsule 50 mcg PO DAILY gabapentin 300 mg capsule 300 mg PO BID Lovenox 60 mg/0.6 mL syringe 60 mg SUBCUT Q12H 30 Days Qty: 36 1RF hydrochlorothiazide 12.5 mg tablet 12.5 mg PO DAILY Discharge Orders: Discharge ED (Routine); Ordered 08/15/22 Ordered By: Elkin Zazueta Referrals: Elysia Sousa MD [Primary Care Provider] - 7-10 days Patient Instructions: Fatigue, Weakness (Generalized), Wound Care (General) Activity Restrictions/Additional Instructions: Case management has been consulted to refer you to wound care. Please anticipate their call tomorrow to arrange this. Coding Level of Care Code ED [employer] Supervisor for Caitlyn Duckworth
--- NOTE | 2022-08-16 11:18 | DCPLANNER ---
Addendum entered by Romana Sandhu 08/29/22 11:11: Patient had a follow up appointment at wound care - patient did attend appointment. Addendum entered by Romana Sandhu 08/17/22 15:49: Patient has a follow up appointment scheduled for Monday, August 22, 2022 at 1:[address] Myers at Wound Care. Original Note: b2b sales manager had message to schedule a follow up appointment for patient with wound care. b2b sales manager sent patients information to the front office staff at wound care. Patients information will be printed and reviewed. Clinic will call patient with appointment information.
== END 2022-08-15 21:07 | disposition home or self-care (01) ==
PROVIDERS: Emergency Provider Emergency Medicine; PCP Family Medicine
DX: R53.1 Weakness (principal); S31.819A Unspecified open wound of right buttock, initial encounter; R53.83 Other fatigue; Z79.82 Long term (current) use of aspirin; J44.9 Chronic obstructive pulmonary disease, unspecified; E78.5 Hyperlipidemia, unspecified; X58.XXXA Exposure to other specified factors, initial encounter
CPT/HCPCS: 36415; 71045; 80053; 81001; 83735; 83880; 85025; 93005; 99285

== ENCOUNTER → 2022-08-22 13:03 | Outpatient (BNVA) | payer MEDICARE, SELFPAY | PROVIDERS: PCP Family Medicine; Visit Provider Thoracic Surgery (Cardiothoracic Vascular Surgery) | DX: I96 Gangrene, not elsewhere classified (principal); L98.419 Non-pressure chronic ulcer of buttock with unspecified severity | CPT/HCPCS: 11042; 99213 ==

== ENCOUNTER → 2022-08-23 15:49 | Outpatient (BNVA) | payer MEDICARE, SELFPAY | PROVIDERS: PCP Family Medicine; Visit Provider Nurse Practitioner Family | DX: I96 Gangrene, not elsewhere classified (principal); L98.419 Non-pressure chronic ulcer of buttock with unspecified severity | CPT/HCPCS: 99211; A6212 ==

== ENCOUNTER 2022-08-30 09:28 | Oncology outpatient (recurring) (ONCR) | payer MEDICARE, SELFPAY ==
[2022-08-01 10:00] VITALS: BP 118/66; PULSE 93; RESP 18; TEMP 36.7; O2SAT 95
[2022-08-01] MEDS: sodium chloride 0.9% 250 ML 75 ML IV (10:25)
[2022-08-01] MEDS: iron sucrose 200 MG in sodium chloride 0.9% (100 ml) 100 ML 220 MG IV (10:35)
[2022-08-01 11:50] VITALS: BP 120/68; PULSE 94; RESP 18; TEMP 36.8; O2SAT 94
[2022-08-30 10:15] LABS: Basophils % 1.2 %; Eosinophils % 0.4 %; Hematocrit 35.4 % (37.0-47.0); Hemoglobin 10.7 g/dL (11.5-15.3); Lymphocytes # 0.7 10^3/uL (0.8-4.8); Lymphocytes % 28.9 %; Mean Corpuscular HGB Conc 30.2 g/dL (30.0-36.0); Mean Corpuscular Hemoglobin 29.3 pg (28.0-34.0); Mean Platelet Volume 9.3 fL (7.4-10.4); Monocytes # 0.2 10^3/uL (0.2-0.9); Monocytes % 7.8 %; Neutrophils # 1.58 10^3/uL (1.8-7.7); Neutrophils % 61.7 %; Nucleated Red Blood Cells % 0 %; Platelet Count 187 10^3/cmm (130-400); Red Blood Count 3.65 10^6/uL (4.1-5.3); Red Cell Distribution Width 16.4 % (12.1-15.1); White Blood Count 2.6 10^3/uL (4.0-10.0)
[2022-08-30 10:43] LABS: Alanine Aminotransferase 19 U/L (0-33); Albumin Level 4.1 g/dL (3.5-5.2); Alkaline Phosphatase 86 U/L (35-105); Blood Urea Nitrogen 49 mg/dL (8-23); Calcium 9.4 mg/dL (8.5-10.5); Carbon Dioxide 17 mmol/L (22-29); Chloride 107 mmol/L (98-107); Ferritin 482 ng/mL (15-150); Globulin 3.1 g/dL (1.3-4.6); Glucose 146 mg/dL (65-115); Iron 93 ug/dL (37-145); Osmolality Calculated 302 mOsm/kg (285-295); Sodium 138 mmol/L (136-145); Total Bilirubin 0.2 mg/dL (0.15-1.2); Total Protein 7.2 g/dL (6.6-8.7)
[2022-08-30 11:01] LABS: Aspartate Amino Transferase 24 U/L (0-32); Percent Saturation 32.5 % (20-50); Total Iron Binding Capacity 286 mcg/dl; Unsaturated Iron Binding 193 ug/dL (112-347)
== END 2022-08-31 23:59 | disposition home or self-care (01) ==
PROVIDERS: Nurse Practitioner Family; PCP Family Medicine; Visit Provider Internal Medicine Hematology & Oncology
DX: R63.4 Abnormal weight loss; Z68.21 Body mass index [BMI] 21.0-21.9, adult; Z86.711 Personal history of pulmonary embolism; D50.9 Iron deficiency anemia, unspecified; Z79.01 Long term (current) use of anticoagulants; Z79.899 Other long term (current) drug therapy
CPT/HCPCS: 36415; 80053; 82728; 83540; 83550; 85025; 96365; 99214; J1756; J7050

== ENCOUNTER → 2022-08-31 13:01 | Outpatient (BNVA) | payer MEDICARE, SELFPAY | PROVIDERS: PCP Family Medicine; Visit Provider Thoracic Surgery (Cardiothoracic Vascular Surgery) | DX: L08.9 Local infection of the skin and subcutaneous tissue, unspecified (principal); I96 Gangrene, not elsewhere classified; L98.419 Non-pressure chronic ulcer of buttock with unspecified severity | CPT/HCPCS: 11042; A6212 ==

== ENCOUNTER → 2022-09-06 14:13 | Outpatient (BNVA) | payer MEDICARE, SELFPAY | PROVIDERS: PCP Family Medicine; Visit Provider Podiatrist Foot & Ankle Surgery | DX: M21.621 Bunionette of right foot (principal); M21.622 Bunionette of left foot; Q82.8 Other specified congenital malformations of skin; M20.12 Hallux valgus (acquired), left foot | CPT/HCPCS: 99213 ==

== ENCOUNTER → 2022-09-07 13:06 | Outpatient (BNVA) | payer MEDICARE, SELFPAY | PROVIDERS: PCP Family Medicine; Visit Provider Thoracic Surgery (Cardiothoracic Vascular Surgery) | DX: I96 Gangrene, not elsewhere classified (principal); L98.419 Non-pressure chronic ulcer of buttock with unspecified severity | CPT/HCPCS: 97597; A6021; A6212 ==

== ENCOUNTER → 2022-09-14 13:59 | Outpatient (BNVA) | payer MEDICARE, SELFPAY | PROVIDERS: PCP Family Medicine; Visit Provider Thoracic Surgery (Cardiothoracic Vascular Surgery) | DX: I96 Gangrene, not elsewhere classified (principal); L98.411 Non-pressure chronic ulcer of buttock limited to breakdown of skin | CPT/HCPCS: 97597; A6021; A6212 ==

== ENCOUNTER → 2022-09-21 10:57 | Outpatient (BNVA) | payer MEDICARE, SELFPAY | PROVIDERS: PCP Family Medicine; Visit Provider Thoracic Surgery (Cardiothoracic Vascular Surgery) | DX: I96 Gangrene, not elsewhere classified (principal); L98.419 Non-pressure chronic ulcer of buttock with unspecified severity | CPT/HCPCS: 97597; A6021; A6212 ==

== ENCOUNTER → 2022-09-28 14:58 | Outpatient (BNVA) | payer MEDICARE, SELFPAY | PROVIDERS: PCP Family Medicine; Visit Provider Nurse Practitioner Family | DX: I96 Gangrene, not elsewhere classified (principal); L98.412 Non-pressure chronic ulcer of buttock with fat layer exposed | CPT/HCPCS: 97597; A6021; A6212 ==

== ENCOUNTER 2022-09-30 09:32 | Oncology outpatient (recurring) (ONCR) | payer MEDICARE, SELFPAY ==
[2022-09-30 09:40] VITALS: BP 93/54; PULSE 93; RESP 18; TEMP 36.6; O2SAT 90
[2022-09-30 10:01] LABS: Basophils % 0.5 %; Eosinophils % 0.2 %; Hemoglobin 11.1 g/dL (11.5-15.3); Lymphocytes # 1.8 10^3/uL (0.8-4.8); Mean Corpuscular HGB Conc 30.8 g/dL (30.0-36.0); Mean Corpuscular Hemoglobin 30.2 pg (28.0-34.0); Mean Corpuscular Volume 97.8 fl (81-99); Mean Platelet Volume 9.5 fL (7.4-10.4); Monocytes # 0.3 10^3/uL (0.2-0.9); Monocytes % 4.3 %; Neutrophils # 3.73 10^3/uL (1.8-7.7); Nucleated Red Blood Cells % 0 %; Platelet Count 264 10^3/cmm (130-400); Red Blood Count 3.68 10^6/uL (4.1-5.3); Red Cell Distribution Width 17.7 % (12.1-15.1); Reticulocyte % 1.6 % (0.5-2.0); White Blood Count 5.8 10^3/uL (4.0-10.0)
[2022-09-30 10:19] LABS: Alanine Aminotransferase 15 U/L (0-33); Albumin Level 3.6 g/dL (3.5-5.2); Alkaline Phosphatase 74 U/L (35-105); Anion Gap 17.8 (5-19); Aspartate Amino Transferase 16 U/L (0-32); Blood Urea Nitrogen 44 mg/dL (8-23); Calcium 9.9 mg/dL (8.5-10.5); Carbon Dioxide 22 mmol/L (22-29); Chloride 106 mmol/L (98-107); Globulin 3.5 g/dL (1.3-4.6); Glucose 155 mg/dL (65-115); Osmolality Calculated 308 mOsm/kg (285-295); Potassium 3.8 mmol/L (3.5-5.1); Sodium 142 mmol/L (136-145); Total Bilirubin 0.2 mg/dL (0.15-1.2); Total Protein 7.1 g/dL (6.6-8.7)
[2022-09-30 11:51] LABS: Ferritin 301 ng/mL (15-150); Iron 95 ug/dL (37-145); Percent Saturation 38.6 % (20-50); Total Iron Binding Capacity 246 mcg/dl; Unsaturated Iron Binding 151 ug/dL (112-347)
== END 2022-09-30 23:59 | disposition home or self-care (01) ==
PROVIDERS: Nurse Practitioner Family; PCP Family Medicine; Visit Provider Internal Medicine Hematology & Oncology
DX: D50.9 Iron deficiency anemia, unspecified (principal); Z86.711 Personal history of pulmonary embolism; Z79.01 Long term (current) use of anticoagulants
CPT/HCPCS: 36415; 80053; 82728; 83540; 83550; 85025; 85045; 99213

== ENCOUNTER → 2022-10-05 15:46 | Outpatient (BNVA) | payer MEDICARE, SELFPAY | PROVIDERS: PCP Family Medicine; Visit Provider Thoracic Surgery (Cardiothoracic Vascular Surgery) | DX: Z09 Encounter for follow-up examination after completed treatment for conditions other than malignant neoplasm (principal) | CPT/HCPCS: 99212; A6212 ==

== ENCOUNTER → 2022-10-25 14:49 | Outpatient (BNVA) | payer MEDICARE, SELFPAY | PROVIDERS: PCP Family Medicine; Visit Provider Internal Medicine Rheumatology | DX: M05.79 Rheumatoid arthritis with rheumatoid factor of multiple sites without organ or systems involvement (principal); Z98.890 Other specified postprocedural states; M81.0 Age-related osteoporosis without current pathological fracture; M54.32 Sciatica, left side; Z71.85 Encounter for immunization safety counseling; Z79.899 Other long term (current) drug therapy | CPT/HCPCS: 99214 ==

== ENCOUNTER 2022-11-28 09:22 | Oncology outpatient (recurring) (ONCR) | payer MEDICARE, SELFPAY ==
[2022-11-28 09:44] VITALS: BP 87/57; PULSE 100; RESP 18; TEMP 36.8; O2SAT 96
[2022-11-28 11:44] LABS: Basophils # 0.1 10^3/uL (0.0-0.1); Basophils % 0.8 %; Eosinophils # 0.2 10^3/uL (0.0-0.8); Eosinophils % 2.1 %; Hematocrit 41.6 % (36-47); Lymphocytes # 1.2 10^3/uL (0.8-4.8); Mean Corpuscular HGB Conc 30.5 g/dL (30-55); Mean Corpuscular Hemoglobin 32.7 pg (27-33); Mean Corpuscular Volume 107.2 fl (85-98); Mean Platelet Volume 8.9 fL (7.4-10.4); Monocytes # 0.7 10^3/uL (0.2-0.9); Monocytes % 9.2 %; Neutrophils # 4.96 10^3/uL (1.8-7.7); Neutrophils % 70.2 %; Nucleated Red Blood Cells % 0 %; Platelet Count 222 10^3/cmm (157-399); Red Blood Count 3.88 10^6/uL (3.85-5.65); Red Cell Distribution Width 15.4 % (12.1-15.1); White Blood Count 7.07 10^3/uL (3.29-11.43)
[2022-11-28 12:05] LABS: Alanine Aminotransferase 16 U/L (0-33); Albumin Level 3.7 g/dL (3.5-5.2); Alkaline Phosphatase 59 U/L (35-105); Aspartate Amino Transferase 23 U/L (0-32); Blood Urea Nitrogen 32 mg/dL (8-23); Calcium 9.3 mg/dL (8.5-10.5); Carbon Dioxide 26 mmol/L (22-29); Chloride 99 mmol/L (98-107); Ferritin 353 ng/mL (15-150); Globulin 3.5 g/dL (1.3-4.6); Glucose 100 mg/dL (65-115); Iron 56 ug/dL (37-145); Osmolality Calculated 293 mOsm/kg (285-295); Percent Saturation 22.5 % (20-50); Sodium 138 mmol/L (136-145); Total Bilirubin 0.6 mg/dL (0.15-1.2); Total Iron Binding Capacity 248 mcg/dl; Total Protein 7.2 g/dL (6.6-8.7); Unsaturated Iron Binding 192 ug/dL (112-347)
== END 2022-12-01 23:59 | disposition home or self-care (01) ==
PROVIDERS: Nurse Practitioner Family; PCP Family Medicine; Visit Provider Internal Medicine Hematology & Oncology
DX: D50.9 Iron deficiency anemia, unspecified (principal); Z86.711 Personal history of pulmonary embolism; Z79.01 Long term (current) use of anticoagulants; Z79.899 Other long term (current) drug therapy
CPT/HCPCS: 36415; 80053; 82728; 83540; 83550; 85025; 99214

== ENCOUNTER 2022-12-07 10:34 | Outpatient (CLI) | payer MEDICARE, SELFPAY ==
--- NOTE | 2022-12-07 10:58 | XRR_ITS ---
PROCEDURE INFORMATION: Exam: XR Chest Exam date and time: 12/07/2022 11:07 AM Age: 77 years old Clinical indication: Cough; Prior surgery; Surgery date: 6+ months; Surgery type: Total spine TECHNIQUE: Imaging protocol: Radiologic exam of the chest. Views: 2 views. Total images: 2 COMPARISON: CR XR chest 1V portable [id number] 08/15/2022 3:10 PM FINDINGS: Lungs: Unremarkable. No consolidation. Pleural spaces: Unremarkable. No pleural effusion. No pneumothorax. Heart/Mediastinum: Unremarkable. No cardiomegaly. Bones/joints: Spinal fusion hardware noted. XR/XR chest 2V* [id number] IMPRESSION: No acute cardiopulmonary process.
== END 2022-12-07 10:35 | disposition home or self-care (01) ==
PROVIDERS: PCP Family Medicine; Visit Provider Family Medicine
DX: R05.9 Cough, unspecified (principal); Z98.890 Other specified postprocedural states
CPT/HCPCS: 71046

== ENCOUNTER → 2022-12-13 14:05 | Outpatient (BNVA) | payer MEDICARE, SELFPAY | PROVIDERS: PCP Family Medicine; Referring Provider Internal Medicine Rheumatology; Visit Provider Student in an Organized Health Care Education/Training Program | DX: M70.62 Trochanteric bursitis, left hip | CPT/HCPCS: 20610; 73502; 99204; J3301; J3490 ==

== ENCOUNTER 2022-12-29 14:30 | Outpatient (RCR) | payer MEDICARE, SELFPAY | END 2022-12-31 23:59 | disposition home or self-care (01) | LOC: SPT 14:30 | PROVIDERS: PCP Family Medicine; Visit Provider Student in an Organized Health Care Education/Training Program | DX: M70.62 Trochanteric bursitis, left hip (principal) | CPT/HCPCS: 97110; 97161 ==

== ENCOUNTER 2023-01-01 06:00 | Outpatient (RCR) | payer MEDICARE, SELFPAY | END 2023-01-31 23:59 | disposition home or self-care (01) | LOC: SPT 06:00 | PROVIDERS: PCP Family Medicine; Visit Provider Student in an Organized Health Care Education/Training Program | DX: M70.62 Trochanteric bursitis, left hip (principal) | CPT/HCPCS: 97110 ==

== ENCOUNTER 2023-01-04 12:56 | Outpatient (CLI) | payer MEDICARE, SELFPAY ==
--- NOTE | 2023-01-04 13:14 | CT_ITS ---
WS: [id number] CT chest w con* [id number] HISTORY: COPD/EMPHYSEMA TECHNIQUE: Axial imaging performed through the thorax. Coronal and sagittal reformats are submitted. All CT scans at [facility] use at least one of these dose optimization techniques: automated exposure control; mA and/or kV adjustment per patient size (includes targeted exams where dose is mat ched to clinical indication); or iterative reconstruction. CONTRAST: Omnipaque 350; 50 mL IV. DLP: 198.96 mGy.cm COMPARISON: 06/22/2022 Lungs and central airway: Hyperexpanded lungs and emphysema. No pneumonia, pulmonary mass or nodule. There is beam-hardening artifact from the patient's extensive spine hardware obscuring portions of th e lungs. Pleura: Normal. No pleural effusion. Heart and pericardium: Normal size heart with no pericardial effusion. Mediastinum and hima: Small mediastinal and hilar lymph nodes. No enlarging lymph nodes. Vessels: Ectasia and mild atherosclerotic changes involving the thoracic aorta. Normal sized pulmonar y artery. Atherosclerotic plaque continues into the proximal great vessels. Chest wall and lower neck: No soft tissue masses. Upper abdomen: Prior cholecystectomy. Small hiatal hernia. No adrenal mass. Exophytic 1.2 cm LEFT wilder al cyst. Osseous structures: No destructive process. Extensive bilateral Rodriguez rods extend throughout the thoracic spine into the lumbar spine. IMPRESSION: 1. Chronic emphysema. No pulmonary mass or nodule. 2. Mildly ectatic thoracic aorta. Atherosclerotic plaque continues into the great vessels. 3. No enlarging mediastinal or hilar lymph nodes. 4. Prior cholecystectomy.
[2023-01-04 13:55] LABS: Blood Urea Nitrogen 29 mg/dL (8-23)
[2023-01-04] MEDS: iohexol 350 mg/mL 500 mL Btl (per mL) IV (14:35)
== END 2023-01-04 12:57 | disposition home or self-care (01) ==
LOC: RAD 13:02
PROVIDERS: Radiology Diagnostic Radiology; PCP Family Medicine; Visit Provider Family Medicine
DX: J43.9 Emphysema, unspecified (principal); I77.810 Thoracic aortic ectasia; I70.0 Atherosclerosis of aorta
CPT/HCPCS: 71260; 82565; 84520; Q9967

== ENCOUNTER → 2023-01-24 14:28 | Outpatient (BNVA) | payer MEDICARE, SELFPAY | PROVIDERS: PCP Family Medicine; Visit Provider Internal Medicine Rheumatology | DX: Z79.899 Other long term (current) drug therapy (principal); M05.79 Rheumatoid arthritis with rheumatoid factor of multiple sites without organ or systems involvement; Z98.890 Other specified postprocedural states; M81.0 Age-related osteoporosis without current pathological fracture; Z71.85 Encounter for immunization safety counseling; M54.32 Sciatica, left side | CPT/HCPCS: 99214 ==

== ENCOUNTER 2023-01-30 14:22 | Outpatient (CLI) | payer MEDICARE, SELFPAY ==
--- NOTE | 2023-01-30 14:29 | MM_ITS ---
WS: [id number] BILATERAL 3D TOMOSYNTHESIS DIGITAL SCREENING MAMMOGRAPHY WITH CAD CLINICAL INFORMATION: SCREENING HISTORY: Screening mammogram. No current complaints. COMPARISON: 2021 TECHNIQUE: Bilateral CC and MLO views. FINDINGS: The breasts are composed of heterogeneous fibroglandular density tissue, which can limit the detectio n of small underlying mass lesions. No suspicious mass, asymmetry, calcifications, or architectural d istortion. No evidence of malignancy. Vascular calcifications. Incidental punctate and lucent centere d calcifications. IMPRESSION: MM/[place] [id number] BI-RADS: 2-Benign FOLLOW UP: 1 Year Follow-up Recommend return to annual screening mammography.
== END 2023-01-30 14:23 | disposition home or self-care (01) ==
LOC: RAD 14:22
PROVIDERS: PCP Family Medicine; Visit Provider Family Medicine
DX: Z12.31 Encounter for screening mammogram for malignant neoplasm of breast (principal)
CPT/HCPCS: 77063; 77067

== ENCOUNTER 2023-03-01 13:49 | Oncology outpatient (recurring) (ONCR) | payer MEDICARE, SELFPAY ==
[2023-03-01 14:06] VITALS: BP 115/64; PULSE 93; TEMP 36.7; O2SAT 92
[2023-03-01 14:22] LABS: Basophils % 0.5 %; Eosinophils % 0.3 %; Hematocrit 29.2 % (36-47); Lymphocytes # 0.5 10^3/uL (0.8-4.8); Lymphocytes % 8.3 %; Mean Corpuscular HGB Conc 31.2 g/dL (30-55); Mean Corpuscular Hemoglobin 33.3 pg (27-33); Mean Platelet Volume 9.1 fL (7.4-10.4); Monocytes # 0.2 10^3/uL (0.2-0.9); Monocytes % 4.1 %; Neutrophils % 86.5 %; Nucleated Red Blood Cells % 0 %; Platelet Count 195 10^3/cmm (157-399); Red Blood Count 2.73 10^6/uL (3.85-5.65); Red Cell Distribution Width 20.2 % (12.1-15.1); White Blood Count 5.79 10^3/uL (3.29-11.43)
[2023-03-01 14:41] LABS: Alanine Aminotransferase 16 U/L (0-33); Albumin Level 3.6 g/dL (3.5-5.2); Alkaline Phosphatase 59 U/L (35-105); Anion Gap 16.8 (5-19); Aspartate Amino Transferase 25 U/L (0-32); Blood Urea Nitrogen 26 mg/dL (8-23); Calcium 9.5 mg/dL (8.5-10.5); Carbon Dioxide 25 mmol/L (22-29); Chloride 99 mmol/L (98-107); Glucose 134 mg/dL (65-115); Osmolality Calculated 289 mOsm/kg (285-295); Potassium 4.8 mmol/L (3.5-5.1); Sodium 136 mmol/L (136-145); Total Bilirubin 0.4 mg/dL (0.15-1.2); Total Protein 6.6 g/dL (6.6-8.7)
[2023-03-01 15:20] LABS: Ferritin 91 ng/mL (15-150); Iron 163 ug/dL (37-145); Percent Saturation 57.3 % (20-50); Total Iron Binding Capacity 284 mcg/dl; Unsaturated Iron Binding 121 ug/dL (112-347)
== END 2023-03-02 23:59 | disposition home or self-care (01) ==
PROVIDERS: Nurse Practitioner Family; PCP Family Medicine; Visit Provider Internal Medicine Hematology & Oncology
DX: D50.8 Other iron deficiency anemias (principal)
CPT/HCPCS: 36415; 80053; 82728; 83540; 83550; 85025; 99214

== ENCOUNTER 2023-03-10 09:18 | Outpatient (CLI) | payer MEDICARE, SELFPAY | END 2023-03-10 09:19 | disposition home or self-care (01) | LOC: LAB 09:20 | PROVIDERS: PCP Family Medicine; Visit Provider Family Medicine | DX: J44.1 Chronic obstructive pulmonary disease with (acute) exacerbation (principal) | CPT/HCPCS: 87070; 87205 ==

== ENCOUNTER 2023-04-26 09:03 | Outpatient (CLI) | payer MEDICARE, SELFPAY ==
--- NOTE | 2023-04-26 09:11 | XR_ITS ---
WS: [id number] XR chest 2V* [id number] REASON FOR EXAM: COPD EXACERBATION DZ FINDINGS: The heart and the mediastinum are within normal limits. Calcified granulomas disease in both hemithoraces. Significant flattening of the hemidiaphragms with expansion of the anterior clear space compatible wi th obstructive lung disease. No acute pulmonary parenchymal or pleural abnormality is identified. Posterior pedicle screws and interconnecting rods from the lumbar spine to T3. IMPRESSION: Findings compatible with obstructive lung disease. No acute chest abnormality is identified.
== END 2023-04-26 09:04 | disposition home or self-care (01) ==
PROVIDERS: PCP Family Medicine; Visit Provider Family Medicine
DX: J44.1 Chronic obstructive pulmonary disease with (acute) exacerbation (principal)
CPT/HCPCS: 71046

== ENCOUNTER 2023-05-01 15:24 | Outpatient (CLI) | payer MEDICARE, SELFPAY ==
--- NOTE | 2023-05-01 15:45 | CT_ITS ---
WS: [id number] CT HEAD TECHNIQUE: Noncontrast CT of the head obtained from the skullbase to the vertex. CLINICAL INFORMATION: fall with trauma to face COMPARISON: CT 06/22/2022 DLP: 957.[address] scans at [facility] use at least one of these dose optimization techniques: automated e xposure control; mA and/or kV adjustment per patient size (includes targeted exams where dose is matc hed to clinical indication); or iterative reconstruction. FINDINGS: No evidence of intracranial hemorrhage or mass effect. Ventricular system and basal cisterns are spence nt. Mild small vessel changes with moderate parenchymal volume loss. No extra-axial fluid collections . No evidence of mass or mass effect. Tiny chronic lacunar infarct RIGHT thalamus. Intracranial vascu lar calcification. Paranasal sinuses and mastoid air cells are well aerated. Mildly mucosal thickening in the LEFT mastoid air cells. Normal posterior nasopharynx. IMPRESSION: 1. No evidence of intracranial hemorrhage or mass effect. 2. Mild small vessel changes with moderate parenchymal volume loss. 3. Tiny chronic lacunar infarct RIGHT thalamus. 4. Intracranial vascular calcification. 5. No acute intracranial findings.
== END 2023-05-01 15:25 | disposition home or self-care (01) ==
LOC: RAD 15:25
PROVIDERS: PCP Family Medicine; Visit Provider Nurse Practitioner
DX: S09.93XA Unspecified injury of face, initial encounter (principal); W19.XXXA Unspecified fall, initial encounter; Z86.73 Personal history of transient ischemic attack (TIA), and cerebral infarction without residual deficits; I67.2 Cerebral atherosclerosis
CPT/HCPCS: 70450

== ENCOUNTER 2023-05-01 17:39 | Observation (INO) | payer MEDICARE, SELFPAY ==
[2023-05-01] VITALS (8 sets, daily range): BP systolic 130–164; BP diastolic 73–78; PULSE 71–82; RESP 14–21; TEMP 36.5–36.9; O2SAT 92–97; BMI 20.7; BMI 21.6
--- NOTE | 2023-05-01 18:07 | ECG_ITS ---
[facility] Test Date: 2023-05-01 Pat Name: Michelle Bradford Department: Room: Gender: Female Youth Teacher: : 1945 Requested By: David Ramirez Order Number: [id number] Emely MD: Archana Fernández M.D. Measurements Intervals [place] Rate: 75 P: 70 MD: 161 QRS: -15 QRSD: 78 T: 67 QT: 412 QTc: 462 Interpretive Statements SINUS RHYTHM Compared to ECG 08/15/2022 14:06:32 Ectopic atrial rhythm no longer present Atrial abnormality no longer present Electronically Signed On 05-01-2023 19:30:10 WAREHOUSE ORDER SELECTOR by Archana Fernández M.D. [id number]
[2023-05-01 18:43] LABS: Basophils # 0.1 10^3/uL (0.0-0.1); Basophils % 1.1 %; Eosinophils % 0.4 %; Hematocrit 22.7 % (36-47); Lymphocytes # 1.3 10^3/uL (0.8-4.8); Lymphocytes % 22.8 %; Mean Corpuscular HGB Conc 28.6 g/dL (30-55); Mean Corpuscular Hemoglobin 25.7 pg (27-33); Mean Corpuscular Volume 89.7 fl (85-98); Mean Platelet Volume 9.7 fL (7.4-10.4); Monocytes # 0.5 10^3/uL (0.2-0.9); Neutrophils # 3.76 10^3/uL (1.8-7.7); Neutrophils % 66.5 %; Nucleated Red Blood Cells % 0 %; Platelet Count 314 10^3/cmm (157-399); Red Blood Count 2.53 10^6/uL (3.85-5.65); Red Cell Distribution Width 18.8 % (12.1-15.1); White Blood Count 5.65 10^3/uL (3.29-11.43)
[2023-05-01 19:02] LABS: Alanine Aminotransferase 21 U/L (0-33); Albumin Level 3.8 g/dL (3.5-5.2); Alkaline Phosphatase 68 U/L (35-105); Anion Gap 15.5 (5-19); Aspartate Amino Transferase 40 U/L (0-32); Blood Urea Nitrogen 31 mg/dL (8-23); Calcium 9.7 mg/dL (8.5-10.5); Carbon Dioxide 24 mmol/L (22-29); Chloride 101 mmol/L (98-107); Globulin 3.8 g/dL (1.3-4.6); Glucose 103 mg/dL (65-115); Osmolality Calculated 289 mOsm/kg (285-295); Potassium 4.5 mmol/L (3.5-5.1); Sodium 136 mmol/L (136-145); Total Bilirubin 0.3 mg/dL (0.15-1.2); Total Protein 7.6 g/dL (6.6-8.7)
--- NOTE | 2023-05-01 19:09 | ED_ITS ---
HPI - Dizziness 2 General: Chief Complaint: Dizziness Stated Complaint: dr arteaga, passing out Time Seen by Provider: 05/01/23 17:56 Source: patient Mode of arrival: ambulatory Limitations: no limitations History of Present Illness: HPI Narrative: 78-year-old female states that she has b een having generalized weakness she had a fall overnight patient seen in urgent care she had a head CT that was normal and they did do blood work and called her and told her she was anemic with a hemoglobin below 7. She denies any vomiting blood denies any pain anywhere currently she does states she feels extremely weak denies any blood in her stool. Associated symptoms: Reports malaise; Denies chest pain, chills, headache(s), nausea or vomiting Review of Systems 2 Const: Reports: fatigue and malaise; Denies: fever(s), chills, body aches or change in appetite ENMT: Denies: throat pain or dental pain Card: Denies: chest pain Resp: Denies: dyspnea GI: Denies: abdominal pain, nausea, vomiting or diarrhea Musc: Denies: neck pain or back pain Skin/Breast: Denies: rash Neuro: Denies: headache(s) PFSH ED 2 PFSH: Medical History Sciatica, left side Weight loss, non-intentional COPD (chronic obstructive pulmonary disease) with chronic bronchitis COPD (chronic obstructive pulmonary disease) with acute bronchitis Rheumatoid arthritis Osteoarthritis Fibromyalgia Hyperlipidemia Anxiety and depression GERD (gastroesophageal reflux disease) Community acquired pneumonia Immunization counseling High risk medication use Osteoporosis Seropositive rheumatoid arthritis of multiple sites Thoracic postlaminectomy syndrome Lumbar post-laminectomy syndrome Soft tissue mass Surgical History History of colon surgery 14 inches removed History of appendectomy H/O foot surgery bilaterally History of thoracic surgery (~02/2017) Dr. Kauffman T10-T11 fixation/fusion. HX T11 fracture. 04/06/17 Dr Kauffman removal of posterior 5.5 mm diameter titanium [place]. Exploration of rostal end of fusion adjacent to [place] and screw;staph infection History of lumbar surgery (~2012) Dr. Kauffman L1-L5 laminectomy/fusion/fiaxation; exploration History of thoracic surgery (~04/2016) Dr. Kauffman T9-S1 fusion fixation History of lumbar surgery (~2010) Dr. aKuffman L1-L5 laminectomy/fusion/fixation Status post cervical spinal fusion (~2007) Dr Leblanc C6-C7 ACDFF History of hysterectomy History of cholecystectomy Family History Father Stroke Mother Cancer Family history of thyroid problem Sister Cancer Brother Diabetes Social History Smoking and tobacco/nicotine status: former use of tobacco/nicotine Quit status (tobacco/nicotine): has quit using Year quit tobacco: 2022 Former quit date comment: smoked 40 years Alcohol intake: never Substance/Drug Use: never Household members: none Marital status: / Current occupational status: retired Physical Exam 2 Const: COMMON NORMALS: no acute distress, patient oriented x3 and healthy appearing HENMT: COMMON NORMALS: normocephalic and atraumatic HEAD & SCALP: n ormocephalic and atraumatic Neck/C-Spine: COMMON NORMALS: full ROM and supple Chest: COMMONS NORMALS: normal inspection of the chest Resp: COMMON NORMALS: normal respiratory effort Cardio: COMMON NORMALS: regular rate, regular rhythm and No murmurs present (Cardio) RATE: regular rate RHYTHM: regular rhythm Extremity: COMMON NORMALS: normal to inspection and full ROM Neuro: COMMON NORMALS: patient oriented x3, moves all extremities and no focal motor deficits Psych: COMMON NORMALS: mental status grossly normal, Normal thought process present and cooperative THOUGHT PROCESS: Normal thought process present Skin: COMMON NORMALS: no rashes or lesions noted and no wounds GENERAL SKIN EXAM: no rashes or lesions noted Course 2 Vital Signs: Vital signs: Vital Signs Temperature 98.1 F 05/01/23 17:46 Pulse Rate 80 05/01/23 17:46 Respiratory Rate 14 05/01/23 17:46 Blood Pressure 130/78 05/01/23 17:46 Pulse Oximetry 95 05/01/23 17:46 Oxygen Delivery Me thod Room Air 05/01/23 17:46 MDM - Dizziness Medical Decision Making Patient presents here with weakness she is found to be anemic likely causing her weakness she had a fall she had head CT today that was negative we will transfuse her spoke to the hospitalist will admit for observation she has been stable while here. Medical Records I reviewed the patient's medical records. Lab Data I reviewed the patient's lab results. 05/01/23 18:30 05/01/23 18:30 Radiology Impressions Chest X-Ray 05/01/23 19:16 IMPRESSION: No acute findings. Laboratory Results WBC 5.65 10^3/uL (3.29-11.43) 05/01/23 18:30 RBC 2.53 10^6/uL (3.85-5.65) L 05/01/23 18:30 Hgb 6.50 g/dL (11.27-16.99) L* 05/01/23 18: Hct 22.7 % (36-47) L 05/01/23 18: MCV 89.7 fl (85-98) 05/01/23 18:30 MCH 25.7 pg (27-33) L 05/01/23 18:30 MCHC 28.6 g/dL (30-55) L 05/01/23 18:30 RDW 18.8 % (12.1-15.1) H 05/01/23 18:30 Plt Count 314 10^3/cmm (157-399) 05/01/23 18:30 MPV 9.7 fL (7.4-10.4) 05/01/23 18:30 Neut % (Auto) 66.5 % 05/01/23 18:30 Lymph % (Auto) 22.8 % 05/01/23 18:30 [place] % (Auto) 9.0 % 05/01/23 18:30 Eos % (Auto) 0.4 % 05/01/23 18:30 Baso % (Auto) 1.1 % 05/01/23 18:30 Neut # (Auto) 3.76 10^3/uL (1.8-7.7) 05/01/23 18:30 Lymph # (Auto) 1.3 10^3/uL (0.8-4.8) 05/01/23 18:30 [place] # (Auto) 0.5 10^3/uL (0.2-0.9) 05/01/23 18:30 Eos # (Auto) 0.0 10^3/uL (0.0-0.8) 05/01/23 18:30 Baso # (Auto) 0.1 10^3/uL (0.0-0.1) 05/01/23 18:30 Nucleated RBC % (auto) 0 % 05/01/23 18: Nucleated RBCs # 0.0 /100WBC 05/01/23 18:30 PT 13.50 SECONDS (12.1-14.9) 05/01/23 18:30 INR 1.00 (0.8-1.2) 05/01/23 18:30 Sodium 136 mmol/L (136-145) 05/01/23 18:30 Potassium 4.5 mmol/L (3.5-5.1) 05/01/23 18: Chloride 101 mmol/L (98-107) 05/01/23 18: Carbon Dioxide 24 mmol/L (22-29) 05/01/23 18:30 Anion Gap 15.5 (5-19) 05/01/23 18:30 BUN 31 mg/dL (8-23) H 05/01/23 18:30 Creatinine 1.2 mg/dL (0.5-0.9) H 05/01/23 18:30 GFR Calculation Not Reportable 05/01/23 18: Glucose 103 mg/dL (65-115) 05/01/23 18:30 Calculated Osmolality 289 mOsm/kg (285-295) 05/01/23 18:30 Calcium 9.7 mg/dL (8.5-10.5) 05/01/23 18:30 TIBC 345 mcg/dl 05/01/23 18: Unsat Iron Binding 312 ug/dL (112-347) 05/01/23 18:30 Total Bilirubin 0.3 mg/dL (0.15-1.2) 05/01/23 18:30 AST 40 U/L (0-32) H 05/01/23 18:30 ALT 21 U/L (0-33) 05/01/23 18:30 Alkaline Phosphatase 68 U/L (35-105) 05/01/23 18:30 Total Protein 7.6 g/dL (6.6-8.7) 05/01/23 18: Albumin 3.8 g/dL (3.5-5.2) 05/01/23 18: Globulin 3.8 g/dL (1.3-4.6) 05/01/23 18:30 Blood Type O Negative 05/01/23 18:30 Rho(D) Type Negative 05/01/23 18:30 Antibody Screen Positive 05/01/23 18:30 Crossmatch See Detail 05/01/23 18:30 All radiology interpretation(s) finalized by discharge EKG Data EKG 1: I personally reviewed and interpreted this EKG as follows: EKG interpretation date: 05/01/23 EKG interpretation time: 18:07 Interpretation: nsr hr [address] or t wave abnormalities qrs 78 qtc 441 Discharge Plan Discharge Patient Disposition: Admitted As Inpatient Clinical Impression: Anemia, Generalized weakness Condition: Stable Prescriptions: No Action methocarbamol 500 mg tablet 500 mg PO QID diclofenac sodium 1 % kit 2 gm TOPICAL QID PRN (Reason: Itching) hydrocodone-acetaminophen 10-325 mg tablet 1 tab PO Q6H PRN (Reason: Pain) albuterol sulfate 90 mcg/actuation HFA aerosol inhaler 2 puff INHALATION 6XD PRN (Reason: Shortness Of Breath Or Wheezing) alprazolam 0.5 mg tablet 0.5 mg PO QID PRN (Reason: Anxiety) amlodipine 5 mg tablet 5 mg PO DAILY atorvastatin 40 mg tablet 40 mg PO DAILY citalopram 20 mg tablet 20 mg PO DAILY pantoprazole [Protonix] 40 mg tablet,delayed release (DR/EC) 40 mg PO BID docusate sodium [Colace] 100 mg capsule 100 mg PO DAILY acetaminophen [Tylenol Extra Strength] 500 mg tablet 1,000 mg PO BID docosanol [Abreva] 10 % cream 1 applic topical QID Qty: 2 0RF furosemide [Lasix] 20 mg tablet 20 mg PO DAILY pyridoxine (vitamin B6) 25 mg tablet See Rx Instructions PO DAILY Rx Instructions: unknown dose orally daily; Mucinex 1,200 mg tablet extended release 12hr 1,200 mg PO BID PRN Rx Instructions: Take with full 8oz glass of water budesonide-formoterol [Symbicort] 160-4.5 mcg/actuation HFA aerosol inhaler 2 puff inhalation BID tizanidine 4 mg Tablet 4 mg PO DAILY PRN (Reason: Muscle Pain) Vitamin D3 50 mcg (2,000 unit) Capsule 50 mcg PO DAILY gabapentin 300 mg capsule 300 mg PO BID Referrals: Elysia Sousa MD [Primary Care Provider] - Coding Level of Care Code ED Electrophysiology Technologist for [facility]
--- NOTE | 2023-05-01 19:16 | XRR_ITS ---
PROCEDURE INFORMATION: Exam: XR Chest Exam date and time: 05/01/2023 7:22 PM Age: 78 years old Clinical indication: Other: Low blood pressure; Additional info: Cp TECHNIQUE: Imaging protocol: Radiologic exam of the chest. Views: 1 view. COMPARISON: CR XR chest 2V* [id number] 04/26/2023 9:16 AM FINDINGS: Lungs: Hyperinflated lungs. No consolidation. Pleural spaces: Unremarkable. No pleural effusion. No pneumothorax. Heart/Mediastinum: Unremarkable. No cardiomegaly. Bones/joints: Thoracolumbar spinal fusion hardware noted. ACDF hardware noted in the cervical spine. Visualized osseous structures are intact. XR/XR chest 1V portable [id number] IMPRESSION: No acute findings.
[2023-05-01 19:57] LABS: Iron 33 ug/dL (37-145); Percent Saturation 9.5 % (20-50); Total Iron Binding Capacity 345 mcg/dl; Unsaturated Iron Binding 312 ug/dL (112-347)
[2023-05-01] MEDS: TRAMadol 50 mg Tablet 25 MG PO (20:06)
--- NOTE | 2023-05-01 20:09 | CTR_ITS ---
PROCEDURE INFORMATION: Exam: CT Abdomen And Pelvis Without Contrast Exam date and time: 05/01/2023 8:22 PM Age: 78 years old Clinical indication: Injury or trauma; Fall; Blunt; Generalized; Prior surgery; Surgery date: 6+ months; Surgery type: Spinal rods; Additional info: Anemia, fall TECHNIQUE: Imaging protocol: Computed tomography of the abdomen and pelvis without contrast. Radiation optimization: All CT scans at this facility use at least one of these dose optimization techniques: automated exposure control; mA and/or kV adjustment per patient size (includes targeted exams where dose is matched to clinical indication); or iterative reconstruction. COMPARISON: [place] [id number] 06/22/2022 3:54 PM RADIATION DOSE METRICS: Total DLP (mGy-cm): 329 FINDINGS: Lungs: Subsegmental bibasilar atelectasis. The visualized lung bases are otherwise clear. Diaphragm: No evidence of diaphragmatic defect. Liver: No evidence of focal hepatic lesion within limitation of a noncontrast exam. Gallbladder and bile ducts: Status post cholecystectomy. No evidence of intrahepatic or extrahepatic biliary dilatation. Pancreas: Grossly unremarkable. Spleen: Grossly unremarkable. Adrenal glands: Grossly unremarkable. Kidneys and ureters: There are simple appearing renal cysts for which dedicated imaging follow-up is not required. Otherwise no evidence of renal parenchymal abnormality. No hydronephrosis or ureteral stone. Stomach and bowel: No evidence of bowel obstruction or perienteric inflammatory changes. Appendix: The appendix is not visualized, however there are no findings to suggest appendicitis. Intraperitoneal space: No evidence of free air or fluid collection. Vasculature: Extensive atherosclerosis without evidence of aneurysmal dilitation of abdominal aorta. Lymph nodes: No evidence of adenopathy. Urinary bladder: Grossly unremarkable. Reproductive: Status post hysterectomy. Bones/joints: Subacute mildly displaced fracture of the posterior right 11th rib, new since June 2022. No evidence of acute fracture or aggresive osseous lesion. Postsurgical changes status post thoracolumbar and sacral fusion. There are bilateral SI joint fusion screws in place. Severe degeneration of both SI joints is noted. Soft tissues: No evidence of fluid collection or hematoma in the superficial soft tissues. CT/CT abdomen pelvis wo con [id number] IMPRESSION: 1. No evidence of acute traumatic injury to the abdomen or pelvis within limitations of a noncontrast exam. 2. Subacute mildly displaced fracture of the posterior right 11th rib, new since June 2022.
--- NOTE | 2023-05-01 20:09 | CTR_ITS ---
PROCEDURE INFORMATION: Exam: CT Head Without Contrast Exam date and time: 05/01/2023 8:19 PM Age: 78 years old Clinical indication: Altered mental status/memory loss; Additional info: AMS TECHNIQUE: Imaging protocol: Computed tomography of the head without contrast. Radiation optimization: All CT scans at this facility use at least one of these dose optimization techniques: automated exposure control; mA and/or kV adjustment per patient size (includes targeted exams where dose is matched to clinical indication); or iterative reconstruction. COMPARISON: CT head wo con* [id number] 05/01/2023 3:31 PM RADIATION DOSE METRICS: Total DLP (mGy-cm): 956 FINDINGS: Brain: No hemorrhage. No edema. Moderate diffuse cerebral atrophy and mild sequela of chronic small vessel ischemic disease. No mass effect. Cerebral ventricles: No ventriculomegaly. Paranasal sinuses: Visualized sinuses are unremarkable. No fluid levels. Mastoid air cells: Visualized mastoid air cells are well aerated. Bones/joints: Unremarkable. No acute fracture. Soft tissues: Unremarkable. CT/CT head wo con* [id number] IMPRESSION: No acute intracranial abnormality.
--- NOTE | 2023-05-01 20:26 | P.HP_ITS ---
Providers/Chief Complaint 2 Primary Care Provider: Elysia Sousa MD Chief Complaint: dr arteaga, passing out History of Present Illness Michelle Bradford is a 78 year old female with a past medical history all pulmonary embolism, off anticoagulation, history of chronic anemia, history of iron deficiency anemia, history of chronic pain on opiate medications, history of neck surgery history of back surgery, history of COPD who presents to [facility] due to altered mental status. Currently patient is alert to person, to place, to time she can follow commands, has intermittent episodes of confusion, she tells me that she does not remember the last 24 hours. Lasting she remembers is on Monday, she was working at the [employer], she got the time wrong when she went home which was about 2 PM she said 10 AM, family disagreed, according to family she was not feeling well on Monday, she was acting confused, she tells me that she got home, she ate something, and went to bed she does not exactly remember the events of Monday evening that well, but says she does not remember the events of Monday, family eventually found her on the floor, in her bedroom, she was soaked in urine in her bed was soaked in urine she was confused, currently no facial droop, no slurring of words no focal weakness, she went to urgent care she had head CT which did not show evidence of acute bleed, they had done blood work on her and hemoglobin was below 7 so she was advised to come here to the emergency room, currently she has no complaints no chest pain, no palpitations, no shortness of breath, no abdominal pain she does have back pain, no hip pain, no knee pain, no foot pain she is not sure if she fell or hit her head, but she does complain of a headache, does report dysuria hematuria Review of Systems 2 Const: Denies: fever(s) or chills Card: Denies: chest pain Resp: Denies: dyspnea GI: Denies: abdominal pain : Reports: dysuria and urinary frequency; Denies: flank pain Musc: Reports: neck pain and back pain Skin/Breast: Denies: rash Neuro: Reports: headache(s) Medications/Allergies Home Medications Medication Instructions Recorded Confirmed Last Taken Type albuterol sulfate 90 mcg/actuation 2 puff inhalation 6XD PRN 08/09/19 03/01/23 2 Days Ago History aerosol inhaler Shortness Of Breath Or Wheezing ~11/02/19 alprazolam 0.5 mg tablet 0.5 mg PO QID PRN Anxiety 08/09/19 03/01/23 1 Day Ago History ~11/03/19 amlodipine 5 mg tablet 5 mg PO DAILY 08/09/19 03/01/23 06/19/22 History atorvastatin 40 mg tablet 40 mg PO DAILY 08/09/19 03/01/23 06/19/22 History citalopram 20 mg tablet 20 mg PO DAILY 08/09/19 03/01/23 06/19/22 History diclofenac sodium 1 % gel topical 2 gm topical QID PRN Itching 08/09/19 03/01/23 1 Day Ago History kit ~11/03/19 hydrocodone 10 mg-acetaminophen 1 tab PO Q6H PRN Pain 08/09/19 03/01/23 11/04/19 08:10 History 325 mg tablet pantoprazole 40 mg tablet,delayed 40 mg PO BID 08/09/19 03/01/23 06/19/22 History release (Protonix) methocarbamol 500 mg tablet 500 mg PO QID 05/03/21 03/01/23 06/19/22 History docusate sodium 100 mg capsule 100 mg PO DAILY 12/01/21 03/01/23 06/19/22 History (Colace) cholecalciferol (vitamin D3) 50 50 mcg PO DAILY 06/20/22 03/01/23 06/20/22 History mcg (2,000 unit) capsule (Vitamin D3) gabapentin 300 mg capsule 300 mg PO BID pain 06/20/22 03/01/23 06/19/22 History tizanidine 4 mg tablet 4 mg PO DAILY PRN Muscle Pain 06/20/22 03/01/23 Unknown History pyridoxine (vitamin B6) 25 mg See Rx Instructions PO DAILY 09/30/22 03/01/23 Unknown History tablet acetaminophen 500 mg tablet 1,000 mg PO BID 01/24/23 03/01/23 Unknown History (Tylenol Extra Strength) docosanol 10 % topical cream 1 applic topical QID #2 grams 02/09/23 03/01/23 Unknown Rx (Abreva) budesonide-formoterol HFA 160 2 puff inhalation BID 03/01/23 03/01/23 Unknown History mcg-4.5 mcg/actuation aerosol inhaler (Symbicort) guaifenesin 1,200 mg tablet, 1,200 mg PO BID PRN 03/01/23 Unknown History extended release 12 hr (Mucinex) furosemide 20 mg tablet (Lasix) 20 mg PO DAILY 05/01/23 05/01/23 Unknown History Allergies Allergy/AdvReac Type Severity Reaction Status Date / Time infliximab [From Remicade] Allergy Unknown Verified 05/01/23 14:09 meropenem Allergy ALGY-Hives Verified 05/01/23 14:09 nafcillin Allergy ALGY-Hives Verified 05/01/23 14:09 PFSH Acute 2 PFSH: Medical History Sciatica, left side Weight loss, non-intentional COPD (chronic obstructive pulmonary disease) with chronic bronchitis COPD (chronic obstructive pulmonary disease) with acute bronchitis Rheumatoid arthritis Osteoarthritis Fibromyalgia Hyperlipidemia Anxiety and depression GERD (gastroesophageal reflux disease) Community acquired pneumonia Immunization counseling High risk medication use Osteoporosis Seropositive rheumatoid arthritis of multiple sites Thoracic postlaminectomy syndrome Lumbar post-laminectomy syndrome Soft tissue mass Surgical History History of colon surgery 14 inches removed History of appendectomy H/O foot surgery bilaterally History of thoracic surgery (~02/2017) Dr. Kauffman T10-T11 fixation/fusion. HX T11 fracture. 04/06/17 Dr Kauffman removal of posterior 5.5 mm diameter titanium [place]. Exploration of rostal end of fusion adjacent to [place] and screw;staph infection History of lumbar surgery (~2012) Dr. Kauffman L1-L5 laminectomy/fusion/fiaxation; exploration History of thoracic surgery (~04/2016) Dr. Kauffman T9-S1 fusion fixation History of lumbar surgery (~2010) Dr. Kauffman L1-L5 laminectomy/fusion/fixation Status post cervical spinal fusion (~2007) Dr Leblanc C6-C7 ACDFF History of hysterectomy History of cholecystectomy Family History Father Stroke Mother Cancer Family history of thyroid problem Sister Cancer Brother Diabetes Social History Smoking and tobacco/nicotine status: former use of tobacco/nicotine Quit status (tobacco/nicotine): has quit using Year quit tobacco: 2022 Former quit date comment: smoked 40 years Alcohol intake: never Substance/Drug Use: never Household members: none Marital status: / Current occupational status: retired Vitals/I&O/Wt Last Vital Signs Temp 98.1 F 05/01/23 17:46 Pulse 80 05/01/23 17:46 Resp 14 05/01/23 17:46 BP 130/78 05/01/23 17:46 Pulse Ox 95 05/01/23 17:46 O2 Del Method Room Air 05/01/23 17:46 Weight last 48 hrs Weight 53.07 kg Physical Exam 2 Const: COMMON NORMALS: no acute distress and patient oriented x3 HENMT: COMMON NORMALS: normocephalic HEAD & SCALP: normocephalic Eye: COMMON NORMALS: Equal, round and reactive pupils present and EOMs intact bilaterally Neck/C-Spine: COMMON NORMALS: no JVD OTHER: Carnett's sign negative, emergency sign negative Resp: COMMON NORMALS: normal respiratory effort, No retractions, No use of accessory muscles and clear to auscultation bilaterally AUSCULTATION: clear to auscultation bilaterally Cardio: COMMON NORMALS: no JVD, regular rate, regular rhythm, S1 normal heart sound present and S2 normal heart sound present RATE: regular rate RHYTHM: regular rhythm HEART SOUNDS: S1 normal heart sound present and S2 normal heart sound present GI: COMMON NORMALS: Normal to inspection, nondistended, normoactive bowel sounds present, Soft to palpation, non-tender, No hepatosplenomegaly present, no masses and no bruits PALPATION: Yes Soft to palpation and Yes No hepatosplenomegaly present Extremity: COMMON NORMALS: no calf tenderness and no pedal edema Neuro: COMMON NORMALS: patient oriented x3, CN's II-XII intact bilaterally and moves all extremities Psych: COMMON NORMALS: mental status grossly normal Data 05/01/23 18:30 05/01/23 18:30 A&P Assessment and plan (1) Acute encephalopathy: (2) Acute anemia: (3) Acute kidney injury: (4) Transient global amnesia: Plan Acute on chronic anemia -In 2015, she had a exploratory laparotomy with partial colectomy anastomosis for left-sided colitis -Patient family tells me in the last 5 years, which was normal -She did have an EGD May 2022 which showed moderate gastritis -She has a history of PE, she was on Eliquis now is off of it -She sees oncology as outpatient for acute on chronic anemia, concern for iron deficiency Plan -For now monitor hemoglobin -Transfuse 1 unit PRBC -Iron studies, further workup based on clinical progress -Protonix, Carafate -Keep on clears -Will consider EGD based on clinical progress -Heme: Stool Acute encephalopathy -Etiology unclear, some component related to anemia -According to family on Monday she was acting confused, and she does not remember the events of Monday -Obtain a UA -CRP, Pro-Yared -Further workup based on clinical progress -No focal neurologic deficits -Symptoms seem more global, possible transient global amnesia Chronic back pain, chronic neck pain Acute kidney injury, IV fluids Attestations 2 Medical Necessity Statement*: Patient requires hospitalization, inpatient, greater than 2 midnights, for acute on chronic anemia, concerns for slow GI bleed, acute encephalopathy, CATHIE, trending globin amnesia Diagnoses Acute encephalopathy G93.40 Acute anemia D64.9 Acute kidney injury N17.9 Transient global amnesia G45.4
[2023-05-01 21:06] LABS: Troponin(5th) Baseline 33 ng/L (0-10)
[2023-05-01 21:15] LABS: Ammonia 13 umol/L (11-51); Lactic Sepsis W/Reflex 1.1 mmol/L (0.5-2.2)
[2023-05-01 21:17] LABS: Troponin 5 2HR 29.27 ng/L (0-10)
[2023-05-01 21:18] LABS: Troponin 5 2HR Delta -3.73 ABS# (0-10)
[2023-05-01 21:26] LABS: Free T4 Free Thyroxine 0.95 ng/dL (0.82-1.77); Procalcitonin 0.15 ng/mL (0-0.5); T3 Free 1.6 PG/ML (2.0-4.4)
[2023-05-01 21:37] LABS: C Reactive Protein 5.5 mg/L (0.0-4.9)
[2023-05-01] MEDS: ondansetron 2 mg/ML SDV 2 mL 4 MG IVP (21:41)
[2023-05-01] MEDS: morphine 4 mg/mL SDV 1 mL IVP (21:46)
--- NOTE | 2023-05-01 22:36 | ECG_ITS ---
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 Measurements Intervals [place] Rate: 72 P: 70 FL: 169 QRS: 63 QRSD: 83 T: 79 QT: 417 QTc: 457 Interpretive Statements SINUS RHYTHM Compared to ECG 05/01/2023 18:07:39 No significant changes Electronically Signed On 05-02-2023 18:34:30 [employer] by Ethan Mcdonnell M.D. [id number]
[2023-05-01 22:40] LABS: Chol HDL Ratio 3.37 mg/dL (0.0-4.40); Cholesterol 101 mg/dL (0-200); HDL Cholesterol 30 mg/dL (60-100); LDL Cholesterol Calculated 49 mg/dL (50-129); LDL HDL Ratio 1.63 RATIO (0.00-3.22); Thyroid Stimulating Hormone 0.63 uIU/mL (0.27-4.20); Triglycerides 110 mg/dL (0-150)
[2023-05-01 22:40] LABS: Add Urine Microscopic? NO; Charge for UA Resulting for Rev
[2023-05-01 22:50] LABS: Urine Appearance Clear (CLEAR); Urine Color Yellow (Yellow)
[2023-05-01 22:51] LABS: Bilirubin Urine Neg (Negative); Blood Urine Neg (Negative); Glucose Urine UA Norm (Normal); Ketones Urine 1+ (Negative); Leukocyte Esterase Urine Negative (Negative); Nitrate Urine Negative (Negative); Protein Urine Neg (Negative); Specific Gravity, Urine 1.005 (1.005-1.030); Urobilinogen Urine Neg (Negative); pH Urine 7 (5-7)
[2023-05-01 22:51] LABS: Estmated Average Glucose 100; Hemoglobin A1C 5.1 % (4.0-6.0)
[2023-05-02] VITALS (13 sets, daily range): BP systolic 122–173; BP diastolic 65–84; PULSE 65–93; RESP 16–18; TEMP 36.2–37.1; O2SAT 94–99
[2023-05-02] MEDS: sucralfate 1 gm/10 mL Oral Liq UDC PO ×4 (00:02→17:19)
[2023-05-02] MEDS: pantoprazole 40 mg SDV IVP ×3 (00:02→19:41)
[2023-05-02 00:45] LABS: Basophils # 0.1 10^3/uL (0.0-0.1); Basophils % 1.2 %; Eosinophils % 0.7 %; Hematocrit 22.5 % (36-47); Lymphocytes # 1.5 10^3/uL (0.8-4.8); Lymphocytes % 35.1 %; Mean Corpuscular HGB Conc 30.7 g/dL (30-55); Mean Corpuscular Hemoglobin 26.2 pg (27-33); Mean Corpuscular Volume 85.6 fl (85-98); Mean Platelet Volume 8.6 fL (7.4-10.4); Monocytes # 0.4 10^3/uL (0.2-0.9); Monocytes % 10.4 %; Neutrophils # 2.21 10^3/uL (1.8-7.7); Neutrophils % 52.4 %; Nucleated Red Blood Cells % 0 %; Platelet Count 230 10^3/cmm (157-399); Red Blood Count 2.63 10^6/uL (3.85-5.65); Red Cell Distribution Width 18.2 % (12.1-15.1); White Blood Count 4.22 10^3/uL (3.29-11.43)
[2023-05-02] MEDS: sodium chloride 0.9% 100 mL Bag 50 ML IV (00:48)
[2023-05-02 01:02] LABS: Troponin 5 6HR 30.39 ng/L (0-10)
[2023-05-02 01:03] LABS: Anion Gap 15.2 (5-19); Blood Urea Nitrogen 27 mg/dL (8-23); Calcium 8.8 mg/dL (8.5-10.5); Carbon Dioxide 22 mmol/L (22-29); Chloride 106 mmol/L (98-107); Creatinine Clr Calc Pharmacy 36.2241; Glucose 98 mg/dL (65-115); Osmolality Calculated 293 mOsm/kg (285-295); Potassium 4.2 mmol/L (3.5-5.1); Sodium 139 mmol/L (136-145)
[2023-05-02 01:04] LABS: Troponin 5 6HR Delta -2.61 ng/L (0-12)
[2023-05-02] MEDS: sodium chloride 0.9% 1,000 ML 75 ML IV (03:28)
[2023-05-02 05:41] LABS: Hematocrit 30.3 % (36-47)
[2023-05-02] MEDS: acetaminophen 325 mg Tablet 650 MG PO (06:59)
[2023-05-02] MEDS: citalopram 20 mg Tablet PO (08:36)
[2023-05-02] MEDS: atorvastatin 40 mg Tablet PO (08:36)
[2023-05-02] MEDS: gabapentin 300 mg Capsule PO ×2 (08:36→17:19)
--- NOTE | 2023-05-02 09:58 | PC.CHAP ---
Pastoral Care Encounter/Spiritual Assessment Type of Contact [] Declined client experience specialist visit [] Patient/Family/Request visit [] Outpatient visit [] Follow-up visit [] Physician referral [] Code/Alert [x] Routine visit [] Staff referral [] Actively dying [] Patient sleeping [] Family support [] [] Out of room [] Palliative care [] [] Receiving care in room [] Pre-surgical visit [] Trauma [] Long length of stay [] ICU visit [] Other: Relational/Emotional Strength [x] Patient feels connected with others/family/visitors/staff [] Distress [] Loneliness/isolation [] Abandonment Spirituality of Patient [x] Person of Miranda [] Attends Christian of their Miranda [x] Believes in Prayer [] Reads Bible or Mandaen materials [] There are Spiritual issues to be addressed Ramp Flight 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 Interventions [x] Prayer [x] Active listening [] Non-anxious presence [x] Spiritual/emotional support [] Crisis/trauma care [] Spiritual counseling [] Bereavement support [] Provided bereavement packet [] Provided Bible/devotional materials [] Provided toy/stuffed animal, coloring book to patient or family member [] Provided Communion [] Anointing/[place] [] Salvation [x] Completed spiritual assessment [] Other: Impact on Illness or Injury [] Angry [] Fearful [] Anxious [] Often cries [] Exhaustion [] Unable to work [] Unable to attend yazidi [] Unable to walk/stand [] Unable to read [] Unable to drive [] Unable to eat/drink [] Unable to sleep [] Unable to be with family [] Patient intubated [] Other: Summary Time spent with patient 5 min
--- NOTE | 2023-05-02 12:45 | P.PN_ITS ---
Subjective 2 Subjective: Denies any BRBPR, melena, hematuria, has not any other obvious bleeding. Reports has had upper and lower endoscopy but it has been several years. Vitals/I&O/Wt Last Vital Signs Temp 98.3 F 05/02/23 11:58 Pulse 71 05/02/23 11:58 Resp 18 05/02/23 11:58 BP 165/83 05/02/23 11:58 Pulse Ox 98 05/02/23 11:58 O2 Del Method Nasal Cannula 05/02/23 11:58 O2 Flow Rate 2 05/02/23 10:37 05/01/23 05/02/23 05/02/23 22:59 06:59 14:59 Intake Total 0 / 0 700 / 700 180 / 180 Balance 0 / 0 700 / 700 180 / 180 Weight last 48 hrs Weight 55.837 kg Weight 55.338 kg Weight 53.07 kg Physical Exam 2 Narrative: Accompanied by her daughter. Const: COMMON NORMALS: patient oriented x3 and alert GENERAL APPEARANCE: c ooperative ORIENTATION/CONSCIOUSNESS: Yes awake HENMT: COMMON NORMALS: oropharynx normal Neck/C-Spine: COMMON NORMALS: no JVD Resp: COMMON NORMALS: normal respiratory effort and clear to auscultation bilaterally AUSCULTATION: clear to auscultation bilaterally Cardio: COMMON NORMALS: no JVD, regular rhythm, S1 normal heart sound present, S2 normal heart sound present and No murmurs present (Cardio) RHYTHM: regular rhythm HEART SOUNDS: S1 normal heart sound present and S2 normal heart sound present GI: COMMON NORMALS: Normal to inspection, nondistended, normoactive bowel sounds present, Soft to palpation and non-tender PALPATION: Yes Soft to palpation Extremity: COMMON NORMALS: no joint enlargement and no pedal edema Neuro: COMMON NORMALS: patient oriented x3 and moves all extremities S ENSORIUM/ORIENTATION: Yes alert Skin: COMMON NORMALS: no rashes or lesions noted GENERAL SKIN EXAM: no rashes or lesions noted Data 05/02/23 05:05 05/02/23 00:39 A&P Assessment and plan (1) Acute encephalopathy: (2) Acute anemia: (3) Acute kidney injury: (4) Transient global amnesia: Plan Acute on chronic anemia: Reviewed vitals, CBC, INR, CMP, iron studies. Discussed with her and her daughter. She did respond well to blood transfusion, hemoglobin came up to 9.2. She has not noticed obvious bleeding. Discussed Hemoccult is ordered, she will let nursing know in case it is to have a bowel movement. Is noted to have iron deficiency anemia. Previously has had EGD and colonoscopy. Stop IV fluid. Follow-up Hemoccult. Will also repeat CBC to see if she is able to maintain hemoglobin. This may determine further steps. In meantime continue PPI IV twice daily. She denies any NSAID use. Does not drink alcohol. She does not seem to recall recent EGD but reported in May which showed moderate gastritis. On Eliquis due to history of PE. Follows with hematology for chronic anemia. Iron deficiency. Will give a dose of IV iron. -Keep on clears -Will consider EGD based on clinical progress -Heme: Stool Acute encephalopathy: Appears resolved. Possibly secondary to symptomatic severe anemia. -Etiology unclear, some component related to anemia -According to family on Monday she was acting confused, and she does not remember the events of Monday -reviewed UA -reviewed Pro-Yared -Further workup based on clinical progress -No focal neurologic deficits -Symptoms seem more global, possible transient global amnesia Chronic back pain, chronic neck pain Acute kidney injury, Reviewed BUN, creatinine, creatinine improving to 1.1. Stop IV fluid. Attestations 2 Medical Necessity Statement*: Continue admission for assessment management of severe symptomatic anemia. Diagnoses Acute encephalopathy G93.40 Acute anemia D64.9 Acute kidney injury N17.9 Transient global amnesia G45.4
[2023-05-02] MEDS: HYDROcodone-acetaminophen 10-325 mg Tablet 1 TAB PO ×2 (13:16→19:41)
[2023-05-02] MEDS: ALPRAZolam 0.5 mg Tablet PO ×2 (13:16→20:07)
[2023-05-02] MEDS: iron sucrose 200 MG in sodium chloride 0.9% (100 ml) 100 ML 220 MG IV (13:16)
[2023-05-03] VITALS: BP 125/65; PULSE 71; RESP 16; TEMP 37.1; O2SAT 96
[2023-05-03 04:49] VITALS: BP 130/70; PULSE 53; RESP 16; TEMP 37.1; O2SAT 95
[2023-05-03 05:02] LABS: Basophils # 0.1 10^3/uL (0.0-0.1); Basophils % 1.8 %; Eosinophils # 0.1 10^3/uL (0.0-0.8); Eosinophils % 2.2 %; Hematocrit 35.7 % (36-47); Lymphocytes # 2.2 10^3/uL (0.8-4.8); Lymphocytes % 44.4 %; Mean Corpuscular HGB Conc 29.4 g/dL (30-55); Mean Corpuscular Hemoglobin 27.2 pg (27-33); Mean Corpuscular Volume 92.5 fl (85-98); Mean Platelet Volume 9.7 fL (7.4-10.4); Monocytes # 0.8 10^3/uL (0.2-0.9); Monocytes % 15.9 %; Neutrophils # 1.73 10^3/uL (1.8-7.7); Neutrophils % 35.3 %; Nucleated Red Blood Cells % 0 %; Platelet Count 236 10^3/cmm (157-399); Red Blood Count 3.86 10^6/uL (3.85-5.65); White Blood Count 4.91 10^3/uL (3.29-11.43)
[2023-05-03 05:21] LABS: Alanine Aminotransferase 18 U/L (0-33); Albumin Level 3.3 g/dL (3.5-5.2); Alkaline Phosphatase 67 U/L (35-105); Anion Gap 15.1 (5-19); Aspartate Amino Transferase 31 U/L (0-32); Blood Urea Nitrogen 19 mg/dL (8-23); Calcium 9.5 mg/dL (8.5-10.5); Carbon Dioxide 22 mmol/L (22-29); Chloride 110 mmol/L (98-107); Globulin 3.2 g/dL (1.3-4.6); Glucose 93 mg/dL (65-115); Osmolality Calculated 298 mOsm/kg (285-295); Potassium 4.1 mmol/L (3.5-5.1); Sodium 143 mmol/L (136-145); Total Bilirubin 0.4 mg/dL (0.15-1.2); Total Protein 6.5 g/dL (6.6-8.7)
[2023-05-03] MEDS: sucralfate 1 gm/10 mL Oral Liq UDC PO ×2 (05:53→11:41)
[2023-05-03] MEDS: gabapentin 300 mg Capsule PO (07:59)
[2023-05-03] MEDS: atorvastatin 40 mg Tablet PO (07:59)
[2023-05-03] MEDS: pantoprazole 40 mg SDV IVP (07:59)
[2023-05-03] MEDS: citalopram 20 mg Tablet PO (07:59)
[2023-05-03 08:06] VITALS: BP 161/89; PULSE 70; RESP 18; TEMP 36.4; O2SAT 95
[2023-05-03 10:29] VITALS: PULSE 72; RESP 16; O2SAT 98
[2023-05-03] MEDS: iron sucrose 200 MG in sodium chloride 0.9% (100 ml) 100 ML 220 MG IV (11:41)
[2023-05-03 12:03] VITALS: BP 161/78; PULSE 70; RESP 17; TEMP 36.3; O2SAT 95
--- NOTE | 2023-05-03 12:33 | PM.DCS ---
Discharge Providers Date of Admission: 05/01/23 22:08 Date of Discharge: May 03, 2023 Attending Provider at Admission: Jeffrey James MD Attending Provider at Discharge: Panfilo Clemons Primary Care Provider: Elysia Sousa MD Diagnoses at Discharge Discharge Diagnosis (1) Acute encephalopathy: Status: Acute (2) Acute anemia: Status: Acute (3) Acute kidney injury: Status: Acute (4) Transient global amnesia: Status: Acute Reason for Visit Reason for Visit: dr arteaga, passing out Brief History: Michelle Bradford is a 78 year old female with a past medical history all pulmonary embolism, off anticoagulation, history of chronic anemia, history of iron deficiency anemia, history of chronic pain on opiate medications, history of neck surgery history of back surgery, history of COPD who presents to [facility] due to altered mental status. Currently patient is alert to person, to place, to time she can follow commands, has intermittent episodes of confusion, she tells me that she does not remember the last 24 hours. Lasting she remembers is on Monday, she was working at the [employer], she got the time wrong when she went home which was about 2 PM she said 10 AM, family disagreed, according to family she was not feeling well on Monday, she was acting confused, she tells me that she got home, she ate something, and went to bed she does not exactly remember the events of Monday evening that well, but says she does not remember the events of Monday, family eventually found her on the floor, in her bedroom, she was soaked in urine in her bed was soaked in urine she was confused, currently no facial droop, no slurring of words no focal weakness, she went to urgent care she had head CT which did not show evidence of acute bleed, they had done blood work on her and hemoglobin was below 7 so she was advised to come here to the emergency room, currently she has no complaints no chest pain, no palpitations, no shortness of breath, no abdominal pain she does have back pain, no hip pain, no knee pain, no foot pain she is not sure if she fell or hit her head, but she does complain of a headache, does report dysuria hematuria Hospital Course Hospital Course On presentation she was found to have severe anemia, hemoglobin down to 6.5. Received blood transfusion with good response. Found to have iron deficiency anemia on iron studies. Given IV iron in the hospital, continues with oral iron. Does have known anemia, follows up with hematology. 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 Without active bleeding. Hemoccult stool was requested, her, she has not had any bowel movements. Did not notice any active bleeding elsewhere. Acute encephalopathy was possibly related to symptomatic acute anemia. Workup otherwise unremarkable with CT head negative for acute abnormality. CT abdomen pelvis mildly displaced fracture of right 11th rib, no other acute findings, chest x-ray without acute findings, no suggestion of pneumonia. She has remained afebrile, without leukocytosis. UA was unremarkable. With blood transfusion her mental status has remained good, she remains awake and alert, at her baseline. She is asked to stop scheduled methocarbamol. Her hemoglobin was rechecked, remains good after transfusion, today up to 10.5. Likely slow blood loss, possibly GI. Otherwise no thrombocytopenia, not take any NSAIDs. Does not drink alcohol. Does take low-dose aspirin. Inhaled steroid. She is asked to continue PPI twice daily. Please follow-up her hemoglobin, continue workup of iron deficiency anemia. Consider repeat EGD versus referral to GI, consideration of capsule endoscopy. Continue follow-up with hematology regarding chronic anemia. Follow-up regarding chronic kidney disease. Physical Exam Narrative: Accompanied by her daughter. She reports she is doing well and wants to go home. Denies any additional new symptoms. Remains awake and alert, oriented. Comfortable. Pleasant, conversant. In good spirits. Const: COMMON NORMALS: patient oriented x3 and alert GENERAL APPEARANCE: cooperative ORIENTATION/CONSCIOUSNESS: Yes awake HENMT: COMMON NORMALS: oropharynx normal Neck/C-Spine: COMMON NORMALS: no JVD Resp: COMMON NORMALS: normal respiratory effort and clear to auscultation bilaterally AUSCULTATION: clear to auscultation bilaterally Cardio: COMMON NORMALS: no JVD, regular rhythm, S1 normal heart sound present, S2 normal heart sound present and No murmurs present (Cardio) RHYTHM: regular rhythm HEART SOUNDS: S1 normal heart sound present and S2 normal heart sound present GI: COMMON NORMALS: Normal to inspection, nondistended, normoactive bowel sounds present, Soft to palpation and non-tender PALPATION: Yes Soft to palpation Extremity: COMMON NORMALS: no joint enlargement and no pedal edema Neuro: COMMON NORMALS: patient oriented x3 and moves all extremities SENSORIUM/ORIENTATION: Yes alert Skin: COMMON NORMALS: no rashes or lesions noted GENERAL SKIN EXAM: no rashes or lesions noted Discharge Data Studies Completed and Pending Completed Studies During Hospitalization Category Date Time Status CT abdomen pelvis wo con [id number] Stat Cat Scan 05/01/23 20:[address] head wo con* [id number] Stat Cat Scan 05/01/23 20:09 Completed CXRP [XR chest 1V portable [id number]] Stat Exams 05/01/23 19:16 Completed Pending at discharge Category Date Time Status Blood Cultures ([facility]) Routine Lab 05/01/23 20:40 Received Blood Cultures ([facility]) Routine Lab 05/01/23 20:48 Received Complete Blood Count w/Auto AM LABS Lab 05/04/23 04:00 Ordered Complete Blood Count w/Auto AM LABS Lab 05/05/23 04:00 Ordered Comprehensive Metabolic Panel AM LABS Lab 05/04/23 04:00 Ordered Comprehensive Metabolic Panel AM LABS Lab 05/05/23 04:00 Ordered Immunochemical Fecal OCB Routine Lab 05/01/23 20:11 Ordered Radiology Impressions Chest X-Ray 05/01/23 19:16 IMPRESSION: No acute findings. Abdomen/Pelvis CT 05/01/23 20:09 IMPRESSION: 1. No evidence of acute traumatic injury to the abdomen or pelvis within limitations of a noncontrast exam. 2. Subacute mildly displaced fracture of the posterior right 11th rib, new since June 2022. Head CT 05/01/23 20:09 IMPRESSION: No acute intracranial abnormality. Laboratory Results WBC 4.91 10^3/uL (3.29-11.43) 05/03/23 04:48 RBC 3.86 10^6/uL (3.85-5.65) 05/03/23 04:48 Hgb 10.50 g/dL (11.27-16.99) L 05/03/23 04:48 Hct 35.7 % (36-47) L 05/03/23 04:48 MCV 92.5 fl (85-98) 05/03/23 04:48 MCH 27.2 pg (27-33) 05/03/23 04:48 MCHC 29.4 g/dL (30-55) L 05/03/23 04:48 RDW 19.0 % (12.1-15.1) H 05/03/23 04:48 Plt Count 236 10^3/cmm (157-399) 05/03/23 04:48 MPV 9.7 fL (7.4-10.4) 05/03/23 04:48 Neut % (Auto) 35.3 % 05/03/23 04:48 Lymph % (Auto) 44.4 % 05/03/23 04:48 [place] % (Auto) 15.9 % 05/03/23 04:48 Eos % (Auto) 2.2 % 05/03/23 04:48 Baso % (Auto) 1.8 % 05/03/23 04:48 Neut # (Auto) 1.73 10^3/uL (1.8-7.7) L 05/03/23 04:48 Lymph # (Auto) 2.2 10^3/uL (0.8-4.8) 05/03/23 04:48 [place] # (Auto) 0.8 10^3/uL (0.2-0.9) 05/03/23 04:48 Eos # (Auto) 0.1 10^3/uL (0.0-0.8) 05/03/23 04:48 Baso # (Auto) 0.1 10^3/uL (0.0-0.1) 05/03/23 04:48 Nucleated RBC % (auto) 0 % 05/03/23 04:48 Nucleated RBCs # 0.0 /100WBC 05/03/23 04:48 PT 13.50 SECONDS (12.1-14.9) 05/01/23 18:30 INR 1.00 (0.8-1.2) 05/01/23 18:30 Sodium 143 mmol/L (136-145) 05/03/23 04:48 Potassium 4.1 mmol/L (3.5-5.1) 05/03/23 04:48 Chloride 110 mmol/L (98-107) H 05/03/23 04:48 Carbon Dioxide 22 mmol/L (22-29) 05/03/23 04:48 Anion Gap 15.1 (5-19) 05/03/23 04:48 BUN 19 mg/dL (8-23) 05/03/23 04:48 Creatinine 1.2 mg/dL (0.5-0.9) H 05/03/23 04:48 GFR Calculation Not Reportable 05/03/23 04:48 Glucose 93 mg/dL (65-115) 05/03/23 04:48 Estimat Average Glucose 100 05/01/23 18:30 Hemoglobin A1c 5.1 % (4.0-6.0) 05/01/23 18:30 Calculated Osmolality 298 mOsm/kg (285-295) H 05/03/23 04:48 Lactic Acid 1.1 mmol/L (0.5-2.2) 05/01/23 20:40 Calcium 9.5 mg/dL (8.5-10.5) 05/03/23 04:48 Iron 33 ug/dL (37-145) L 05/01/23 18:30 TIBC 345 mcg/dl 05/01/23 18:30 % Saturation 9.5 % (20-50) L 05/01/23 18:30 Unsat Iron Binding 312 ug/dL (112-347) 05/01/23 18:30 Total Bilirubin 0.4 mg/dL (0.15-1.2) 05/03/23 04:48 AST 31 U/L (0-32) 05/03/23 04:48 ALT 18 U/L (0-33) 05/03/23 04:48 Alkaline Phosphatase 67 U/L (35-105) 05/03/23 04:48 Ammonia 13 umol/L (11-51) 05/01/23 20:40 Troponin T Baseline 33 ng/L (0-10) H 05/01/23 18:30 Troponin T 120 Minute 29.27 ng/L (0-10) H 05/01/23 20:49 Delta Troponin T -3.73 ABS# (0-10) L 05/01/23 20:49 Troponin T Hi Sens 6Hr 30.39 ng/L (0-10) H 05/02/23 00:39 Troponin T Hi Sens 6Hr Delta -2.61 ng/L (0-12) L 05/02/23 00:39 C-Reactive Protein 5.5 mg/L (0.0-4.9) H 05/01/23 20:40 Total Protein 6.5 g/dL (6.6-8.7) L 05/03/23 04:48 Albumin 3.3 g/dL (3.5-5.2) L 05/03/23 04:48 Globulin 3.2 g/dL (1.3-4.6) 05/03/23 04:48 Triglycerides 110 mg/dL (0-150) 05/01/23 20:49 Cholesterol 101 mg/dL (0-200) 05/01/23 20:49 LDL Cholesterol, Calc 49 mg/dL (50-129) L 05/01/23 20:49 HDL Cholesterol 30 mg/dL (60-100) L 05/01/23 20:49 LDL/HDL Ratio 1.63 RATIO (0.00-3.22) 05/01/23 20:49 Cholesterol/HDL Ratio 3.37 mg/dL (0.0-4.40) 05/01/23 20:49 Procalcitonin 0.15 ng/mL (0-0.5) 05/01/23 20:40 TSH 0.63 uIU/mL (0.27-4.20) 05/01/23 20:49 Free T4 0.95 ng/dL (0.82-1.77) 05/01/23 20:40 Free T3 1.6 PG/ML (2.0-4.4) L 05/01/23 20:40 Urine Color Yellow (Yellow) 05/01/23 22:28 Urine Appearance Clear (CLEAR) 05/01/23 22:28 Urine pH 7 (5-7) 05/01/23 22:28 Ur Specific [place] 1.005 (1.005-1.030) 05/01/23 22:28 Urine Protein Neg (Negative) 05/01/23 22:28 Urine Glucose (UA) Norm (Normal) 05/01/23 22:28 Urine Ketones 1+ (Negative) H 05/01/23 22:28 Urine Blood Neg (Negative) 05/01/23 22:28 Urine Nitrate Negative (Negative) 05/01/23 22:28 Urine Bilirubin Neg (Negative) 05/01/23 22: Urine Urobilinogen Neg mg/dL (Negative) 05/01/23 22:28 Ur Leukocyte Esterase Negative (Negative) 05/01/23 22:28 Blood Type O Negative 05/01/23 18:30 Rho(D) Type Negative 05/01/23 18:30 Antibody Screen Positive 05/01/23 18:30 Antibody Identification Anti-K 05/01/23 18:30 Antigen Identification K Antigen - NEGATIVE 05/01/23 18:30 Crossmatch See Detail 05/01/23 18:30 Vitals Last Vital Signs Temp 97.3 F L 05/03/23 12:03 Pulse 70 05/03/23 12:03 Resp 17 05/03/23 12:03 BP 161/78 05/03/23 12:03 Pulse Ox 95 05/03/23 12:03 O2 Del Method Room Air 05/03/23 12:03 O2 Flow Rate 2 05/03/23 10:29 Discharge Plan Discharge Patient Disposition: Home Condition: Stable Prescriptions: New ferrous sulfate 325 mg (65 mg iron) tablet,delayed release (DR/EC) 325 mg PO EVERY OTHER DAY Qty: 90 0RF Continued hydrocodone-acetaminophen 10-325 mg tablet 1 tab PO Q6H PRN (Reason: Pain) albuterol sulfate 90 mcg/actuation HFA aerosol inhaler 2 puff INHALATION 6XD PRN (Reason: Shortness Of Breath Or Wheezing) alprazolam 0.5 mg tablet 0.5 mg PO QID PRN (Reason: Anxiety) amlodipine 5 mg tablet 5 mg PO DAILY atorvastatin 40 mg tablet 40 mg PO DAILY citalopram 20 mg tablet 20 mg PO DAILY pantoprazole [Protonix] 40 mg tablet,delayed release (DR/EC) 40 mg PO BID docusate sodium [Colace] 100 mg capsule 100 mg PO DAILY acetaminophen [Tylenol Extra Strength] 500 mg tablet 1,000 mg PO BID docosanol [Abreva] 10 % cream 1 applic topical QID Qty: 2 0RF furosemide [Lasix] 20 mg tablet 20 mg PO DAILY PRN (Reason: Edema) Mucinex 1,200 mg tablet extended release 12hr 1,200 mg PO BID PRN (Reason: Cough) budesonide-formoterol [Symbicort] 160-4.5 mcg/actuation HFA aerosol inhaler 2 puff inhalation BID tizanidine 4 mg Tablet 4 mg PO DAILY PRN (Reason: Muscle Pain) cholecalciferol (vitamin D3) [Vitamin D3] 50 mcg (2,000 unit) Capsule 50 mcg PO DAILY gabapentin 300 mg capsule 300 mg PO BID potassium chloride 10 mEq tablet extended release 10 meq PO DAILY PRN (Reason: with lasix) leflunomide 20 mg tablet 20 mg PO DAILY calcitriol 0.25 mcg capsule 0.25 mcg PO Q7D Vitamin B-6 50 mg Capsule 50 mg PO DAILY Aspir-81 81 mg Tablet,Delayed Release (Dr/Ec) 81 mg PO DAILY vitamin M22-inswt acid 0.5-1 mg Tablet 1 tab PO DAILY Discontinued methocarbamol 500 mg tablet 500 mg PO QID Discharge Orders: Discharge Order (Routine); Ordered 05/03/23 Ordered By: Panfilo Clemons Referrals: Elysia Sousa MD [Primary Care Provider] - 05/05/23 11:00 am Discharge Diet: Cardiac Patient Instructions: Iron Deficiency Anemia (GEN) Activity Restrictions/Additional Instructions: Follow-up with your primary doctor for consideration of further assessment of iron deficiency anemia, either repeat EGD +/-colonoscopy versus referral to gastroenterology and consideration of capsule endoscopy. There is history of gastritis on prior EGD. Continue acid mary kay, Protonix, twice daily. Continue iron replacement, however, source of your iron deficiency is still unidentified and will need further investigation. Follow-up with hematology clinic as well. Follow-up with your primary doctor also for reassessment of chronic kidney disease. Continue to monitor your blood pressures at home at least twice daily. Continue heart healthy diet, continue to optimize control of hypertension. In case blood pressure is persistently elevated above 140/90, increase amlodipine dose to 10 mg. Seek medical attention in case of any recurrence of bloody stool, dark black stool, or feeling faint or lightheaded, short of breath, chest pain or any other concerning symptoms. Discharge Attestations Time Spent in Discharge Care*: greater than 30 min Quality Metrics Clinical Quality Measures [ No reported AMI, CVA or VTE this stay] Coding Level of Care Code 66626 Total time (in minutes) for Discharge: 40 Diagnoses Acute encephalopathy G93.40 Acute anemia D64.9 Acute kidney injury N17.9 Transient global amnesia G45.4
--- NOTE | 2023-05-03 13:12 | PC.NURSE ---
Discharge instructions provided to pt. NO questions or concerns at this time. She is calling her daughter now to pick her up. IV removed. Prescriptions sent to [facility].
[2023-05-03 13:13] VITALS: BP 161/78; PULSE 70; RESP 17; TEMP 36.3; O2SAT 95
== END 2023-05-03 13:43 | disposition home or self-care (01) ==
LOC: ER 19:58 → MEDSURG 22:40
PROVIDERS: Admitting Provider Family Medicine; Emergency Provider Emergency Medicine; PCP Family Medicine; Visit Provider Internal Medicine
DX: G93.40 Encephalopathy, unspecified (principal); D50.9 Iron deficiency anemia, unspecified; N17.9 Acute kidney failure, unspecified; G45.4 Transient global amnesia; Z86.711 Personal history of pulmonary embolism; G89.29 Other chronic pain; Z79.891 Long term (current) use of opiate analgesic; J44.9 Chronic obstructive pulmonary disease, unspecified; M06.9 Rheumatoid arthritis, unspecified; M79.7 Fibromyalgia; E78.5 Hyperlipidemia, unspecified; M81.0 Age-related osteoporosis without current pathological fracture; Z87.891 Personal history of nicotine dependence
CPT/HCPCS: 36415; 36430; 70450; 71045; 74176; 80048; 80053; 80061; 80503; 81000; 81003; 82140; 83036; 83540; 83550; 83605; 84145; 84439; 84443; 84481; 84484; 85014; 85018; 85025; 85610; 86140; 86850; 86870; 86900; 86902; 86920; 87040; 93005; 94664; 96365; 96375; 97110; 97116; 97162; 97166; 97535; 99285; C9113; G0378; J1756; J2270; J2405; J7030; P9016

== ENCOUNTER → 2023-05-08 14:11 | Outpatient (BNVA) | payer MEDICARE, SELFPAY | PROVIDERS: PCP Family Medicine; Visit Provider Internal Medicine Rheumatology | DX: M05.79 Rheumatoid arthritis with rheumatoid factor of multiple sites without organ or systems involvement (principal); Z98.890 Other specified postprocedural states; M81.0 Age-related osteoporosis without current pathological fracture; Z79.899 Other long term (current) drug therapy; Z71.85 Encounter for immunization safety counseling; M54.32 Sciatica, left side | CPT/HCPCS: 99214 ==

== ENCOUNTER → 2023-08-15 15:20 | Outpatient (BNVA) | payer MEDICARE, SELFPAY | PROVIDERS: PCP Family Medicine; Visit Provider Podiatrist Foot & Ankle Surgery | DX: M21.621 Bunionette of right foot (principal); M21.622 Bunionette of left foot; M20.12 Hallux valgus (acquired), left foot; Q82.8 Other specified congenital malformations of skin | CPT/HCPCS: 99213 ==

== ENCOUNTER 2023-09-01 07:30 | Oncology outpatient (recurring) (ONCR) | payer MEDICARE, SELFPAY ==
[2023-08-31 14:24] LABS: Basophils % 1.1 %; Eosinophils # 0.2 10^3/uL (0.0-0.8); Eosinophils % 5.9 %; Hematocrit 24.7 % (36-47); Lymphocytes # 1.2 10^3/uL (0.8-4.8); Lymphocytes % 33.2 %; Mean Corpuscular HGB Conc 29.6 g/dL (30-55); Mean Corpuscular Hemoglobin 32.2 pg (27-33); Mean Corpuscular Volume 108.8 fl (85-98); Mean Platelet Volume 9.6 fL (7.4-10.4); Monocytes # 0.3 10^3/uL (0.2-0.9); Monocytes % 8.7 %; Neutrophils # 1.83 10^3/uL (1.8-7.7); Neutrophils % 51.1 %; Nucleated Red Blood Cells % 0 %; Platelet Count 214 10^3/cmm (157-399); Red Blood Count 2.27 10^6/uL (3.85-5.65); Red Cell Distribution Width 15.5 % (12.1-15.1); White Blood Count 3.58 10^3/uL (3.29-11.43)
[2023-08-31 14:38] LABS: Alanine Aminotransferase 12 U/L (0-33); Albumin Level 3.8 g/dL (3.5-5.2); Alkaline Phosphatase 71 U/L (35-105); Anion Gap 15.7 (5-19); Aspartate Amino Transferase 26 U/L (0-32); Blood Urea Nitrogen 33 mg/dL (8-23); Calcium 8.6 mg/dL (8.5-10.5); Carbon Dioxide 23 mmol/L (22-29); Chloride 104 mmol/L (98-107); Ferritin 76 ng/mL (15-150); Globulin 3.3 g/dL (1.3-4.6); Glucose 106 mg/dL (65-115); Iron 122 ug/dL (37-145); Osmolality Calculated 294 mOsm/kg (285-295); Percent Saturation 40.8 % (20-50); Potassium 4.7 mmol/L (3.5-5.1); Sodium 138 mmol/L (136-145); Total Bilirubin 0.3 mg/dL (0.15-1.2); Total Iron Binding Capacity 299 mcg/dl; Total Protein 7.1 g/dL (6.6-8.7); Unsaturated Iron Binding 177 ug/dL (112-347)
[2023-09-01] VITALS (11 sets, daily range): BP systolic 102–149; BP diastolic 52–78; PULSE 72–80; RESP 16–18; TEMP 36.3–36.9; O2SAT 90–96
[2023-09-01] MEDS: diphenhydrAMINE 25 mg Capsule PO (08:17)
[2023-09-01] MEDS: acetaminophen 325 mg Tablet 650 MG PO (08:17)
[2023-09-01] MEDS: sodium chloride 0.9% (100 ml) 200 ML 999 ML (08:52)
[2023-09-01] MEDS: FUROsemide 10 mg/mL SDV 2mL 20 MG IVP (13:11)
== END 2023-09-01 23:59 | disposition home or self-care (01) ==
PROVIDERS: Nurse Practitioner Family; PCP Family Medicine; Visit Provider Internal Medicine Medical Oncology
DX: Z53.9 Procedure and treatment not carried out, unspecified reason (principal); D64.9 Anemia, unspecified
CPT/HCPCS: 36415; 36430; 80053; 82728; 83540; 83550; 85025; 86850; 86870; 86900; 86902; 86920; 96375; 99214; J1940; P9016

== ENCOUNTER → 2023-09-04 13:32 | Outpatient (BNVA) | payer MEDICARE, SELFPAY | PROVIDERS: PCP Family Medicine; Visit Provider Internal Medicine Rheumatology | DX: M81.0 Age-related osteoporosis without current pathological fracture (principal); M05.79 Rheumatoid arthritis with rheumatoid factor of multiple sites without organ or systems involvement; Z98.890 Other specified postprocedural states; Z79.899 Other long term (current) drug therapy; Z71.85 Encounter for immunization safety counseling; M54.32 Sciatica, left side | CPT/HCPCS: 99214 ==

== ENCOUNTER 2023-09-29 09:30 | Oncology outpatient (recurring) (ONCR) | payer MEDICARE, SELFPAY ==
--- NOTE | 2023-09-11 14:00 | XR_ITS ---
WS: [id number] DEXA (DUAL ENERGY X-RAY ABSORPTIOMETRY) Bone mineral density was performed using a [employer] machine. HISTORY: M81.0 - Age-related osteoporosis without current patholog... COMPARISON: 06/06/2016 Left forearm BMD: 0.559 g/cm2. T score: -3.6 Z score: -1.1 RIGHT forearm BMD: 0.559 g/cm2. T score: -3.6 Z score: -1.1 Compared to the prior study from . LEFT forearm bone mineral density has decreased by 18.7%. RIGHT forearm bone mineral density has decreased by 15.6%. XR/XR DEXA axial skeleton* 29842 IMPRESSION: OSTEOPOROSIS based upon the WHO classification for females. Significant decrease in bone mineral density within both forearm since the prio r study.
[2023-09-27 14:16] LABS: Basophils # 0.1 10^3/uL (0.0-0.1); Basophils % 0.9 %; Eosinophils # 0.2 10^3/uL (0.0-0.8); Eosinophils % 4.2 %; Hematocrit 31.8 % (36-47); Lymphocytes # 1.6 10^3/uL (0.8-4.8); Lymphocytes % 28.2 %; Mean Corpuscular HGB Conc 30.2 g/dL (30-55); Mean Corpuscular Hemoglobin 31.1 pg (27-33); Mean Corpuscular Volume 102.9 fl (85-98); Mean Platelet Volume 10.1 fL (7.4-10.4); Monocytes # 0.5 10^3/uL (0.2-0.9); Monocytes % 8.3 %; Neutrophils # 3.34 10^3/uL (1.8-7.7); Neutrophils % 58.1 %; Nucleated Red Blood Cells % 0 %; Platelet Count 219 10^3/cmm (157-399); Red Blood Count 3.09 10^6/uL (3.85-5.65); Red Cell Distribution Width 14.2 % (12.1-15.1); White Blood Count 5.75 10^3/uL (3.29-11.43)
[2023-09-27 14:35] LABS: Alanine Aminotransferase 10 U/L (0-33); Albumin Level 3.8 g/dL (3.5-5.2); Alkaline Phosphatase 86 U/L (35-105); Anion Gap 18.2 (5-19); Aspartate Amino Transferase 22 U/L (0-32); Blood Urea Nitrogen 35 mg/dL (8-23); Calcium 9.2 mg/dL (8.5-10.5); Carbon Dioxide 24 mmol/L (22-29); Chloride 105 mmol/L (98-107); Creatinine Clr Calc Pharmacy 19.7884; Globulin 3.4 g/dL (1.3-4.6); Glucose 86 mg/dL (65-115); Osmolality Calculated 301 mOsm/kg (285-295); Potassium 5.2 mmol/L (3.5-5.1); Sodium 142 mmol/L (136-145); Total Bilirubin 0.3 mg/dL (0.15-1.2); Total Protein 7.2 g/dL (6.6-8.7)
[2023-09-27 15:30] LABS: Ferritin 49 ng/mL (15-150); Iron 27 ug/dL (37-145); Percent Saturation 9.4 % (20-50); Total Iron Binding Capacity 286 mcg/dl; Unsaturated Iron Binding 259 ug/dL (112-347)
[2023-09-29 10:00] VITALS: BP 106/57; PULSE 75; RESP 16; TEMP 36.9; O2SAT 92
[2023-09-29] MEDS: sodium chloride 0.9% 250 ML 75 ML IV (10:07)
[2023-09-29] MEDS: iron sucrose 200 MG in sodium chloride 0.9% (100 ml) 100 ML 220 MG IV (10:08)
[2023-09-29] MEDS: sodium chloride 0.9% 500 ML 999 ML IV (11:30)
[2023-09-29 11:31] LABS: Blood Urea Nitrogen 31 mg/dL (8-23); Calcium 9.1 mg/dL (8.5-10.5); Carbon Dioxide 23 mmol/L (22-29); Chloride 106 mmol/L (98-107); Creatinine Clr Calc Pharmacy 24.7355; Glucose 115 mg/dL (65-115); Osmolality Calculated 297 mOsm/kg (285-295); Sodium 140 mmol/L (136-145)
[2023-09-29 11:48] LABS: Anion Gap 15.9 (5-19); Potassium 4.9 mmol/L (3.5-5.1)
[2023-09-29 12:04] VITALS: BP 147/71; PULSE 69; O2SAT 90
== END 2023-10-01 23:59 | disposition home or self-care (01) ==
PROVIDERS: Nurse Practitioner Family; PCP Family Medicine; Visit Provider Internal Medicine Medical Oncology
DX: Z53.9 Procedure and treatment not carried out, unspecified reason (principal); D64.9 Anemia, unspecified; E86.0 Dehydration
CPT/HCPCS: 36415; 77080; 80048; 80053; 82728; 83540; 83550; 85025; 96360; 96365; 99214; J1756; J7040; J7050

== ENCOUNTER 2023-10-13 09:30 | Oncology outpatient (recurring) (ONCR) | payer MEDICARE, SELFPAY ==
[2023-10-02 09:32] VITALS: BP 100/56; PULSE 73; RESP 18; O2SAT 93
[2023-10-02] MEDS: iron sucrose 200 MG in sodium chloride 0.9% (100 ml) 100 ML 220 MG IV (09:59)
[2023-10-02 10:35] VITALS: BP 104/58; PULSE 72; RESP 18
[2023-10-04 14:30] VITALS: BP 112/60; PULSE 82; RESP 16; TEMP 36.2; O2SAT 90
[2023-10-04] MEDS: iron sucrose 200 MG in sodium chloride 0.9% (100 ml) 100 ML 220 MG IV (14:42)
[2023-10-04 15:10] VITALS: BP 111/64; PULSE 80; RESP 16; TEMP 37.1; O2SAT 90
[2023-10-06 09:57] VITALS: BP 90/50; PULSE 76; RESP 18; TEMP 36.8; O2SAT 76
[2023-10-06] MEDS: iron sucrose 200 MG in sodium chloride 0.9% (100 ml) 100 ML 220 MG IV (10:08)
[2023-10-06 10:48] VITALS: BP 92/50; PULSE 76; RESP 17; TEMP 36.7; O2SAT 93
[2023-10-06 11:02] VITALS: BP 107/62; PULSE 71; RESP 16; TEMP 36.7; O2SAT 93
[2023-10-09 09:46] VITALS: BP 100/53; PULSE 82; RESP 18; TEMP 36.8; O2SAT 92
[2023-10-09] MEDS: iron sucrose 200 MG in sodium chloride 0.9% (100 ml) 100 ML 220 MG IV (10:09)
[2023-10-09 10:52] VITALS: BP 118/73; PULSE 78; RESP 18; TEMP 36.8; O2SAT 95
[2023-10-13 10:08] LABS: Basophils # 0.1 10^3/uL (0.0-0.1); Basophils % 1.4 %; Eosinophils # 0.3 10^3/uL (0.0-0.8); Eosinophils % 8.1 %; Hematocrit 34.9 % (36-47); Lymphocytes # 1.6 10^3/uL (0.8-4.8); Mean Corpuscular HGB Conc 29.2 g/dL (30-55); Mean Corpuscular Volume 106.1 fl (85-98); Mean Platelet Volume 9.5 fL (7.4-10.4); Monocytes # 0.4 10^3/uL (0.2-0.9); Monocytes % 8.8 %; Neutrophils # 1.77 10^3/uL (1.8-7.7); Neutrophils % 42.2 %; Nucleated Red Blood Cells % 0 %; Platelet Count 250 10^3/cmm (157-399); Red Blood Count 3.29 10^6/uL (3.85-5.65); Red Cell Distribution Width 15.1 % (12.1-15.1)
== END 2023-11-01 23:59 | disposition home or self-care (01) ==
PROVIDERS: Nurse Practitioner Family; PCP Family Medicine; Visit Provider Internal Medicine Medical Oncology
DX: Z53.9 Procedure and treatment not carried out, unspecified reason (principal); D50.8 Other iron deficiency anemias
CPT/HCPCS: 36415; 85025; 96365; J1756

== ENCOUNTER 2023-11-10 08:19 | Oncology outpatient (recurring) (ONCR) | payer MEDICARE, SELFPAY ==
[2023-11-10 09:17] LABS: Basophils # 0.1 10^3/uL (0.0-0.1); Basophils % 1.2 %; Eosinophils # 0.5 10^3/uL (0.0-0.8); Eosinophils % 11.6 %; Hematocrit 30.9 % (36-47); Lymphocytes # 1.7 10^3/uL (0.8-4.8); Lymphocytes % 42.1 %; Mean Corpuscular HGB Conc 29.8 g/dL (30-55); Mean Platelet Volume 9.5 fL (7.4-10.4); Monocytes # 0.3 10^3/uL (0.2-0.9); Monocytes % 7.7 %; Neutrophils % 37.2 %; Nucleated Red Blood Cells % 0 %; Platelet Count 232 10^3/cmm (157-399); Red Blood Count 2.97 10^6/uL (3.85-5.65); Red Cell Distribution Width 15.5 % (12.1-15.1); White Blood Count 4.04 10^3/uL (3.29-11.43)
[2023-11-10 09:33] LABS: Alanine Aminotransferase 8 U/L (0-33); Albumin Level 3.9 g/dL (3.5-5.2); Alkaline Phosphatase 91 U/L (35-105); Anion Gap 17.2 (5-19); Aspartate Amino Transferase 18 U/L (0-32); Blood Urea Nitrogen 38 mg/dL (8-23); Calcium 9.5 mg/dL (8.5-10.5); Carbon Dioxide 25 mmol/L (22-29); Chloride 107 mmol/L (98-107); Globulin 3.5 g/dL (1.3-4.6); Glucose 92 mg/dL (65-115); Iron 92 ug/dL (37-145); Osmolality Calculated 307 mOsm/kg (285-295); Percent Saturation 37.7 % (20-50); Potassium 5.2 mmol/L (3.5-5.1); Sodium 144 mmol/L (136-145); Total Bilirubin 0.3 mg/dL (0.15-1.2); Total Iron Binding Capacity 244 mcg/dl; Total Protein 7.4 g/dL (6.6-8.7); Unsaturated Iron Binding 152 ug/dL (112-347)
== END 2023-12-02 23:55 | disposition home or self-care (01) ==
PROVIDERS: Nurse Practitioner Family; PCP Family Medicine; Visit Provider Internal Medicine Medical Oncology
DX: D50.8 Other iron deficiency anemias; M81.0 Age-related osteoporosis without current pathological fracture
CPT/HCPCS: 36415; 80053; 83540; 83550; 85025; 99214

== ENCOUNTER → 2023-12-12 14:15 | Outpatient (BNVA) | payer MEDICARE, SELFPAY | PROVIDERS: PCP Family Medicine; Visit Provider Podiatrist Foot & Ankle Surgery | DX: M21.621 Bunionette of right foot (principal); M21.622 Bunionette of left foot; M20.12 Hallux valgus (acquired), left foot; Q82.8 Other specified congenital malformations of skin; M79.671 Pain in right foot; M79.672 Pain in left foot | CPT/HCPCS: 17110 ==

== ENCOUNTER 2023-12-22 09:27 | Oncology outpatient (recurring) (ONCR) | payer MEDICARE, SELFPAY ==
[2023-12-22 11:02] LABS: Basophils # 0.1 10^3/uL (0.0-0.1); Basophils % 1.4 %; Eosinophils # 0.3 10^3/uL (0.0-0.8); Eosinophils % 7.3 %; Hematocrit 35.1 % (36-47); Lymphocytes # 1.4 10^3/uL (0.8-4.8); Lymphocytes % 31.9 %; Mean Corpuscular HGB Conc 31.3 g/dL (30-55); Mean Corpuscular Hemoglobin 31.6 pg (27-33); Mean Corpuscular Volume 100.9 fl (85-98); Mean Platelet Volume 9.8 fL (7.4-10.4); Monocytes # 0.3 10^3/uL (0.2-0.9); Monocytes % 6.9 %; Neutrophils # 2.28 10^3/uL (1.8-7.7); Neutrophils % 52.3 %; Nucleated Red Blood Cells % 0 %; Platelet Count 206 10^3/cmm (157-399); Red Blood Count 3.48 10^6/uL (3.85-5.65); Red Cell Distribution Width 14.2 % (12.1-15.1); White Blood Count 4.36 10^3/uL (3.29-11.43)
[2023-12-22 11:25] LABS: Reticulocyte % 1.4 % (0.5-2.0)
[2023-12-22 11:30] LABS: Alanine Aminotransferase 10 U/L (0-33); Albumin Level 4.2 g/dL (3.5-5.2); Alkaline Phosphatase 97 U/L (35-105); Anion Gap 16.6 (5-19); Aspartate Amino Transferase 18 U/L (0-32); Blood Urea Nitrogen 42 mg/dL (8-23); Calcium 9.8 mg/dL (8.5-10.5); Carbon Dioxide 25 mmol/L (22-29); Chloride 105 mmol/L (98-107); Globulin 3.4 g/dL (1.3-4.6); Glucose 96 mg/dL (65-115); Lactate Dehydrogenase 157 U/L (135-214); Osmolality Calculated 304 mOsm/kg (285-295); Potassium 4.6 mmol/L (3.5-5.1); Sodium 142 mmol/L (136-145); Total Bilirubin 0.4 mg/dL (0.15-1.2); Total Protein 7.6 g/dL (6.6-8.7)
[2023-12-22 11:41] LABS: Vitamin B12 1629 pg/mL (232-1245)
[2023-12-22 11:57] LABS: Folate Level 12.3 ng/mL (4.8-37.3)
== END 2024-01-01 23:59 | disposition home or self-care (01) ==
LOC: ONCMED 09:28
PROVIDERS: Nurse Practitioner Family; PCP Family Medicine; Visit Provider Internal Medicine Medical Oncology
DX: D64.9 Anemia, unspecified
CPT/HCPCS: 36415; 80053; 82607; 82746; 83010; 83615; 85025; 85045

== ENCOUNTER → 2023-12-26 14:53 | Outpatient (BNVA) | payer MEDICARE, SELFPAY | PROVIDERS: PCP Family Medicine; Referring Provider Family Medicine; Visit Provider Dermatology | DX: L57.0 Actinic keratosis (principal); D48.5 Neoplasm of uncertain behavior of skin; D18.01 Hemangioma of skin and subcutaneous tissue; L82.1 Other seborrheic keratosis; L57.8 Other skin changes due to chronic exposure to nonionizing radiation | CPT/HCPCS: 11102; 17000; 99203 ==

== ENCOUNTER → 2024-01-08 13:56 | Outpatient (BNVA) | payer MEDICARE, SELFPAY | PROVIDERS: PCP Family Medicine; Visit Provider Internal Medicine Rheumatology | DX: M05.79 Rheumatoid arthritis with rheumatoid factor of multiple sites without organ or systems involvement (principal); Z98.890 Other specified postprocedural states; M81.0 Age-related osteoporosis without current pathological fracture; Z79.899 Other long term (current) drug therapy; Z71.85 Encounter for immunization safety counseling; M54.32 Sciatica, left side; N18.9 Chronic kidney disease, unspecified; Z11.1 Encounter for screening for respiratory tuberculosis; Z11.59 Encounter for screening for other viral diseases | CPT/HCPCS: 99214 ==

== ENCOUNTER → 2024-01-11 11:40 | Outpatient (BNVA) | payer MEDICARE, SELFPAY | PROVIDERS: PCP Family Medicine; Visit Provider Dermatology | DX: D04.62 Carcinoma in situ of skin of left upper limb, including shoulder (principal); L73.8 Other specified follicular disorders; L57.0 Actinic keratosis; D69.2 Other nonthrombocytopenic purpura | CPT/HCPCS: 17000; 17262; 99213 ==

== ENCOUNTER 2024-02-02 13:49 | Outpatient (CLI) | payer MEDICARE, SELFPAY ==
--- NOTE | 2024-02-02 13:50 | MM_ITS ---
WS: [id number] Bilateral screening 3D tomosynthesis digital mammogram, 02/02/2024 1:57 PM Clinical Data: SCREENING Comparison: 03/02/2023, 01/24/2022, 01/08/2021, 01/07/2020, 01/01/2019, 12/29/2017, 12/27/2016, 12/15/2015, 11/17/2014, 10/18/2013, 10/16/2012, 10/05/2012, 08/05/2011, 08/02/2010, 07/29/2009, 07/28/2008, 07/03/2007, 2006. Findings: No spiculated masses or clustered calcifications are seen. There are no secondary signs of carcinoma . The anterior aspects of the breasts show heterogeneous density unchanged. There are scattered benig n calcifications in both breasts and vascular calcifications. MM/MM scr BI tomosynthesis [id number] Impression: Negative bilateral mammogram unchanged. Recommend annual screening mammograms. BIRADS: 1 - Negative FOLLOW UP: 1 Year Follow-up DENSITY: The breasts are heterogeneously dense, which may obscure small masses. The CAD formula checker was used
== END 2024-02-02 13:50 | disposition home or self-care (01) ==
LOC: RAD 13:50
PROVIDERS: PCP Family Medicine; Visit Provider Family Medicine
DX: Z12.31 Encounter for screening mammogram for malignant neoplasm of breast (principal); R92.333 Mammographic heterogeneous density, bilateral breasts; R92.1 Mammographic calcification found on diagnostic imaging of breast
CPT/HCPCS: 77063; 77067

== ENCOUNTER 2024-02-16 08:47 | Oncology outpatient (recurring) (ONCR) | payer MEDICARE, SELFPAY ==
[2024-02-16 09:11] VITALS: BP 122/73; PULSE 74; RESP 17; TEMP 36.6; O2SAT 94
[2024-02-16] MEDS: acetaminophen 325 mg Tablet 650 MG PO (09:33)
[2024-02-16 09:40] LABS: Erythrocyte Sedimentation Rate 45 mm/hr (0-15)
[2024-02-16 09:42] LABS: Basophils # 0.1 10^3/uL (0.0-0.1); Eosinophils # 0.3 10^3/uL (0.0-0.8); Eosinophils % 6.7 %; Lymphocytes # 1.6 10^3/uL (0.8-4.8); Lymphocytes % 40.1 %; Mean Corpuscular HGB Conc 30.3 g/dL (30-55); Mean Corpuscular Hemoglobin 31.1 pg (27-33); Mean Corpuscular Volume 102.6 fl (85-98); Mean Platelet Volume 9.1 fL (7.4-10.4); Monocytes # 0.4 10^3/uL (0.2-0.9); Monocytes % 9.5 %; Neutrophils # 1.66 10^3/uL (1.8-7.7); Neutrophils % 41.5 %; Nucleated Red Blood Cells % 0 %; Platelet Count 282 10^3/cmm (157-399); Red Blood Count 3.02 10^6/uL (3.85-5.65); Red Cell Distribution Width 15.1 % (12.1-15.1); White Blood Count 4.01 10^3/uL (3.29-11.43)
[2024-02-16 09:57] LABS: Alanine Aminotransferase 9 U/L (0-33); Albumin Level 3.8 g/dL (3.5-5.2); Alkaline Phosphatase 83 U/L (35-105); Anion Gap 14.8 (5-19); Aspartate Amino Transferase 22 U/L (0-32); Blood Urea Nitrogen 30 mg/dL (8-23); Calcium 8.8 mg/dL (8.5-10.5); Carbon Dioxide 27 mmol/L (22-29); Chloride 106 mmol/L (98-107); Cholesterol 110 mg/dL (0-200); Creatinine Clr Calc Pharmacy 26.3845; Glucose 130 mg/dL (65-115); HDL Cholesterol 44 mg/dL (60-100); LDL Cholesterol Calculated 51 mg/dL (50-129); Osmolality Calculated 304 mOsm/kg (285-295); Potassium 4.8 mmol/L (3.5-5.1); Sodium 143 mmol/L (136-145); Total Bilirubin 0.4 mg/dL (0.15-1.2); Total Protein 6.8 g/dL (6.6-8.7); Triglycerides 74 mg/dL (0-150); VLDL Cholestrol Calculation 15 mg/dL (0-30)
[2024-02-16 09:59] LABS: Alanine Aminotransferase 6 U/L (0-33); Albumin Level 3.9 g/dL (3.5-5.2); Alkaline Phosphatase 82 U/L (35-105); Aspartate Amino Transferase 19 U/L (0-32); C Reactive Protein 6.8 mg/L (0.0-4.9); Creatinine Clr Calc Pharmacy 28.2691; Ferritin 152 ng/mL (15-150); Globulin 2.8 g/dL (1.3-4.6); Iron 83 ug/dL (37-145); Percent Saturation 30.8 % (20-50); Total Bilirubin 0.4 mg/dL (0.15-1.2); Total Iron Binding Capacity 269 mcg/dl; Total Protein 6.7 g/dL (6.6-8.7); Unsaturated Iron Binding 186 ug/dL (112-347)
[2024-02-16 10:17] VITALS: BP 135/69; PULSE 78; RESP 18; TEMP 36.4; O2SAT 96
== END 2024-03-02 23:59 | disposition home or self-care (01) ==
PROVIDERS: Internal Medicine Rheumatology; Nurse Practitioner Family; PCP Family Medicine; Visit Provider Internal Medicine Medical Oncology
DX: D64.9 Anemia, unspecified (principal); M81.0 Age-related osteoporosis without current pathological fracture; N18.30 Chronic kidney disease, stage 3 unspecified; Z53.9 Procedure and treatment not carried out, unspecified reason
CPT/HCPCS: 36415; 80053; 80061; 80076; 82565; 82728; 83540; 83550; 85025; 85651; 86140; 96365; 99214; J3489

== ENCOUNTER → 2024-04-15 14:41 | Outpatient (BNVA) | payer MEDICARE, SELFPAY | PROVIDERS: PCP Family Medicine; Visit Provider Nurse Practitioner Family | DX: S20.401A Unspecified superficial injuries of right back wall of thorax, initial encounter (principal); X58.XXXA Exposure to other specified factors, initial encounter; L29.89 Other pruritus; L73.8 Other specified follicular disorders; D69.2 Other nonthrombocytopenic purpura; Z08 Encounter for follow-up examination after completed treatment for malignant neoplasm; Z85.828 Personal history of other malignant neoplasm of skin; L57.0 Actinic keratosis | CPT/HCPCS: 17000; 99213 ==

== ENCOUNTER 2024-05-30 13:28 | Oncology outpatient (recurring) (ONCR) | payer MEDICARE, SELFPAY ==
[2024-05-30 14:43] LABS: Basophils # 0.1 10^3/uL (0.0-0.1); Eosinophils # 0.3 10^3/uL (0.0-0.8); Hematocrit 28.5 % (36-47); Lymphocytes # 2.1 10^3/uL (0.8-4.8); Mean Corpuscular HGB Conc 29.5 g/dL (30-55); Mean Corpuscular Hemoglobin 29.2 pg (27-33); Monocytes # 0.4 10^3/uL (0.2-0.9); Monocytes % 6.6 %; Nucleated Red Blood Cells % 0 %; Platelet Count 327 10^3/cmm (157-399); Red Blood Count 2.88 10^6/uL (3.85-5.65); Red Cell Distribution Width 14.7 % (12.1-15.1); White Blood Count 6.68 10^3/uL (3.29-11.43)
[2024-05-30 15:07] LABS: Alanine Aminotransferase 9 U/L (0-33); Albumin Level 3.7 g/dL (3.5-5.2); Alkaline Phosphatase 84 U/L (35-105); Aspartate Amino Transferase 13 U/L (0-32); Blood Urea Nitrogen 32 mg/dL (8-23); Calcium 8.7 mg/dL (8.5-10.5); Carbon Dioxide 20 mmol/L (22-29); Chloride 110 mmol/L (98-107); Creatinine Clr Calc Pharmacy 30.1647; Ferritin 51 ng/mL (15-150); Globulin 3.3 g/dL (1.3-4.6); Glucose 137 mg/dL (65-115); Iron 59 ug/dL (37-145); Lactate Dehydrogenase 161 U/L (135-214); Osmolality Calculated 301 mOsm/kg (285-295); Percent Saturation 22.8 % (20-50); Sodium 141 mmol/L (136-145); Total Bilirubin 0.2 mg/dL (0.15-1.2); Total Iron Binding Capacity 258 mcg/dl; Unsaturated Iron Binding 199 ug/dL (112-347)
== END 2024-05-31 23:59 | disposition home or self-care (01) ==
PROVIDERS: PCP Family Medicine; Visit Provider Nurse Practitioner Family
DX: D50.8 Other iron deficiency anemias (principal); Z79.899 Other long term (current) drug therapy; R13.10 Dysphagia, unspecified; D64.9 Anemia, unspecified
CPT/HCPCS: 36415; 80053; 82248; 82728; 83540; 83550; 83615; 85025; 99213

== ENCOUNTER → 2024-06-19 14:22 | Outpatient (BNVA) | payer MEDICARE, SELFPAY | PROVIDERS: PCP Family Medicine; Visit Provider Student in an Organized Health Care Education/Training Program | DX: M25.512 Pain in left shoulder (principal); M75.42 Impingement syndrome of left shoulder | CPT/HCPCS: 20610; 73030; 99214; J3301; J9999 ==

== ENCOUNTER → 2024-07-08 14:24 | Outpatient (BNVA) | payer MEDICARE, SELFPAY | PROVIDERS: PCP Family Medicine; Visit Provider Internal Medicine Rheumatology | DX: M05.79 Rheumatoid arthritis with rheumatoid factor of multiple sites without organ or systems involvement (principal); Z98.890 Other specified postprocedural states; Z79.899 Other long term (current) drug therapy; M81.0 Age-related osteoporosis without current pathological fracture; Z71.85 Encounter for immunization safety counseling; M54.32 Sciatica, left side | CPT/HCPCS: 99214 ==

== ENCOUNTER 2024-07-31 08:30 | Oncology outpatient (recurring) (ONCR) | payer MEDICARE, SELFPAY ==
[2024-07-11 15:02] LABS: Basophils # 0.1 10^3/uL (0.0-0.1); Basophils % 0.9 %; Eosinophils # 0.2 10^3/uL (0.0-0.8); Eosinophils % 2.9 %; Hematocrit 27.6 % (36-47); Lymphocytes # 1.4 10^3/uL (0.8-4.8); Lymphocytes % 23.6 %; Mean Corpuscular HGB Conc 29.7 g/dL (30-55); Mean Corpuscular Hemoglobin 29.5 pg (27-33); Mean Corpuscular Volume 99.3 fl (85-98); Mean Platelet Volume 9.2 fL (7.4-10.4); Monocytes # 0.4 10^3/uL (0.2-0.9); Monocytes % 6.2 %; Neutrophils # 3.84 10^3/uL (1.8-7.7); Neutrophils % 66.1 %; Nucleated Red Blood Cells % 0 %; Platelet Count 199 10^3/cmm (157-399); Red Blood Count 2.78 10^6/uL (3.85-5.65); Red Cell Distribution Width 17.6 % (12.1-15.1); White Blood Count 5.81 10^3/uL (3.29-11.43)
[2024-07-11 15:23] LABS: Alanine Aminotransferase 14 U/L (0-33); Albumin Level 4.1 g/dL (3.5-5.2); Alkaline Phosphatase 66 U/L (35-105); Anion Gap 19.5 (5-19); Aspartate Amino Transferase 20 U/L (0-32); Blood Urea Nitrogen 31 mg/dL (8-23); Calcium 9.5 mg/dL (8.5-10.5); Carbon Dioxide 20 mmol/L (22-29); Chloride 106 mmol/L (98-107); Ferritin 32 ng/mL (15-150); Globulin 3.5 g/dL (1.3-4.6); Glucose 118 mg/dL (65-115); Iron 34 ug/dL (37-145); Osmolality Calculated 300 mOsm/kg (285-295); Percent Saturation 9.7 % (20-50); Potassium 4.5 mmol/L (3.5-5.1); Sodium 141 mmol/L (136-145); Total Bilirubin 0.3 mg/dL (0.15-1.2); Total Iron Binding Capacity 349 mcg/dl; Total Protein 7.6 g/dL (6.6-8.7); Unsaturated Iron Binding 315 ug/dL (112-347)
[2024-07-22 09:18] VITALS: BP 116/70; PULSE 81; RESP 18; TEMP 35.9; O2SAT 90
[2024-07-22] MEDS: iron sucrose 200 MG in sodium chloride 0.9% (100 ml) 100 ML IV (09:40)
[2024-07-22 10:18] VITALS: BP 124/84; PULSE 79; RESP 20; TEMP 36.5; O2SAT 90
[2024-07-24] MEDS: iron sucrose 200 MG in sodium chloride 0.9% (100 ml) 100 ML IV (09:33)
[2024-07-26 08:58] VITALS: BP 138/71; PULSE 84; RESP 17; TEMP 36.6; O2SAT 95
[2024-07-26] MEDS: iron sucrose 200 MG in sodium chloride 0.9% (100 ml) 100 ML IV (09:06)
[2024-07-26 09:49] VITALS: BP 119/64; PULSE 83; RESP 18; TEMP 36.7; O2SAT 96
[2024-07-29] MEDS: iron sucrose 200 MG in sodium chloride 0.9% (100 ml) 100 ML IV (08:49)
[2024-07-29 09:44] VITALS: BP 155/72; PULSE 74; RESP 16; TEMP 36.5; O2SAT 90
[2024-07-31] MEDS: iron sucrose 200 MG in sodium chloride 0.9% (100 ml) 100 ML 240 MG IV (09:05)
== END 2024-07-31 23:59 | disposition home or self-care (01) ==
PROVIDERS: PCP Family Medicine; Visit Provider Nurse Practitioner Family
DX: Z53.9 Procedure and treatment not carried out, unspecified reason; D50.8 Other iron deficiency anemias; Z79.899 Other long term (current) drug therapy
CPT/HCPCS: 36415; 80053; 82728; 83540; 83550; 85025; 96365; J1756

== ENCOUNTER 2024-08-09 10:50 | Outpatient (CLI) | payer MEDICARE, SELFPAY ==
[2024-08-09 11:46] LABS: Basophils # 0.1 10^3/uL (0.0-0.1); Basophils % 1.3 %; Eosinophils % 0.2 %; Hematocrit 32.4 % (36-47); Lymphocytes # 0.6 10^3/uL (0.8-4.8); Lymphocytes % 14.3 %; Mean Corpuscular HGB Conc 28.4 g/dL (30-55); Mean Corpuscular Hemoglobin 31.3 pg (27-33); Mean Corpuscular Volume 110.2 fl (85-98); Mean Platelet Volume 9.1 fL (7.4-10.4); Monocytes # 0.1 10^3/uL (0.2-0.9); Monocytes % 2.7 %; Neutrophils # 3.62 10^3/uL (1.8-7.7); Neutrophils % 81.1 %; Nucleated Red Blood Cells % 0.4 %; Platelet Count 305 10^3/cmm (157-399); Red Blood Count 2.94 10^6/uL (3.85-5.65); Red Cell Distribution Width 23.8 % (12.1-15.1); White Blood Count 4.47 10^3/uL (3.29-11.43)
[2024-08-09 11:57] LABS: Erythrocyte Sedimentation Rate 37 mm/hr (0-15)
[2024-08-09 12:04] LABS: Alanine Aminotransferase 12 U/L (0-33); Albumin Level 3.8 g/dL (3.5-5.2); Alkaline Phosphatase 58 U/L (35-105); Aspartate Amino Transferase 21 U/L (0-32); Globulin 3.6 g/dL (1.3-4.6); Total Bilirubin 0.3 mg/dL (0.15-1.2); Total Protein 7.4 g/dL (6.6-8.7)
== END 2024-08-09 10:51 | disposition home or self-care (01) ==
PROVIDERS: PCP Family Medicine; Visit Provider Internal Medicine Rheumatology
DX: Z79.899 Other long term (current) drug therapy (principal)
CPT/HCPCS: 36415; 80076; 82565; 85025; 85651; 86140

== ENCOUNTER → 2024-09-25 14:40 | Outpatient (BNVA) | payer MEDICARE, SELFPAY | PROVIDERS: PCP Family Medicine; Visit Provider Student in an Organized Health Care Education/Training Program | DX: M75.42 Impingement syndrome of left shoulder (principal) | CPT/HCPCS: 20610; 99213 ==

== ENCOUNTER 2024-09-26 13:31 | Oncology outpatient (recurring) (ONCR) | payer MEDICARE, SELFPAY ==
[2024-09-26 13:52] LABS: Basophils # 0.1 10^3/uL (0.0-0.1); Basophils % 0.9 %; Eosinophils % 0.2 %; Hematocrit 30.6 % (36-47); Lymphocytes # 1.4 10^3/uL (0.8-4.8); Lymphocytes % 24.8 %; Mean Corpuscular Hemoglobin 32.3 pg (27-33); Mean Corpuscular Volume 104.1 fl (85-98); Mean Platelet Volume 9.5 fL (7.4-10.4); Monocytes # 0.4 10^3/uL (0.2-0.9); Neutrophils # 3.76 10^3/uL (1.8-7.7); Neutrophils % 66.9 %; Nucleated Red Blood Cells % 0 %; Platelet Count 245 10^3/cmm (157-399); Red Blood Count 2.94 10^6/uL (3.85-5.65); Red Cell Distribution Width 15.9 % (12.1-15.1); White Blood Count 5.61 10^3/uL (3.29-11.43)
[2024-09-26 14:10] LABS: Alanine Aminotransferase 15 U/L (0-33); Albumin Level 3.9 g/dL (3.5-5.2); Alkaline Phosphatase 50 U/L (35-105); Anion Gap 20.1 (5-19); Aspartate Amino Transferase 23 U/L (0-32); Blood Urea Nitrogen 26 mg/dL (8-23); Calcium 9.7 mg/dL (8.5-10.5); Carbon Dioxide 20 mmol/L (22-29); Chloride 103 mmol/L (98-107); Ferritin 79 ng/mL (15-150); Globulin 3.3 g/dL (1.3-4.6); Glucose 111 mg/dL (65-115); Iron 68 ug/dL (37-145); Osmolality Calculated 291 mOsm/kg (285-295); Percent Saturation 25.6 % (20-50); Potassium 5.1 mmol/L (3.5-5.1); Sodium 138 mmol/L (136-145); Total Bilirubin 0.4 mg/dL (0.15-1.2); Total Iron Binding Capacity 265 mcg/dl; Total Protein 7.2 g/dL (6.6-8.7); Unsaturated Iron Binding 197 ug/dL (112-347)
== END 2024-09-30 23:59 | disposition home or self-care (01) ==
PROVIDERS: PCP Family Medicine; Visit Provider Nurse Practitioner Family
DX: D64.9 Anemia, unspecified (principal); R13.10 Dysphagia, unspecified; Z87.891 Personal history of nicotine dependence
CPT/HCPCS: 36415; 80053; 82728; 83540; 83550; 85025; 99213

== ENCOUNTER → 2024-10-14 14:36 | Outpatient (BNVA) | payer MEDICARE, SELFPAY | PROVIDERS: PCP Family Medicine; Visit Provider Nurse Practitioner Family | DX: L57.8 Other skin changes due to chronic exposure to nonionizing radiation (principal); D69.2 Other nonthrombocytopenic purpura; L81.4 Other melanin hyperpigmentation; L82.1 Other seborrheic keratosis; Z08 Encounter for follow-up examination after completed treatment for malignant neoplasm; Z85.828 Personal history of other malignant neoplasm of skin; D48.5 Neoplasm of uncertain behavior of skin; L57.0 Actinic keratosis | CPT/HCPCS: 11102; 17000; 99213 ==

== ENCOUNTER → 2024-11-04 14:15 | Outpatient (BNVA) | payer MEDICARE, SELFPAY | PROVIDERS: PCP Family Medicine; Visit Provider Internal Medicine Rheumatology | DX: M05.79 Rheumatoid arthritis with rheumatoid factor of multiple sites without organ or systems involvement (principal); Z98.890 Other specified postprocedural states; M81.0 Age-related osteoporosis without current pathological fracture; Z79.899 Other long term (current) drug therapy; Z71.85 Encounter for immunization safety counseling; M54.32 Sciatica, left side | CPT/HCPCS: 99214 ==

== ENCOUNTER 2024-11-19 12:00 | Oncology outpatient (recurring) (ONCR) | payer MEDICARE, SELFPAY ==
[2024-11-07 14:51] LABS: Hematocrit 28.0 % (36-47); Hemoglobin 7.90 g/dL (11.27-16.99); Mean Corpuscular HGB Conc 28.2 g/dL (30-55); Mean Corpuscular Hemoglobin 33.1 pg (27-33); Mean Corpuscular Volume 117.2 fl (85-98); Nucleated Red Blood Cells % 0 %; Platelet Count 244 10^3/cmm (157-399); Red Blood Count 2.39 10^6/uL (3.85-5.65); White Blood Count 5.69 10^3/uL (3.29-11.43)
[2024-11-07 15:13] LABS: Alanine Aminotransferase 13 U/L (0-33); Albumin Level 3.8 g/dL (3.5-5.2); Alkaline Phosphatase 58 U/L (35-105); Anion Gap 17.5 (5-19); Aspartate Amino Transferase 20 U/L (0-32); Blood Urea Nitrogen 31 mg/dL (8-23); Calcium 9.0 mg/dL (8.5-10.5); Carbon Dioxide 19 mmol/L (22-29); Chloride 106 mmol/L (98-107); Ferritin 27 ng/mL (15-150); Globulin 3.5 g/dL (1.3-4.6); Glucose 101 mg/dL (65-115); Iron 40 ug/dL (37-145); Osmolality Calculated 293 mOsm/kg (285-295); Potassium 4.5 mmol/L (3.5-5.1); Sodium 138 mmol/L (136-145); Total Iron Binding Capacity 307 mcg/dl; Total Protein 7.3 g/dL (6.6-8.7); Unsaturated Iron Binding 267 ug/dL (112-347)
[2024-11-14] VITALS (10 sets, daily range): BP systolic 117–136; BP diastolic 57–73; PULSE 70–76; RESP 16–18; TEMP 36.4–37.2; O2SAT 91–97
[2024-11-14 10:06] LABS: Hematocrit 26.0 % (36-47); Hemoglobin 7.60 g/dL (11.27-16.99); Mean Corpuscular HGB Conc 29.2 g/dL (30-55); Mean Corpuscular Hemoglobin 30.4 pg (27-33); Mean Corpuscular Volume 104.0 fl (85-98); Nucleated Red Blood Cells % 0 %; Platelet Count 323 10^3/cmm (157-399); Red Blood Count 2.50 10^6/uL (3.85-5.65); White Blood Count 5.59 10^3/uL (3.29-11.43)
[2024-11-19] MEDS: ferric derisomaltose 1,000 MG in sodium chloride 0.9% (100 ml) 100 ML 330 MG IV (12:33)
[2024-11-19 13:11] VITALS: BP 112/58; PULSE 75; O2SAT 89
== END 2024-12-01 23:59 | disposition home or self-care (01) ==
PROVIDERS: PCP Family Medicine; Visit Provider Nurse Practitioner Family
DX: Z53.9 Procedure and treatment not carried out, unspecified reason; L82.0 Inflamed seborrheic keratosis; D50.8 Other iron deficiency anemias; Z79.899 Other long term (current) drug therapy; C44.622 Squamous cell carcinoma of skin of right upper limb, including shoulder; D48.5 Neoplasm of uncertain behavior of skin; Z85.828 Personal history of other malignant neoplasm of skin; D69.2 Other nonthrombocytopenic purpura
CPT/HCPCS: 11102; 11603; 13121; 17110; 36415; 36430; 80053; 80503; 82728; 83540; 83550; 85025; 86850; 86870; 86900; 86920; 96365; 99213; J1437; J7050; J9999; P9016

== ENCOUNTER → 2024-12-11 10:13 | Outpatient (BNVA) | payer MEDICARE, SELFPAY | PROVIDERS: PCP Family Medicine; Visit Provider Podiatrist Foot & Ankle Surgery | DX: Q82.8 Other specified congenital malformations of skin (principal); M21.621 Bunionette of right foot; M21.622 Bunionette of left foot; M20.12 Hallux valgus (acquired), left foot | CPT/HCPCS: 17110 ==

== ENCOUNTER → 2024-12-18 13:58 | Outpatient (BNVA) | payer MEDICARE, SELFPAY | PROVIDERS: PCP Family Medicine; Visit Provider Surgery | DX: R13.10 Dysphagia, unspecified (principal) | CPT/HCPCS: 99213 ==

== ENCOUNTER → 2024-12-25 14:41 | Outpatient (BNVA) | payer MEDICARE, SELFPAY | PROVIDERS: PCP Family Medicine; Visit Provider Student in an Organized Health Care Education/Training Program | DX: M75.42 Impingement syndrome of left shoulder (principal) | CPT/HCPCS: 20610; 99213; J3301; J9999 ==

== ENCOUNTER 2024-12-26 10:06 | Day surgery (SDC) | payer MEDICARE, SELFPAY ==
[2024-12-26 10:29] VITALS: BP 129/81; PULSE 89; RESP 17; TEMP 36.8; O2SAT 91; BMI 19.5
--- NOTE | 2024-12-26 10:58 | P.HPUD_ITS ---
Surgery/Procedure H&P Update DATE OF PROCEDURE: December 26, 2024 DATE H&P PERFORMED: 12/12/24 H&P UPDATE INFORMATION: I have reviewed H&P completed within last 30 days, I have examined patient prior to procedure, No changes to prior documentation, H&P is in [facility] EMR on date indicated and Risks and benefits of the procedure reviewed PLANNED PROCEDURE: Operation Date: 12/26/24 11:45 Proposed Procedures p EGD Dilation W/ Balloon 26172 R13.10(Not Applicable) - Mikhail Sneed MD
--- NOTE | 2024-12-26 11:06 | ANES.PREANE2 ---
Pre-Anesthetic Assessment Height/Weight: Height 1.6 m Weight 49.895 kg Temp Pulse Resp BP Pulse Ox O2 Del Method 98.2 F 89 17 129/81 91 Room Air 12/26/24 10:12/26/24 10:12/26/24 10:12/26/24 10:12/26/24 10:12/26/24 10:29 Preop Diagnosis: diffuculty swallowing Operation Date: 12/26/24 11:45 Proposed Procedures p EGD Dilation W/ Balloon 45123 R13.10(Not Applicable) - Mikhail Sneed MD Was Beta Manjula taken within 24 hours: Yes Was Clonidine taken within 24 hours: N/A Last intake: Intake Last Liquid Date 12/25/24 Last Liquid Time 23:00 Last Solid Date 12/25/24 Last Solid Time 19:30 Last Intake: 23:00 Social No alcohol and No tobacco Exam oriented x 3 Airway Submandibular: within normal limits Cervical ROM: within normal limits Mallampati: Class II Dentition: false Pulmonary Chronic Obstructive Pulmonary Disease CV/HEM None reported None reported GI Gastroesophageal Reflux Disease Musc/skel None reported Neuropsych None reported Anesthetic Plan ASA status: 3 Anesthesia: MAC Risk of > 500 ml blood loss (7ml/kg in children): No Medications/Allergies Home Medications ?Medication ?Instructions ?Recorded ?Confirmed ?Last Taken ?Type albuterol sulfate 90 mcg/actuation 2 puff inhalation 6XD PRN 08/09/19 12/26/24 12/26/24 History aerosol inhaler Shortness Of Breath Or Wheezing atorvastatin 40 mg tablet 40 mg PO BEDTIME 08/09/19 12/26/24 12/25/24 History pantoprazole 40 mg tablet,delayed 40 mg PO BID 08/09/19 12/26/24 12/25/24 08:00 History release (Protonix) gabapentin 300 mg capsule 300 mg PO BID pain 06/20/22 12/26/24 12/25/24 08:00 History budesonide-formoterol HFA 160 2 puff inhalation BID 03/01/23 12/26/24 12/25/24 08:00 History mcg-4.5 mcg/actuation aerosol inhaler (Symbicort) furosemide 20 mg tablet (Lasix) 20 mg PO DAILY PRN Edema 05/01/23 12/26/24 12/25/24 08:00 History aspirin 81 mg tablet,delayed 81 mg PO DAILY 05/02/23 12/26/24 12/23/24 History release calcitriol 0.25 mcg capsule 0.25 mcg PO Q7D 05/02/23 12/26/24 12/25/24 08:00 History vitamin B12 0.5 mg-folic acid 1 mg 1 tab PO DAILY 05/02/23 12/26/24 12/25/24 08:00 History tablet leflunomide 20 mg tablet 20 mg PO DAILY #90 tabs 07/08/24 12/26/24 12/25/24 08:00 Rx citalopram 40 mg tablet 40 mg PO DAILY #90 tabs 09/09/24 12/26/24 12/25/24 08:00 Rx tizanidine 4 mg tablet 4 mg PO DAILY PRN Muscle Pain #60 10/30/24 12/26/24 12/23/24 Rx tabs potassium chloride 10 mEq 10 meq PO DAILY PRN with lasix #90 11/21/24 12/26/24 12/25/24 08:00 Rx tablet,extended release tabs alprazolam 0.25 mg tablet 0.25 mg PO QDAY PRN anxiety #30 12/05/24 12/26/24 12/25/24 08:00 Rx tabs hydrocodone 10 mg-acetaminophen 1 tab PO Q6H PRN Pain 30 days #120 12/05/24 12/26/24 12/26/24 Rx 325 mg tablet tabs oxybutynin chloride 2.5 mg tablet 2.5 mg PO DAILY #30 tabs 12/09/24 12/26/24 12/25/24 08:00 Rx fluorouracil 5 % topical cream 1 applic topical DAILY PRN Outbreak 12/23/24 12/26/24 Unknown History (Efudex) prednisone 20 mg tablet 40 mg PO DAILY 12/23/24 12/26/24 12/23/24 History sulfasalazine 500 mg tablet 500 mg PO DAILY 12/23/24 12/26/24 12/25/24 08:00 History tiotropium bromide 2.5 2 puff inhalation DAILY 12/23/24 12/26/24 12/25/24 08:00 History mcg/actuation mist for inhalation (Spiriva Respimat) Allergies Allergy/AdvReac Type Severity Reaction Status Date / Time infliximab (From Remicade) Allergy Unknown Verified 12/26/24 10:23 meropenem Allergy ALGY-Hives Verified 12/26/24 10:23 nafcillin Allergy ALGY-Hives Verified 12/26/24 10:23 Current Medications Generic Name Dose Route Start Last Admin Trade Name Freq PRN Reason Stop Dose Admin Sodium Chloride 1,000 mls @ 15 mls/hr 12/26/24 10:08 12/26/24 10:37 Sodium Chloride 0.9% IV 12/27/24 10:07 15 mls/hr .Q24H PRN Administration COLONOSCOPY FLUIDS PFSH Anesthesia Medical History Chronic pain COPD (chronic obstructive pulmonary disease) Anxiety Moderate major depression Sciatica, left side Weight loss, non-intentional Rheumatoid arthritis Osteoarthritis Fibromyalgia Hyperlipidemia GERD (gastroesophageal reflux disease) Immunization counseling High risk medication use Osteoporosis Seropositive rheumatoid arthritis of multiple sites Thoracic postlaminectomy syndrome Lumbar post-laminectomy syndrome Soft tissue mass Surgical History History of colon surgery 14 inches removed History of appendectomy H/O foot surgery bilaterally History of thoracic surgery (~02/2017) Dr. Kauffman T10-T11 fixation/fusion. HX T11 fracture. 04/06/17 Dr Kauffman removal of posterior 5.5 mm diameter titanium [place]. Exploration of rostal end of fusion adjacent to [place] and screw;staph infection History of lumbar surgery (~2012) Dr. Kauffman L1-L5 laminectomy/fusion/fiaxation; exploration History of thoracic surgery (~04/2016) Dr. Kauffman T9-S1 fusion fixation History of lumbar surgery (~2010) Dr. Kauffman L1-L5 laminectomy/fusion/fixation Status post cervical spinal fusion (~2007) Dr Leblanc C6-C7 ACDFF History of hysterectomy History of cholecystectomy Family History Father Stroke Mother Cancer Family history of thyroid problem Sister Cancer Brother Diabetes Social History Smoking and tobacco/nicotine status: never used tobacco/nicotine Quit status (tobacco/nicotine): has quit using Year quit tobacco: 2022 Former quit date comment: smoked 40 years Alcohol intake: never Substance/Drug Use: never Household members: none Marital status: / Current occupational status: retired Data Anesthesia Cardiac Studies: Echocardiogram 06/20/22 Sestamibi Stress Test (Cardiology) 06/21/22
[2024-12-26 12:19] VITALS: BP 127/79; PULSE 69; RESP 16; O2SAT 96
[2024-12-26 12:33] VITALS: BP 147/71; PULSE 71; RESP 18; O2SAT 93
--- NOTE | 2024-12-26 12:45 | ANE.PACU2 ---
Inpatient post-anesthesia follow up: Airway intact: Yes Vital signs: Temperature 98.2 F Pulse Rate 71 Respiratory Rate 18 Blood Pressure 147/71 Pulse Oximetry 93 Oxygen Delivery Me thod Room Air Oxygen Flow Rate Fraction of Inspir ed Oxygen Hydration adequate: Yes Nausea and vomiting: No Pain level: 1 Mental status: Baseline
== END 2024-12-26 12:47 | disposition home or self-care (01) ==
PROVIDERS: PCP Family Medicine; Visit Provider Surgery
DX: R13.10 Dysphagia, unspecified (principal); K22.70 Barrett's esophagus without dysplasia; K22.4 Dyskinesia of esophagus; K29.70 Gastritis, unspecified, without bleeding; J44.9 Chronic obstructive pulmonary disease, unspecified; K21.9 Gastro-esophageal reflux disease without esophagitis; Z79.82 Long term (current) use of aspirin; Z79.891 Long term (current) use of opiate analgesic; M79.7 Fibromyalgia; F41.9 Anxiety disorder, unspecified; F32.9 Major depressive disorder, single episode, unspecified; E78.5 Hyperlipidemia, unspecified; Z87.891 Personal history of nicotine dependence
CPT/HCPCS: 43239; 88305; 88342; J2704; J7030

== ENCOUNTER 2024-12-29 16:53 | Inpatient (IN) | payer MEDICARE, SELFPAY ==
[2024-12-29] VITALS (10 sets, daily range): BP systolic 110–138; BP diastolic 55–90; PULSE 60–90; RESP 16–31; TEMP 36.8–36.9; O2SAT 88–97; BMI 19.5
--- NOTE | 2024-12-29 16:55 | XRR_ITS ---
PROCEDURE INFORMATION: Exam: XR Chest Exam date and time: 12/29/2024 4:59 PM Age: 79 years old Clinical indication: Shortness of breath; Prior surgery; Surgery date: 6+ months; Surgery type: Multiple spinal fusions, gallbladder TECHNIQUE: Imaging protocol: Radiologic exam of the chest. Views: 1 view. COMPARISON: CR XR chest 1V portable [id number] 05/01/2023 7:22 PM FINDINGS: Lungs: See Pleural spaces finding. Pleural spaces: Trace right pleural effusion. Lungs otherwise clear. Heart/Mediastinum: Normal heart size. Bones/joints: Posterior spinal fusion rods and screws hardware intact. Anterior cervical spinal fixation hardware intact. XR/XR chest 1V portable [id number] IMPRESSION: Trace right pleural effusion. Lungs otherwise clear.
--- NOTE | 2024-12-29 16:57 | ED_ITS ---
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 He says she suddenly started feeling short of breath this afternoon. She went to urgent care and was sent to the emergency room. She was given breathing treatment and Solu-Medrol by EMS. She seems to be feeling quite a bit better now. No chest pain. No altered mental status. Related Data Home Medications ?Medication ?Instructions ?Recorded ?Confirmed albuterol sulfate 90 mcg/actuation 2 puff inhalation 6 XD PRN 08/09/19 12/29/24 aerosol inhaler Shortness Of Breath Or Wheez ing atorvastatin 40 mg tablet 40 mg PO BEDTIME 08/09/19 pantoprazole 40 mg tablet,delayed 40 mg PO BID 0 12/29/24 release (Protonix) gabapentin 300 mg capsule 300 mg PO BID pain 06/20/22 12/29/24 budesonide-formoterol HFA 160 2 puff inhalation BID 12/29/24 mcg-4.5 mcg/actuation aerosol inhaler (Symbicort) furosemide 20 mg tablet (Lasix) 20 mg PO DAILY PRN Johnny ma 05/01/23 12/29/24 aspirin 81 mg tablet,delayed 81 mg PO DAILY 05/02/23 0 12/29/24 release calcitriol 0.25 mcg capsule 0.25 mcg PO Q7D 05/02/23 0 12/29/24 vitamin B12 0.5 mg-folic acid 1 mg 1 tab PO DAILY 04/0512/29/24 tablet fluorouracil 5 % topical cream 1 applic topical DAILY PRN Outbreak 12/23/24 12/29/24 (Efudex) prednisone 20 mg tablet 40 mg PO DAILY 12/23/2412/03 sulfasalazine 500 mg tablet 500 mg PO DAILY 12/23/24 0 12/29/24 tiotropium bromide 2.5 2 puff inhalation DAILY 12/0312/29/24 mcg/actuation mist for inhalation (Spiriva Respimat) Previous Rx's ?Medication ?Instructions ?Recorded leflunomide 20 mg tablet 20 mg PO DAILY #90 tabs 10/25 citalopram 40 mg tablet 40 mg PO DAILY #90 tabs 12/26 tizanidine 4 mg tablet 4 mg PO DAILY PRN Muscle Tavon n #60 10/30/24 tabs potassium chloride 10 mEq 10 meq PO DAILY PRN with las ix #90 11/21/24 tablet,extended release tabs alprazolam 0.25 mg tablet 0.25 mg PO QDAY PRN anxiety #30 12/05/24 tabs hydrocodone 10 mg-acetaminophen 1 tab PO Q6H PRN Pain 30 days #120 12/05/24 325 mg tablet tabs oxybutynin chloride 2.5 mg tablet 2.5 mg PO DAILY #30 tabs 12/09/24 Allergies Allergy/AdvReac Type Severity Reaction Status Date / Time infliximab (From Remicade) Allergy Unknown Verified 12/29/24 17:02 meropenem Allergy ALGY-Hives Verified 12/29/24 17:02 nafcillin Allergy ALGY-Hives Verified 12/29/24 17:02 Review of Systems 2 Narrative: Constitutional symptoms: Negative except as documented in HPI. Skin symptoms: Negative except as documented in HPI. Eye symptoms: Negative except as documented in HPI. ENMT symptoms: Negative except as documented in HPI. Respiratory symptoms: Negative except as documented in HPI. Cardiovascular symptoms: Negative except as documented in HPI. Gastrointestinal symptoms: Negative except as documented in HPI. Genitourinary symptoms: Negative except as documented in HPI. Musculoskeletal symptoms: Negative except as documented in HPI. Neurologic symptoms: Negative except as documented in HPI. Psychiatric symptoms: Negative except as documented in HPI. Endocrine symptoms: Negative except as documented in HPI. PFSH ED 2 PFSH: Medical History (Updated 12/29/24 @ 20:42 by Eric Slaughter DO) Chronic pain COPD (chronic obstructive pulmonary disease) Anxiety Moderate major depression Sciatica, left side Weight loss, non-intentional Rheumatoid arthritis Osteoarthritis Fibromyalgia Hyperlipidemia GERD (gastroesophageal reflux disease) Immunization counseling High risk medication use Osteoporosis Seropositive rheumatoid arthritis of multiple sites Thoracic postlaminectomy syndrome Lumbar post-laminectomy syndrome Soft tissue mass Surgical History History of colon surgery 14 inches removed History of appendectomy H/O foot surgery bilaterally History of thoracic surgery (~02/2017) Dr. Kauffman T10-T11 fixation/fusion. HX T11 fracture. 04/06/17 Dr Kauffman removal of posterior 5.5 mm diameter titanium [place]. Exploration of rostal end of fusion adjacent to [place] and screw;staph infection History of lumbar surgery (~2012) Dr. Kauffman L1-L5 laminectomy/fusion/fiaxation; exploration History of thoracic surgery (~04/2016) Dr. Kauffman T9-S1 fusion fixation History of lumbar surgery (~2010) Dr. Kauffman L1-L5 laminectomy/fusion/fixation Status post cervical spinal fusion (~2007) Dr Leblanc C6-C7 ACDFF History of hysterectomy History of cholecystectomy Family History Father Stroke Mother Cancer Family history of thyroid problem Sister Cancer Brother Diabetes Social History Smoking and tobacco/nicotine status: unknown if used tobacco/nicotine Quit status (tobacco/nicotine): has quit using Year quit tobacco: 2022 Former quit date comment: smoked 40 years Alcohol intake: never Substance/Drug Use: never Household members: none Marital status: / Current occupational status: retired Physical Exam 2 Narrative: EXAM NARRATIVE: General: Alert, no acute distress. Skin: Warm, dry. Head: Normocephalic, atraumatic. Neck: Supple, trachea midline. Eye: Extraocular movements are intact. Ears, nose, mouth and throat: Oral mucosa moist. Cardiovascular: Regular rate and rhythm, Normal peripheral perfusion. Respiratory: coarse, scattered wheeze, mild increased wob. tachypnea, breath sounds are equal, Symmetrical chest wall expansion. Gastrointestinal: Soft, Nontender, Non distended Musculoskeletal: Normal ROM, no deformity. Neurological: Alert and oriented, No focal neurological deficit observed. Psychiatric: Cooperative, appropriate mood & affect. Course 2 Vital Signs: Vital signs: Vital Signs Temperature 98.5 F 12/29/24 16:54 Pulse Rate 87 12/29/24 19:33 Respiratory Rate 22 H 12/29/24 19:33 Blood Pressure 126/66 12/29/24 19:33 Pulse Oximetry 96 12/29/24 19:33 Oxygen Delivery Me thod Heated High Flow 12/29/24 19:33 Oxygen Flow Rate 40 12/29/24 17:40 Fraction of Inspir ed Oxygen 55 12/29/24 17:40 MDM - SOB/Dyspnea Medical Decision Making Differential diagnosis for patient with shortness of breath includes but is not limited to and based on the above HPI, review of systems and physical exam: Pneumonia. Bronchitis. Asthma or COPD with acute exacerbation. Acute coronary syndrome / CT. Pulmonary embolism. Anxiety. Congestive heart failure. Viral infections including influenza and Covid-19. Atrial fibrillation. Anxiety. Pleural effusion. Pneumothorax. Orders placed to evaluate differential diagnosis based on the above differential, HPI and physical exam EKG: Time 1657. Rate 86. Normal sinus rhythm, No ST-T changes, no ectopy, normal [place] & QRS intervals, This was reviewed and interpreted by myself the ER physician at 1702 Chest x-ray: Hyperexpansion. Extensive hardware down her back. I do not see any obvious focal infiltrates. Films were interpreted by myself the emergency room provider and pending final radiology review. Lab Review: Laboratory results were reviewed and interpreted by myself the emergency room physician. I reviewed the patient's medical record. Reexamination: Lab Data 12/29/24 17:41 12/29/24 18:55 Labs/Radiology: Radiology Impressions Chest X-Ray 12/29/24 16:55 IMPRESSION: Trace right pleural effusion. Lungs otherwise clear. Chest CTA 12/29/24 18:49 IMPRESSION: 1. Right lower lobe consolidation and scattered centrilobular nodules compatible with pneumonia and bronchiolitis. 2. No pulmonary emboli. Laboratory Results WBC 6.08 10^3/uL (3.29-11.43) 12/29/24 17:41 RBC 3.15 10^6/uL (3.85-5.65) L 12/29/24 17:41 Hgb 10.30 g/dL (11.27-16.99) L 12/29/24 17:41 Hct 34.0 % (36-47) L 12/29/24 17:41 MCV 107.9 fl (85-98) H 12/29/24 17:41 MCH 32.7 pg (27-33) 12/29/24 17:41 MCHC 30.3 g/dL (30-55) 12/29/24 17:41 RDW 18.8 % (12.1-15.1) H 12/29/24 17:41 Plt Count 356 10^3/cmm (157-399) 12/29/24 17:41 MPV 8.8 fL (7.4-10.4) 12/29/24 17:41 Neut % (Auto) 75.1 % 12/29/24 17:41 Lymph % (Auto) 14.6 % 12/29/24 17:41 [place] % (Auto) 7.2 % 12/29/24 17:41 Eos % (Auto) 2.1 % 12/29/24 17:41 Baso % (Auto) 0.3 % 12/29/24 17:41 Neut # (Auto) 4.56 10^3/uL (1.8-7.7) 12/29/24 17:41 Lymph # (Auto) 0.9 10^3/uL (0.8-4.8) 12/29/24 17:41 [place] # (Auto) 0.4 10^3/uL (0.2-0.9) 12/29/24 17:41 Eos # (Auto) 0.1 10^3/uL (0.0-0.8) 12/29/24 17:41 Baso # (Auto) 0.0 10^3/uL (0.0-0.1) 12/29/24 17:41 Nucleated RBC % (auto) 0 % 12/29/24 17:41 Nucleated RBCs # 0.0 /100WBC 12/29/24 17:41 D-Dimer 1.97 ug/mLFEU (0-0.59) H 12/29/24 17:41 Sodium 139 mmol/L (136-145) 12/29/24 18:55 Potassium 4.8 mmol/L (3.5-5.1) 12/29/24 18:55 Chloride 105 mmol/L (98-107) 12/29/24 18:55 Carbon Dioxide 18 mmol/L (22-29) L 12/29/24 18:55 Anion Gap 20.8 (5-19) H 12/29/24 18:55 BUN 30 mg/dL (8-23) H 12/29/24 18:55 Creatinine 1.5 mg/dL (0.5-0.9) H 12/29/24 18:55 GFR Calculation Not Reportable 12/29/24 18:55 Glucose 133 mg/dL (65-115) H 12/29/24 18:55 Calculated Osmolality 296 mOsm/kg (285-295) H 12/29/24 18:55 Lactic Acid 3.4 mmol/L (0.5-2.2) H 12/29/24 17:41 Calcium 10.2 mg/dL (8.5-10.5) 12/29/24 18:55 Total Bilirubin 0.3 mg/dL (0.15-1.2) 12/29/24 18:55 AST 20 U/L (0-32) 12/29/24 18:55 ALT 17 U/L (0-33) 12/29/24 18:55 Alkaline Phosphatase 63 U/L (35-105) 12/29/24 18:55 Troponin T Baseline 13 ng/L (0-10) H 12/29/24 17:41 Troponin T 120 Minute 10.53 ng/L (0-10) H 12/29/24 19:32 Delta Troponin T -2.47 ABS# (0-10) L 12/29/24 19:32 NT-Pro-B Natriuret Pep 551 pg/mL (0-450) H 12/29/24 18:55 Total Protein 8.3 g/dL (6.6-8.7) 12/29/24 18:55 Albumin 4.6 g/dL (3.5-5.2) 12/29/24 18:55 Globulin 3.7 g/dL (1.3-4.6) 12/29/24 18:55 Influenza A (PCR) Negative (Negative) 12/29/24 18:26 Influenza Type B (PCR) Negative (Negative) 12/29/24 18:26 RSV (PCR) Negative (Negative) 12/29/24 18:26 SARS-CoV-2 (PCR) Negative (Negative) 12/29/24 18:26 Discharge Plan Discharge Patient Disposition: Admitted As Inpatient Clinical Impression: Pneumonia, Acute hypoxic respiratory failure Condition: Stable Coding Level of Care Code ED Production Control Specialist for Chg Fwd Documented by User: Eric Slaughter, DO 12/29/24 20:42 HPI - SOB/Dyspnea 2 General: Chief Complaint: Shortness of Breath/Dyspnea Stated Complaint: sob Time Seen by Provider: 12/29/24 16:53 Related Data Home Medications ?Medication ?Instructions ?Recorded ?Confirmed albuterol sulfate 90 mcg/actuation 2 puff inhalation 6 XD PRN 08/09/19 12/29/24 aerosol inhaler Shortness Of Breath Or Wheez ing atorvastatin 40 mg tablet 40 mg PO BEDTIME 08/09/19 pantoprazole 40 mg tablet,delayed 40 mg PO BID 0 12/29/24 release (Protonix) gabapentin 300 mg capsule 300 mg PO BID pain 06/20/22 12/29/24 budesonide-formoterol HFA 160 2 puff inhalation BID 12/29/24 mcg-4.5 mcg/actuation aerosol inhaler (Symbicort) furosemide 20 mg tablet (Lasix) 20 mg PO DAILY PRN Johnny ma 05/01/23 12/29/24 aspirin 81 mg tablet,delayed 81 mg PO DAILY 05/02/23 0 12/29/24 release calcitriol 0.25 mcg capsule 0.25 mcg PO Q7D 05/02/23 0 12/29/24 vitamin B12 0.5 mg-folic acid 1 mg 1 tab PO DAILY 04/0512/29/24 tablet fluorouracil 5 % topical cream 1 applic topical DAILY PRN Outbreak 12/23/24 12/29/24 (Efudex) prednisone 20 mg tablet 40 mg PO DAILY 12/23/2412/03 sulfasalazine 500 mg tablet 500 mg PO DAILY 12/23/24 0 12/29/24 tiotropium bromide 2.5 2 puff inhalation DAILY 12/0312/29/24 mcg/actuation mist for inhalation (Spiriva Respimat) Previous Rx's ?Medication ?Instructions ?Recorded leflunomide 20 mg tablet 20 mg PO DAILY #90 tabs 10/25 citalopram 40 mg tablet 40 mg PO DAILY #90 tabs 12/26 tizanidine 4 mg tablet 4 mg PO DAILY PRN Muscle Tavon n #60 10/30/24 tabs potassium chloride 10 mEq 10 meq PO DAILY PRN with las ix #90 11/21/24 tablet,extended release tabs alprazolam 0.25 mg tablet 0.25 mg PO QDAY PRN anxiety #30 12/05/24 tabs hydrocodone 10 mg-acetaminophen 1 tab PO Q6H PRN Pain 30 days #120 12/05/24 325 mg tablet tabs oxybutynin chloride 2.5 mg tablet 2.5 mg PO DAILY #30 tabs 12/09/24 Allergies Allergy/AdvReac Type Severity Reaction Status Date / Time infliximab (From RemTraity) Allergy Unknown Verified 12/29/24 17:02 meropenem Allergy ALGY-Hives Verified 12/29/24 17:02 nafcillin Allergy ALGY-Hives Verified 12/29/24 17:02 PFS ED 2 PFSH: Medical History (Updated 12/29/24 @ 20:42 by Eric Slaughter DO) Chronic pain COPD (chronic obstructive pulmonary disease) Anxiety Moderate major depression Sciatica, left side Weight loss, non-intentional Rheumatoid arthritis Osteoarthritis Fibromyalgia Hyperlipidemia GERD (gastroesophageal reflux disease) Immunization counseling High risk medication use Osteoporosis Seropositive rheumatoid arthritis of multiple sites Thoracic postlaminectomy syndrome Lumbar post-laminectomy syndrome Soft tissue mass Surgical History History of colon surgery 14 inches removed History of appendectomy H/O foot surgery bilaterally History of thoracic surgery (~02/2017) Dr. Kauffman T10-T11 fixation/fusion. HX T11 fracture. 04/06/17 Dr Kauffman removal of posterior 5.5 mm diameter titanium [place]. Exploration of rostal end of fusion adjacent to [place] and screw;staph infection History of lumbar surgery (~2012) Dr. Kauffman L1-L5 laminectomy/fusion/fiaxation; exploration History of thoracic surgery (~04/2016) Dr. Kauffman T9-S1 fusion fixation History of lumbar surgery (~2010) Dr. Kauffman L1-L5 laminectomy/fusion/fixation Status post cervical spinal fusion (~2007) Dr Leblanc C6-C7 ACDFF History of hysterectomy History of cholecystectomy Family History Father Stroke Mother Cancer Family history of thyroid problem Sister Cancer Brother Diabetes Social History Smoking and tobacco/nicotine status: unknown if used tobacco/nicotine Quit status (tobacco/nicotine): has quit using Year quit tobacco: 2022 Former quit date comment: smoked 40 years Alcohol intake: never Substance/Drug Use: never Household members: none Marital status: / Current occupational status: retired Course 2 Vital Signs: Vital signs: Vital Signs Temperature 98.5 F 12/29/24 16:54 Pulse Rate 87 12/29/24 19:33 Respiratory Rate 22 H 12/29/24 19:33 Blood Pressure 126/66 12/29/24 19:33 Pulse Oximetry 96 12/29/24 19:33 Oxygen Delivery Me thod Heated High Flow 12/29/24 19:33 Oxygen Flow Rate 40 12/29/24 17:40 Fraction of Inspir ed Oxygen 55 12/29/24 17:40 MDM - SOB/Dyspnea Medical Decision Making Differential diagnosis for patient with shortness of breath includes but is not limited to and based on the above HPI, review of systems and physical exam: Pneumonia. Bronchitis. Asthma or COPD with acute exacerbation. Acute coronary syndrome / CT. Pulmonary embolism. Anxiety. Congestive heart failure. Viral infections including influenza and Covid-19. Atrial fibrillation. Anxiety. Pleural effusion. Pneumothorax. Orders placed to evaluate differential diagnosis based on the above differential, HPI and physical exam EKG: Time 1657. Rate 86. Normal sinus rhythm, No ST-T changes, no ectopy, normal [place] & QRS intervals, This was reviewed and interpreted by myself the ER physician at 1702 Chest x-ray: Hyperexpansion. Extensive hardware down her back. I do not see any obvious focal infiltrates. Films were interpreted by myself the emergency room provider and pending final radiology review. Lab Review: Laboratory results were reviewed and interpreted by myself the emergency room physician. I reviewed the patient's medical record. Reexamination: Patient checked out to me at shift change. I have reexamined the patient. She is improved on high flow nasal cannula at 40 L. Saturations have been 95% or so. Heart rate down to 85. Blood pressure is normal. Chest x-ray did not reveal an infiltrate. Her D-dimer was significantly elevated at 2. CTA was performed. There is no PE, but there is a right lower lobe infiltrate. She has received Rocephin and Zithromax after blood cultures here. Troponin did not elevate. She will be admitted for hypoxic respiratory failure and pneumonia. Hospitalist will see the patient. Lab Data 12/29/24 17:41 12/29/24 18:55 Labs/Radiology: Radiology Impressions Chest X-Ray 12/29/24 16:55 IMPRESSION: Trace right pleural effusion. Lungs otherwise clear. Chest CTA 12/29/24 18:49 IMPRESSION: 1. Right lower lobe consolidation and scattered centrilobular nodules compatible with pneumonia and bronchiolitis. 2. No pulmonary emboli. Laboratory Results WBC 6.08 10^3/uL (3.29-11.43) 12/29/24 17:41 RBC 3.15 10^6/uL (3.85-5.65) L 12/29/24 17:41 Hgb 10.30 g/dL (11.27-16.99) L 12/29/24 17:41 Hct 34.0 % (36-47) L 12/29/24 17:41 MCV 107.9 fl (85-98) H 12/29/24 17:41 MCH 32.7 pg (27-33) 12/29/24 17:41 MCHC 30.3 g/dL (30-55) 12/29/24 17:41 RDW 18.8 % (12.1-15.1) H 12/29/24 17:41 Plt Count 356 10^3/cmm (157-399) 12/29/24 17:41 MPV 8.8 fL (7.4-10.4) 12/29/24 17:41 Neut % (Auto) 75.1 % 12/29/24 17:41 Lymph % (Auto) 14.6 % 12/29/24 17:41 [place] % (Auto) 7.2 % 12/29/24 17:41 Eos % (Auto) 2.1 % 12/29/24 17:41 Baso % (Auto) 0.3 % 12/29/24 17:41 Neut # (Auto) 4.56 10^3/uL (1.8-7.7) 12/29/24 17:41 Lymph # (Auto) 0.9 10^3/uL (0.8-4.8) 12/29/24 17:41 [place] # (Auto) 0.4 10^3/uL (0.2-0.9) 12/29/24 17:41 Eos # (Auto) 0.1 10^3/uL (0.0-0.8) 12/29/24 17:41 Baso # (Auto) 0.0 10^3/uL (0.0-0.1) 12/29/24 17:41 Nucleated RBC % (auto) 0 % 12/29/24 17:41 Nucleated RBCs # 0.0 /100WBC 12/29/24 17:41 D-Dimer 1.97 ug/mLFEU (0-0.59) H 12/29/24 17:41 Sodium 139 mmol/L (136-145) 12/29/24 18:55 Potassium 4.8 mmol/L (3.5-5.1) 12/29/24 18:55 Chloride 105 mmol/L (98-107) 12/29/24 18:55 Carbon Dioxide 18 mmol/L (22-29) L 12/29/24 18:55 Anion Gap 20.8 (5-19) H 12/29/24 18:55 BUN 30 mg/dL (8-23) H 12/29/24 18:55 Creatinine 1.5 mg/dL (0.5-0.9) H 12/29/24 18:55 GFR Calculation Not Reportable 12/29/24 18:55 Glucose 133 mg/dL (65-115) H 12/29/24 18:55 Calculated Osmolality 296 mOsm/kg (285-295) H 12/29/24 18:55 Lactic Acid 3.4 mmol/L (0.5-2.2) H 12/29/24 17:41 Calcium 10.2 mg/dL (8.5-10.5) 12/29/24 18:55 Total Bilirubin 0.3 mg/dL (0.15-1.2) 12/29/24 18:55 AST 20 U/L (0-32) 12/29/24 18:55 ALT 17 U/L (0-33) 12/29/24 18:55 Alkaline Phosphatase 63 U/L (35-105) 12/29/24 18:55 Troponin T Baseline 13 ng/L (0-10) H 12/29/24 17:41 Troponin T 120 Minute 10.53 ng/L (0-10) H 12/29/24 19:32 Delta Troponin T -2.47 ABS# (0-10) L 12/29/24 19:32 NT-Pro-B Natriuret Pep 551 pg/mL (0-450) H 12/29/24 18:55 Total Protein 8.3 g/dL (6.6-8.7) 12/29/24 18:55 Albumin 4.6 g/dL (3.5-5.2) 12/29/24 18:55 Globulin 3.7 g/dL (1.3-4.6) 12/29/24 18:55 Influenza A (PCR) Negative (Negative) 12/29/24 18:26 Influenza Type B (PCR) Negative (Negative) 12/29/24 18:26 RSV (PCR) Negative (Negative) 12/29/24 18:26 SARS-CoV-2 (PCR) Negative (Negative) 12/29/24 18:26 All radiology interpretation(s) finalized by discharge Discharge Plan Discharge Patient Disposition: Admitted As Inpatient Clinical Impression: Pneumonia, Acute hypoxic respiratory failure Condition: Stable Coding Level of Care Code ED Production Control Specialist for Caitlyn Duckworth
[2024-12-29] MEDS: LORazepam 1 MG/0.5 ML injection IVP (17:30)
[2024-12-29 17:47] LABS: Hematocrit 34.0 % (36-47); Hemoglobin 10.30 g/dL (11.27-16.99); Mean Corpuscular HGB Conc 30.3 g/dL (30-55); Mean Corpuscular Hemoglobin 32.7 pg (27-33); Mean Corpuscular Volume 107.9 fl (85-98); Nucleated Red Blood Cells % 0 %; Platelet Count 356 10^3/cmm (157-399); Red Blood Count 3.15 10^6/uL (3.85-5.65); White Blood Count 6.08 10^3/uL (3.29-11.43)
--- NOTE | 2024-12-29 18:11 | ECG_ITS ---
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 Measurements Intervals [place] Rate: 86 P: 78 [place]: 146 QRS: 53 QRSD: 88 T: 53 QT: 372 QTc: 446 Interpretive Statements SINUS RHYTHM MINIMAL VOLTAGE CRITERIA FOR LVH, CONSIDER NORMAL VARIANT [MEETS CRITERIA IN ONE OF: R(aVL), S(V1), R(V5), R(V5/V6)+S(V1)] Compared to ECG 05/01/2023 23:46:59 No significant changes Electronically Signed On 12-30-2024 12:48:47 CDT by Pepe Hendricks M.D. [id number]
--- NOTE | 2024-12-29 18:49 | CTR_ITS ---
PROCEDURE INFORMATION: Exam: CTA Chest With Contrast Exam date and time: 12/29/2024 7:00 PM Age: 79 years old Clinical indication: Abnormal findings; Abnormal diagnostic tests; Elevated d-dimer; Shortness of breath; Prior surgery; Surgery date: 6+ months; Surgery type: Spinal fusion. Gb; Worsening SOB and hypoxia since egd on 12/26/2024. Dimer of 1.97. History of copd. TECHNIQUE: Imaging protocol: Computed tomographic angiography of the chest with contrast. Exam focused on the arteries. 3D rendering (Not supervised by radiologist): MIP and/or 3D reconstructed images were created by the technologist. Radiation optimization: All CT scans at this facility use at least one of these dose optimization techniques: automated exposure control; mA and/or kV adjustment per patient size (includes targeted exams where dose is matched to clinical indication); or iterative reconstruction. Contrast material: OMNI 350; Contrast volume: 59 ml; Contrast route: INTRAVENOUS (IV); COMPARISON: CT angio chest PE prot [id number] 06/20/2022 3:43 PM RADIATION DOSE METRICS: Total DLP (mGy-cm): 184.67 FINDINGS: Pulmonary arteries: No pulmonary emboli. Aorta: Unremarkable. No aortic aneurysm. No aortic dissection. Lungs: Right lower lobe consolidation and scattered centrilobular nodules compatible with pneumonia and bronchiolitis. Pleural spaces: Unremarkable. No pneumothorax. No pleural effusion. Heart: Unremarkable. No cardiomegaly. No pericardial effusion. Coronary arteries: Mild coronary artery calcifications. Lymph nodes: Unremarkable. No enlarged lymph nodes. Bones/joints: Fixation spinal Rodriguez rods and screws thoracic spine. Anterior spinal fixation hardware intact. Soft tissues: Unremarkable. CT/CT angio chest PE protcl [id number] IMPRESSION: 1. Right lower lobe consolidation and scattered centrilobular nodules compatible with pneumonia and bronchiolitis. 2. No pulmonary emboli.
[2024-12-29 18:50] LABS: Lactic Sepsis W/Reflex 3.4 mmol/L (0.5-2.2)
[2024-12-29 18:53] LABS: Reflex Lactate Order REFLEX LACTIC ORDERD
[2024-12-29 18:54] LABS: Troponin(5th) Baseline 13 ng/L (0-10)
[2024-12-29] MEDS: cefTRIAXone 1,000 mg SDV 1000 MG IVP (18:54)
[2024-12-29] MEDS: iohexol 350 mg/mL 500 mL Btl (per mL) IV (19:03)
[2024-12-29 19:09] LABS: Alanine Aminotransferase 17 U/L (0-33); Albumin Level 4.6 g/dL (3.5-5.2); Alkaline Phosphatase 63 U/L (35-105); Anion Gap 20.8 (5-19); Aspartate Amino Transferase 20 U/L (0-32); Blood Urea Nitrogen 30 mg/dL (8-23); Calcium 10.2 mg/dL (8.5-10.5); Carbon Dioxide 18 mmol/L (22-29); Chloride 105 mmol/L (98-107); Creatinine Clr Calc Pharmacy 25.0803; Globulin 3.7 g/dL (1.3-4.6); Glucose 133 mg/dL (65-115); Osmolality Calculated 296 mOsm/kg (285-295); Potassium 4.8 mmol/L (3.5-5.1); Sodium 139 mmol/L (136-145); Total Protein 8.3 g/dL (6.6-8.7)
[2024-12-29 19:10] LABS: Respiratory Syncytial Virus Ce NEGATIVE (Negative); SARS-CoV-2 PCR NEGATIVE (Negative)
[2024-12-29 19:16] LABS: NT Pro B Type Natriuretic Pept 551 pg/mL (0-450)
[2024-12-29 20:07] LABS: Troponin 5 2HR 10.53 ng/L (0-10)
[2024-12-29 20:08] LABS: Troponin 5 2HR Delta -2.47 ABS# (0-10)
[2024-12-29] MEDS: methylPREDNISolone sod succ 125 mg/2 mL INJ 80 MG IVP (20:31)
--- NOTE | 2024-12-29 20:52 | P.HP_ITS ---
Providers/Chief Complaint 2 Admitting Physician: JENN SIMS DO --- patient seen and evaluated and admitted before 12 midnight Primary Care Provider: Kerwin Jordan MD Chief Complaint: sob History of Present Illness Michelle Bradford is a 79 year old female with medical history significant for nicotine addiction patient is actively smoking. Patient had presented to the emergency room via the urgent care where the ambulance had to pick her up to bring her to the ED of the hospital because of profound shortness of breath not responding very well with the treatment that was already delivered at the urgent care patient had had increasing shortness of breath over the past 4 days and finally had to go to urgent care today where she received 250 mg of IV Solu- Medrol and some nebulizing treatment. Patient did not respond very well to where they feel they can send her home. Urgent care called the ambulance for EMS to send the patient to the hospital ED Patient arrived to the hospital ED via nonrebreather. It must be known that patient is on home oxygen only at bedtime because the pulse oximetry is known to drop during her sleep. Her respiratory failure is very much this time requiring a lot to get her okay. Patient had transitioned from nonrebreather 100% oxygen to a high flow oxygen. In the emergency room. She is already feeling better. Chest x-ray did not show much of a pneumonia but a CT was done since patient had so much shortness of breath D-dimer done was a little bit elevated CTA showed a right lower lobe pneumonia. Patient at this time is being admitted for acute respiratory failure on chronic and right lower lobe pneumonia with much hypoxemia. In the emergency room here Dr. Slaughter took care of her. Patient was given ceftriaxone and azithromycin and along with another steroid therapy with nebulizing treatment. I have seen and evaluated patient on consultation to evaluate patient for admission. Patient does meet inpatient criteria because of the burden of respiratory failure which much hypoxemia requiring much oxygen to thrive and with much aggressive nebulizing treatment steroid therapy and antibiotics patient will be admitted to [facility] with telemetry. Patient does have some cough but very dry I have added Mucinex to the medication regimen Review of Systems 2 Narrative: System review upon tenogram reviewed were significant for cardio pulmonary failure otherwise unremarkable Medications/Allergies Home Medications ?Medication ?Instructions ?Recorded ?Confirmed ?Last Taken ?Type albuterol sulfate 90 mcg/actuation 2 puff inhalation 6 XD PRN 0512/29/24 12/26/24 History aerosol inhaler Shortness Of Breath Or Wheez ing atorvastatin 40 mg tablet 40 mg PO BEDTIME 08/09/1912/25/24 History pantoprazole 40 mg tablet,delayed 40 mg PO BID 0 12/29/24 12/25/24 08:00 History release (Protonix) gabapentin 300 mg capsule 300 mg PO BID pain 06/20/22 12/29/24 12/25/24 08:00 History budesonide-formoterol HFA 160 2 puff inhalation BID 12/29/24 12/25/24 08:00 History mcg-4.5 mcg/actuation aerosol inhaler (Symbicort) furosemide 20 mg tablet (Lasix) 20 mg PO DAILY PRN Johnny ma 05/01/23 12/29/24 12/25/24 08:00 History aspirin 81 mg tablet,delayed 81 mg PO DAILY 05/02/23 0 12/29/24 12/23/24 History release calcitriol 0.25 mcg capsule 0.25 mcg PO Q7D 05/02/23 0 12/29/24 12/25/24 08:00 History vitamin B12 0.5 mg-folic acid 1 mg 1 tab PO DAILY 04/0512/29/24 12/25/24 08:00 History tablet leflunomide 20 mg tablet 20 mg PO DAILY #90 tabs 04/0 10/2512/29/24 12/25/24 08:00 Rx citalopram 40 mg tablet 40 mg PO DAILY #90 tabs 06/0 12/2612/29/24 12/25/24 08:00 Rx tizanidine 4 mg tablet 4 mg PO DAILY PRN Muscle Tavon n #60 10/30/24 12/29/24 12/23/24 Rx tabs potassium chloride 10 mEq 10 meq PO DAILY PRN with las ix #90 11/21/24 12/29/24 12/25/24 08:00 Rx tablet,extended release tabs alprazolam 0.25 mg tablet 0.25 mg PO QDAY PRN anxiety #30 12/05/24 12/29/24 12/25/24 08:00 Rx tabs hydrocodone 10 mg-acetaminophen 1 tab PO Q6H PRN Pain 30 days #120 12/05/24 12/29/24 12/26/24 Rx 325 mg tablet tabs oxybutynin chloride 2.5 mg tablet 2.5 mg PO DAILY #30 tabs 12/09/24 12/29/24 12/25/24 08:00 Rx fluorouracil 5 % topical cream 1 applic topical DAILY PRN Outbreak 12/23/24 12/29/24 Unknown History (Efudex) prednisone 20 mg tablet 40 mg PO DAILY 12/23/2412/0312/23/24 History sulfasalazine 500 mg tablet 500 mg PO DAILY 12/23/24 0 12/29/24 12/25/24 08:00 History tiotropium bromide 2.5 2 puff inhalation DAILY 12/0312/29/24 12/25/24 08:00 History mcg/actuation mist for inhalation (Spiriva Respimat) Allergies Allergy/AdvReac Type Severity Reaction Status Date / Time infliximab (From Individual Digital) Allergy Unknown Verified 12/29/24 17:02 meropenem Allergy ALGY-Hives Verified 12/29/24 17:02 nafcillin Allergy ALGY-Hives Verified 12/29/24 17:02 PFSH Acute 2 PFSH: Medical History Chronic pain COPD (chronic obstructive pulmonary disease) Anxiety Moderate major depression Sciatica, left side Weight loss, non-intentional Rheumatoid arthritis Osteoarthritis Fibromyalgia Hyperlipidemia GERD (gastroesophageal reflux disease) Immunization counseling High risk medication use Osteoporosis Seropositive rheumatoid arthritis of multiple sites Thoracic postlaminectomy syndrome Lumbar post-laminectomy syndrome Soft tissue mass Surgical History History of colon surgery 14 inches removed History of appendectomy H/O foot surgery bilaterally History of thoracic surgery (~02/2017) Dr. Kauffman T10-T11 fixation/fusion. HX T11 fracture. 04/06/17 Dr Kauffman removal of posterior 5.5 mm diameter titanium [place]. Exploration of rostal end of fusion adjacent to [place] and screw;staph infection History of lumbar surgery (~2012) Dr. Kauffman L1-L5 laminectomy/fusion/fiaxation; exploration History of thoracic surgery (~04/2016) Dr. Kauffman T9-S1 fusion fixation History of lumbar surgery (~2010) Dr. Kauffman L1-L5 laminectomy/fusion/fixation Status post cervical spinal fusion (~2007) Dr Leblanc C6-C7 ACDFF History of hysterectomy History of cholecystectomy Family History Father Stroke Mother Cancer Family history of thyroid problem Sister Cancer Brother Diabetes Social History Smoking and tobacco/nicotine status: unknown if used tobacco/nicotine Quit status (tobacco/nicotine): has quit using Year quit tobacco: 2022 Former quit date comment: smoked 40 years Alcohol intake: never Substance/Drug Use: never Household members: none Marital status: / Current occupational status: retired Vitals/I&O/Wt Last Vital Signs Temp 98.5 F 12/29/24 16:54 Pulse 87 12/29/24 19:33 Resp 22 H 12/29/24 19:33 BP 126/66 12/29/24 19:33 Pulse Ox 96 12/29/24 19:33 O2 Del Method Heated High Flow 12/29/24 19:33 O2 Flow Rate 40 12/29/24 17:40 FiO2 55 12/29/24 17:40 12/29/24 12/29/24 12/29/24 06:59 14:59 22:59 Intake Total 0 / 0 Balance 0 / 0 Weight last 48 hrs Weight 49.895 kg Physical Exam 2 Narrative: Generally patient is much improved from the treatment she had had at the urgent care and in the ED now on high flow oxygen nasal cannula and feeling much better as she verbalized patient is hemodynamically stable vital signs are good pulse oximetry in the mid to high 90s on 40% FiO2 HEENT normocephalic atraumatic neck neck is supple cardiovascular heart rate is regular lungs are PrameGel coarse breath sounds bilaterally right greater than left. Abdomen is soft nontender nondistended unremarkable extremities are intact no edema has good pulses neurology no focality patient is pretty much awake and alert able to carry on conversation and probing in question and interrogation of the provider. This shows that patient is very much interested in the health care of herself. Patient vowed not to ever smoke cigarettes again Data 12/29/24 17:41 12/29/24 18:55 Micro: Microbiology 12/29/24 19:32 Blood Culture - Preliminary Blood SPECIMEN COLLECTED 12/29/24 17:41 Blood Culture - Preliminary Blood SPECIMEN COLLECTED A&P Assessment and plan 1. Pneumonia: 2. Acute hypoxic respiratory failure: 3. Dyspnea: 4. COPD with acute exacerbation: 5. Nicotine addiction: Plan: #1 Right lower lobe community acquired pneumonia - Admit to medical floor with telemetry - Continue initiated antibiotics of ceftriaxone and azithromycin - Treat pneumonia along with associated and underlying COPD exacerbation - Continue with nebulizing treatments of DuoNeb - Supplemental oxygen to continue and with respiratory to assess and treat - Continue steroid therapy, at this time I have initiated Solu-Medrol 60 mg IV every 6 hours antibiotic needs to be tapered at an appropriate time - Continue the high flow oxygen till patient is able to tolerate weaning down on oxygen this patient may need oxygen during the day as opposed to at nighttime only which she was on prior to this hospitalization - I have added Mucinex to loosen this mucus - Gentle hydration with a normal saline at 75 cc an hour to prevent mucosal drying and also not risking volume overload - I am placing an echocardiogram on this patient patient really had a hard time to be treated for the response #2 Acute hypoxic respiratory failure on COPD with exacerbation - Continue care as per above - Continue nebulizing treatment, steroid therapy, supplemental oxygen, antibiotics for associated bronchitis - Monitor for interval improvement #3 Dyspnea - On the care at this time and much improved - Continue to monitor and continue The above #4 Nicotine addiction - Patient has vowed never to smoke cigarettes again - Education on smoking cessation given to the patient for at least 2 to 3 minutes daughter in law at the bedside patient last cigarette smoking was on meaning just 3 days ago #5 GI and DVT prophylaxis in place PDMP PDMP Reviewed: Last Reviewed 12/29/24 21:48 by Jenn Sims MD Attestations 2 Medical Necessity Statement*: Patient rates with acute on chronic COPD exacerbation with much hypoxemic respiratory failure compounded with a right lower lobe pneumonia. Patient does meet admission criteria and does need at least 2 midnights for optimization of care Coding Level of Care Code 47394 Diagnoses Pneumonia J18.9 Acute hypoxic respiratory failure J96.01 Dyspnea R06.00 COPD with acute exacerbation J44.1 Nicotine addiction F17.200 Time Spent (min) 60
--- NOTE | 2024-12-29 20:55 | ECG_ITS ---
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 Measurements Intervals [place] Rate: 83 P: 58 IA: 153 QRS: 22 QRSD: 82 T: 45 QT: 390 QTc: 460 Interpretive Statements SINUS RHYTHM LOW QRS VOLTAGE IN EXTREMITY LEADS [QRS DEFLECTION < 0.5 mV IN LIMB LEADS] MODERATE ST DEPRESSION [0.05+ mV ST DEPRESSION] Heavy baseline artifacts; Need to repeat the study. Compared to ECG 12/29/2024 16:57:09 Low QRS voltage now present ST (T wave) deviation now present Electronically Signed On 01-02-2025 23:35:01 CDT by Archana Fernández M.D. [id number] [id number]
[2024-12-29 21:33] LABS: Lactic Acid level (Lactate) 2.1 mmol/L (0.5-2.2)
[2024-12-29] MEDS: pantoprazole 40 mg SDV IVP (23:42)
[2024-12-29] MEDS: heparin 5,000 unit/mL INJ 1 mL 5000 UNIT SUBCUT (23:43)
[2024-12-29] MEDS: morphine 4 mg/mL SDV 1 mL IVP (23:44)
[2024-12-29] MEDS: methylPREDNISolone sod succ 125 mg/2 mL INJ 60 MG IVP (23:46)
[2024-12-30] VITALS (15 sets, daily range): BP systolic 130–168; BP diastolic 65–80; PULSE 68–82; RESP 15–22; TEMP 36.4–36.8; O2SAT 94–99
--- NOTE | 2024-12-30 00:11 | ECG_ITS ---
[facility] Date: 2024-12-30 Pat Name: Michelle Bradford Department: Room: 252 Gender: Female Developer Evangelist: : 1945 Requested By: Eric Fields Order Number: [id number] Han MD: Archana Fernández M.D. Measurements Intervals [place] Rate: 78 P: 57 VT: 154 QRS: 25 QRSD: 79 T: 47 QT: 397 QTc: 453 Interpretive Statements SINUS RHYTHM Compared to ECG 12/29/2024 20:55:47 ST (T wave) deviation no longer present Electronically Signed On 01-02-2025 23:34:39 CDT by Archana Fernández M.D. [id number]
[2024-12-30 00:38] LABS: Troponin 5 6HR 9.96 ng/L (0-10)
[2024-12-30 01:00] LABS: Troponin 5 6HR Delta -3.04 ng/L (0-12)
[2024-12-30] MEDS: HYDROcodone-acetaminophen 10-325 mg Tablet 1 TAB PO ×4 (02:46→21:38)
[2024-12-30 04:59] LABS: Hematocrit 24.7 % (36-47); Hemoglobin 7.40 g/dL (11.27-16.99); Mean Corpuscular HGB Conc 30.0 g/dL (30-55); Mean Corpuscular Hemoglobin 32.3 pg (27-33); Mean Corpuscular Volume 107.9 fl (85-98); Nucleated Red Blood Cells % 0 %; Platelet Count 237 10^3/cmm (157-399); Red Blood Count 2.29 10^6/uL (3.85-5.65); White Blood Count 4.63 10^3/uL (3.29-11.43)
[2024-12-30 05:24] LABS: Alanine Aminotransferase 12 U/L (0-33); Albumin Level 3.4 g/dL (3.5-5.2); Alkaline Phosphatase 46 U/L (35-105); Anion Gap 17.1 (5-19); Aspartate Amino Transferase 17 U/L (0-32); Blood Urea Nitrogen 30 mg/dL (8-23); Calcium 8.9 mg/dL (8.5-10.5); Carbon Dioxide 19 mmol/L (22-29); Chloride 109 mmol/L (98-107); Globulin 2.7 g/dL (1.3-4.6); Glucose 182 mg/dL (65-115); Magnesium 2.2 mg/dL (1.7-2.3); Osmolality Calculated 301 mOsm/kg (285-295); Potassium 5.1 mmol/L (3.5-5.1); Sodium 140 mmol/L (136-145); Total Protein 6.1 g/dL (6.6-8.7)
[2024-12-30 05:26] LABS: Creatinine Clr Calc Pharmacy 29.2645
[2024-12-30] MEDS: methylPREDNISolone sod succ 125 mg/2 mL INJ 60 MG IVP (06:01)
[2024-12-30] MEDS: heparin 5,000 unit/mL INJ 1 mL 5000 UNIT SUBCUT ×2 (09:09→20:34)
[2024-12-30 09:41] LABS: Estmated Average Glucose 77; Hemoglobin A1C 4.3 % (4.0-6.0)
--- NOTE | 2024-12-30 09:55 | PC.CHAP ---
Pastoral Care Encounter/Spiritual Assessment Type of Contact [] Declined farmer vegetable visit [] Patient/Family/Request visit [] Outpatient visit [] Follow-up visit [] Physician referral [] Code/Alert [x] Routine visit [] Staff referral [] Actively dying [] Patient sleeping [] Family support [] [] Out of room [] Palliative care [] [] Receiving care in room [] Pre-surgical visit [] Trauma [] Long length of stay [] ICU visit [] Other: Relational/Emotional Strength [] Patient feels connected with others/family/visitors/staff [] Distress [] Loneliness/isolation [] Abandonment Spirituality of Patient [x] Person of Miranda [] Attends Druze of their Miranda [x] Believes in Prayer [] Reads Bible or Latter-Day materials [] There are Spiritual issues to be addressed Curtain Worker Interventions [x] Prayer [x] Active listening [] Non-anxious presence [] Spiritual/emotional support [] Crisis/trauma care [] Spiritual counseling [] Bereavement support [] Provided bereavement packet [x] Provided Bible/devotional materials [] Provided toy/stuffed animal, coloring book to patient or family member [] Provided Communion [] Anointing/[place] [] Salvation [x] Completed spiritual assessment [] Other: Impact on Illness or Injury [] Angry [] Fearful [] Anxious [] Often cries [] Exhaustion [] Unable to work [] Unable to attend islam [] Unable to walk/stand [] Unable to read [] Unable to drive [] Unable to eat/drink [] Unable to sleep [] Unable to be with family [] Patient intubated [] Other: Summary Time spent with patient 5 min
--- NOTE | 2024-12-30 11:37 | USCV_ITS ---
Michelle Bradford Age: 79 Gender: F : 1945 Exam Date: 12/30/2024 14:12 Ordering Phys: Jeffrey James MD Technologist: Exam Location: [facility] [place] Indication: cp sob BP: 140 / 80 HR: 74 Rhythm: Sinus Technical Quality: Adequate MEASUREMENTS (Male / Female) Normal Values 2D ECHO LV Diastolic Diameter PLAX 3.8 cm 4.2 - 5.9 / 3.9 - 5.3 cm IVS Diastolic Thickness 1.3 cm 0.6 - 1.0 / 0.6 - 0.9 cm IVS Systolic Thickness 2.0 cm LVPW Diastolic Thickness 1.2 cm 0.6 - 1.0 / 0.6 - 0.9 cm LVPW Systolic Thickness 1.9 cm LVOT Diameter 2.1 cm LV Ejection Fraction 2D Teich 65.0 % LV Ejection Fraction MOD 4C 77.7 % LV Ejection Fraction MOD 2C 67.3 % LV Ejection Fraction 2C AL 68.9 % LA Diameter 3.1 cm RA Systolic Volume 4C AL 35.0 ml RA Systolic Volume 4C MOD 34.1 ml LA Sys Volume AL 40.3 cm cubed LA Sys Volume Index AL 26.0 cm cubed/m squared Aorta at Sinotubular Diameter 3.2 cm IVC Diameter 2.1 cm M-MODE LA Ao Ratio MM 1.4 AV Cusp Separation MM 2.2 cm DOPPLER AV Peak Velocity 192.7 cm/s AV Area Cont Eq vti 2.6 cm squared AV Area Cont Eq pk 2.0 cm squared MV Peak Velocity 130.0 cm/s MV Area PHT 3.0 cm squared Mitral E to A Ratio 0.9 TV Peak Velocity 197.5 cm/s TR Peak Velocity 236.0 cm/s TR Peak Gradient 22.3 mmHg PV Peak Velocity 130.0 cm/s FINDINGS Left Ventricle Normal left ventricular size and systolic function, EF 60-65%. No regional wall motion abnormalities. Grade 1 diastolic dysfunction Right Ventricle Normal right ventricular size and systolic function. Right Atrium Normal right atrial size. Left Atrium Normal left atrial size. Mitral Valve Structurally normal mitral valve. Mild mitral valve regurgitation. Aortic Valve Structurally normal aortic valve. No aortic valve stenosis. Tricuspid Valve Mild tricuspid valve regurgitation. Pulmonary artery systolic pressure is normal Pulmonic Valve Not well visualized Pericardium Normal Aorta Normal in size IVC Appears to be normal CONCLUSIONS LV systolic function is normal with EF of 60-65% Grade 1 diastolic dysfunction Mild mitral valve regurgitation. Mild tricuspid valve regurgitation. Ethan Mcdonnell MD (Electronically Signed) Final Date: 30 December 2024 20:54 S
[2024-12-30] MEDS: sucralfate 1 gm/10 mL Oral Liq UDC PO ×3 (12:12→23:17)
[2024-12-30] MEDS: pantoprazole 40 mg SDV IVP ×2 (12:12→23:17)
[2024-12-30] MEDS: cefepime 1,000 mg SDV 1000 MG IVP ×2 (12:15→23:16)
--- NOTE | 2024-12-30 12:33 | PHA.VACGOAL ---
Vancomycin Goal - Goal Vancomycin Goal:: 15-20 mg/L Vancomycin Indication:: Pneumonia - Therapy Day of therpy:: Day []of [] . Actual body weight (kg): 113 lb 3 oz - Data Labs: WBC 4.63 10^3/uL (3.29-11.43) 12/30/24 03:38 RBC 2.29 10^6/uL (3.85-5.65) L 12/30/24 03:38 Hgb 7.40 g/dL (11.27-16.99) L 12/30/24 03:38 Hct 24.7 % (36-47) L 12/30/24 03:38 MCV 107.9 fl (85-98) H 12/30/24 03:38 MCH 32.3 pg (27-33) 12/30/24 03:38 MCHC 30.0 g/dL (30-55) 12/30/24 03:38 RDW 19.0 % (12.1-15.1) H 12/30/24 03:38 Sodium 140 mmol/L (136-145) 12/30/24 03:38 Potassium 5.1 mmol/L (3.5-5.1) 12/30/24 03:38 Chloride 109 mmol/L (98-107) H 12/30/24 03:38 Carbon Dioxide 19 mmol/L (22-29) L 12/30/24 03:38 Anion Gap 17.1 (5-19) 12/30/24 03:38 BUN 30 mg/dL (8-23) H 12/30/24 03:38 Creatinine 1.3 mg/dL (0.5-0.9) H 12/30/24 03:38 GFR Calculation Not Reportable 12/30/24 03:38 Treatment plan:: new consult Regimen:: 1000 MG PULSE DOSE TROUGH 12/31 1200
[2024-12-30 12:52] LABS: Hematocrit 25.0 % (36-47); Hemoglobin 7.50 g/dL (11.27-16.99); Mean Corpuscular HGB Conc 30.0 g/dL (30-55); Mean Corpuscular Hemoglobin 33.0 pg (27-33); Mean Corpuscular Volume 110.1 fl (85-98); Nucleated Red Blood Cells % 0 %; Platelet Count 239 10^3/cmm (157-399); Red Blood Count 2.27 10^6/uL (3.85-5.65); White Blood Count 10.19 10^3/uL (3.29-11.43)
--- NOTE | 2024-12-30 13:34 | ECG_ITS ---
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 Measurements Intervals [place] Rate: 78 P: 55 IN: 156 QRS: -7 QRSD: 84 T: 8 QT: 384 QTc: 438 Interpretive Statements SINUS RHYTHM POSSIBLE LEFT ATRIAL ENLARGEMENT [-0.1mV P-WAVE IN V1/V2] LOW QRS VOLTAGE IN EXTREMITY LEADS [QRS DEFLECTION < 0.5 mV IN LIMB LEADS] INFERIOR MYOCARDIAL INFARCTION , PROBABLY OLD [40+ ms Q WAVE AND/OR ST/T ABNORMALITY IN II/aVF] Compared to ECG 12/30/2024 00:17:41 Low QRS voltage now present Myocardial infarct finding now present Electronically Signed On 01-02-2025 08:48:51 CDT by Ethan Mcdonnell M.D. [id number]
[2024-12-30 13:42] LABS: Procalcitonin 0.05 ng/mL (0-0.5)
[2024-12-30 14:49] LABS: Troponin(5th) Baseline 9 ng/L (0-10)
[2024-12-30] MEDS: methylPREDNISolone sod succ 125 mg/2 mL INJ 40 MG IVP ×2 (15:28→23:17)
[2024-12-30 15:38] LABS: Troponin 5 2HR 9.03 ng/L (0-10); Troponin 5 2HR Delta 0.03 ABS# (0-10)
--- NOTE | 2024-12-30 16:04 | P.PN_ITS ---
Subjective 2 Subjective: Patient was seen this morning, daughter at bedside, she tells me that roughly 2 weeks ago she saw her research physician she was told that she had a right lower lobe pneumonia was put on antibiotics, however she was not able to tolerate one of the antibiotics, so she really only took 1 dose of the antibiotic, she also tells me that on the , she had an EGD, she denies any nausea any vomiting or any aspiration, no globus sensation, no difficulty swallowing, denies any chest pain, palpitations Vitals/I&O/Wt Last Vital Signs Temp 98.2 F 12/30/24 11:54 Pulse 71 12/30/24 15:14 Resp 20 H 12/30/24 15:14 BP 168/80 12/30/24 11:54 Pulse Ox 97 12/30/24 15:14 O2 Del Method Heated High Flow 12/30/24 15:13 O2 Flow Rate 35 12/30/24 15:14 FiO2 40 12/30/24 15:14 12/30/24 12/30/24 12/30/24 06:59 14:59 22:59 Intake Total 1571.25 / 1571.25 Output Total 800 / 800 Balance 771.25 / 771.25 Weight last 48 hrs Weight 51.341 kg Weight 49.895 kg Weight 49.895 kg Physical Exam 2 Const: COMMON NORMALS: no acute distress and patient oriented x3 Eye: COMMON NORMALS: Equal, round and reactive pupils present PUPIL: Yes Equal, round and reactive pupils present Resp: COMMON NORMALS: normal respiratory effort, No retractions and No use of accessory muscles AUSCULTATION: crackles and wheezes Cardio: COMMON NORMALS: regular rate, regular rhythm, S1 normal heart sound present and S2 normal heart sound present RATE: regular rate RHYTHM: r egular rhythm HEART SOUNDS: S1 normal heart sound present and S2 normal heart sound present GI: COMMON NORMALS: Normal to inspection, nondistended, normoactive bowel sounds present Extremity: NARRATIVE EXTREMITY EXAM: No pitting edema Neuro: COMMON NORMALS: patient oriented x3 Psych: COMMON NORMALS: mental status grossly normal Data 12/30/24 12:35 12/30/24 03:38 Micro: Microbiology 12/29/24 19:32 Blood Culture - Preliminary Blood SPECIMEN COLLECTED 12/29/24 17:41 Blood Culture - Preliminary Blood SPECIMEN COLLECTED A&P Assessment and plan 1. Pneumonia: 2. Acute hypoxic respiratory failure: 3. Dyspnea: 4. COPD with acute exacerbation: 5. Nicotine addiction: Plan: #1 Acute hypoxic respiratory failure -Multifactorial -Right lower lobe pneumonia -COPD exacerbation -Currently requiring heated high flow 40 L, 40% Plan -Monitor respiratory status closely -DuoNeb -Budesonide -Sputum culture -Blood culture -Vancomycin -Cefepime - Solu-Medrol 40 mg IV every 8 hours -Appears euvolemic stop IV fluids -cardiac echo -Serial EKGs, serial troponins, telemetry monitoring # smoking cessation counseling # Acute on chronic anemia - Hemoglobin 7.5 - Recheck iron levels, ferritin, - Recent history of EGD - Protonix, Carafate #5 GI and DVT prophylaxis in place PDMP PDMP Reviewed: Not Reviewed Attestations 2 Medical Necessity Statement*: Patient requires hospitalization for acute hypoxic respiratory failure secondary right lower lobe pneumonia, COPD, requiring heated high flow and High MDM includes number and complexity of problems actively addressed during encounter, amount and/or complexity of data reviewed/ordered and described risk of complication, morbidity or mortality of management as documented Diagnoses Pneumonia J18.9 Acute hypoxic respiratory failure J96.01 Dyspnea R06.00 COPD with acute exacerbation J44.1 Nicotine addiction F17.200
[2024-12-30 16:56] LABS: Ferritin 163 ng/mL (15-150); Iron 59 ug/dL (37-145); Total Iron Binding Capacity 236 mcg/dl; Unsaturated Iron Binding 177 ug/dL (112-347)
--- NOTE | 2024-12-30 17:17 | ECG_ITS ---
[facility] Test Date: 2024-12-30 Pat Name: Michelle Bradford Department: Room: 252 Gender: Female Binding Nicker: : 1945 Requested By: Jeffrey James Order Number: [id number] Emely MD: Ethan Mcdonnell M.D. Measurements Intervals [place] Rate: 73 P: 63 [place]: 158 QRS: 10 QRSD: 87 T: 31 QT: 388 QTc: 428 Interpretive Statements SINUS RHYTHM Compared to ECG 12/30/2024 13:57:50 Myocardial infarct finding no longer present Electronically Signed On 01-02-2025 09:02:36 CDT by Ethan Mcdonnell M.D. [id number]
--- NOTE | 2024-12-30 18:25 | PC.NURSE ---
Patient was questioning why we were obtaining blood glucose as she is not diabetic and never has been . I reviewed her chart and didn't find a significant history, so I spoke with Dr. James and inquired and informed him I didn't see a current A1C result. He provided a verbal order for A1C to be obtained with her morning labs on 12/31 and stated that we would continue to monitor blood glucose d/t high doses of steroids. Order placed per policy and I informed patient and her family at bedside of this.
[2024-12-30 19:11] LABS: Troponin 5 6HR 9.40 ng/L (0-10); Troponin 5 6HR Delta 0.40 ng/L (0-12)
--- NOTE | 2024-12-30 21:23 | ECG_ITS ---
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 Measurements Intervals [place] Rate: 70 P: 61 MD: 157 QRS: 8 QRSD: 78 T: 39 QT: 399 QTc: 431 Interpretive Statements SINUS RHYTHM LOW QRS VOLTAGE IN EXTREMITY LEADS [QRS DEFLECTION < 0.5 mV IN LIMB LEADS] Compared to ECG 12/30/2024 17:17:37 Low QRS voltage now present Electronically Signed On 01-02-2025 09:02:19 CDT by Ethan Mcdonnell M.D. [id number]
[2024-12-30 21:50] LABS: Hematocrit 24.9 % (36-47); Hemoglobin 7.80 g/dL (11.27-16.99)
[2024-12-31] VITALS (13 sets, daily range): BP systolic 126–157; BP diastolic 64–75; PULSE 52–86; RESP 16–18; TEMP 36.7–36.8; O2SAT 93–97
[2024-12-31] MEDS: sucralfate 1 gm/10 mL Oral Liq UDC PO ×4 (05:21→23:21)
[2024-12-31 06:02] LABS: Estmated Average Glucose 77; Hemoglobin A1C 4.3 % (4.0-6.0)
[2024-12-31] MEDS: heparin 5,000 unit/mL INJ 1 mL 5000 UNIT SUBCUT ×2 (08:11→22:37)
[2024-12-31] MEDS: HYDROcodone-acetaminophen 10-325 mg Tablet 1 TAB PO ×3 (08:11→22:38)
[2024-12-31] MEDS: methylPREDNISolone sod succ 125 mg/2 mL INJ 40 MG IVP ×3 (08:12→23:20)
[2024-12-31 09:25] LABS: Hematocrit 27.4 % (36-47); Hemoglobin 8.40 g/dL (11.27-16.99); Mean Corpuscular HGB Conc 30.7 g/dL (30-55); Mean Corpuscular Hemoglobin 33.7 pg (27-33); Mean Corpuscular Volume 110.0 fl (85-98); Nucleated Red Blood Cells % 0 %; Platelet Count 262 10^3/cmm (157-399); Red Blood Count 2.49 10^6/uL (3.85-5.65); White Blood Count 11.99 10^3/uL (3.29-11.43)
[2024-12-31 09:47] LABS: Alanine Aminotransferase 14 U/L (0-33); Albumin Level 3.7 g/dL (3.5-5.2); Alkaline Phosphatase 47 U/L (35-105); Anion Gap 16.7 (5-19); Aspartate Amino Transferase 14 U/L (0-32); Blood Urea Nitrogen 31 mg/dL (8-23); Calcium 9.6 mg/dL (8.5-10.5); Carbon Dioxide 21 mmol/L (22-29); Chloride 108 mmol/L (98-107); Creatinine Clr Calc Pharmacy 29.3602; Globulin 2.8 g/dL (1.3-4.6); Glucose 126 mg/dL (65-115); Osmolality Calculated 300 mOsm/kg (285-295); Potassium 4.7 mmol/L (3.5-5.1); Sodium 141 mmol/L (136-145); Total Protein 6.5 g/dL (6.6-8.7)
[2024-12-31] MEDS: cefepime 1,000 mg SDV 1000 MG IVP ×2 (12:28→23:21)
[2024-12-31] MEDS: pantoprazole 40 mg SDV IVP ×2 (12:28→23:21)
[2024-12-31] MEDS: vancomycin 500 MG in sodium chloride 0.9% (plus) 100 ML 200 MG IV (16:19)
--- NOTE | 2024-12-31 16:53 | P.PN_ITS ---
Subjective 2 Subjective: Patient was seen this morning, currently alert oriented x 3, following commands, denies any fevers, chills, does have a cough, does have shortness of breath, does have generalized weakness Vitals/I&O/Wt Last Vital Signs Temp 98.2 F 12/31/24 15:42 Pulse 86 12/31/24 15:42 Resp 18 12/31/24 15:42 BP 126/64 12/31/24 15:42 Pulse Ox 95 12/31/24 15:42 O2 Del Method Nasal Cannula 12/31/24 15:42 O2 Flow Rate 2 12/31/24 15:17 FiO2 40 12/30/24 15:14 12/31/24 12/31/24 12/31/24 06:59 14:59 22:59 Intake Total 600 / 600 100 / 700 Output Total 500 / 500 Balance 100 / 100 100 / 200 Weight last 48 hrs Weight 51.766 kg Weight 51.341 kg Weight 49.895 kg Weight 49.895 kg Physical Exam 2 Const: COMMON NORMALS: no acute distress and patient oriented x3 Resp: COMMON NORMALS: normal respiratory effort, No retractions and No use of accessory muscles AUSCULTATION: crackles and wheezes Cardio: COMMON NORMALS: regular rate, regular rhythm, S1 normal heart sound present and S2 normal heart sound present RATE: regular rate RHYTHM: r egular rhythm HEART SOUNDS: S1 normal heart sound present and S2 normal heart sound present GI: COMMON NORMALS: Normal to inspection, nondistended, normoactive bowel sounds present and non-tender Extremity: COMMON NORMALS: no calf tenderness and no pedal edema Neuro: COMMON NORMALS: patient oriented x3 Psych: COMMON NORMALS: mental status grossly normal Data 12/31/24 09:15 12/31/24 09:15 Micro: Microbiology 12/29/24 19:32 Blood Culture - Preliminary Blood NEGATIVE TO DATE 12/29/24 17:41 Blood Culture - Preliminary Blood NEGATIVE TO DATE A&P Assessment and plan 1. Pneumonia: 2. Acute hypoxic respiratory failure: 3. Dyspnea: 4. COPD with acute exacerbation: 5. Nicotine addiction: Plan: #1 Acute hypoxic respiratory failure -Multifactorial -Right lower lobe pneumonia -COPD exacerbation -Currently requiring 4 L nasal cannula Plan -Monitor respiratory status closely -DuoNeb -Budesonide -Sputum culture -Blood culture -Vancomycin -Cefepime - Solu-Medrol 40 mg IV every 8 hours -Appears euvolemic stop IV fluids -cardiac echo CONCLUSIONS LV systolic function is normal with EF of 60-65% Grade 1 diastolic dysfunction Mild mitral valve regurgitation. Mild tricuspid valve regurgitation. -Serial EKGs, serial troponins, telemetry monitoring # smoking cessation counseling # Acute on chronic anemia - Hemoglobin 8.4 - Recheck iron levels 59, ferritin 163, - Recent history of EGD - Protonix, Carafate #5 GI and DVT prophylaxis in place PDMP PDMP Reviewed: Not Reviewed Attestations 2 Medical Necessity Statement*: Patient requires hospitalization for acute hypoxic respiratory failure secondary to right lower lobe pneumonia, COPD Diagnoses Pneumonia J18.9 Acute hypoxic respiratory failure J96.01 Dyspnea R06.00 COPD with acute exacerbation J44.1 Nicotine addiction F17.200
[2024-12-31 17:52] LABS: Hematocrit 27.4 % (36-47); Hemoglobin 8.10 g/dL (11.27-16.99)
[2025-01-01] MEDS: sucralfate 1 gm/10 mL Oral Liq UDC PO ×2 (05:10→11:59)
[2025-01-01 05:35] VITALS: BP 135/75; PULSE 77; RESP 15; TEMP 36.6; O2SAT 93
[2025-01-01] MEDS: HYDROcodone-acetaminophen 10-325 mg Tablet 1 TAB PO (07:42)
[2025-01-01 08:12] VITALS: BP 140/68; PULSE 74; RESP 17; TEMP 36.8; O2SAT 97
[2025-01-01 08:46] LABS: Hematocrit 27.5 % (36-47); Hemoglobin 8.10 g/dL (11.27-16.99); Mean Corpuscular HGB Conc 29.5 g/dL (30-55); Mean Corpuscular Hemoglobin 33.6 pg (27-33); Mean Corpuscular Volume 114.1 fl (85-98); Nucleated Red Blood Cells % 0 %; Platelet Count 249 10^3/cmm (157-399); Red Blood Count 2.41 10^6/uL (3.85-5.65); White Blood Count 8.71 10^3/uL (3.29-11.43)
[2025-01-01] MEDS: methylPREDNISolone sod succ 125 mg/2 mL INJ 40 MG IVP (08:47)
[2025-01-01 08:59] VITALS: PULSE 82; RESP 18; O2SAT 92
[2025-01-01] MEDS: heparin 5,000 unit/mL INJ 1 mL 5000 UNIT SUBCUT (09:01)
--- NOTE | 2025-01-01 09:02 | PC.SOCIAL ---
IMM Updated Updated pt on IMM. No questions voiced. Provided pt a copy. Initialed, dated, & timed a copy & placed in chart.
[2025-01-01 09:07] VITALS: PULSE 84
--- NOTE | 2025-01-01 10:30 | P.DS_ITS ---
Discharge Providers Date of Admission: 12/29/24 20:52 Date of Discharge: January 01, 2025 Attending Provider at Admission: Jenn Sims MD Attending Provider at Discharge: Jeffrey James MD Primary Care Provider: Kerwin Jordan MD Diagnoses at Discharge Discharge Diagnosis 1. Pneumonia: 2. Acute hypoxic respiratory failure: 3. Dyspnea: 4. COPD with acute exacerbation: 5. Nicotine addiction: Reason for Visit Reason for Visit: sob Hospital Course Hospital Course This is a 79-year-old male with a past medical history of COPD, history of smoking, GERD, who presents [facility] for shortness of breath This is a 79-year-old female with a past medical history of acute hypoxic respiratory failure, right lower lobe pneumonia, COPD exacerbation, requiring heated high flow, requiring inpatient monitoring, IV antibiotics, IV steroids. Overall patient's clinical condition improved, oxygen was weaned to 2 L, will be discharged on a prednisone taper, oral antibiotics with close follow-up with primary care provider as outpatient, patient was advised to continue smoking cessation For acute on chronic anemia, hemoglobin discharge 8.1, follow-up with hematology and oncology as outpatient for consideration of bone marrow biopsy Physical Exam Const: COMMON NORMALS: no acute distress and patient oriented x3 Resp: COMMON NORMALS: normal respiratory effort, No retractions, No use of accessory muscles and clear to auscultation bilaterally AUSCULTATION: clear to auscultation bilaterally Cardio: COMMON NORMALS: regular rate, regular rhythm, S1 normal heart sound present and S2 normal heart sound present RATE: regular rate RHYTHM: regular rhythm HEART SOUNDS: S1 normal heart sound present and S2 normal heart sound present GI: COMMON NORMALS: Normal to inspection, nondistended, normoactive bowel sounds present and non-tender Extremity: COMMON NORMALS: no pedal edema Neuro: COMMON NORMALS: patient oriented x3 Psych: COMMON NORMALS: mental status grossly normal Discharge Data Studies Completed and Pending Completed Studies During Hospitalization Category Date Time Status CT angio chest PE protcl [id number] Urgent Cat Scan 12/29/24 18:49 Completed XR chest 1V portable [id number] Stat Exams 12/29/24 16:55 Completed CV. echo complete* [id number] Routine Ultrasound 12/30/24 11:37 Completed Pending at discharge Category Date Time Status Blood Culture Stat Lab 12/29/24 19:32 Results Occult Blood Stool [Immunochemical Fecal OCB] Routine Lab 12/30/24 16:17 Uncollected Sputum Culture and Gram Stain Stat Lab 12/30/24 08:43 Uncollected Vancomycin Trough Timed Lab 01/01/25 13:00 Ordered Radiology Impressions Chest X-Ray 12/29/24 16:55 IMPRESSION: Trace right pleural effusion. Lungs otherwise clear. Chest CTA 12/29/24 18:49 IMPRESSION: 1. Right lower lobe consolidation and scattered centrilobular nodules compatible with pneumonia and bronchiolitis. 2. No pulmonary emboli. Laboratory Results WBC 8.71 10^3/uL (3.29-11.43) 01/01/25 08:35 RBC 2.41 10^6/uL (3.85-5.65) L 01/01/25 08:35 Hgb 8.10 g/dL (11.27-16.99) L 01/01/25 08:35 Hct 27.5 % (36-47) L 01/01/25 08:35 MCV 114.1 fl (85-98) H 01/01/25 08:35 MCH 33.6 pg (27-33) H 01/01/25 08:35 MCHC 29.5 g/dL (30-55) L 01/01/25 08:35 RDW 19.1 % (12.1-15.1) H 01/01/25 08:35 Plt Count 249 10^3/cmm (157-399) 01/01/25 08:35 MPV 9.2 fL (7.4-10.4) 01/01/25 08:35 Neut % (Auto) 90.3 % 01/01/25 08:35 Lymph % (Auto) 6.2 % 01/01/25 08:35 [place] % (Auto) 3.0 % 01/01/25 08:35 Eos % (Auto) 0.0 % 01/01/25 08:35 Baso % (Auto) 0.0 % 01/01/25 08:35 Neut # (Auto) 7.87 10^3/uL (1.8-7.7) H 01/01/25 08:35 Lymph # (Auto) 0.5 10^3/uL (0.8-4.8) L 01/01/25 08:35 [place] # (Auto) 0.3 10^3/uL (0.2-0.9) 01/01/25 08:35 Eos # (Auto) 0.0 10^3/uL (0.0-0.8) 01/01/25 08:35 Baso # (Auto) 0.0 10^3/uL (0.0-0.1) 01/01/25 08:35 Nucleated RBC % (auto) 0 % 01/01/25 08:35 Nucleated RBCs # 0.0 /100WBC 01/01/25 08:35 Haptoglobin 187.0 mg/L (30-200) 12/30/24 12:35 D-Dimer 1.97 ug/mLFEU (0-0.59) H 12/29/24 17:41 Sodium 141 mmol/L (136-145) 12/31/24 09:15 Potassium 4.7 mmol/L (3.5-5.1) 12/31/24 09:15 Chloride 108 mmol/L (98-107) H 12/31/24 09:15 Carbon Dioxide 21 mmol/L (22-29) L 12/31/24 09:15 Anion Gap 16.7 (5-19) 12/31/24 09:15 BUN 31 mg/dL (8-23) H 12/31/24 09:15 Creatinine 1.3 mg/dL (0.5-0.9) H 12/31/24 09:15 GFR Calculation Not Reportable 12/31/24 09:15 Glucose 126 mg/dL (65-115) H 12/31/24 09:15 POC Glucose 141 mg/dL (70-110) H 12/30/24 11:45 Estimat Average Glucose 77 12/30/24 12:35 Hemoglobin A1c 4.3 % (4.0-6.0) 12/30/24 12:35 Calculated Osmolality 300 mOsm/kg (285-295) H 12/31/24 09:15 Lactic Acid 3.4 mmol/L (0.5-2.2) H 12/29/24 17:41 Lactic Acid (Sepsis) 2.1 mmol/L (0.5-2.2) 12/29/24 20:55 Calcium 9.6 mg/dL (8.5-10.5) 12/31/24 09:15 Phosphorus 2.2 mg/dL (2.5-4.5) L 12/30/24 03:38 Magnesium 2.2 mg/dL (1.7-2.3) 12/30/24 03:38 Iron 59 ug/dL (37-145) 12/30/24 12:35 TIBC 236 mcg/dl 12/30/24 12:35 % Saturation 25.0 % (20-50) 12/30/24 12:35 Unsat Iron Binding 177 ug/dL (112-347) 12/30/24 12:35 Ferritin 163 ng/mL (15-150) H 12/30/24 12:35 Total Bilirubin 0.3 mg/dL (0.15-1.2) 12/31/24 09:15 AST 14 U/L (0-32) 12/31/24 09:15 ALT 14 U/L (0-33) 12/31/24 09:15 Alkaline Phosphatase 47 U/L (35-105) 12/31/24 09:15 Lactate Dehydrogenase 161 U/L (135-214) 12/30/24 12:35 Troponin T Baseline 9 ng/L (0-10) 12/30/24 12:35 Troponin T 120 Minute 9.03 ng/L (0-10) 12/30/24 14:53 Delta Troponin T 0.03 ABS# (0-10) 12/30/24 14:53 Troponin T Hi Sens 6Hr 9.40 ng/L (0-10) 12/30/24 18:34 Troponin T Hi Sens 6Hr Delta 0.40 ng/L (0-12) 12/30/24 18:34 C-Reactive Protein 3.0 mg/L (0.0-4.9) 12/30/24 12:35 NT-Pro-B Natriuret Pep 551 pg/mL (0-450) H 12/29/24 18:55 Total Protein 6.5 g/dL (6.6-8.7) L 12/31/24 09:15 Albumin 3.7 g/dL (3.5-5.2) 12/31/24 09:15 Globulin 2.8 g/dL (1.3-4.6) 12/31/24 09:15 Procalcitonin 0.05 ng/mL (0-0.5) 12/30/24 12:35 Vancomycin Trough 8.2 ug/mL (10-15) L 12/31/24 12:02 Influenza A (PCR) Negative (Negative) 12/29/24 18:26 Influenza Type B (PCR) Negative (Negative) 12/29/24 18:26 RSV (PCR) Negative (Negative) 12/29/24 18:26 SARS-CoV-2 (PCR) Negative (Negative) 12/29/24 18:26 Vitals Last Vital Signs Temp 98.2 F 01/01/25 08:12 Pulse 84 01/01/25 09:07 Resp 18 01/01/25 08:59 BP 140/68 01/01/25 08:12 Pulse Ox 92 01/01/25 08:59 O2 Del Method Nasal Cannula 01/01/25 08:59 O2 Flow Rate 2 01/01/25 08:59 FiO2 40 12/30/24 15:14 Discharge Plan Discharge Patient Disposition: Home Condition: Stable Prescriptions: New doxycycline hyclate 100 mg tablet 100 mg PO BID 7 Days Qty: 14 0RF prednisone 10 mg tablet See Rx Instructions .ROUTE .COMPLEX Qty: 53 0RF Rx Instructions: 40mg(4 tabs) for 5 days, 30mg(3 tabs) for 5 days, 20mg(2tabs) for 5 days, 10mg(1tab) for 5 days, 5mg(0.5tab) for 5 days Continued albuterol sulfate 90 mcg/actuation HFA aerosol inhaler 2 puff INHALATION 6XD PRN (Reason: Shortness Of Breath Or Wheezing) atorvastatin 40 mg tablet 40 mg PO BEDTIME pantoprazole [Protonix] 40 mg tablet,delayed release (DR/EC) 40 mg PO BID furosemide [Lasix] 20 mg tablet 20 mg PO DAILY PRN (Reason: Edema) citalopram 40 mg tablet 40 mg PO DAILY Qty: 90 1RF hydrocodone-acetaminophen 10-325 mg tablet 1 tab PO Q6H PRN (Reason: Pain) 30 Days Qty: 120 0RF Rx Instructions: Do not fill until 11/13/2024 alprazolam 0.25 mg tablet 0.25 mg PO QDAY PRN (Reason: anxiety) Qty: 30 0RF Rx Instructions: Do not fill until 11/13/2024 budesonide-formoterol [Symbicort] 160-4.5 mcg/actuation HFA aerosol inhaler 2 puff inhalation BID tizanidine 4 mg tablet 4 mg PO DAILY PRN (Reason: Muscle Pain) Qty: 60 1RF potassium chloride 10 mEq tablet extended release 10 meq PO DAILY PRN (Reason: with lasix) Qty: 90 1RF oxybutynin chloride 2.5 mg tablet 2.5 mg PO DAILY Qty: 30 1RF gabapentin 300 mg capsule 300 mg PO BID calcitriol 0.25 mcg capsule 0.25 mcg PO Q7D aspirin 81 mg Tablet,Delayed Release (Dr/Ec) 81 mg PO DAILY vitamin [id number] acid 0.5-1 mg Tablet 1 tab PO DAILY Spiriva Respimat 2.5 mcg/actuation mist 2 puff INHALATION DAILY fluorouracil [Efudex] 5 % cream 1 applic topical DAILY PRN (Reason: Outbreak) melatonin 5 mg Tablet 5 mg PO BEDTIME PRN (Reason: Insomnia) Held leflunomide 20 mg tablet 20 mg PO DAILY Qty: 90 1RF Hold Instructions: Resume on 01/15/25. hold for 2 weeks, until you see rheumatology sulfasalazine 500 mg tablet 500 mg PO DAILY Hold Instructions: Resume on 01/15/25. hold until you see rheumatology Rx Instructions: TAKE 1 TABLET BY MOUTH EVERY DAY Discontinued prednisone 20 mg tablet 40 mg PO DAILY Discharge Order = DC NOW: Discharge Order (Routine); Ordered 01/01/25 Ordered By: Jeffrey James Referrals: Naina Kitchen MD [Hospitalist, Oncology] - 1-3 days Referral Note: anemia, bone marrow pathology Kerwin Jordan MD [Primary Care Provider, Family Practice] Discharge Diet: Cardiac Discharge Activity: Resume usual activity Patient Instructions: Opioid Safety, Pain Management, Patient Portal & Brian Instructions Activity Restrictions/Additional Instructions: -hold sulfasalazine, leflunomide - Take prednisone as prescribed - Take antibiotics as prescribed Discharge Attestations Time Spent in Discharge Care*: greater than 30 min Quality Metrics Clinical Quality Measures [ No reported AMI, CVA or VTE this stay] Coding Level of Care Code 48317 Total time (in minutes) for Discharge: 45 Diagnoses Pneumonia J18.9 Acute hypoxic respiratory failure J96.01 Dyspnea R06.00 COPD with acute exacerbation J44.1 Nicotine addiction F17.200
[2025-01-01] MEDS: FLU VACC TS2025-26(6MOS UP)/PF 45 MCG/0.5 ML SYRINGE IM (12:00)
[2025-01-01 12:15] VITALS: BP 144/62; PULSE 83; RESP 18; TEMP 36.7; O2SAT 92
[2025-01-01 13:19] VITALS: BP 144/62; PULSE 83; O2SAT 92
== END 2025-01-01 13:19 | disposition home or self-care (01) | DRG 193 ==
LOC: ER 20:42 → MEDSURG 21:27
PROVIDERS: Emergency Medicine; Admitting Provider Internal Medicine; Emergency Provider Emergency Medicine; PCP Family Medicine; Visit Provider Family Medicine
DX: J18.9 Pneumonia, unspecified organism (principal); J96.21 Acute and chronic respiratory failure with hypoxia; J44.1 Chronic obstructive pulmonary disease with (acute) exacerbation; J44.0 Chronic obstructive pulmonary disease with (acute) lower respiratory infection; F17.210 Nicotine dependence, cigarettes, uncomplicated; Z79.82 Long term (current) use of aspirin; Z79.51 Long term (current) use of inhaled steroids; Z79.02 Long term (current) use of antithrombotics/antiplatelets; F41.9 Anxiety disorder, unspecified; E78.5 Hyperlipidemia, unspecified; Z90.49 Acquired absence of other specified parts of digestive tract; Z90.710 Acquired absence of both cervix and uterus; D64.89 Other specified anemias; K21.9 Gastro-esophageal reflux disease without esophagitis; M79.7 Fibromyalgia; M81.0 Age-related osteoporosis without current pathological fracture; M05.9 Rheumatoid arthritis with rheumatoid factor, unspecified
CPT/HCPCS: 36415; 36416; 71045; 71275; 80053; 80202; 82728; 82962; 83010; 83036; 83540; 83550; 83605; 83615; 83735; 83880; 84100; 84145; 84484; 85014; 85018; 85025; 85378; 86140; 87040; 87637; 90471; 90656; 92610; 93005; 93306; 94640; 96365; 96372; 96375; 96376; 99285; J0456; J0692; J0696; J1644; J2060; J2270; J2470; J2919; J3373; J7030; J7050; J7613; J9999

== ENCOUNTER → 2025-01-15 13:18 | Outpatient (BNVA) | payer MEDICARE, SELFPAY | PROVIDERS: PCP Family Medicine; Visit Provider Surgery | DX: Z09 Encounter for follow-up examination after completed treatment for conditions other than malignant neoplasm (principal) | CPT/HCPCS: 99213 ==

== ENCOUNTER 2025-01-20 08:02 | Oncology outpatient (recurring) (ONCR) | payer MEDICARE, SELFPAY ==
[2025-01-06 11:55] LABS: Hematocrit 29.5 % (36-47); Hemoglobin 8.80 g/dL (11.27-16.99); Mean Corpuscular HGB Conc 29.8 g/dL (30-55); Mean Corpuscular Hemoglobin 33.3 pg (27-33); Mean Corpuscular Volume 111.7 fl (85-98); Nucleated Red Blood Cells % 0 %; Platelet Count 265 10^3/cmm (157-399); Red Blood Count 2.64 10^6/uL (3.85-5.65); White Blood Count 7.59 10^3/uL (3.29-11.43)
[2025-01-06 12:01] LABS: LAB Peripheral Smear Sent for Review
[2025-01-06 12:17] LABS: Alanine Aminotransferase 20 U/L (0-33); Albumin Level 4.3 g/dL (3.5-5.2); Alkaline Phosphatase 54 U/L (35-105); Blood Urea Nitrogen 43 mg/dL (8-23); Calcium 11.0 mg/dL (8.5-10.5); Carbon Dioxide 22 mmol/L (22-29); Chloride 106 mmol/L (98-107); Creatinine Clr Calc Pharmacy 28.6323; Ferritin 140 ng/mL (15-150); Globulin 2.9 g/dL (1.3-4.6); Glucose 90 mg/dL (65-115); Iron 97 ug/dL (37-145); Osmolality Calculated 302 mOsm/kg (285-295); Sodium 141 mmol/L (136-145); Total Protein 7.2 g/dL (6.6-8.7)
[2025-01-06 12:25] LABS: Anion Gap 17.7 (5-19); Potassium 4.7 mmol/L (3.5-5.1); Total Iron Binding Capacity 335 mcg/dl; Unsaturated Iron Binding 238 ug/dL (112-347)
[2025-01-06 12:26] LABS: Aspartate Amino Transferase 26 U/L (0-32)
[2025-01-06 13:18] LABS: Vitamin B12 > 2000 pg/mL (232-1245)
[2025-01-07 06:24] LABS: PROTEIN, TOTAL 6.8 g/dL (6.1-8.1)
[2025-01-07 19:45] LABS: ALPHA 1 GLOBULIN 0.3 g/dL (0.2-0.3); ALPHA 2 GLOBULIN 1.0 g/dL (0.5-0.9); BETA 1 GLOBULIN 0.5 g/dL (0.4-0.6); BETA 2 GLOBULIN 0.3 g/dL (0.2-0.5)
--- NOTE | 2025-01-17 12:11 | PC.NURSE ---
This patient came in to have labs drawn. This nurse did 3 attempts on her as well as Hemant Llanes RN without any success. Patient is returning on Monday to have labs drawn again. Patient also feels that she may need a blood transfusion. Hemant Llanes RN and this nurse let the patient know that if she feels worse over the weekend to go to the ER. Patient also advised to keep very hydrated from now until Monday. Patient had no other questions or concerns.
[2025-01-20] VITALS (10 sets, daily range): BP systolic 113–154; BP diastolic 58–84; PULSE 73–87; RESP 17–18; TEMP 36.2–37.3; O2SAT 91–98
[2025-01-20 08:45] LABS: Hematocrit 25.0 % (36-47); Hemoglobin 7.40 g/dL (11.27-16.99); Mean Corpuscular HGB Conc 29.6 g/dL (30-55); Mean Corpuscular Hemoglobin 33.2 pg (27-33); Mean Corpuscular Volume 112.1 fl (85-98); Nucleated Red Blood Cells % 0.3 %; Platelet Count 191 10^3/cmm (157-399); Red Blood Count 2.23 10^6/uL (3.85-5.65); White Blood Count 6.89 10^3/uL (3.29-11.43)
[2025-01-20 09:07] LABS: Alanine Aminotransferase 13 U/L (0-33); Albumin Level 4.0 g/dL (3.5-5.2); Alkaline Phosphatase 41 U/L (35-105); Anion Gap 14.4 (5-19); Aspartate Amino Transferase 14 U/L (0-32); Blood Urea Nitrogen 35 mg/dL (8-23); Calcium 9.6 mg/dL (8.5-10.5); Carbon Dioxide 27 mmol/L (22-29); Chloride 99 mmol/L (98-107); Creatinine Clr Calc Pharmacy 22.0517; Globulin 2.3 g/dL (1.3-4.6); Glucose 89 mg/dL (65-115); Osmolality Calculated 289 mOsm/kg (285-295); Potassium 4.4 mmol/L (3.5-5.1); Sodium 136 mmol/L (136-145); Total Protein 6.3 g/dL (6.6-8.7)
[2025-01-20 09:08] LABS: Alanine Aminotransferase 13 U/L (0-33); Albumin Level 4.0 g/dL (3.5-5.2); Alkaline Phosphatase 42 U/L (35-105); Aspartate Amino Transferase 14 U/L (0-32); Globulin 2.4 g/dL (1.3-4.6); Total Protein 6.4 g/dL (6.6-8.7)
[2025-01-21 14:24] LABS: KAPPA LIGHT CHAIN, FREE, SERUM 41.6 mg/L (3.3-19.4); KAPPA/LAMBDA LIGHT CHAINS FREE 2.34 (0.26-1.65); LAMBDA LIGHT CHAIN, FREE, SERU 17.8 mg/L (5.7-26.3)
== END 2025-01-31 23:59 | disposition home or self-care (01) ==
PROVIDERS: Internal Medicine Rheumatology; PCP Family Medicine; Visit Provider Nurse Practitioner Family
DX: D64.9 Anemia, unspecified (principal); Z79.899 Other long term (current) drug therapy
CPT/HCPCS: 36415; 36430; 80053; 80076; 80503; 82306; 82607; 82668; 82728; 82746; 83010; 83540; 83550; 83615; 83883; 83921; 84155; 84165; 85025; 85045; 85651; 86140; 86480; 86850; 86870; 86900; 86920; 99214; J7050; J9999; P9040

== ENCOUNTER 2025-02-03 13:34 | Outpatient (CLI) | payer MEDICARE, SELFPAY ==
--- NOTE | 2025-02-03 13:40 | MM_ITS ---
WS: [id number] BILATERAL 3D TOMOSYNTHESIS DIGITAL SCREENING MAMMOGRAPHY WITH CAD CLINICAL INFORMATION: SCREENING HISTORY: Screening mammogram. No current complaints. COMPARISON: 2023 TECHNIQUE: Bilateral CC and MLO views. FINDINGS: The breasts are composed of heterogeneous fibroglandular density tissue, which can limit the detection of small underlying mass lesions. No suspicious mass, asymmetry, calcifications, or architectural distortion. No evidence of malignancy. Punctate and lucent centered calcifications. Vascular calcifica tions. MM/MM [facility] tomosynthesis [id number] IMPRESSION: DENSITY: The breasts are heterogeneously dense, which may obscure small masses. BI-RADS: 2 - Benign FOLLOW UP: 1 Year Follow-up Recommend return to annual screening mammography.
== END 2025-02-03 13:35 | disposition home or self-care (01) ==
LOC: RAD 13:35
PROVIDERS: PCP Family Medicine; Visit Provider Family Medicine
DX: Z12.31 Encounter for screening mammogram for malignant neoplasm of breast (principal); R92.323 Mammographic fibroglandular density, bilateral breasts; R92.333 Mammographic heterogeneous density, bilateral breasts; R92.1 Mammographic calcification found on diagnostic imaging of breast
CPT/HCPCS: 77063; 77067

== ENCOUNTER 2025-02-20 11:00 | Oncology outpatient (recurring) (ONCR) | payer MEDICARE, SELFPAY ==
[2025-02-11 10:29] LABS: Hematocrit 31.9 % (36-47); Hemoglobin 9.40 g/dL (11.27-16.99); Mean Corpuscular HGB Conc 29.5 g/dL (30-55); Mean Corpuscular Hemoglobin 32.0 pg (27-33); Mean Corpuscular Volume 108.5 fl (85-98); Nucleated Red Blood Cells % 0 %; Platelet Count 294 10^3/cmm (157-399); Red Blood Count 2.94 10^6/uL (3.85-5.65); White Blood Count 8.80 10^3/uL (3.29-11.43)
[2025-02-19 14:50] LABS: Hematocrit 27.2 % (36-47); Hemoglobin 8.10 g/dL (11.27-16.99); Mean Corpuscular HGB Conc 29.8 g/dL (30-55); Mean Corpuscular Hemoglobin 31.4 pg (27-33); Mean Corpuscular Volume 105.4 fl (85-98); Nucleated Red Blood Cells % 0 %; Platelet Count 241 10^3/cmm (157-399); Red Blood Count 2.58 10^6/uL (3.85-5.65); White Blood Count 6.65 10^3/uL (3.29-11.43)
[2025-02-19 15:17] LABS: Ferritin 39 ng/mL (15-150); Iron 28 ug/dL (37-145); Total Iron Binding Capacity 281 mcg/dl; Unsaturated Iron Binding 253 ug/dL (112-347)
[2025-02-20] VITALS (9 sets, daily range): BP systolic 91–124; BP diastolic 58–78; PULSE 77–85; RESP 17–18; TEMP 36.1–37.3; O2SAT 90–97
== END 2025-03-02 23:59 | disposition home or self-care (01) ==
PROVIDERS: Nurse Practitioner Family; PCP Family Medicine; Visit Provider Internal Medicine Medical Oncology
DX: Z53.9 Procedure and treatment not carried out, unspecified reason; D64.9 Anemia, unspecified
CPT/HCPCS: 17110; 36415; 36430; 82728; 83540; 83550; 85025; 86850; 86870; 86900; 86920; 99214; J7050; J9999; P9016

== ENCOUNTER 2025-03-12 11:15 | Outpatient (CLI) | payer MEDICARE, SELFPAY ==
--- NOTE | 2025-03-12 11:25 | XR_ITS ---
WS: [id number] XR chest 2V* [id number] REASON FOR EXAM: COPD exacerbation FINDINGS: Chest is unchanged compared to 12/29/2024. Mild tortuosity and ectasia of the thoracic aorta with normal heart size. Severe flattening of the hemidiaphragms. Multiple areas of lucencies in the mid and upper lung [place] compatible with central lobar emphysema. No acute pulmonary parenchymal or pleural abnormality is identified. Extensive thoracolumbar posterior fusion. XR/XR chest 2V* [id number] IMPRESSION: Severe obstructive lung disease without acute abnormality. Chest stable compare d to the previous examination.
== END 2025-03-12 11:16 | disposition home or self-care (01) ==
PROVIDERS: PCP Family Medicine; Visit Provider Family Medicine
DX: R06.02 Shortness of breath (principal); J44.1 Chronic obstructive pulmonary disease with (acute) exacerbation; I77.810 Thoracic aortic ectasia; J98.6 Disorders of diaphragm; J43.2 Centrilobular emphysema; M43.25 Fusion of spine, thoracolumbar region
CPT/HCPCS: 71046

== ENCOUNTER 2025-03-18 09:00 | Oncology outpatient (recurring) (ONCR) | payer MEDICARE, SELFPAY ==
[2025-03-06 15:08] LABS: Hematocrit 33.7 % (36-47); Hemoglobin 10.30 g/dL (11.27-16.99); Mean Corpuscular HGB Conc 30.6 g/dL (30-55); Mean Corpuscular Hemoglobin 30.0 pg (27-33); Mean Corpuscular Volume 98.3 fl (85-98); Nucleated Red Blood Cells % 0 %; Platelet Count 266 10^3/cmm (157-399); Red Blood Count 3.43 10^6/uL (3.85-5.65); White Blood Count 6.69 10^3/uL (3.29-11.43)
[2025-03-06 16:28] LABS: Alanine Aminotransferase 7 U/L (0-33); Albumin Level 3.5 g/dL (3.5-5.2); Alkaline Phosphatase 69 U/L (35-105); Anion Gap 18.6 (5-19); Aspartate Amino Transferase 17 U/L (0-32); Blood Urea Nitrogen 31 mg/dL (8-23); Calcium 9.4 mg/dL (8.5-10.5); Carbon Dioxide 22 mmol/L (22-29); Chloride 101 mmol/L (98-107); Ferritin 305 ng/mL (15-150); Globulin 4.5 g/dL (1.3-4.6); Glucose 85 mg/dL (65-115); Iron 60 ug/dL (37-145); Osmolality Calculated 290 mOsm/kg (285-295); Potassium 4.6 mmol/L (3.5-5.1); Sodium 137 mmol/L (136-145); Thyroid Stimulating Hormone 2.42 uIU/mL (0.27-4.20); Total Iron Binding Capacity 213 mcg/dl; Total Protein 8.0 g/dL (6.6-8.7); Unsaturated Iron Binding 153 ug/dL (112-347)
[2025-03-10 16:03] LABS: KAPPA LIGHT CHAIN, FREE, SERUM 187.7 mg/L (3.3-19.4); KAPPA/LAMBDA LIGHT CHAINS FREE 1.47 (0.26-1.65); LAMBDA LIGHT CHAIN, FREE, SERU 127.6 mg/L (5.7-26.3)
[2025-03-10 21:18] LABS: Vitamin B1 (Thiamine),Blood 83 nmol/L (78-185)
[2025-03-17 15:03] LABS: Hematocrit 25.3 % (36-47); Hemoglobin 7.60 g/dL (11.27-16.99); Mean Corpuscular HGB Conc 30.0 g/dL (30-55); Mean Corpuscular Hemoglobin 29.8 pg (27-33); Mean Corpuscular Volume 99.2 fl (85-98); Nucleated Red Blood Cells % 0 %; Platelet Count 377 10^3/cmm (157-399); Red Blood Count 2.55 10^6/uL (3.85-5.65); White Blood Count 4.48 10^3/uL (3.29-11.43)
[2025-03-17 16:36] VITALS: BP 111/59; PULSE 90; RESP 20; TEMP 36.6; O2SAT 96
[2025-03-17 17:06] LABS: Alanine Aminotransferase 9 U/L (0-33); Albumin Level 3.5 g/dL (3.5-5.2); Alkaline Phosphatase 60 U/L (35-105); Aspartate Amino Transferase 16 U/L (0-32); Blood Urea Nitrogen 57 mg/dL (8-23); Calcium 8.3 mg/dL (8.5-10.5); Carbon Dioxide 21 mmol/L (22-29); Chloride 106 mmol/L (98-107); Globulin 2.5 g/dL (1.3-4.6); Glucose 235 mg/dL (65-115); Osmolality Calculated 315 mOsm/kg (285-295); Sodium 141 mmol/L (136-145); Total Protein 6.0 g/dL (6.6-8.7)
[2025-03-17 17:15] LABS: Anion Gap 19.1 (5-19); Potassium 5.1 mmol/L (3.5-5.1)
[2025-03-18] VITALS (7 sets, daily range): BP systolic 118–146; BP diastolic 60–78; PULSE 62–84; RESP 16–97; TEMP 23.3–37.1; O2SAT 97–98
== END 2025-04-02 23:59 | disposition home or self-care (01) ==
PROVIDERS: Internal Medicine Medical Oncology; Nurse Practitioner; PCP Family Medicine; Visit Provider Nurse Practitioner Family
DX: D64.9 Anemia, unspecified; Z79.899 Other long term (current) drug therapy; Z53.9 Procedure and treatment not carried out, unspecified reason
CPT/HCPCS: 36415; 36430; 80053; 82306; 82728; 83540; 83550; 83883; 84425; 84443; 85025; 86850; 86870; 86900; 86920; 99214; J7040; J7050; J9999; P9016; P9040